=== PATIENT | male | born 1970 | race Caucasian/White ===

== ENCOUNTER 2021-11-16 18:57 | Inpatient (IN) ==
--- NOTE | 2021-11-16 19:05 | Emergency Department Note ---
History of Present Illness General Chief complaint: Stroke/CVA Symptoms Source: patient and EMS Mode of arrival: EMS Limitations: physical limitation History of Present Illness Provider complaint: possible stroke This is a 51-year-old male brought in by EMS due to concern for possible stroke. While attending a horse show at 6:25 PM patient had the sudden onset of right- sided weakness and facial droop and apparently fell to the ground per bystanders report to EMS. A check of the patient's blood sugar was normal. Given their concern for strokelike symptoms, they did call the emergency room prehospital and a stroke alert was activated. Upon arrival they went directly to CT. Patient does complain of a mild headache, and does have apparent slurred speech in addition. EMS also reports that patient does take Lovenox daily, his last dose was this morning. They do not know why he is anticoagulated. Pt seen during a time of high acuity and national emergency pandemic while wearing PPE. Home Medications Medication Instructions Recorded Confirmed Type amlodipine 5 mg tablet 5 mg PO DAILY 11/16/21 11/16/21 History empagliflozin 25 mg tablet 25 mg PO DAILY 11/16/21 11/16/21 History (Jardiance) enoxaparin 150 mg/mL subcutaneous 120 mg SUBCUT BID 11/16/21 11/16/21 History syringe insulin detemir U-100 100 unit/mL 20 unit SUBCUT DIRECTED 11/16/21 11/16/21 History (3 mL) subcutaneous pen (Levemir FlexTouch U-100 Insulin) levofloxacin 500 mg tablet 500 mg PO DIRECTED PRN 11/16/21 11/16/21 History morphine 15 mg immediate release 15 mg PO Q4 PRN 11/16/21 11/16/21 History tablet morphine 60 mg tablet,extended 60 mg PO Q12 11/16/21 11/16/21 History release pantoprazole 40 mg tablet,delayed 40 mg PO BID 11/16/21 11/16/21 History release paroxetine HCl 20 mg tablet 20 mg PO DAILY 11/16/21 11/16/21 History Allergies Allergy/AdvReac Type Severity Reaction Status Date / Time Penicillins Allergy Hives Verified 11/16/21 20:52 Contrast dye Allergy hives, Uncoded 11/16/21 20:52 fast heart rate Past Med/Surg History Medical History (Updated 11/17/21 @ 01:46 by Alberta Britt DO) Diabetes Hypertension Social History Smoking Status: Never smoker Preferred Language: Maori Feels Safe at Home: Yes Review of Systems See HPI for pertinent positives & negatives. All systems reviewed & are unremarkable except as noted in HPI & below Physical Exam Vital Signs Vital Signs - 24 hr 11/16/21 19:16 11/16/21 19:23 11/16/21 19:42 Temperature 37 C Temperature Source Oral Pulse Rate 59 L Pulse Rate [Apical] 56 L 54 L Pulse Rhythm [Apical] Respiratory Rate 20 18 16 Respiratory Effort / Characteristics Non-Labored Spontaneous Non-Labored Spontaneous Respiratory Depth Normal Normal Respiratory Pattern Blood Pressure 149/75 H Blood Pressure [Right Arm] 132/82 128/80 Blood Pressure Mean 99 Blood Pressure Mean [Right Arm] 98 96 Blood Pressure Position [Right Arm] Semi-fowlers Pulse Oximetry 96 94 94 Oxygen Delivery Method Room Air Room Air Room Air Sepsis Recent Fever Within 48 Hours No Sepsis New/Unexplained Change in Mental Status N/A Sepsis Action Taken by Nursing No Action Required 11/16/21 19:45 11/16/21 20:00 11/16/21 20:15 Temperature Temperature Source Pulse Rate Pulse Rate [Apical] 53 L 54 L 54 L Pulse Rhythm [Apical] Regular Regular Respiratory Rate 16 18 16 Respiratory Effort / Characteristics Non-Labored Spontaneous Non-Labored Spontaneous Respiratory Depth Normal Normal Respiratory Pattern Regular Regular Blood Pressure Blood Pressure [Right Arm] 129/84 118/83 127/79 Blood Pressure Mean Blood Pressure Mean [Right Arm] 99 94 95 Blood Pressure Position [Right Arm] Semi-fowlers Semi-fowlers Pulse Oximetry 96 93 92 Oxygen Delivery Method Room Air Room Air Room Air Sepsis Recent Fever Within 48 Hours Sepsis New/Unexplained Change in Mental Status Sepsis Action Taken by Nursing 11/16/21 20:29 11/16/21 22:06 11/16/21 22:15 Temperature Temperature Source Pulse Rate Pulse Rate [Apical] 54 L 53 L 52 L Pulse Rhythm [Apical] Regular Respiratory Rate 12 18 16 Respiratory Effort / Characteristics Non-Labored Non-Labored Spontaneous Non-Labored Spontaneous Respiratory Depth Normal Normal Normal Respiratory Pattern Blood Pressure Blood Pressure [Right Arm] 113/77 126/66 114/71 Blood Pressure Mean Blood Pressure Mean [Right Arm] 89 86 85 Blood Pressure Position [Right Arm] Semi-fowlers Left Lateral Pulse Oximetry 93 96 94 Oxygen Delivery Method Room Air Room Air Room Air Sepsis Recent Fever Within 48 Hours Sepsis New/Unexplained Change in Mental Status Sepsis Action Taken by Nursing GENERAL: alert, well appearing, well nourished, no distress, non-toxic EYE EXAM: normal conjunctiva, PERRL and EOM's grossly intact, no nystagmus, no gaze deviation OROPHARYNX: no exudate, no erythema, lips, buccal mucosa, and tongue normal and mucous membranes are moist NECK: supple, no nuchal rigidity, no adenopathy, non-tender LUNGS: Clear to auscultation. Normal chest wall mechanics, no w/r/r HEART: no murmurs, S1 normal and S2 normal ABDOMEN: abdomen soft, non-tender, normo-active bowel sounds, no masses, no rebound or guarding. BACK: Back is symmetrical on inspection and there is no deformity, no midline tenderness, no CVA tenderness. SKIN: no rashes and no bruising UPPER EXTREMITIES: upper extremities are grossly normal. nml pulses b/l. RUE with decreased strength compared to LUE. LOWER EXTREMITIES: No pitting edema. nml pulses b/l. RLE weakness, pain with ROM testing. NEURO EXAM: Normal sensorium, cranial nerves II-XII grossly intact, slurred speech noted, right-sided facial droop, strength 3/5 right upper extremity comparison to left which is 5/5, right lower extremity weak also compared to left, mild right upper extremity ataxia, sensation intact; NIHSS 9 Course Course 1909: Discussed with Dr. Carbone [facility]. 1914: Discussed with pt's , [place]. [phone]. 1919: Dr. Carbone reviewing the patient at bedside. 1944: Discussed with Dr. Carbone. Patient is not a candidate for TNKase given his Lovenox use. They do not believe he is a candidate for intervention as well given his IV dye allergy and they do not believe this is a proximal MCA lesion. They are requesting MRA without contrast of the head and neck as soon as possible. 2218: Discussed with Dr. Carbone again. Recommends continuing lovenox therapy and initiation of ASA therapy. 2225: Updated pt's again. Has had DVT's. Does have IVF filter. Administered Medications Discontinued Medications Aspirin (Aspirin Chew 324 Mg) 324 mg PO NOW STA Stop: 11/16/21 22:23 Last Admin: 11/16/21 23:21 Dose: Not Given Documented by: [id number] Aspirin (Aspirin 300 Mg Supp) 300 mg IL ONE ONE Stop: 11/16/21 22:38 Last Admin: 11/16/21 23:20 Dose: 300 mg Documented by: [id number] Morphine Sulfate (Morphine Sulfate 4 Mg/Ml 1 Ml Carp\Vial) 4 mg IV NOW STA Stop: 11/16/21 20:01 Last Admin: 11/16/21 20:07 Dose: 4 mg Documented by: [id number] Morphine Sulfate (Morphine Sulfate 4 Mg/Ml 1 Ml Carp\Vial) 4 mg IV NOW STA Stop: 11/16/21 22:11 Last Admin: 11/16/21 22:15 Dose: 4 mg Documented by: [id number] Critical Care Time Critical Care Time: Yes Total Critical Care Time: 65 Critical care of 65 min performed to assess and manage high likelihood of life- threatening CVA, involving labs and imaging performed with assessment to evaluate cva diagnosis with frequent reassessment. This time includes bedside time, treatment discussions with patient/family/consultants, documentation time and excludes procedure time. Medical Decision Making Differential Diagnosis Differential Diagnosis includes but is not limited to ischemic Stroke, hemorrha gic stroke, bells palsy, mass, neoplasm, migraine headache, seizure, subarachnoid hemorrhage, TIA, and transient global amnesia. Laboratory Data Result diagrams: 11/16/21 19:10 11/16/21 19:10 Lab Results 11/16/21 11/16/21 11/16/21 Range/Units 19:09 19:10 19:10 WBC 10.90 H (4.8-10.8) K/uL RBC 4.90 (4.7-6.1) M/uL Hgb 13.5 L (14.0-18.0) g/dL Hct 41.2 L (42-52) % MCV 84.1 (80-100) fL MCH 27.6 (25-34) pg MCHC 32.8 (32-36) g/dL RDW Std Deviation 52.2 H (36.4-46.3) fL RDW Coeff of Osbaldo 16.8 H (11.5-14.5) % Plt Count 322 (130-400) K/uL MPV 11.2 H (7.4-10.4) fL Immature Gran % (Auto) 0.3 % Neut % (Auto) 44.7 % Lymph % (Auto) 36.7 % [place] % (Auto) 10.6 % Eos % (Auto) 6.8 % Baso % (Auto) 0.9 % Neut # (Auto) 4.87 (1.4-6.5) K/uL Lymph # (Auto) 4.00 H (1.2-3.4) K/uL [place] # (Auto) 1.16 H (0.11-0.59) K/uL Eos # (Auto) 0.74 H (0-0.5) K/uL Baso # (Auto) 0.10 (0-0.2) K/uL Immature Gran # (Auto) 0.03 H (0.00-0.02) K/uL PT 10.9 (9.0-12.0) Seconds INR 1.0 (0.9-1.1) APTT 30.8 (21.0-31.0) Seconds PTT Ratio 1.1 Sodium (136-145) mmol/L Potassium (3.5-5.1) mmol/L Chloride (98-107) mmol/L Carbon Dioxide (21-32) mmol/L Anion Gap (3-11) BUN (6-23) mg/dl Creatinine (0.6-1.4) mg/dl Est Cr Clr Drug Dosing ml/min Est GFR ( Amer) ml/min Est GFR (Non-Af Amer) ml/min BUN/Creatinine Ratio (10-20) Glucose (70-99(Fasting)) mg/dl POC Glucose 222 H (70-99) mg/dl Calcium (8.5-10.1) mg/dl Magnesium (1.7-2.4) mg/dl Total Bilirubin (0.2-1.0) mg/dl AST (13-39) U/L ALT (7-52) U/L Alkaline Phosphatase (34-104) U/L Troponin I High Sens (0-20) pg/ml Total Protein (6.0-8.3) gm/dl Albumin (3.4-5.0) gm/dl Globulin (2.5-4.0) gm/dl Albumin/Globulin Ratio (0.9-2) SARS-CoV-2, RNA, NAAT (NEGATIVE) 11/16/21 11/16/21 Range/Units 19:10 19:57 WBC (4.8-10.8) K/uL RBC (4.7-6.1) M/uL Hgb (14.0-18.0) g/dL Hct (42-52) % MCV (80-100) fL MCH (25-34) pg MCHC (32-36) g/dL RDW Std Deviation (36.4-46.3) fL RDW Coeff of Osbaldo (11.5-14.5) % Plt Count (130-400) K/uL MPV (7.4-10.4) fL Immature Gran % (Auto) % Neut % (Auto) % Lymph % (Auto) % [place] % (Auto) % Eos % (Auto) % Baso % (Auto) % Neut # (Auto) (1.4-6.5) K/uL Lymph # (Auto) (1.2-3.4) K/uL [place] # (Auto) (0.11-0.59) K/uL Eos # (Auto) (0-0.5) K/uL Baso # (Auto) (0-0.2) K/uL Immature Gran # (Auto) (0.00-0.02) K/uL PT (9.0-12.0) Seconds INR (0.9-1.1) APTT (21.0-31.0) Seconds PTT Ratio Sodium 136 (136-145) mmol/L Potassium 3.5 (3.5-5.1) mmol/L Chloride 101 (98-107) mmol/L Carbon Dioxide 27 (21-32) mmol/L Anion Gap 8 (3-11) BUN 13 (6-23) mg/dl Creatinine 0.84 (0.6-1.4) mg/dl Est Cr Clr Drug Dosing 136.9 ml/min Est GFR ( Amer) 115.9 ml/min Est GFR (Non-Af Amer) 100.0 ml/min BUN/Creatinine Ratio 15.5 (10-20) Glucose 205 H (70-99(Fasting)) mg/dl POC Glucose (70-99) mg/dl Calcium 9.2 (8.5-10.1) mg/dl Magnesium 1.8 (1.7-2.4) mg/dl Total Bilirubin 0.4 (0.2-1.0) mg/dl AST 28 (13-39) U/L ALT 24 (7-52) U/L Alkaline Phosphatase 100 (34-104) U/L Troponin I High Sens 8.5 (0-20) pg/ml Total Protein 6.8 (6.0-8.3) gm/dl Albumin 3.9 (3.4-5.0) gm/dl Globulin 2.9 (2.5-4.0) gm/dl Albumin/Globulin Ratio 1.3 (0.9-2) SARS-CoV-2, RNA, NAAT NEGATIVE (NEGATIVE) Imaging Data Radiologist's Impression: Chest X-Ray 11/16/21 18:51 SINGLE VIEW CHEST CLINICAL HISTORY: Strokelike symptoms FINDINGS: An AP, portable, upright chest radiograph is obtained. No prior studies are available for comparison at the time of dictation. The heart appears enlarged. The pulmonary vasculature is noncongested. Atelectasis is noted at the lung bases. The lungs and pleural spaces are otherwise clear. No pneumothorax is seen. The bony thorax is grossly intact. IMPRESSION: Cardiomegaly with no acute cardiopulmonary abnormality. ACT 112: Negative or not required by law. Electronically signed by: Rad Eduardo M.D. 11/16/2021 8:[address] 11/16/21 18:51 CT SCAN OF THE BRAIN WITHOUT IV CONTRAST CLINICAL HISTORY: Strokelike symptoms. Change in mental status. Slurred speech. COMPARISON STUDY: No priors. TECHNIQUE: Unenhanced axial CT scan of the brain is performed from the vertex to the skull base. A dose lowering technique was utilized adhering to the principles of ALARA. CT DOSE: 614.27 mGy.cm FINDINGS: Brain parenchyma: There is minimal microangiopathic disease. No hemorrhage or mass effect is identified. Scott-white matter differentiation is preserved. No extra-axial fluid collection is seen. A chronic lacunar infarct is noted in the left basal ganglia. Ventricles, sulci, cisterns: Normal in configuration. Intracranial vasculature: The visualized intracranial vasculature at the skull base is normal in appearance. There is dolichoectasia of the basilar artery. There is focal hyperdensity within the distal right middle cerebral artery seen on image #12. Calvarium: Unremarkable. Sinuses and mastoids: The paranasal sinuses are clear. The mastoid air cells are well pneumatized. Orbits: The bony orbits are grossly intact. IMPRESSION: 1. There is no hemorrhage or mass effect. 2. There is focal hyperdensity within the distal right middle cerebral artery. This is nonspecific but could be seen with intraluminal thrombus in the setting of acute stroke. Clinical correlation will be essential. 3. Scott-white matter differentiation is maintained. ACT 112: Negative or not required by law. Electronically signed by: Rad Eduardo M.D. 11/16/2021 7:12 PM Head MRA 11/16/21 19:50 MR ANGIOGRAM OF THE BRAIN CLINICAL HISTORY: Slurred speech. Right upper extremity weakness. COMPARISON STUDY: CT of the brain performed the same day 11/16/2021. TECHNIQUE: 3-D [id number] MR angiography of the intracranial circulation is performed. 3-D tumble views are created and assessed. IV contrast was not administered for this examination. FINDINGS: The internal carotid arteries are widely patent bilaterally, as are the anterior and middle cerebral arteries. There is dolichoectasia of the basilar artery. The vertebrobasilar system is widely patent. The vertebral arteries are codominant. Apparently diminished flow within the posterior cerebral arteries is likely flow-related given basilar dolichoectasia. There is no aneurysm, high-grade stenosis, or focal vessel cutoff seen throughout the intracranial circulation. The brain parenchyma is normal as visualized. IMPRESSION: Unremarkable MR angiogram of the brain. There is no evidence of a right middle cerebral artery filling defect as questioned on the unenhanced CT of the brain. ACT 112: Negative or not required by law. Electronically signed by: Rad Eduardo M.D. 11/16/2021 9:33 PM Neck MRA 11/16/21 19:50 MR ANGIOGRAM OF THE NECK WITHOUT IV CONTRAST CLINICAL HISTORY: Slurred speech. Right upper extremity weakness. COMPARISON STUDY: No prior. TECHNIQUE: Axial 2-D and 3-D [id number] MR angiography of the neck is performed. IV contrast was not administered for this examination. 3-D reformats are created and assessed. All measurements were calculated based on NASCET criteria. FINDINGS: Visualized portions of the thoracic aorta are normal in caliber. The aortic arch demonstrates bovine variant anatomy. The subclavian arteries are widely patent bilaterally. The right common carotid artery is widely patent, as are the right internal and external carotid arteries. The left common carotid artery is widely patent, as are the left internal and external carotid arteries. There is tortuosity of the distal internal carotid arteries. The vertebral arteries are widely patent. The vertebral arteries are codominant. The visualized intracranial vessels at the skull base appear patent. There is dolichoectasia of the basilar artery. IMPRESSION: Unremarkable unenhanced MR angiogram of the neck. ACT 112: Negative or not required by law. Electronically signed by: Rad Eduardo M.D. 11/16/2021 9:42 PM Orbit X-Ray 11/16/21 20:19 BONY ORBITS 3 VIEWS CLINICAL HISTORY: MRI clearance. FINDINGS: 3 views of the bony orbits are obtained. No prior studies are available for comparison at the time of dictation. There is no radiodense/metallic foreign body seen in the region of the bony orbits. The bony orbits are intact as imaged. The visualized paranasal sinuses and the mastoid air cells appear clear. The imaged calvarium appears intact. IMPRESSION: There is no radiodense/metallic foreign body seen in the region of the bony orbits. ACT 112: Negative or not required by law. Electronically signed by: Rad Eduardo M.D. 11/16/2021 8:48 PM Brain MRI 11/16/21 21:35 MRI OF THE BRAIN WITHOUT IV CONTRAST CLINICAL HISTORY: Strokelike symptoms. Slurred speech and right arm weakness. COMPARISON STUDY: CT of the brain performed the same day 11/16/2021. TECHNIQUE: MRI of the brain was performed utilizing various T1 and T2-weighted sequences in the axial, sagittal, and coronal planes. IV contrast was not administered for this examination. FINDINGS: Brain parenchyma: There is a 1.6 cm focus of restricted diffusion identified in the left thalamus/internal capsule consistent with acute to subacute lacunar infarct. No additional foci of restricted diffusion are identified. There is no hemorrhage or mass effect. No extra-axial fluid collection is seen. The ce rebellar tonsils are normal in configuration. Ventricles, sulci, and cisterns: Normal in configuration. There is dolichoectasia of the basilar artery. Pituitary and sella: Unremarkable. Intracranial vasculature: Normal flow voids are maintained at the skull base. Orbits: The bony orbits are grossly intact. Orbital contents are normal in appearance. Sinuses and mastoids: Clear. Calvarium: Unremarkable. Cervical cord: Partially visualized cervical spinal cord is normal in morphology and signal intensity. IMPRESSION: 1. There is an acute to subacute lacunar infarct centered in the left thalamus/internal capsule as above. 2. No additional foci of acute ischemia are identified. 3. There is no hemorrhage or mass effect. ACT 112: Negative or not required by law. Electronically signed by: Rad Eduardo M.D. 11/16/2021 10:09 PM MDM Narrative This is a 51-year-old male who presents via EMS as a stroke alert. Patient immediately taken to CT, angiography not performed due to patient's reported IV dye allergy which she reported as swelling and trouble breathing. Case discussed with Dr. Smith, [facility] who evaluated the patient also. Given concern for daily anticoagulation with Lovenox, patient not a TNKase candidate. Per Dr. Smith's request, patient sent for additional MR imaging. Case again discussed with Dr. Smith. Patient's updated via the phone several times that she is out of the area. Patient reassessed multiple times and had no other evolving or worsening symptoms. Patient was given morphine for pain as he does take morphine orally at home chronically. Patient remained hemodynamically stable. At this time per Dr. Smith, patient not a candidate for TNKase, not a candidate for any additional intervention or therapeutic procedure. Case discussed with hospitalist for additional evaluation and management. An order was placed for continuous cardiac monitoring. The monitor shows a rate of _50_ with _normal sinus__ rhythm. Impression & Plan Cerebrovascular accident, Hypertension, Acute right-sided weakness, Hyperglycemia, Chronic anticoagulation Discharge Plan Visit Data Chief Complaint: Stroke/CVA Symptoms ED Provider: Alberta Britt Discharge Problem: Cerebrovascular accident, Hypertension, Acute right-sided weakness, Hyperglycemia, Chronic anticoagulation Patient Disposition: Admitted As Inpatient Discharge Instructions Interventions: ED Discharge Assessment Last Done: 11/17/21 01:08 Forms Stand Alone Forms: My [facility] Prescriptions Prescriptions: No Action amlodipine 5 mg tablet 5 mg PO DAILY RF: 0 morphine 60 mg tablet extended release 60 mg PO Q12 RF: 0 paroxetine HCl 20 mg tablet 20 mg PO DAILY RF: 0 pantoprazole 40 mg tablet,delayed release (DR/EC) 40 mg PO BID RF: 0 enoxaparin 150 mg/mL syringe 120 mg subcut BID RF: 0 levofloxacin 500 mg tablet 500 mg PO DIRECTED PRN (Reason: .If starts running fever) RF: 0 morphine 15 mg tablet 15 mg PO Q4 PRN (Reason: Pain) RF: 0 Levemir FlexTouch U-100 Insuln 100 unit/mL (3 mL) insulin pen 20 unit SUBCUT DIRECTED RF: 0 Jardiance 25 mg tablet 25 mg PO DAILY RF: 0 Referrals Referrals: PCP,NO [Primary Care Provider] - Discharge Problem: Cerebrovascular accident Qualifiers: CVA mechanism: unspecified Qualified Code(s): I63.9 - Cerebral infarction, unspecified Hypertension Qualifiers: Hypertension type: primary hypertension Qualified Code(s): I10 - Essential (primary) hypertension
--- NOTE | 2021-11-16 19:14 | CT Scan Report ---
CT SCAN OF THE BRAIN WITHOUT IV CONTRAST CLINICAL HISTORY: Strokelike symptoms. Change in mental status. Slurred speech. COMPARISON STUDY: No priors. TECHNIQUE: Unenhanced axial CT scan of the brain is performed from the vertex to the skull base. A d ose lowering technique was utilized adhering to the principles of ALARA. CT DOSE: 614.27 mGy.cm FINDINGS: Brain parenchyma: There is minimal microangiopathic disease. No hemorrhage or mass effect is identifi ed. Scott-white matter differentiation is preserved. No extra-axial fluid collection is seen. A chroni c lacunar infarct is noted in the left basal ganglia. Ventricles, sulci, cisterns: Normal in configuration. Intracranial vasculature: The visualized intracranial vasculature at the skull base is normal in appe arance. There is dolichoectasia of the basilar artery. There is focal hyperdensity within the distal right middle cerebral artery seen on image #12. Calvarium: Unremarkable. Sinuses and mastoids: The paranasal sinuses are clear. The mastoid air cells are well pneumatized. Orbits: The bony orbits are grossly intact. IMPRESSION: 1. There is no hemorrhage or mass effect. 2. There is focal hyperdensity within the distal right middle cerebral artery. This is nonspecific bu t could be seen with intraluminal thrombus in the setting of acute stroke. Clinical correlation will be essential. 3. Scott-white matter differentiation is maintained. ACT 112: Negative or not required by law. Electronically signed by: Rad Eduardo M.D. 11/16/2021 7:12 PM
[2021-11-16 19:29] LABS: Basophils % (auto) 0.9 %; Eosinophils # (auto) 0.74 K/uL (0-0.5); Eosinophils % (auto) 6.8 %; Hematocrit (blood only) 41.2 % (42-52); Hemoglobin 13.5 g/dL (14.0-18.0); Immature Granulocytes # (auto) 0.03 K/uL (0.00-0.02); Immature Granulocytes % (auto) 0.3 %; Lymphocytes % (auto) 36.7 %; Mean Corpuscular Hemoglobin 27.6 pg (25-34); Mean Corpuscular Hgb Conc 32.8 g/dL (32-36); Mean Corpuscular Volume 84.1 fL (80-100); Mean Platelet Volume 11.2 fL (7.4-10.4); Monocytes # (auto) 1.16 K/uL (0.11-0.59); Monocytes % (auto) 10.6 %; Neutrophils # (auto) 4.87 K/uL (1.4-6.5); Neutrophils % (auto) 44.7 %; Platelet Count 322 K/uL (130-400); RDW Coefficient of Variation 16.8 % (11.5-14.5); RDW Standard Deviation 52.2 fL (36.4-46.3)
[2021-11-16 19:45] LABS: Partial Thromboplastin Ratio 1.1; Partial Thromboplastin Time 30.8 Seconds (21.0-31.0); Prothrombin Time 10.9 Seconds (9.0-12.0)
[2021-11-16 20:00] LABS: Albumin Globulin Ratio 1.3 (0.9-2); Albumin Level 3.9 gm/dl (3.4-5.0); BUN Creatinine Ratio 15.5 (10-20); Bilirubin,Total 0.4 mg/dl (0.2-1.0); Calcium 9.2 mg/dl (8.5-10.1); Creatinine Clr Calc Pharmacy 136.9 ml/min; Est GFR (African American) 115.9 ml/min; Globulin 2.9 gm/dl (2.5-4.0); Magnesium 1.8 mg/dl (1.7-2.4); Potassium 3.5 mmol/L (3.5-5.1); Total Protein 6.8 gm/dl (6.0-8.3); Troponin I High Sensitivity 8.5 pg/ml (0-20)
[2021-11-16] MEDS ORDERED: MoRPHine SULFATE 4 MG/ML 1 ML CARP\\VIAL IV STA ×2 (20:00→22:10)
--- NOTE | 2021-11-16 20:50 | XRay Report ---
BONY ORBITS 3 VIEWS CLINICAL HISTORY: MRI clearance. FINDINGS: 3 views of the bony orbits are obtained. No prior studies are available for comparison at t he time of dictation. There is no radiodense/metallic foreign body seen in the region of the bony orb its. The bony orbits are intact as imaged. The visualized paranasal sinuses and the mastoid air cells appear clear. The imaged calvarium appears intact. IMPRESSION: There is no radiodense/metallic foreign body seen in the region of the bony orbits. ACT 112: Negative or not required by law. Electronically signed by: Rad Eduardo M.D. 11/16/2021 8:48 PM
--- NOTE | 2021-11-16 20:56 | XRay Report ---
SINGLE VIEW CHEST CLINICAL HISTORY: Strokelike symptoms FINDINGS: An AP, portable, upright chest radiograph is obtained. No prior studies are available for c omparison at the time of dictation. The heart appears enlarged. The pulmonary vasculature is noncong ested. Atelectasis is noted at the lung bases. The lungs and pleural spaces are otherwise clear. No p neumothorax is seen. The bony thorax is grossly intact. IMPRESSION: Cardiomegaly with no acute cardiopulmonary abnormality. ACT 112: Negative or not required by law. Electronically signed by: Rad Eduardo M.D. 11/16/2021 8:55 PM
--- NOTE | 2021-11-16 21:36 | Magnetic Resonance Report ---
MR ANGIOGRAM OF THE BRAIN CLINICAL HISTORY: Slurred speech. Right upper extremity weakness. COMPARISON STUDY: CT of the brain performed the same day 11/16/2021. TECHNIQUE: 3-D [id number] MR angiography of the intracranial circulation is performed. 3-D tumble views are created and assessed. IV contrast was not administered for this examination. FINDINGS: The internal carotid arteries are widely patent bilaterally, as are the anterior and middle cerebral arteries. There is dolichoectasia of the basilar artery. The vertebrobasilar system is wide ly patent. The vertebral arteries are codominant. Apparently diminished flow within the posterior cer ebral arteries is likely flow-related given basilar dolichoectasia. There is no aneurysm, high-grade stenosis, or focal vessel cutoff seen throughout the intracranial circulation. The brain parenchyma i s normal as visualized. IMPRESSION: Unremarkable MR angiogram of the brain. There is no evidence of a right middle cerebral a rtery filling defect as questioned on the unenhanced CT of the brain. ACT 112: Negative or not required by law. Electronically signed by: Rad Eduardo M.D. 11/16/2021 9:33 PM
--- NOTE | 2021-11-16 21:43 | Magnetic Resonance Report ---
MR ANGIOGRAM OF THE NECK WITHOUT IV CONTRAST CLINICAL HISTORY: Slurred speech. Right upper extremity weakness. COMPARISON STUDY: No prior. TECHNIQUE: Axial 2-D and 3-D [id number] MR angiography of the neck is performed. IV contrast was not administered for this examination. 3-D reformats are created and assessed. All measurements were calculated based on NASCET criteria. FINDINGS: Visualized portions of the thoracic aorta are normal in caliber. The aortic arch demonstrat es bovine variant anatomy. The subclavian arteries are widely patent bilaterally. The right common ca rotid artery is widely patent, as are the right internal and external carotid arteries. The left comm on carotid artery is widely patent, as are the left internal and external carotid arteries. There is tortuosity of the distal internal carotid arteries. The vertebral arteries are widely patent. The elsie tebral arteries are codominant. The visualized intracranial vessels at the skull base appear patent. There is dolichoectasia of the basilar artery. IMPRESSION: Unremarkable unenhanced MR angiogram of the neck. ACT 112: Negative or not required by law. Electronically signed by: Rad Eduardo M.D. 11/16/2021 9:42 PM
--- NOTE | 2021-11-16 22:12 | Magnetic Resonance Report ---
MRI OF THE BRAIN WITHOUT IV CONTRAST CLINICAL HISTORY: Strokelike symptoms. Slurred speech and right arm weakness. COMPARISON STUDY: CT of the brain performed the same day 11/16/2021. TECHNIQUE: MRI of the brain was performed utilizing various T1 and T2-weighted sequences in the axial , sagittal, and coronal planes. IV contrast was not administered for this examination. FINDINGS: Brain parenchyma: There is a 1.6 cm focus of restricted diffusion identified in the left thalamus/int ernal capsule consistent with acute to subacute lacunar infarct. No additional foci of restricted dif fusion are identified. There is no hemorrhage or mass effect. No extra-axial fluid collection is see n. The cerebellar tonsils are normal in configuration. Ventricles, sulci, and cisterns: Normal in configuration. There is dolichoectasia of the basilar tal ry. Pituitary and sella: Unremarkable. Intracranial vasculature: Normal flow voids are maintained at the skull base. Orbits: The bony orbits are grossly intact. Orbital contents are normal in appearance. Sinuses and mastoids: Clear. Calvarium: Unremarkable. Cervical cord: Partially visualized cervical spinal cord is normal in morphology and signal intensity . IMPRESSION: 1. There is an acute to subacute lacunar infarct centered in the left thalamus/internal capsule as ab ove. 2. No additional foci of acute ischemia are identified. 3. There is no hemorrhage or mass effect. ACT 112: Negative or not required by law. Electronically signed by: Rad Eduardo M.D. 11/16/2021 10:09 PM
[2021-11-16] MEDS ORDERED: ASPIRIN CHEW 324 MG PO STA (22:22)
[2021-11-16] MEDS ORDERED: ASPIRIN 300 MG SUPP PR ONE (22:37)
--- NOTE | 2021-11-17 00:13 | History & Physical Report ---
Date of Service November 17, 2021 Assessment & Plan (1) Cerebrovascular accident: Plan: Acute to subacute infarct in left thalamus/internal capsule- Normal CT of head Normal MRI head and neck Findings noted on MRI of brain without contrast Case was discussed by the ED physician with stroke neurology from [place], who recommended no intervention, and acceptable to continue anticoagulation for previous DVT/PE Stroke without tPA order set Received ASA 300 mg per rectum. If unable to take oral aspirin in the morning, will need to have MT dose daily NPO Consult neurology (2) Acute right-sided weakness: Plan: Symptoms of CVA as noted (3) Diabetes: Plan: Hold Jardiance and insulin detemir Place on Accu-Cheks before meals and at bedtime with NovoLog coverage per scale Check hemoglobin A1c (4) Hypertension: Plan: Holding amlodipine due to n.p.o. status, and low normal blood pressure (5) History of DVT in adulthood: Plan: History DVT/PE/IVC filter- He has been continued on subcu Lovenox twice daily as outpatient (6) Hx pulmonary embolism: Plan: See above (7) GERD (gastroesophageal reflux disease): Plan: Change oral pantoprazole to famotidine IV (8) Chronic pain syndrome: Plan: Holding oral medications while n.p.o. (9) Presence of IVC filter: Plan: See above (10) Depression: Plan: Holding paroxetine while n.p.o. (11) Chronic anticoagulation: Plan: Continuing Lovenox subcutaneously as noted above History of Present Illness Chief Complaint: The patient was brought to the emergency department via EMS due to symptoms of sudden onset of right-sided weakness, and facial droop, and had fallen to the ground while attending a horse show at 6:25 PM Primary Care Provider: NO PCP The patient is a 51-year-old male with past medical history including hypertension, diabetes mellitus, chronic pain syndrome, GERD, depression, DVT, PE and presence of IVC filter. He presents with symptoms as noted above. He was assessed as a stroke alert by the ED. CT scan of the head questioned a possible focal hyperdensity within the distal right middle cerebral artery, that was not confirmed on MRA. Both MRA of head and MRA of neck were negative. MRI brain showed an acute to subacute infarct in the left thalamus and internal capsule region. The patient had received morphine IV by the time of my assessment, and was lethargic and unable to contribute to his HPI or review of systems, information was gathered from the emergency department and the conversations with family and EMS. Allergies Allergy/AdvReac Type Severity Reaction Status Date / Time Penicillins Allergy Hives Verified 11/16/21 20:52 Contrast dye Allergy hives, Uncoded 11/16/21 20:52 fast heart rate Home Medications Medication Instructions Recorded Confirmed Type amlodipine 5 mg tablet 5 mg PO DAILY 11/16/21 11/16/21 History empagliflozin 25 mg tablet 25 mg PO DAILY 11/16/21 11/16/21 History (Jardiance) enoxaparin 150 mg/mL subcutaneous 120 mg SUBCUT BID 11/16/21 11/16/21 History syringe insulin detemir U-100 100 unit/mL 20 unit SUBCUT DIRECTED 11/16/21 11/16/21 History (3 mL) subcutaneous pen (Levemir FlexTouch U-100 Insulin) levofloxacin 500 mg tablet 500 mg PO DIRECTED PRN 11/16/21 11/16/21 History morphine 15 mg immediate release 15 mg PO Q4 PRN 11/16/21 11/16/21 History tablet morphine 60 mg tablet,extended 60 mg PO Q12 11/16/21 11/16/21 History release pantoprazole 40 mg tablet,delayed 40 mg PO BID 11/16/21 11/16/21 History release paroxetine HCl 20 mg tablet 20 mg PO DAILY 11/16/21 11/16/21 History Past Med/Surg History Medical History (Updated 11/17/21 @ 04:59 by Bne Bruce MD) Chronic pain syndrome Depression Diabetes GERD (gastroesophageal reflux disease) History of DVT in adulthood Hx pulmonary embolism Hypertension Presence of IVC filter Social History Smoking Status: Never smoker Second Hand Exposure: No; Do You Dip or Chew Tobacco: No; Tobacco Cessation Education Requested by Patient: No Hx Alcohol Use: No Hx Substance Use: No Preferred Language: Turkish Communication Ability: Impaired Communication Ability Comment: speech slow and slurred at this time d/t cva Call Or Contact Centre Operator Required: No Beliefs That Will Affect Care: None Current Living Situation: Spouse Other Information That Helps Us Care for You: No Feels Safe at Home: Yes Safety Concerns: Feels Safe At This Time Assistive Devices: None Review of Systems Review of Systems: Unobtainable as noted above Physical Exam Physical Exam: The patient is lethargic and briefly arousable, but then returns to sleep. Developed and well nourished, normocephalic and atraumatic, lying in bed and in no acute distress. HEENT--PERRL, EOMI, mucous membranes and oropharynx normal. Neck--supple. No JVD. No bruits. Thyroid normal, trachea midline, no adenopathy. Heart--normal S1 and S2. No murmurs, rubs or gallops. Lungs--clear bilaterally, no respiratory distress, no accessory muscle use. Abdomen--normal bowel sounds and soft. Nontender. Nondistended. Obese Extremities--no cyanosis or clubbing. No edema. Dermatologic--normal skin turgor, normal color, no abnormal lymph nodes, no rash. Neurologic--cranial nerves II through XII grossly intact. Rheumatologic--limited exam due to lethargy. Psychiatric--lethargic for some Estrace to morphine Results & Data Results & Data ([facility]) Vital Signs (Past 12 Hours) Vital Signs Temp Pulse Pulse Resp BP BP Pulse Ox 11/16/21 22:15 52 L 16 114/71 94 11/16/21 22:06 53 L 18 126/66 96 11/16/21 20:29 54 L 12 113/77 93 11/16/21 20:15 54 L 16 127/79 92 11/16/21 20:00 54 L 18 118/83 93 11/16/21 19:45 53 L 16 129/84 96 11/16/21 19:42 54 L 16 128/80 94 11/16/21 19:23 56 L 18 132/82 94 11/16/21 19:16 37 C 59 L 20 149/75 H 96 Laboratory Results Laboratory Results WBC 10.90 K/uL (4.8-10.8) H 11/16/21 19:10 RBC 4.90 M/uL (4.7-6.1) 11/16/21 19:10 Hgb 13.5 g/dL (14.0-18.0) L 11/16/21 19:10 Hct 41.2 % (42-52) L 11/16/21 19:10 MCV 84.1 fL (80-100) 11/16/21 19:10 MCH 27.6 pg (25-34) 11/16/21 19:10 MCHC 32.8 g/dL (32-36) 11/16/21 19:10 RDW Std Deviation 52.2 fL (36.4-46.3) H 11/16/21 19:10 RDW Coeff of Osbaldo 16.8 % (11.5-14.5) H 11/16/21 19:10 Plt Count 322 K/uL (130-400) 11/16/21 19:10 MPV 11.2 fL (7.4-10.4) H 11/16/21 19:10 Immature Gran % (Auto) 0.3 % 11/16/21 19:10 Neut % (Auto) 44.7 % 11/16/21 19:10 Lymph % (Auto) 36.7 % 11/16/21 19:10 [place] % (Auto) 10.6 % 11/16/21 19:10 Eos % (Auto) 6.8 % 11/16/21 19:10 Baso % (Auto) 0.9 % 11/16/21 19:10 Neut # (Auto) 4.87 K/uL (1.4-6.5) 11/16/21 19:10 Lymph # (Auto) 4.00 K/uL (1.2-3.4) H 11/16/21 19:10 [place] # (Auto) 1.16 K/uL (0.11-0.59) H 11/16/21 19:10 Eos # (Auto) 0.74 K/uL (0-0.5) H 11/16/21 19:10 Baso # (Auto) 0.10 K/uL (0-0.2) 11/16/21 19:10 Immature Gran # (Auto) 0.03 K/uL (0.00-0.02) H 11/16/21 19:10 PT 10.9 Seconds (9.0-12.0) 11/16/21 19:10 INR 1.0 (0.9-1.1) 11/16/21 19:10 APTT 30.8 Seconds (21.0-31.0) 11/16/21 19:10 PTT Ratio 1.1 11/16/21 19:10 Sodium 136 mmol/L (136-145) 11/16/21 19:10 Potassium 3.5 mmol/L (3.5-5.1) 11/16/21 19:10 Chloride 101 mmol/L (98-107) 11/16/21 19:10 Carbon Dioxide 27 mmol/L (21-32) 11/16/21 19:10 Anion Gap 8 (3-11) 11/16/21 19:10 BUN 13 mg/dl (6-23) 11/16/21 19:10 Creatinine 0.84 mg/dl (0.6-1.4) 11/16/21 19:10 Est Cr Clr Drug Dosing 136.9 ml/min 11/16/21 19:10 Est GFR ( Amer) 115.9 ml/min 11/16/21 19:10 Est GFR (Non-Af Amer) 100.0 ml/min 11/16/21 19:10 BUN/Creatinine Ratio 15.5 (10-20) 11/16/21 19:10 Glucose 205 mg/dl (70-99(Fasting)) H 11/16/21 19:10 POC Glucose 222 mg/dl (70-99) H 11/16/21 19:09 Calcium 9.2 mg/dl (8.5-10.1) 11/16/21 19:10 Magnesium 1.8 mg/dl (1.7-2.4) 11/16/21 19:10 Total Bilirubin 0.4 mg/dl (0.2-1.0) 11/16/21 19:10 AST 28 U/L (13-39) 11/16/21 19:10 ALT 24 U/L (7-52) 11/16/21 19:10 Alkaline Phosphatase 100 U/L (34-104) 11/16/21 19:10 Troponin I High Sens 8.5 pg/ml (0-20) 11/16/21 19:10 Total Protein 6.8 gm/dl (6.0-8.3) 11/16/21 19:10 Albumin 3.9 gm/dl (3.4-5.0) 11/16/21 19:10 Globulin 2.9 gm/dl (2.5-4.0) 11/16/21 19:10 Albumin/Globulin Ratio 1.3 (0.9-2) 11/16/21 19:10 SARS-CoV-2, RNA, NAAT NEGATIVE (NEGATIVE) 11/16/21 19:57 Impressions Chest X-Ray 11/16/21 18:51 SINGLE VIEW CHEST CLINICAL HISTORY: Strokelike symptoms FINDINGS: An AP, portable, upright chest radiograph is obtained. No prior studies are available for comparison at the time of dictation. The heart appears enlarged. The pulmonary vasculature is noncongested. Atelectasis is noted at the lung bases. The lungs and pleural spaces are otherwise clear. No pneumothorax is seen. The bony thorax is grossly intact. IMPRESSION: Cardiomegaly with no acute cardiopulmonary abnormality. ACT 112: Negative or not required by law. Electronically signed by: Rad Eduardo M.D. 11/16/2021 8:[address] 11/16/21 18:51 CT SCAN OF THE BRAIN WITHOUT IV CONTRAST CLINICAL HISTORY: Strokelike symptoms. Change in mental status. Slurred speech. COMPARISON STUDY: No priors. TECHNIQUE: Unenhanced axial CT scan of the brain is performed from the vertex to the skull base. A dose lowering technique was utilized adhering to the pr inciples of MARICEL. CT DOSE: 614.27 mGy.cm FINDINGS: Brain parenchyma: There is minimal microangiopathic disease. No hemorrhage or mass effect is identified. Scott-white matter differentiation is preserved. No extra-axial fluid collection is seen. A chronic lacunar infarct is noted in the left basal ganglia. Ventricles, sulci, cisterns: Normal in configuration. Intracranial vasculature: The visualized intracranial vasculature at the skull base is normal in appearance. There is dolichoectasia of the basilar artery. There is focal hyperdensity within the distal right middle cerebral artery seen on image #12. Calvarium: Unremarkable. Sinuses and mastoids: The paranasal sinuses are clear. The mastoid air cells are well pneumatized. Orbits: The bony orbits are grossly intact. IMPRESSION: 1. There is no hemorrhage or mass effect. 2. There is focal hyperdensity within the distal right middle cerebral artery. This is nonspecific but could be seen with intraluminal thrombus in the setting of acute stroke. Clinical correlation will be essential. 3. Scott-white matter differentiation is maintained. ACT 112: Negative or not required by law. Electronically signed by: Rad Eduardo M.D. 11/16/2021 7:12 PM Head MRA 11/16/21 19:50 MR ANGIOGRAM OF THE BRAIN CLINICAL HISTORY: Slurred speech. Right upper extremity weakness. COMPARISON STUDY: CT of the brain performed the same day 11/16/2021. TECHNIQUE: 3-D [id number] MR angiography of the intracranial circulation is performed. 3-D tumble views are created and assessed. IV contrast was not administered for this examination. FINDINGS: The internal carotid arteries are widely patent bilaterally, as are the anterior and middle cerebral arteries. There is dolichoectasia of the basilar artery. The vertebrobasilar system is widely patent. The vertebral arteries are codominant. Apparently diminished flow within the posterior cerebral arteries is likely flow-related given basilar dolichoectasia. There is no aneurysm, high-grade stenosis, or focal vessel cutoff seen throughout the intracranial circulation. The brain parenchyma is normal as visualized. IMPRESSION: Unremarkable MR angiogram of the brain. There is no evidence of a right middle cerebral artery filling defect as questioned on the unenhanced CT of the brain. ACT 112: Negative or not required by law. Electronically signed by: Rad Eduardo M.D. 11/16/2021 9:33 PM Neck MRA 11/16/21 19:50 MR ANGIOGRAM OF THE NECK WITHOUT IV CONTRAST CLINICAL HISTORY: Slurred speech. Right upper extremity weakness. COMPARISON STUDY: No prior. TECHNIQUE: Axial 2-D and 3-D [id number] MR angiography of the neck is performed. IV contrast was not administered for this examination. 3-D reformats are created and assessed. All measurements were calculated based on NASCET criteria. FINDINGS: Visualized portions of the thoracic aorta are normal in caliber. The a ortic arch demonstrates bovine variant anatomy. The subclavian arteries are widely patent bilaterally. The right common carotid artery is widely patent, as are the right internal and external carotid arteries. The left common carotid artery is widely patent, as are the left internal and external carotid arteries. There is tortuosity of the distal internal carotid arteries. The vertebral arteries are widely patent. The vertebral arteries are codominant. The visualized intracranial vessels at the skull base appear patent. There is dolichoectasia of the basilar artery. IMPRESSION: Unremarkable unenhanced MR angiogram of the neck. ACT 112: Negative or not required by law. Electronically signed by: Rad Eduardo M.D. 11/16/2021 9:42 PM Orbit X-Ray 11/16/21 20:19 BONY ORBITS 3 VIEWS CLINICAL HISTORY: MRI clearance. FINDINGS: 3 views of the bony orbits are obtained. No prior studies are available for comparison at the time of dictation. There is no radiodense/metallic foreign body seen in the region of the bony orbits. The bony orbits are intact as imaged. The visualized paranasal sinuses and the mastoid air cells appear clear. The imaged calvarium appears intact. IMPRESSION: There is no radiodense/metallic foreign body seen in the region of the bony orbits. ACT 112: Negative or not required by law. Electronically signed by: Rad Eduardo M.D. 11/16/2021 8:48 PM Brain MRI 11/16/21 21:35 MRI OF THE BRAIN WITHOUT IV CONTRAST CLINICAL HISTORY: Strokelike symptoms. Slurred speech and right arm weakness. COMPARISON STUDY: CT of the brain performed the same day 11/16/2021. TECHNIQUE: MRI of the brain was performed utilizing various T1 and T2-weighted sequences in the axial, sagittal, and coronal planes. IV contrast was not administered for this examination. FINDINGS: Brain parenchyma: There is a 1.6 cm focus of restricted diffusion identified in the left thalamus/internal capsule consistent with acute to subacute lacunar infarct. No additional foci of restricted diffusion are identified. There is no hemorrhage or mass effect. No extra-axial fluid collection is seen. The ce rebellar tonsils are normal in configuration. Ventricles, sulci, and cisterns: Normal in configuration. There is dolichoectasia of the basilar artery. Pituitary and sella: Unremarkable. Intracranial vasculature: Normal flow voids are maintained at the skull base. Orbits: The bony orbits are grossly intact. Orbital contents are normal in appearance. Sinuses and mastoids: Clear. Calvarium: Unremarkable. Cervical cord: Partially visualized cervical spinal cord is normal in morphology and signal intensity. IMPRESSION: 1. There is an acute to subacute lacunar infarct centered in the left thalamus/internal capsule as above. 2. No additional foci of acute ischemia are identified. 3. There is no hemorrhage or mass effect. ACT 112: Negative or not required by law. Electronically signed by: Rad Eduardo M.D. 11/16/2021 10:09 PM Code Status & VTE Plan Code Status Full code VTE Prophylaxis Plan VTE Prophylaxis will be ordered: Yes PG Care Time/CCT Total # of Minutes Spent Total Time Spent with Patient: Total time spent is greater than 50% in coordination of care (as documented) at patient's floor/unit and/or counseling patient: Coding Level of Care Code 24523 Initial Inpt Care Lvl 3 Diagnoses Cerebrovascular accident I63.9 CVA mechanism: unspecified Acute right-sided weakness R53.1 Diabetes E11.9 Hypertension I10 Hypertension type: primary hypertension History of DVT in adulthood Z86.718 Hx pulmonary embolism Z86.711 GERD (gastroesophageal reflux disease) K21.9 Chronic pain syndrome G89.4 Presence of IVC filter Z95.828 Depression F32.A Chronic anticoagulation Z79.01 (1) Cerebrovascular accident CVA mechanism: unspecified Qualified Code(s): I63.9 - Cerebral infarction, unspecified (2) Hypertension Hypertension type: primary hypertension Qualified Code(s): I10 - Essential (primary) hypertension
[2021-11-17] MEDS ORDERED: GLUCOSE 10 TABS/TUBE PO PRN (02:19)
[2021-11-17] MEDS ORDERED: PHARMACIST DISCHARGE MED REC CONSULT PRN (02:19)
[2021-11-17] MEDS ORDERED: ONDANSETRON INJ 2 MG/ML 2 ML VIAL IV PRN (02:19)
[2021-11-17] MEDS ORDERED: GLUCOSE 40% GEL 15 GM TUBE PO PRN (02:19)
[2021-11-17] MEDS ORDERED: DEXTROSE 50% 50 ML SYRINGE IV PRN (02:19)
[2021-11-17] MEDS ORDERED: GLUCAGON FOR INJ 1 MG VIAL SQ PRN (02:19)
[2021-11-17] MEDS ORDERED: CARBOHYDRATES FOR HYPOGLYCEMIA PO PRN (02:19)
[2021-11-17] MEDS ORDERED: ENOXAPARIN 150 MG/ML SYR SQ ONE (03:00)
[2021-11-17 08:42] LABS: Basophils # (auto) 0.08 K/uL (0-0.2); Basophils % (auto) 0.8 %; Eosinophils # (auto) 0.49 K/uL (0-0.5); Eosinophils % (auto) 4.8 %; Hematocrit (blood only) 44.1 % (42-52); Hemoglobin 14.4 g/dL (14.0-18.0); Immature Granulocytes # (auto) 0.02 K/uL (0.00-0.02); Immature Granulocytes % (auto) 0.2 %; Lymphocytes # (auto) 3.25 K/uL (1.2-3.4); Lymphocytes % (auto) 31.7 %; Mean Corpuscular Hemoglobin 27.3 pg (25-34); Mean Corpuscular Hgb Conc 32.7 g/dL (32-36); Mean Corpuscular Volume 83.5 fL (80-100); Monocytes # (auto) 0.87 K/uL (0.11-0.59); Monocytes % (auto) 8.5 %; Neutrophils # (auto) 5.55 K/uL (1.4-6.5); Platelet Count 340 K/uL (130-400); RDW Coefficient of Variation 17.1 % (11.5-14.5); Red Blood Count 5.28 M/uL (4.7-6.1); White Blood Count 10.26 K/uL (4.8-10.8)
[2021-11-17] MEDS: INSULIN ASPART PER UNIT SC SCH ×4 (08:43→20:44)
[2021-11-17 08:48] LABS: Estimated Average Glucose 212 mg/dl
[2021-11-17 09:01] LABS: BUN Creatinine Ratio 18.1 (10-20); Calcium 9.4 mg/dl (8.5-10.1); Chol HDL Ratio 3.7 (0-5); Creatinine Clr Calc Pharmacy 157.7 ml/min; Est GFR (African American) 123.4 ml/min; Est GFR (Non-African American) 106.5 ml/min; Potassium 3.9 mmol/L (3.5-5.1)
[2021-11-17] MEDS ORDERED: ROSUVASTATIN CALCIUM 20 MG TAB PO SCH (09:45)
--- NOTE | 2021-11-17 09:47 | Hospitalist Progress Note ---
Date of Service November 17, 2021 Assessment & Plan (1) Cerebrovascular accident: Plan: Mr. 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 Brain imaging revealed evidence of left thalamic and internal capsule CVA. Drowsiness initially concerning for post-stroke hemorrhage and/or cerebral edema, however this improved throughout the day. Cerebrovascular accident: - Acute to subacute infarct in left thalamus/internal capsule noted on MRI - Head and Neck CTA normal. Echo was normal. - [place]estroke with [facility] recommended no intervention, as patient was anticoagulated on therapeutic lovenox (hx DVT/PE). He did receive ASA 300mg per rectum. - Neuro consulted --> etiology of stroke felt to be ischemia small vessel disease - high intensity statin ordered. Goal LDL < 70 - Will add anti-platelet therapy with ASA 81mg daily - PT/OT/Speech consulted - neuro checks q4 (2) Diabetes: - A1c well above goal at 9.0 - home regimen appears to consist of Jardiance and insulin detemir - unable to converse with patient to discuss how he is using his diabetes medicines - Accu-Cheks before meals and at bedtime with NovoLog coverage per scale. After 24 hours will add basal insulin dose - carb consistent diet - I would recommend his amlodipine be changed to ZAIDA/ARB for added benefit of renoprotection (3) Hypertension: - allowing for permissive HTN in setting of ischemia CVA. 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 - IV Tylenol ordered prn (9) Depression: - continue paroxetine Diet: Healthy, Carb consistent, minced and moist (per speech eval) DVT ppx: on Lovenox Code: Full Dispo: Med/tele Admission and Anticipated Discharge Date Admission Date: November 17, 2021 Supervising Physician Co-Signing Physician Notes I personally examined the patient and verified all prajapati points of history and exam, discussed case, and agree with decision making with Dr Starks up some, with assist. ongoing sleepiness but probably a bit better. ongoing dysarthria and R weakness. family present - answered all to the best of my ability and to their satisfaction vitals noted nad heent nc at mmm breathing unlabored no accessory muscles good effort R hemiparesis and dysarthria CVA - atherosclerotic - risks DM, lipids, HTN. statin, aspirin. extensive lifestyle education. ?IVC filter issue - son very concerned noted that they were told it moved. no s/s VTE/etc and therapeutically anticoagulated. will start w KUB ?location dispo - will need to be more alert then ?able to go home w outpt PT vs rehab (given that there are no rehab facilities near where he lives) ~1hr in the room ~3p-4p face to face Subjective Patient is extremely drowsy on exam - unable to stay awake long enough to answer questions Review of Systems Review of Systems: Unobtainable due to cognitive status Physical Exam Constitutional: + lethargic; no acute distress Eyes: + anicteric sclerae ENMT: external ear and nose normal, oropharynx normal Neck: normal visual inspection and trachea midline Respiratory: normal respiratory effort; no respiratory distress and no labored breathing Cardiovascular: RRR, no murmur, no edema Heart Sounds: normal S1 and normal S2 Gastrointestinal (Abdomen): normal bowel sounds, soft, nontender, no hepatosplenomegaly Musculoskeletal: Head/Neck/Chest: normocephalic and head atraumatic Skin: no rashes, warm and dry Neurologic: Speech / Cognition: + abnormal speech and + receptive aphasia Results & Data Results & Data ([facility]) Vital Signs (Past 12 Hours) Vital Signs Temp Pulse Pulse Resp BP Pulse Ox 11/17/21 08:11 37.0 C 56 L 18 117/72 97 11/17/21 03:29 36.7 C 48 L 10 L 119/82 96 11/17/21 03:10 52 L 11/17/21 02:00 36.9 C 48 L 12 125/76 99 11/16/21 22:15 52 L 16 114/71 94 11/16/21 22:06 53 L 18 126/66 96 Resident Activity Tracking Resident Involvement: Resident Care Provided Care Provided: Adult [facility] Medicine (1) Cerebrovascular accident CVA mechanism: unspecified Qualified Code(s): I63.9 - Cerebral infarction, unspecified
--- NOTE | 2021-11-17 10:11 | XCELERA ---
[id number] \\[id number]
--- NOTE | 2021-11-17 10:19 | Neurology Consultation ---
Date of Consultation November 17, 2021 Assessment & Plan (1) Cerebrovascular accident: (2) Acute right hemiparesis: (3) Dysarthria due to acute cerebellar cerebrovascular accident (CVA): (4) Diabetes: (5) Hypertension: this patient suffered an acute left thalamic/ internal capsule small ve ssel ischemic stroke on November 16, resulting in severe dysarthria and right face/arm > leg weakness. I do not believe the patient has a significant receptive aphasia although a component of motor aphasia cannot be excluded. There does not seem to be any visual field cut or love sensory deficit. The etiology of this stroke is likely small vessel ischemic disease secondary to his chronic diabetes and hypertension. MR angiography of the head and neck were otherwise unremarkable and showed no large vessel disease. He does not have any obvious cardiac issues although I note bradycardia since admission. Recommendations: 1. speech therapy to assess swallowing. 2. Awaiting echocardiogram results. 3. Patient would be a high dose statin candidate. 4. would add 81 mg aspirin to the Lovenox daily. Lovenox will not reduce the risk of small vessel ischemic disease. 5. Control blood pressure as you are doing, aiming for a mean arterial pressure of 95-100. 6. control glucose better trying to bring hemoglobin A1c closer to 7. Overall, I spent a total of 70 Ms. with this case including review of records, review of MRI films, direct evaluation the patient at bedside, and discussing the case with the patient and RN at bedside, and doctor Thal, including differential diagnosis and treatment options. History of Present Illness Reason for Consultation: Patient is a 51 year old, who i was asked to see at the requestOf Dr. Bruce, for neurologic consultation regarding stroke. Requesting Physician: Dr. Bruce Attending Physician: Jeffry Garcia DO History of Present Illness this patient has a history of diabetes on insulin, hypertension, and chronic pain syndrome on morphine. He has a history of DVT and pulmonary embolism and has been on Lovenox. Patient apparently was attending a "horse show" yesterday when around 1824 he had the sudden onset of right-sided weakness, facial droop, and fell. He had a mild headache apparently. He was brought to the emergency room November 16 at 7:16 p.m. with a temperature of 37.0, pulse 59, respiratory rate 20, blood pressure 149/75 and O2 saturation 96%. On exam he had a significant right facial droop, slurred speech, right-sided weakness the total NIH stroke scale score of 9. Because of the Lovenox he was deemed to be not a thrombolytic candidate. MR angiography of the head and neck showed no significant vessel stenoses or anomalies. MRI of the brain showed an acute/subacute left thalamic lesion approximately 1.5 cm long. This bordered the internal capsule. Patient had no events overnight. Repeat Chem profile and CBC were unremarkable this morning. Glucose was 157. Total cholesterol was 100 and triglycerides 141. hemoglobin A1c is 9.0. He has no complaint of pain or headache. He has no vision issues. He knows his right side is weak. Allergies Allergy/AdvReac Type Severity Reaction Status Date / Time Penicillins Allergy Hives Verified 11/16/21 20:52 Contrast dye Allergy hives, Uncoded 11/16/21 20:52 fast heart rate Home Medications Medication Instructions Recorded Confirmed Type amlodipine 5 mg tablet 5 mg PO DAILY 11/16/21 11/16/21 History empagliflozin 25 mg tablet 25 mg PO DAILY 11/16/21 11/16/21 History (Jardiance) enoxaparin 150 mg/mL subcutaneous 120 mg SUBCUT BID 11/16/21 11/16/21 History syringe insulin detemir U-100 100 unit/mL 20 unit SUBCUT DIRECTED 11/16/21 11/16/21 History (3 mL) subcutaneous pen (Levemir FlexTouch U-100 Insulin) levofloxacin 500 mg tablet 500 mg PO DIRECTED PRN 11/16/21 11/16/21 History morphine 15 mg immediate release 15 mg PO Q4 PRN 11/16/21 11/16/21 History tablet morphine 60 mg tablet,extended 60 mg PO Q12 11/16/21 11/16/21 History release pantoprazole 40 mg tablet,delayed 40 mg PO BID 11/16/21 11/16/21 History release paroxetine HCl 20 mg tablet 20 mg PO DAILY 11/16/21 11/16/21 History Patient History Medical History Chronic pain syndrome Depression Diabetes GERD (gastroesophageal reflux disease) History of DVT in adulthood Hx pulmonary embolism Hypertension Presence of IVC filter Family History Mother , in her 50s of an [place] Myocardial infarction Father , in his 70s of prostate cancer Prostate cancer Social History Smoking Status: Never smoker Second Hand Exposure: No; Do You Dip or Chew Tobacco: No; Tobacco Cessation Education Requested by Patient: No Hx Alcohol Use: No Hx Substance Use: No Preferred Language: Portuguese Communication Ability: Impaired Communication Ability Comment: speech slow and slurred at this time d/t cva Parimutuel Ticket Checker Required: No Beliefs That Will Affect Care: None Current Living Situation: Spouse current occupational status: disabled 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 Other Information That Helps Us Care for You: No Feels Safe at Home: Yes Safety Concerns: Feels Safe At This Time Assistive Devices: None Review of Systems Constitutional: + weakness Eyes: no diplopia, no eye pain and no worsening vision Ear, Nose, Mouth, Throat: no ear pain, no tinnitus, no hearing loss, no dizziness, no hoarseness and no dysphagia Respiratory: no cough and no dyspnea Cardiovascular: no chest pain, no palpitations and no lightheadedness Gastrointestinal: no abdominal pain, no nausea and no vomiting Musculoskeletal: + back pain; no neck pain, no radicular pain, no joint pain and no myalgia Integumentary: no rash and no lesions Neurologic: + localized weakness and + abnormal speech; no generalized weakness, no tingling, no numbness, no tremor(s), no abnormal movements, no headache(s), no confusion and no memory loss Psychiatric: no depression, no irritability, no anxiety, no difficulty concentrating, no confusion and no hallucinations Endocrine: + fatigue; no flushing Hematologic / Lymphatic: no easy bleeding and no easy bruising Allergy / Immunological: no urticaria and no problem reported Exam (Neuro) Physical Exam: The patient is right-handed. The patient is very sleepy but arousable with voice. When not spoken to he drifts back to sleep. Speech is severely dysarthric. He can name objects and colors and seems to comprehend fairly well. Mood is reasonable and affect is appropriate. He is a little sleepy to adequately test his memory. Pupils are 3 mm bilaterally and reactive to light. Extraocular eye muscles are intact without nystagmus. Visual acuity and visual peralta seem normal grossly to confrontation. There are no deficits to sensation in the face in all 3 distributions of the fifth cranial nerve bilaterally. Corneal reflexes are positive bilaterally. Facial strength and symmetry was normal bilaterally. Hearing seems normal bilaterally. Palate moves well without asymmetry. There is normal sternocleidomastoid and trapezius (shoulder shrug) strength bilaterally. Tongue is midline with good strength bilaterally. Neck has a full range of motion without discomfort. There are no cervical bruits bilaterally. There are no cranial or ocular bruits. Heart is without murmur. There is a regular rhythm and rate. Cervical, thoracic, and lumbar spine are nontender to palpation. Gait Was not tested. Stance sitting up in bed is hard for him and he drifts backwards into the bed. With outstretched arms there is no drift On the left. There are no resting, postural, or action tremors. There is no ataxia with finger to nose testing on the left. There is good facility in the left hand. the right upper extremity is extremely weak and he cannot lift it or do maneuvers. No other abnormal involuntary movements are noted. Motor strength is 5/5 diffusely in the Left upper extremity including deltoids, biceps, triceps, brachioradialis, wrist flexors and extensors, human resources clerk, and intrinsic hand muscles. motor strength is 0/5 with decreased tone in the right upper extremity. Motor strength is 5/5 diffusely in the left lower extremity including hip flexors, quadriceps, hamstrings, gastrocnemius, tibialis anterior, tibialis posterior, and Peroneii muscles. Motor strength in the right lower extremity is 3/5 proximally and 4/5 distally. Right arm and leg have decreased tone compared to the left.. There is no atrophy noted in the muscles. Muscle bulk is normal, there is no tenderness to palpation, no myotonia to percussion, and no fasciculations seen. Sensory examination is intact to touch and pin throughout all 4 limbs diffusely. Reflexes are 2/4 in the biceps, triceps, brachioradialis, and quadriceps tendons bilaterally. The Achilles tendon reflexes are absent bilaterally. There is no clonus bilaterally. Toes are downgoing with plantar stimulation On the left and upgoing with plantar stimulation on the right. Peripheral pulses are present and of normal quality distally in all 4 limbs. There is no peripheral edema noted in the limbs. Results & Data ([facility]) Vital Signs (Past 12 Hours) Vital Signs Temp Pulse Pulse Resp BP Pulse Ox 11/17/21 08:11 37.0 C 56 L 18 117/72 97 11/17/21 03:29 36.7 C 48 L 10 L 119/82 96 11/17/21 03:10 52 L 11/17/21 02:00 36.9 C 48 L 12 125/76 99 PG Care Time/CCT Total # of Minutes Spent Total Time Spent with Patient: Total time spent is greater than 50% in coordination of care (as documented) at patient's floor/unit and/or counseling patient: Coding Level of Care Code 17909 Inpt Consult Level 5 Diagnoses Cerebrovascular accident I63.9 CVA mechanism: unspecified Acute right hemiparesis G81.91 Dysarthria due to acute cerebellar cerebrovascular accident (CVA) I63.9; R47.1 Diabetes E11.9 Hypertension I10 Hypertension type: primary hypertension Time Spent (min) 70 (1) Cerebrovascular accident CVA mechanism: unspecified Qualified Code(s): I63.9 - Cerebral infarction, unspecified (2) Hypertension Hypertension type: primary hypertension Qualified Code(s): I10 - Essential (primary) hypertension
[2021-11-17] MEDS: ASPIRIN 81 MG ECTAB PO SCH (11:48)
[2021-11-17] MEDS ORDERED: ENOXAPARIN 150 MG/ML SYR SQ SCH (13:00)
--- NOTE | 2021-11-17 16:33 | XRay Report ---
KUB HISTORY: Follow up study in a patient with a possible displaced IVC filter ?displaced IVC filter? COMPARISON: Chest radiograph 11/16/2021 FINDINGS: The bowel gas pattern is non-obstructive. IVC filter is noted at the level of L2-L3. Surgic al clips of the abdominal right upper quadrant. No renal calculi. No ureteral calculi. No pneumoperi toneum or pneumatosis. Spondylitic spurring of the spine. No fracture. IMPRESSION: 1. Nonobstructive bowel gas pattern. 2. IVC filter noted at the level of L2-L3. ACT 112: Negative or not required by law. The above report was generated using voice recognition software. It may contain grammatical, syntax o r spelling errors. Electronically signed by: Gerardo Peña M.D. 11/17/2021 4:32 PM
[2021-11-17] MEDS: ACETAMINOPHEN 1000 MG/100 ML IV IV PRN (16:41)
--- NOTE | 2021-11-17 16:44 | Billing Data ---
Date of Service November 17, 2021 Coding Level of Care Code 53128 Prolonged Care (int'l)
[2021-11-17] MEDS: ENOXAPARIN INJ 120 MG/0.8 ML SYR SQ SCH (22:20)
[2021-11-18] MEDS: ACETAMINOPHEN 1000 MG/100 ML IV IV PRN (00:13)
[2021-11-18] MEDS ORDERED: HYDROmorphone INJ 0.5 MG/0.5 ML SYR IV STA (00:41)
[2021-11-18] MEDS ORDERED: MoRPHine SULFATE 5 MG/0.25 ML UDP PO STA (01:12)
[2021-11-18] MEDS ORDERED: traMADol HCL 50 MG TABLET PO STA (01:36)
[2021-11-18] MEDS ORDERED: GABAPENTIN 250 MG/5 ML 470 ML BTL PO STA (05:35)
--- NOTE | 2021-11-18 07:23 | Hospitalist Progress Note ---
Date of Service November 18, 2021 Assessment & Plan (1) Cerebrovascular accident: Plan: Mr. 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 Brain imaging revealed evidence of left thalamic and internal capsule CVA. Patient less drowsy today, but mental status still impaired. Cerebrovascular accident: - Acute to subacute infarct in left thalamus/internal capsule noted on MRI - Head and Neck CTA normal. Echo was normal. - Telestroke with [facility] recommended no intervention, as patient was anticoagulated on therapeutic lovenox (hx DVT/PE). He did receive ASA 300mg per rectum. - Repeat non-contrast head CT was done on 11/18/21 due to ongoing mental status derangement: fortunately no hemorrhage or cerebral edema noted. - Neuro consulted --> etiology of stroke felt to be ischemia small vessel disease - high intensity statin ordered. Goal LDL < 70 - Will add anti-platelet therapy with ASA 81mg daily - PT/OT consulted - neuro checks q4 Altered Mental Status - improved from admission, however not yet at baseline - etiology is uncertain - Non contrast head CT repeated today to assess for hemorrhage or cerebral edema, neither noted - electrolytes and LFTs normal. - blood glucose has been dramatically lowered over the last 48 hours due to his NPO status and low PO intake. Given how high it had been running in the past, I suppose it is possible (yet unlikely) the dramatic change could be affecting his mentation - clinically follow. Consider checking TSH or ammonia if it fails to resolve o elsie the next day Diabetes: - A1c well above goal at 9.0 - home regimen appears to consist of Jardiance and insulin detemir - unable to converse with patient to discuss how he is using his diabetes me dicines - Accu-Cheks before meals and at bedtime with NovoLog coverage per scale. Because he is not eating much, only requiring small novolog doses - thus will hold off on order basal regimen. The fact that blood glucose levels dramatically lowered due to NPO or near NPO status suggestives dietary modifications will have substantial benefit in future management of this disease - carb consistent diet - I would recommend his amlodipine be changed to ZAIDA/ARB for added benefit of renoprotection Hypertension: - permissive HTN allowed in setting of ischemia CVA. Patient will be 48 hours post-stroke at midnight. Only control blood pressure if systolic exceeds 220 and diastolic exceeds 180 until then. 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: - History DVT/PE/IVC filter - KUB done showed filter in proper placement - He has been continued on subcu Lovenox twice daily as outpatient GERD (gastroesophageal reflux disease): - Change oral pantoprazole to famotidine IV Chronic pain syndrome: - Home narcotic regimen resumed after repeat head CT showed no evidence of cerebral edema or hemorrhage - IV Tylenol ordered prn Depression: - continue paroxetine, patient at risk for acute worsening due to post-stroke depression Diet: Healthy, Carb consistent, minced and moist (per speech eval) DVT ppx: on Lovenox Code: Full Dispo: Med/tele Admission and Anticipated Discharge Date Admission Date: November 17, 2021 Supervising Physician Co-Signing Physician Notes I personally examined the patient and verified all prajapati points of history and exam, discussed case, and agree with decision making with Dr Starks Still very sleepy. Makes eye contact and grunts a little but does not really offer any verbal HPI to me. Vaguely denies leg painmostly reassured about this because he looks comfortable. vitals noted nad heent nc at mmm breathing unlabored no accessory muscles good effort R hemiparesis now with high tone in the arm. doesn't really communicate - makes eye contact then looks around and is easily distracted CVA - atherosclerotic - risks DM, lipids, HTN. statin, aspirin. extensive lifestyle education provided to /son yesterday - his mentation still not at the point that education to him is viable. PT/OT. right now looks like he would need rehab AMS - initially thought to be javy-infarct edema - but given size of stroke vs duration of AMS - and ongoing overall confusion - need to eval more for delirium/encephalopathy - ammonia, VBG, serial exams. from delirium standpoint - nothing appearing c/w septic or med/toxic causes; labs to screen for metabolic - particularly ammonia since does have hx cirrhosis; serial exams ?IVC filter issue - son very concerned noted that they were told it moved. no s/s VTE/etc and therapeutically anticoagulated. KUB location of IVC filter looks reassuring dispo - will need to be more alert then ?able to go home w outpt PT vs rehab (given that there are no rehab facilities near where he lives) Subjective Overnight pt reported left leg pain that was not responsive to 1g IV tylenol. Night team ordered small dose of dilaudid 0.25mg, which was not helpful - followed by 150mg dose of Gabapentin. Review of Systems Review of Systems: Unobtainable due to cognitive status Physical Exam Constitutional: no acute distress Awake and alert - yet still confused, unable to follow directions or answer questions Eyes: + anicteric sclerae ENMT: external ear and nose normal, oropharynx normal Neck: normal visual inspection and trachea midline Respiratory: normal respiratory effort; no respiratory distress and no labored breathing Cardiovascular: RRR, no murmur, no edema Heart Sounds: normal S1 and normal S2 Gastrointestinal (Abdomen): normal bowel sounds, soft, nontender, no hepatosplenomegaly Musculoskeletal: Head/Neck/Chest: normocephalic and head atraumatic Skin: no rashes, warm and dry Neurologic: + focal motor deficit (R UE is flaccid) Speech / Cognition: + abnormal speech and + receptive aphasia Results & Data Results & Data ([facility]) Vital Signs (Past 12 Hours) Vital Signs Temp Pulse Pulse Resp BP Pulse Ox 11/18/21 03:42 36.7 C 83 26 H 125/91 93 11/17/21 23:21 36.7 C 89 19 157/82 H 94 11/17/21 22:20 80 11/17/21 19:56 37 C 75 21 142/66 H 94 Resident Activity Tracking Resident Involvement: Resident Care Provided Care Provided: Adult Hospital Medicine (1) Cerebrovascular accident CVA mechanism: unspecified Qualified Code(s): I63.9 - Cerebral infarction, unspecified
[2021-11-18] MEDS: INSULIN ASPART PER UNIT SC SCH ×4 (07:55→21:07)
[2021-11-18] MEDS: ROSUVASTATIN CALCIUM 20 MG TAB PO SCH (08:59)
[2021-11-18] MEDS: ASPIRIN 81 MG ECTAB PO SCH (08:59)
[2021-11-18] MEDS: ENOXAPARIN INJ 120 MG/0.8 ML SYR SQ SCH ×2 (11:52→23:46)
--- NOTE | 2021-11-18 12:53 | CT Scan Report ---
CT SCAN OF THE BRAIN WITHOUT IV CONTRAST CLINICAL HISTORY: Change in mental status. Left basal ganglia stroke. COMPARISON STUDY: CT an MRI of the brain dated 11/16/2021. TECHNIQUE: Unenhanced axial CT scan of the brain is performed from the vertex to the skull base. A d ose lowering technique was utilized adhering to the principles of ALARA. CT DOSE: 1131.78 mGy.cm FINDINGS: Brain parenchyma: There is a focus of low-attenuation within the left internal capsule consistent wit h a subacute/evolving lacunar infarct. This may also involve the left thalamus. There is no hemorrhag e, mass effect, or evidence of acute territorial ischemia by CT criteria. No extra-axial fluid collec tion is seen. Ventricles, sulci, cisterns: Normal in configuration. Intracranial vasculature: The visualized intracranial vasculature at the skull base is normal in appe arance. There is dolichoectasia of the basilar artery. Calvarium: Unremarkable. Sinuses and mastoids: The paranasal sinuses are clear. The mastoid air cells are well pneumatized. Orbits: The bony orbits are grossly intact. IMPRESSION: 1. There is a subacute/evolving lacunar infarct centered in the left left internal capsule as above. 2. There is no hemorrhage or mass effect. 3. No new foci of acute ischemia are suggested by CT criteria. ACT 112: Negative or not required by law. Electronically signed by: Rad Eduardo M.D. 11/18/2021 12:51 PM
[2021-11-18] MEDS ORDERED: MoRPHine SULFATE 10 MG/0.5 ML UDP PO PRN (13:32)
[2021-11-18] MEDS: MoRPHine SULFATE CR 60 MG TABCR PO SCH ×2 (14:39→21:27)
--- NOTE | 2021-11-18 14:59 | Billing Data ---
Date of Service November 18, 2021 Coding Level of Care Code 33109 Subseq Hosp Care Lvl 3
[2021-11-18 15:14] LABS: Base Excess VBG 0.4 mEq/L; Oxygen Saturation VBG 73.1 %; pH VBG 7.47 (7.36-7.41)
[2021-11-18] MEDS: MENTHOL-ZINC OXIDE 360 APPLN/120 GM TUBE EXT SCH (16:52)
--- NOTE | 2021-11-19 06:11 | Electrocardiogram Report ---
Test Reason : Blood Pressure : / mmHG Vent. Rate : 056 BPM Atrial Rate : 056 BPM P-R Int : 144 ms QRS Dur : 092 ms QT Int : 474 ms P-R-T Axes : 034 018 -63 degrees QTc Int : 457 ms Poor data quality, interpretation may be adversely affected Sinus bradycardia Cannot rule out Anterior infarct , age undetermined Abnormal ECG No previous ECGs available Confirmed by Paulino Modi ([id number]) on 11/19/2021 6:11:06 AM Referred By: REFERRED SELF Confirmed By:Paulino Modi
[2021-11-19 06:44] LABS: Basophils # (auto) 0.08 K/uL (0-0.2); Basophils % (auto) 0.5 %; Eosinophils % (auto) 0.7 %; Hematocrit (blood only) 42.5 % (42-52); Immature Granulocytes # (auto) 0.03 K/uL (0.00-0.02); Immature Granulocytes % (auto) 0.2 %; Lymphocytes # (auto) 4.19 K/uL (1.2-3.4); Lymphocytes % (auto) 28.2 %; Mean Corpuscular Hgb Conc 32.9 g/dL (32-36); Mean Platelet Volume 10.6 fL (7.4-10.4); Monocytes # (auto) 1.69 K/uL (0.11-0.59); Monocytes % (auto) 11.4 %; Neutrophils # (auto) 8.77 K/uL (1.4-6.5); Platelet Count 337 K/uL (130-400); RDW Coefficient of Variation 17.3 % (11.5-14.5); RDW Standard Deviation 51.5 fL (36.4-46.3); Red Blood Count 5.18 M/uL (4.7-6.1); White Blood Count 14.86 K/uL (4.8-10.8)
--- NOTE | 2021-11-19 06:51 | Hospitalist Progress Note ---
Date of Service November 19, 2021 Assessment & Plan (1) Cerebrovascular accident: Plan: Mr. 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 Cerebrovascular accident: - Acute to subacute infarct in left thalamus/internal capsule noted on MRI - Head and Neck CTA normal. Echo was normal. - Telestroke with [facility] recommended no intervention, as patient was anticoagulated on therapeutic lovenox (hx DVT/PE). - Neuro consulted --> etiology of stroke felt to be ischemia small vessel disease - high intensity statin ordered. Goal LDL < 70 - Will add anti-platelet therapy with ASA 81mg daily - PT/OT consulted - neuro checks q4 - in outpatient setting, eval for MATI as this may be a risk factor for stroke Acute encephalopathy: - etiology is uncertain - Repeat head CT did not show hemorrhage or cerebral edema - electrolytes, LFTs, TSH, and ammonia wnl - NPO during previous 2 days w/ associated low BSGs. Unsure if short duration of Hypoglycemia contributing. Increased BSG goal range to 140-180. - Considered pulmonary infection as patient is aspiration risk. Procalc neg; more likely viral. No abx indicated. Ordered blood cultures. - leukocytosis 14.86 w/o neutrophil predominance - nasal MRSA pos; will not be treating - Patient is on large amount of morphine at home for chronic pain; will hold and see if somnolence improves. Diabetes: - A1c 9.0 - home regimen Jardiance and insulin detemir. Hold Jardiance - hold basal. SSI only. 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 Aspiration precautions Anticoag: Therapeutic Lovenox 1mg/kg BID Code: Full Dispo: Med/tele (2) Dysarthria due to acute cerebellar cerebrovascular accident (CVA): (3) Presence of IVC filter: (4) Hx pulmonary embolism: (5) Chronic anticoagulation: (6) Hypertension: (7) Diabetes: (8) Acute encephalopathy: Admission and Anticipated Discharge Date Admission Date: November 17, 2021 Supervising Physician Co-Signing Physician Notes Resident Physician Supervision Note: I independently interviewed and examined the patient and verified the prajapati history and physical, reviewed labs and image studies and agree with resident Dr. Carver findings and care plan. Subjective He does not have any complaints. Denies fever, headache, chest pain, sob. History limited by patient's mentation, though it appears that he is able to answer yes/no questions and seems to understand. Review of Systems Review of Systems: All systems reviewed & are unremarkable except as noted in HPI & below Physical Exam Physical Exam: General: Alert during my exam. Somnolent at a later time. Not oriented. Unable to say name, date, place, or year. He is able to answer yes or no questions with 1 word responses. NAD. Cooperative. Had BM in bed. HEENT: Atraumatic, normocephalic. EOMI Pulm: CTAB anterior and R posterior. Faint transmitted upper airway sounds on expiration. No respiratory distress. Cardiac: RRR, -mrg. Puffy ankles, not pitting edema. Abdominal: Nontender, nondistended, soft. Neuro: sensation of extremities intact. RUE and contract negotiator strength reduced compared to left. Results & Data Results & Data ([facility]) Vital Signs (Past 12 Hours) Vital Signs Temp Pulse Resp BP BP Pulse Ox 11/19/21 04:03 37 C 60 18 133/83 93 11/18/21 23:56 37 C 59 L 18 138/83 91 11/18/21 19:48 37 C 65 18 111/67 93 Laboratory Results vitals: 91-93 on room air wbc 10.9->10.26 (11/17)->14.86H. Hb 14. neutrophils. 59% wnl. K 3.4. Resident Activity Tracking Resident Involvement: Resident Care Provided Care Provided: Adult Hospital Medicine (1) Cerebrovascular accident CVA mechanism: unspecified Qualified Code(s): I63.9 - Cerebral infarction, unspecified (2) Hypertension Hypertension type: primary hypertension Qualified Code(s): I10 - Essential (primary) hypertension
[2021-11-19 07:12] LABS: Calcium 9.1 mg/dl (8.5-10.1); Creatinine Clr Calc Pharmacy 146.8 ml/min; Est GFR (African American) 121.4 ml/min; Est GFR (Non-African American) 104.7 ml/min; Potassium 3.4 mmol/L (3.5-5.1)
[2021-11-19] MEDS: INSULIN ASPART PER UNIT SC SCH ×4 (07:57→21:08)
[2021-11-19] MEDS ORDERED: lisinopril 5 MG TAB PO SCH (09:00)
[2021-11-19] MEDS: ROSUVASTATIN CALCIUM 20 MG TAB PO SCH (09:05)
[2021-11-19] MEDS: ASPIRIN 81 MG ECTAB PO SCH (09:07)
[2021-11-19] MEDS: MoRPHine SULFATE CR 60 MG TABCR PO SCH (09:07)
[2021-11-19] MEDS: MENTHOL-ZINC OXIDE 360 APPLN/120 GM TUBE EXT SCH (09:08)
[2021-11-19] MEDS ORDERED: POTASSIUM CHLORIDE PWD 20 MEQ PACK PO STA (10:24)
[2021-11-19] MEDS: ENOXAPARIN INJ 120 MG/0.8 ML SYR SQ SCH ×2 (10:58→23:53)
[2021-11-19] MEDS: PANTOprazole 40 MG TAB PO SCH (21:08)
[2021-11-20 06:31] LABS: Basophils # (auto) 0.09 K/uL (0-0.2); Basophils % (auto) 0.8 %; Eosinophils # (auto) 0.34 K/uL (0-0.5); Eosinophils % (auto) 3.2 %; Hemoglobin 14.3 g/dL (14.0-18.0); Immature Granulocytes # (auto) 0.02 K/uL (0.00-0.02); Immature Granulocytes % (auto) 0.2 %; Lymphocytes # (auto) 3.38 K/uL (1.2-3.4); Lymphocytes % (auto) 31.9 %; Mean Corpuscular Hemoglobin 27.4 pg (25-34); Mean Corpuscular Hgb Conc 33.3 g/dL (32-36); Mean Corpuscular Volume 82.4 fL (80-100); Mean Platelet Volume 11.6 fL (7.4-10.4); Monocytes # (auto) 1.16 K/uL (0.11-0.59); Neutrophils % (auto) 52.9 %; Platelet Count 352 K/uL (130-400); RDW Coefficient of Variation 17.3 % (11.5-14.5); RDW Standard Deviation 52.3 fL (36.4-46.3); Red Blood Count 5.22 M/uL (4.7-6.1); White Blood Count 10.59 K/uL (4.8-10.8)
--- NOTE | 2021-11-20 06:31 | Hospitalist Progress Note ---
Date of Service November 20, 2021 Assessment & Plan (1) Cerebrovascular accident: Plan: Mr. 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 Awaiting placement. Cerebrovascular accident: - Acute to subacute infarct in left thalamus/internal capsule noted on MRI - Head and Neck CTA normal. Echo was normal. - Telestroke with [facility] [place] recommended no intervention, as patient was anticoagulated on therapeutic lovenox (hx DVT/PE). - Neuro consulted --> etiology of stroke felt to be ischemia small vessel disease - high intensity statin ordered. Goal LDL < 70 - Will add anti-platelet therapy with ASA 81mg daily - PT/OT consulted. recommend rehab - neuro checks q4 Acute encephalopathy: possible toxic metabolic encephalopathy - improving after holding home morphine Chronic pain syndrome: - Home narcotic regimen held - IV Tylenol ordered prn - Will need regimen revisited as outpatient as his prior regimen of 60 mg q12 + 15mg prns is high. During this hospitalization, patient did not have pain after the regimen was held. Bradycardia: - during sleep. hasn't been using home cpap. to start using tonight MATI -home cpap available Diabetes: - A1c 9.0 - Hold home Jardiance and insulin detemir - hold basal. SSI only. 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 Aspiration precautions Anticoag: Therapeutic Lovenox 1mg/kg BID Code: Full Dispo: Med/tele. (2) Dysarthria due to acute cerebellar cerebrovascular accident (CVA): (3) Presence of IVC filter: (4) Hx pulmonary embolism: (5) Chronic anticoagulation: (6) Hypertension: (7) Diabetes: (8) Acute encephalopathy: Admission and Anticipated Discharge Date Admission Date: November 17, 2021 Supervising Physician Co-Signing Physician Notes Resident Physician Supervision Note: I independently interviewed and examined the patient and verified the prajapati history and physical, reviewed labs and image studies and agree with resident Dr. Carver findings and care plan. Subjective Patient was seen at bedside. He was sitting up eating breakfast. Patient denies pain, headache, blurry vision, chest pain, sob, abd pain, paresthesias. He denies lightheadedness or fatigue. He is requesting his snuff tobacco and is declining nicotine patch or gum. Per nursing, no acute events overnight. Review of Systems Review of Systems: All systems reviewed & are unremarkable except as noted in HPI & below Physical Exam Physical Exam: General: Alert and does not appear fatigued. Oriented to self. He is able to say his last name. Required prompting to say first name. Slight expressive aphasia. HEENT: Atraumatic, normocephalic. EOMI. PERRL. Pulm: CTAB anterior and R posterior. Faint transmitted upper airway sounds on expiration. No respiratory distress. Cardiac: RRR, -mrg. Puffy ankles, not pitting edema. Abdominal: Nontender, nondistended, soft. Neuro: sensation of extremities intact. 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 + lower right facial droop. Sensation of face intact bilaterally. Results & Data Results & Data ([facility]) Vital Signs (Past 12 Hours) Vital Signs Temp Pulse Pulse Resp BP Pulse Ox 11/20/21 04:00 36.6 C 48 L 17 118/67 96 11/19/21 23:45 36.6 C 47 L 14 117/62 92 11/19/21 22:20 52 L 11/19/21 19:25 36.8 C 56 L 18 89/67 L 92 Resident Activity Tracking Resident Involvement: Resident Care Provided Care Provided: Adult Hospital Medicine (1) Cerebrovascular accident CVA mechanism: unspecified Qualified Code(s): I63.9 - Cerebral infarction, unspecified (2) Hypertension Hypertension type: primary hypertension Qualified Code(s): I10 - Essential (primary) hypertension
[2021-11-20 07:15] LABS: BUN Creatinine Ratio 34.2 (10-20); Calcium 9.3 mg/dl (8.5-10.1); Creatinine Clr Calc Pharmacy 152.6 ml/min; Est GFR (African American) 122.7 ml/min; Est GFR (Non-African American) 105.9 ml/min; Potassium 3.6 mmol/L (3.5-5.1)
[2021-11-20] MEDS: INSULIN ASPART PER UNIT SC SCH ×5 (07:18→20:59)
[2021-11-20] MEDS: lisinopril 5 MG TAB PO SCH (08:08)
[2021-11-20] MEDS: ASPIRIN 81 MG ECTAB PO SCH (08:08)
[2021-11-20] MEDS: ROSUVASTATIN CALCIUM 20 MG TAB PO SCH (08:08)
[2021-11-20] MEDS: MENTHOL-ZINC OXIDE 360 APPLN/120 GM TUBE EXT SCH (08:09)
[2021-11-20] MEDS: PANTOprazole 40 MG TAB PO SCH ×2 (08:09→20:59)
[2021-11-20] MEDS ORDERED: POTASSIUM CHLORIDE PWD 20 MEQ PACK PO STA (09:18)
[2021-11-20] MEDS: ENOXAPARIN INJ 120 MG/0.8 ML SYR SQ SCH ×2 (10:04→23:04)
[2021-11-20] MEDS ORDERED: METAXALONE 800 MG TABLET PO STA (22:31)
[2021-11-21] MEDS ORDERED: GABAPENTIN 250 MG/5 ML 470 ML BTL PO STA (00:18)
[2021-11-21] MEDS ORDERED: ACETAMINOPHEN 500 MG TAB PO PRN (00:18)
[2021-11-21] MEDS ORDERED: diphenhydrAMINE HCL 25 MG/10 ML UDC PO ONE (03:59)
[2021-11-21] MEDS ORDERED: CYCLOBENZAPRINE HCL 10 MG TAB PO STA (04:00)
--- NOTE | 2021-11-21 06:49 | Hospitalist Progress Note ---
Date of Service November 21, 2021 Assessment & Plan (1) Cerebrovascular accident: Plan: Mr. 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 Awaiting placement. RLE pain - most likely poststroke spasticity - per exam and therapeutic anticoagulation, less likely dvt - has received gabapentin 150mg, metaxolone 400mg, and flexeril 10mg w/o much relief, though the flexeril helped slightly - changed q4h ROM order from passive to active - avoid narcotics and w/ muscle relaxants, caution regarding drowsiness - consider baclofen and voltaren gel Acute encephalopathy: possible toxic metabolic encephalopathy - improving after holding home morphine Cerebrovascular accident: - Acute to subacute infarct in left thalamus/internal capsule noted on MRI - Head and Neck CTA normal. Echo was normal. - Telestroke with [facility] [place] recommended no intervention, as patient was anticoagulated on therapeutic lovenox (hx DVT/PE). - Neuro consulted --> etiology of stroke felt to be ischemia small vessel disease - high intensity statin ordered. Goal LDL < 70 - Will add anti-platelet therapy with ASA 81mg daily - PT/OT consulted. recommend rehab - neuro checks q4 Chronic pain syndrome: - Home narcotic regimen held - IV Tylenol ordered prn - Will need regimen revisited as outpatient as his prior regimen of 60 mg q12 + 15mg prns is high. During this hospitalization, patient did not have pain after the regimen was held. Bradycardia: - during sleep. hasn't been using home cpap. - improved after holding home narcotics MATI - cpap qhs ordered Diabetes: - A1c 9.0 - Hold home Jardiance and insulin detemir - hold basal. SSI only. 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 Aspiration precautions Anticoag: Therapeutic Lovenox 1mg/kg BID Code: Full Dispo: Med/tele. (2) Dysarthria due to acute cerebellar cerebrovascular accident (CVA): (3) Presence of IVC filter: (4) Hx pulmonary embolism: (5) Chronic anticoagulation: (6) Hypertension: (7) Diabetes: (8) Acute encephalopathy: Admission and Anticipated Discharge Date Admission Date: November 17, 2021 Subjective Patient has RLE cramping pain since overnight. He was given gabapentin and muscle relaxants w/ mostly minimal/slight relief. He states he was unable to sleep last night and is tired. He denies other symptom complaints. Per nursing, his R upper and lower extremity are stiff during range of motion. Review of Systems Review of Systems: All systems reviewed & are unremarkable except as noted in HPI & below Physical Exam Physical Exam: General: Fatigued appearing. +mild expressive aphasia. Spleech is slightly dysarthric. Oriented x3 to person, place, and time. He knows he is at a hospital at [facility]. HEENT: Atraumatic, normocephalic. EOMI. Pulm: CTAB anterior and R posterior. No respiratory distress. Cardiac: RRR, -mrg. No LE edema. Abdominal: Nontender, nondistended, soft. Msk: Bilat lower extremity appear symmetric. Neuro: Sensation of extremities intact. RUE, RLE, and exercise rider strength reduced compared to left. + lower right facial droop. Patient was able to move his R leg slightly. Integ: No erythema of BLE. Results & Data Results & Data ([facility]) Vital Signs (Past 12 Hours) Vital Signs Temp Pulse Resp BP Pulse Ox 11/20/21 23:00 36.7 C 62 18 122/67 95 11/20/21 19:00 36.8 C 73 18 130/79 95 Resident Activity Tracking Resident Involvement: Resident Care Provided Care Provided: Adult Hospital Medicine (1) Cerebrovascular accident CVA mechanism: unspecified Qualified Code(s): I63.9 - Cerebral infarction, unspecified (2) Hypertension Hypertension type: primary hypertension Qualified Code(s): I10 - Essential (primary) hypertension
[2021-11-21 07:37] LABS: Basophils # (auto) 0.07 K/uL (0-0.2); Basophils % (auto) 0.5 %; Eosinophils # (auto) 0.16 K/uL (0-0.5); Eosinophils % (auto) 1.1 %; Hematocrit (blood only) 46.3 % (42-52); Hemoglobin 15.4 g/dL (14.0-18.0); Immature Granulocytes # (auto) 0.06 K/uL (0.00-0.02); Immature Granulocytes % (auto) 0.4 %; Lymphocytes # (auto) 4.22 K/uL (1.2-3.4); Mean Corpuscular Hemoglobin 27.2 pg (25-34); Mean Corpuscular Hgb Conc 33.3 g/dL (32-36); Mean Corpuscular Volume 81.8 fL (80-100); Mean Platelet Volume 11.8 fL (7.4-10.4); Monocytes # (auto) 1.67 K/uL (0.11-0.59); Monocytes % (auto) 11.5 %; Neutrophils # (auto) 8.38 K/uL (1.4-6.5); Neutrophils % (auto) 57.5 %; Platelet Count 392 K/uL (130-400); RDW Coefficient of Variation 17.2 % (11.5-14.5); RDW Standard Deviation 51.2 fL (36.4-46.3); Red Blood Count 5.66 M/uL (4.7-6.1); White Blood Count 14.56 K/uL (4.8-10.8)
[2021-11-21 07:54] LABS: Calcium 9.6 mg/dl (8.5-10.1); Creatinine Clr Calc Pharmacy 152.9 ml/min; Est GFR (African American) 122.7 ml/min; Est GFR (Non-African American) 105.9 ml/min; Potassium 3.5 mmol/L (3.5-5.1)
[2021-11-21] MEDS: INSULIN ASPART PER UNIT SC SCH ×2 (08:38→12:20)
[2021-11-21] MEDS: ROSUVASTATIN CALCIUM 20 MG TAB PO SCH (10:19)
[2021-11-21] MEDS: ASPIRIN 81 MG ECTAB PO SCH (10:19)
[2021-11-21] MEDS: PANTOprazole 40 MG TAB PO SCH (10:19)
[2021-11-21] MEDS: lisinopril 5 MG TAB PO SCH (10:19)
[2021-11-21] MEDS: MENTHOL-ZINC OXIDE 360 APPLN/120 GM TUBE EXT SCH (10:20)
[2021-11-21] MEDS: ENOXAPARIN INJ 120 MG/0.8 ML SYR SQ SCH (10:20)
[2021-11-21] MEDS ORDERED: BACLOFEN 10 MG TAB PO STA (11:47)
[2021-11-21] MEDS ORDERED: DICLOFENAC SOD 1% GEL 100 GM TUBE EXT STA (11:51)
[2021-11-21] MEDS ORDERED: STROKE PATIENT DISCHARGE STA (12:25)
--- NOTE | 2021-11-21 12:42 | Discharge Summary ---
Date of Service November 21, 2021 Admission HPI Per Admitting Provider The patient is a 51-year-old male with past medical history including hypertension, diabetes mellitus, chronic pain syndrome, GERD, depression, DVT, PE and presence of IVC filter. He presents with symptoms as noted above. He was assessed as a stroke alert by the ED. CT scan of the head questioned a possible focal hyperdensity within the distal right middle cerebral artery, that was not confirmed on MRA. Both MRA of head and MRA of neck were negative. MRI brain showed an acute to subacute infarct in the left thalamus and internal capsule region. The patient had received morphine IV by the time of my assessment, and was lethargic and unable to contribute to his HPI or review of systems, information was gathered from the emergency department and the conversations with family and EMS. Admission Exam Per Admitting Provider The patient is lethargic and briefly arousable, but then returns to sleep. Developed and well nourished, normocephalic and atraumatic, lying in bed and in no acute distress. HEENT--PERRL, EOMI, mucous membranes and oropharynx normal. Neck--supple. No JVD. No bruits. Thyroid normal, trachea midline, no adenopathy. Heart--normal S1 and S2. No murmurs, rubs or gallops. Lungs--clear bilaterally, no respiratory distress, no accessory muscle use. Abdomen--normal bowel sounds and soft. Nontender. Nondistended. Obese Extremities--no cyanosis or clubbing. No edema. Dermatologic--normal skin turgor, normal color, no abnormal lymph nodes, no rash. Neurologic--cranial nerves II through XII grossly intact. Rheumatologic--limited exam due to lethargy. Psychiatric--lethargic for some Estrace to morphine Principal Diagnosis stroke Discharge Exam General: Fatigued appearing. +mild expressive aphasia. Speech is slightly dysarthric. Oriented x3 to person, place, and time. He knows he is at a hospital at [facility]. HEENT: Atraumatic, normocephalic. EOMI. Pulm: CTAB anterior and R posterior. No respiratory distress. Cardiac: RRR, -mrg. No LE edema. Abdominal: Nontender, nondistended, soft. Msk: Bilat lower extremity appear symmetric. Neuro: Sensation of extremities intact. RUE, RLE, and global compensation analyst strength reduced compared to left. + lower right facial droop. Patient was able to move his R leg slightly. Integ: No erythema of BLE. Discharge Data Allergies Allergy/AdvReac Type Severity Reaction Status Date / Time Penicillins Allergy Hives Verified 11/16/21 20:52 Contrast dye Allergy hives, Uncoded 11/16/21 20:52 fast heart rate Consultations 11/16/21 22:49 ED Decision to Admit Stat 11/17/21 02:19 Consult Neurology Routine Ordered Studies 11/21/21 07:06 11/21/21 07:06 CBC 11/21/21 Range/Units 07:06 WBC 14.56 H (4.8-10.8) K/uL RBC 5.66 (4.7-6.1) M/uL Hgb 15.4 (14.0-18.0) g/dL Hct 46.3 (42-52) % Plt Count 392 (130-400) K/uL Neut # (Auto) 8.38 H (1.4-6.5) K/uL Lymph # (Auto) 4.22 H (1.2-3.4) K/uL Bradley # (Auto) 1.67 H (0.11-0.59) K/uL Eos # (Auto) 0.16 (0-0.5) K/uL Baso # (Auto) 0.07 (0-0.2) K/uL Comprehensive Metabolic Panel 11/21/21 Range/Units 07:06 Sodium 140 (136-145) mmol/L Potassium 3.5 (3.5-5.1) mmol/L Chloride 109 H (98-107) mmol/L Carbon Dioxide 19 L (21-32) mmol/L BUN 19 (6-23) mg/dl Creatinine 0.73 (0.6-1.4) mg/dl Glucose 125 H (70-99(Fasting)) mg/dl Calcium 9.6 (8.5-10.1) mg/dl Intake and Output 11/20/21 11/21/21 11/21/21 22:59 06:59 14:59 Intake Total 120 / 620 500 / 620 Output Total 200 / 200 Balance 120 / 516 499 / 516 -200 / -200 Intake: Oral 120 / 620 500 / 620 Output: Urine 200 / 200 # Bowel Movements 1 / 4 Other: # Unmeasured Voids 1 Weight 118 kg 118 kg Weight Measurement Method Built in [place] Patient Weight 11/22/21 06:59 Weight 118 kg Chest X-Ray 11/16/21 18:51 SINGLE VIEW CHEST CLINICAL HISTORY: Strokelike symptoms FINDINGS: An AP, portable, upright chest radiograph is obtained. No prior studies are available for comparison at the time of dictation. The heart appears enlarged. The pulmonary vasculature is noncongested. Atelectasis is noted at the lung bases. The lungs and pleural spaces are otherwise clear. No pneumothorax is seen. The bony thorax is grossly intact. IMPRESSION: Cardiomegaly with no acute cardiopulmonary abnormality. ACT 112: Negative or not required by law. Electronically signed by: Rad Eduardo M.D. 11/16/2021 8:[address] 11/16/21 18:51 CT SCAN OF THE BRAIN WITHOUT IV CONTRAST CLINICAL HISTORY: Strokelike symptoms. Change in mental status. Slurred speech. COMPARISON STUDY: No priors. TECHNIQUE: Unenhanced axial CT scan of the brain is performed from the vertex to the skull base. A dose lowering technique was utilized adhering to the principles of ALARA. CT DOSE: 614.27 mGy.cm FINDINGS: Brain parenchyma: There is minimal microangiopathic disease. No hemorrhage or mass effect is identified. Scott-white matter differentiation is preserved. No extra-axial fluid collection is seen. A chronic lacunar infarct is noted in the left basal ganglia. Ventricles, sulci, cisterns: Normal in configuration. Intracranial vasculature: The visualized intracranial vasculature at the skull base is normal in appearance. There is dolichoectasia of the basilar artery. There is focal hyperdensity within the distal right middle cerebral artery seen on image #12. Calvarium: Unremarkable. Sinuses and mastoids: The paranasal sinuses are clear. The mastoid air cells are well pneumatized. Orbits: The bony orbits are grossly intact. IMPRESSION: 1. There is no hemorrhage or mass effect. 2. There is focal hyperdensity within the distal right middle cerebral artery. This is nonspecific but could be seen with intraluminal thrombus in the setting of acute stroke. Clinical correlation will be essential. 3. Scott-white matter differentiation is maintained. ACT 112: Negative or not required by law. Electronically signed by: Rad Eduardo M.D. 11/16/2021 7:12 PM Head MRA 11/16/21 19:50 MR ANGIOGRAM OF THE BRAIN CLINICAL HISTORY: Slurred speech. Right upper extremity weakness. COMPARISON STUDY: CT of the brain performed the same day 11/16/2021. TECHNIQUE: 3-D [id number]-[id number] MR angiography of the intracranial circulation is performed. 3-D tumble views are created and assessed. IV contrast was not administered for this examination. FINDINGS: The internal carotid arteries are widely patent bilaterally, as are the anterior and middle cerebral arteries. There is dolichoectasia of the basilar artery. The vertebrobasilar system is widely patent. The vertebral arteries are codominant. Apparently diminished flow within the posterior cerebral arteries is likely flow-related given basilar dolichoectasia. There is no aneurysm, high-grade stenosis, or focal vessel cutoff seen throughout the int racranial circulation. The brain parenchyma is normal as visualized. IMPRESSION: Unremarkable MR angiogram of the brain. There is no evidence of a right middle cerebral artery filling defect as questioned on the unenhanced CT of the brain. ACT 112: Negative or not required by law. Electronically signed by: Rad Eduardo M.D. 11/16/2021 9:33 PM Neck MRA 11/16/21 19:50 MR ANGIOGRAM OF THE NECK WITHOUT IV CONTRAST CLINICAL HISTORY: Slurred speech. Right upper extremity weakness. COMPARISON STUDY: No prior. TECHNIQUE: Axial 2-D and 3-D [id number] MR angiography of the neck is performed. IV contrast was not administered for this examination. 3-D reformats are created and assessed. All measurements were calculated based on NASCET criteria. FINDINGS: Visualized portions of the thoracic aorta are normal in caliber. The aortic arch demonstrates bovine variant anatomy. The subclavian arteries are widely patent bilaterally. The right common carotid artery is widely patent, as are the right internal and external carotid arteries. The left common carotid artery is widely patent, as are the left internal and external carotid arteries. There is tortuosity of the distal internal carotid arteries. The vertebral arteries are widely patent. The vertebral arteries are codominant. The visualized intracranial vessels at the skull base appear patent. There is dolichoectasia of the basilar artery. IMPRESSION: Unremarkable unenhanced MR angiogram of the neck. ACT 112: Negative or not required by law. Electronically signed by: Rad Eduardo M.D. 11/16/2021 9:42 PM Orbit X-Ray 11/16/21 20:19 BONY ORBITS 3 VIEWS CLINICAL HISTORY: MRI clearance. FINDINGS: 3 views of the bony orbits are obtained. No prior studies are available for comparison at the time of dictation. There is no radiodense/m etallic foreign body seen in the region of the bony orbits. The bony orbits are intact as imaged. The visualized paranasal sinuses and the mastoid air cells appear clear. The imaged calvarium appears intact. IMPRESSION: There is no radiodense/metallic foreign body seen in the region of the bony orbits. ACT 112: Negative or not required by law. Electronically signed by: Rad Eduardo M.D. 11/16/2021 8:48 PM Brain MRI 11/16/21 21:35 MRI OF THE BRAIN WITHOUT IV CONTRAST CLINICAL HISTORY: Strokelike symptoms. Slurred speech and right arm weakness. COMPARISON STUDY: CT of the brain performed the same day 11/16/2021. TECHNIQUE: MRI of the brain was performed utilizing various T1 and T2-weighted sequences in the axial, sagittal, and coronal planes. IV contrast was not administered for this examination. FINDINGS: Brain parenchyma: There is a 1.6 cm focus of restricted diffusion identified in the left thalamus/internal capsule consistent with acute to subacute lacunar infarct. No additional foci of restricted diffusion are identified. There is no hemorrhage or mass effect. No extra-axial fluid collection is seen. The cerebellar tonsils are normal in configuration. Ventricles, sulci, and cisterns: Normal in configuration. There is dol ichoectasia of the basilar artery. Pituitary and sella: Unremarkable. Intracranial vasculature: Normal flow voids are maintained at the skull base. Orbits: The bony orbits are grossly intact. Orbital contents are normal in appearance. Sinuses and mastoids: Clear. Calvarium: Unremarkable. Cervical cord: Partially visualized cervical spinal cord is normal in morphology and signal intensity. IMPRESSION: 1. There is an acute to subacute lacunar infarct centered in the left thalamus/ internal capsule as above. 2. No additional foci of acute ischemia are identified. 3. There is no hemorrhage or mass effect. ACT 112: Negative or not required by law. Electronically signed by: Rad Eduardo M.D. 11/16/2021 10:09 PM KUB X-Ray 11/17/21 15:57 KUB HISTORY: Follow up study in a patient with a possible displaced IVC filter ?displaced IVC filter? COMPARISON: Chest radiograph 11/16/2021 FINDINGS: The bowel gas pattern is non-obstructive. IVC filter is noted at the level of L2-L3. Surgical clips of the abdominal right upper quadrant. No renal calculi. No ureteral calculi. No pneumoperitoneum or pneumatosis. Spondylitic spurring of the spine. No fracture. IMPRESSION: 1. Nonobstructive bowel gas pattern. 2. IVC filter noted at the level of L2-L3. ACT 112: Negative or not required by law. The above report was generated using voice recognition software. It may contain grammatical, syntax or spelling errors. Electronically signed by: Gerardo Peña M.D. 11/17/2021 4:[address] 11/18/21 12:12 CT SCAN OF THE BRAIN WITHOUT IV CONTRAST CLINICAL HISTORY: Change in mental status. Left basal ganglia stroke. COMPARISON STUDY: CT an MRI of the brain dated 11/16/2021. TECHNIQUE: Unenhanced axial CT scan of the brain is performed from the vertex to the skull base. A dose lowering technique was utilized adhering to the principles of ALARA. CT DOSE: 1131.78 mGy.cm FINDINGS: Brain parenchyma: There is a focus of low-attenuation within the left internal capsule consistent with a subacute/evolving lacunar infarct. This may also involve the left thalamus. There is no hemorrhage, mass effect, or evidence of acute territorial ischemia by CT criteria. No extra-axial fluid collection is seen. Ventricles, sulci, cisterns: Normal in configuration. Intracranial vasculature: The visualized intracranial vasculature at the skull base is normal in appearance. There is dolichoectasia of the basilar artery. Calvarium: Unremarkable. Sinuses and mastoids: The paranasal sinuses are clear. The mastoid air cells are well pneumatized. Orbits: The bony orbits are grossly intact. IMPRESSION: 1. There is a subacute/evolving lacunar infarct centered in the left left internal capsule as above. 2. There is no hemorrhage or mass effect. 3. No new foci of acute ischemia are suggested by CT criteria. ACT 112: Negative or not required by law. Electronically signed by: Rad Eduardo M.D. 11/18/2021 12:51 PM Diabetes Follow up Diabetes Follow-up Needed for HgbA1c >9% Hospital Course (1) Cerebrovascular accident: Mr. 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 Cerebrovascular accident: - Acute to subacute infarct in left thalamus/internal capsule noted on MRI - Head and Neck CTA normal. Echo was normal. - Telestroke with [facility] recommended no intervention, as patient was anticoagulated on therapeutic lovenox (hx DVT/PE). - Neuro consulted --> etiology of stroke felt to be ischemia small vessel disease - high intensity statin ordered. Goal LDL < 70 - Added anti-platelet therapy with ASA 81mg daily - PT/OT consulted. recommend rehab Chronic pain syndrome: - Home narcotic regimen discontinued - Will need narcotic regimen revisited as outpatient as his prior regimen of morphine 60 mg q12 + 15mg prn is high. During this hospitalization, patient did not have chronic pain after the regimen was held. Asymptomatic bradycardia: - during sleep. hasn't been using home cpap. - improved after holding home narcotics RLE pain new since 11/20/21 - most likely poststroke spasticity - q4h active ROM exercises recommended - avoid narcotics - consider low dose baclofen and voltaren gel Acute encephalopathy: possible toxic metabolic encephalopathy - improved after holding home morphine. Leukocytosis - No obvious infectious source. Monitor clinically. MATI - cpap qhs Diabetes: - A1c 9.0 - Resume home Jardiance - Discontinued home Levemir as during hospital admission, had hypoglycemia. With goal of 140-180, did not require any sliding scale; no oral medication or long acting insulin was given. Tobacco use disorder: - Patient declined patch during admission. 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: - History DVT/PE/IVC filter - KUB done showed filter in proper placement - Continue on home regimen therapeutic Lovenox BID GERD (gastroesophageal reflux disease): - Home pantoprazole Hypokalemia: - Repleted Depression: - Resume home paroxetine, patient at risk for acute worsening due to post- stroke depression Patient was full code this admission (2) Dysarthria due to acute cerebellar cerebrovascular accident (CVA): (3) Presence of IVC filter: (4) Hx pulmonary embolism: (5) Chronic anticoagulation: (6) Hypertension: (7) Diabetes: (8) Acute encephalopathy: Total Time Total Time Spent Total Time Spent (In Minutes): <30 Discharge Plan Discharge Items Patient Disposition: Transfer Inpatient Rehab Fac Reason For Visit: ACUTE TO SUBACUTE CVA Discharge Diagnosis: stroke Activity: Per Instructions section Non-emergency contact: Primary Care Provider Call non-emergency contact if: you have any medication questions, your symptoms worsen and you have a fever Follow-up/Referrals: [facility] [Non-Staff] - (f/u within 1 week of leaving hospital) PCP,NO [Primary Care Provider] - Diet: Carb Consistent or DM2 and Heart Healthy Diet Texture: Mechanical soft (ground) Diet Comment: aspiration precautions Addtl Attending Provider Instructions: Mr. 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 RLE pain new since 11/20/21 - most likely poststroke spasticity - q4h active ROM exercises recommended - avoid narcotics - consider low dose baclofen and voltaren gel Acute encephalopathy: possible toxic metabolic encephalopathy - improving after holding home morphine. Cerebrovascular accident: - Acute to subacute infarct in left thalamus/internal capsule noted on MRI - Head and Neck CTA normal. Echo was normal. - Telestroke with [facility] recommended no intervention, as patient was anticoagulated on therapeutic lovenox (hx DVT/PE). - Neuro consulted --> etiology of stroke felt to be ischemia small vessel disease - high intensity statin ordered. Goal LDL < 70 - Will add anti-platelet therapy with ASA 81mg daily - PT/OT consulted. recommend rehab Chronic pain syndrome: - Home narcotic regimen discontinued - IV Tylenol ordered prn - Will need regimen revisited as outpatient as his prior regimen of 60 mg q12 + 15mg prns is high. During this hospitalization, patient did not have chronic pain after the regimen was held. Asymptomatic bradycardia: - during sleep. hasn't been using home cpap. - improved after holding home narcotics MATI - cpap qhs Diabetes: - A1c 9.0 - Resume home Jardiance - Discontinued home Levemir as during hospital admission, had hypoglycemia. With goal of 140-180, did not require any sliding scale; no oral medication or long acting insulin was given. Tobacco use disorder: - Patient declined patch during admission. 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: - History DVT/PE/IVC filter - KUB done showed filter in proper placement - Continue on home regimen therapeutic Lovenox BID GERD (gastroesophageal reflux disease): - Home pantoprazole Hypokalemia: - Repleted Depression: - Resume home paroxetine, patient at risk for acute worsening due to post- stroke depression Patient was full code this admission Pending Studies at Discharge: No Stand-Alone Forms: Medications to Prevent Stroke, Counts Include [facility] Skilled Items Patient informed of condition?: Yes DNR: No Discharge Level of Care: Acute rehab Communicable Disease: No Discharge Prognosis: Improving Lines: None Urinary Catheter: No Medications and DC Order Prescriptions: New lisinopril [Zestril] 5 mg Tablet 5 mg PO QAM 30 Days Qty: 30 RF: 0 rosuvastatin [Crestor] 20 mg Tablet 40 mg PO QAM 30 Days Qty: 60 RF: 0 Continued pantoprazole 40 mg tablet,delayed release (DR/EC) 40 mg PO BID RF: 0 Jardiance 25 mg tablet 25 mg PO DAILY RF: 0 paroxetine HCl 20 mg tablet 20 mg PO DAILY 30 Days Qty: 0 RF: 0 enoxaparin 150 mg/mL syringe 120 mg subcut BID 30 Days Qty: 0 RF: 0 Discontinued amlodipine 5 mg tablet 5 mg PO DAILY RF: 0 morphine 60 mg tablet extended release 60 mg PO Q12 RF: 0 levofloxacin 500 mg tablet 500 mg PO DIRECTED PRN (Reason: .If starts running fever) RF: 0 morphine 15 mg tablet 15 mg PO Q4 PRN (Reason: Pain) RF: 0 Levemir FlexTouch U-100 Insuln 100 unit/mL (3 mL) insulin pen 20 unit SUBCUT DIRECTED RF: 0 Discharge Orders: Discharge Order (Routine); Ordered 11/21/21 Ordered By: Oswaldo Townsend/Other Patient Handouts: Managing Type 2 Diabetes Admission Data Admit Date/Time: 11/17/21 00:13 Attending Provider: Kristina Gore Admit Provider: Ben Bruce Primary Care Provider: PCP,AMANDA Other Providers: Ben Bruce ; Jcarlos Xiong ; Jeffry Garcia ; [facility] Other Interventions: Discharge Summary Assessment (RN) Last Done: 11/21/21 12:55 Supervising Physician Co-Signing Physician Notes Resident Physician Supervision Note: I independently interviewed and examined the patient and verified the prajapati his tory and physical, reviewed labs and image studies and agree with resident Dr. Carver findings and care plan. Resident Activity Tracking Resident Involvement: Resident Care Provided Care Provided: Adult Hospital Medicine
== END 2021-11-21 13:15 | DRG 64 ==
LOC: ED 18:57 → 2E 11-17 00:13 → SUATTDRO 11-17 00:13 → 2E 11-17 01:08
DX: G47.33 Obstructive sleep apnea (adult) (pediatric); Z86.711 Personal history of pulmonary embolism; E11.65 Type 2 diabetes mellitus with hyperglycemia; G89.4 Chronic pain syndrome; I63.412 Cerebral infarction due to embolism of left middle cerebral artery; Z88.0 Allergy status to penicillin; Z79.4 Long term (current) use of insulin; G81.91 Hemiplegia, unspecified affecting right dominant side; Z95.828 Presence of other vascular implants and grafts; Z79.84 Long term (current) use of oral hypoglycemic drugs; K21.9 Gastro-esophageal reflux disease without esophagitis; Z91.041 Radiographic dye allergy status; Z79.01 Long term (current) use of anticoagulants; G92.8 Other toxic encephalopathy; I10 Essential (primary) hypertension; F32.A Depression, unspecified; R47.1 Dysarthria and anarthria; Z86.718 Personal history of other venous thrombosis and embolism

== ENCOUNTER 2021-12-08 09:45 | Inpatient (IN) ==
--- NOTE | 2021-12-08 10:01 | Emergency Department Note ---
Impression & Plan Confusion, History of DVT in adulthood, Anemia, Traumatic hematoma of right thigh, History of cerebrovascular accident (CVA) with residual deficit ED Provider Note Provider: Miguel Holguin MD DATE OF SERVICE: 12/08/2021 CHIEF COMPLAINT: Change in speech, right hip and back pain, fall 2 weeks ago HISTORY OF PRESENT ILLNESS: Patient is a 51-year-old gentleman history of factor V Leiden with DVT currently on Lovenox presented today from rehab per staff member this morning he has had worsened speech and was not following commands appropriately. Reportedly had a recent CVA and was here approximately a month ago. Is on full dose anticoagulation. There is no clear reported last time known well. Patient received morning medication including a good dose of morphine. Patient upon arrival reports some pain in the right lower back and hip this is speech which is a bit slurred. He states his speech has not changed. He denies other pain. EMS report the patient did fall 2 weeks ago. Patient denies chest pain or shortness of breath to me. Patient is movement of his left leg and arm indicates he is unable to move his right leg or right arm. Patient will at times answer questions "no" inappropriately. REVIEW OF SYSTEMS: A total of 10 review of systems was obtained and negative except as stated above in the HPI. PAST MEDICAL HISTORY: As noted above MEDICATIONS: Reviewed medication listing from the facility SOCIAL HISTORY: coming today from [facility] PHYSICAL EXAM: GENERAL: alert and oriented in no acute distress on stretcher Head: normocephalic and atraumatic EYES: No injection, discharge or icterus. NECK: Trachea midline. Supple. ENT: Mucous membranes pink and moist. Pharynx without erythema or exudate. LUNGS: Airway patent. No retractions. Breath sounds clear with good air entry bilaterally. HEART: Regular rate and rhythm. No chest wall tenderness ABDOMEN: Soft and non-tender, without guarding or rebound. SKIN: Acyanotic, warm, dry EXTREMITIES: Right lower extremity with some swelling and scattered contusion of the right thigh with some tenderness here. Left lower extremity in the right lower extremity below the knee without significant swelling. Right and left upper extremity without significant swelling or tenderness appreciated. NEUROLOGICAL: Mildly slurred speech. Right facial droop noted. Hemiparesis of the right arm and leg with intact strength and sensation of left arm and leg. EK bpm normal sinus rhythm. No PVC or PAC. No acute ST segment elevation or depression. QTC 462 CONTINUOUS CARDIAC MONITORING: was ordered and showed a heart rate of 70s-80s bpm in normal sinus rhythm GCS 15. Patient's laboratory studies and imaging reviewed. Differential includes Infection, dehydration, metabolic abnormality, hypo/hyperglycemia, electrolyte disturbance, anemia, hypoxia, cardiac sources, intracerebral event, toxicologic, neurologic, as well as other pathologies. IMPRESSION/MEDICAL DECISION MAKING: Reviewed recent hospital records here as records from [facility]. Had a DVT ultrasound of the right lower leg over last day or 2 with chronic DVT noted. EMS reports patient had a fall a week or 2 ago and has been complaining of increased pain here. Facility to call and advise had a fall 2 days ago and no fractures on the CT of the hip from yesterday. Is on full dose anticoagulation even with an IVC filter due to history of coagulopathy and DVT. Patient occasionally answers but it is a bit hard to get a clear history from him as he often just says no. Seems to have some baseline right hemiparesis but is talking. Question of the symptoms could be related to possible new evolution of stroke so CT of the head was completed versus medications he received. Blood work here is significant for significant drop in hemoglobin as well as a white blood cell count today. No fever here or reported. Question if the hemoglobin drop is related to bleeding as he is anticoagulated and questionably had a fall. A CT of the abdomen pelvis was obtained. Does have swelling and some contusions to the right lower leg. No evidence of significant renal dysfunction. Patient has an allergy to contrast dye. CT the head without acute change and CT of the cervical spine is negative per radiology. CT of the abdomen pelvis per radiology and correlation with a CT of the hip from yesterday shows evidence of some subcutaneous hematomas in the abdomen from his Lovenox injection as well as some hematoma in the right hip and thigh region but no acute intra-abdominal bleeding. Due to question given his anticoagulation and significant hemoglobin drop as well as pain this should be closely monitored. Patient's anticoagulation does not seem he can be stopped given his propensity for vascular issues and clotting. Nursing reports that he requires significant assistance and again for me really just says no. Would not be able to do rehab in his current state and question if he may have suffered a new stroke given his change in mental status but without fever of lower suspicion for meningitis. Procalcitonin not significantly elevated. Hospitalist resident team contacted for admission DIAGNOSIS: Confusion, anemia, right thigh traumatic hematoma, history of CVA DISPOSITION: Hospitalist will evaluate Past Med/Surg History Medical History Chronic pain syndrome Depression Diabetes GERD (gastroesophageal reflux disease) History of DVT in adulthood Hx pulmonary embolism Hypertension Presence of IVC filter Family History Mother , in her 50s of an HI Myocardial infarction Father , in his 70s of prostate cancer Prostate cancer Social History Smoking Status: Never smoker Second Hand Exposure: No; Hx Alcohol Use: No Hx Substance Use: No Preferred Language: Czech Communication Ability: Unable Program Technician Required: No Beliefs That Will Affect Care: None marital status: Current Living Situation: Spouse current occupational status: disabled 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 How many Children do You have: 2 Feels Safe at Home: Yes Assistive Devices: None Allergies Allergies Allergy/AdvReac Type Severity Reaction Status Date / Time Penicillins Allergy Hives Verified 11/16/21 20:52 Contrast dye Allergy hives, Uncoded 11/16/21 20:52 fast heart rate Home Meds Home Medications Medication Instructions Recorded Confirmed empagliflozin 25 mg tablet 25 mg PO DAILY 11/16/21 12/08/21 (Jardiance) pantoprazole 40 mg tablet,delayed 40 mg PO BID 11/16/21 12/08/21 release morphine 60 mg tablet,extended 60 mg PO DAILY 12/08/21 12/08/21 release Previous Rx's Medication Instructions Recorded enoxaparin 150 mg/mL subcutaneous 120 mg SUBCUT BID 30 Days #0 ml 11/21/21 syringe lisinopril 5 mg tablet (Zestril) 5 mg PO QAM 30 Days #30 tab 11/21/21 paroxetine HCl 20 mg tablet 20 mg PO DAILY 30 Days #0 tab 11/21/21 rosuvastatin 20 mg tablet (Crestor) 40 mg PO QAM 30 Days #60 tab 11/21/21 Results & Data (ED) Vital Signs Vital Signs - 24 hr 12/08/21 09:46 12/08/21 10:00 12/08/21 10:31 Pulse Rate 80 84 Pulse Rate from SpO2 Sensor 82 84 Pulse Rhythm Regular Pulse Strength Normal Respiratory Rate 16 19 Respiratory Effort / Characteristics Non-Labored Respiratory Depth Normal Respiratory Pattern Regular Blood Pressure 123/75 119/89 136/81 Blood Pressure Mean 91 99 99 Blood Pressure Position Lying Pulse Oximetry 96 96 95 Oxygen Delivery Method Room Air Room Air Room Air Sepsis Recent Fever Within 48 Hours No Sepsis New/Unexplained Change in Mental Status N/A Sepsis Action Taken by Nursing No Action Required 12/08/21 11:00 12/08/21 11:30 12/08/21 12:00 Pulse Rate 87 83 83 Pulse Rate from SpO2 Sensor 82 Pulse Rhythm Pulse Strength Respiratory Rate 22 25 H 23 Respiratory Effort / Characteristics Respiratory Depth Respiratory Pattern Blood Pressure 143/81 H 124/71 138/77 Blood Pressure Mean 101 88 97 Blood Pressure Position Pulse Oximetry 97 Oxygen Delivery Method Room Air Sepsis Recent Fever Within 48 Hours Sepsis New/Unexplained Change in Mental Status Sepsis Action Taken by Nursing 12/08/21 12:30 12/08/21 13:30 Pulse Rate 81 80 Pulse Rate from SpO2 Sensor 84 82 Pulse Rhythm Pulse Strength Respiratory Rate 18 18 Respiratory Effort / Characteristics Respiratory Depth Respiratory Pattern Blood Pressure 102/56 L 109/58 L Blood Pressure Mean 71 75 Blood Pressure Position Pulse Oximetry 94 96 Oxygen Delivery Method Room Air Room Air Sepsis Recent Fever Within 48 Hours Sepsis New/Unexplained Change in Mental Status Sepsis Action Taken by Nursing Laboratory Data Result diagrams: 12/08/21 09:56 12/08/21 09:56 Lab Results 12/08/21 12/08/21 12/08/21 Range/Units 09:56 09:56 09:56 WBC 24.63 H (4.8-10.8) K/uL RBC 3.10 L (4.7-6.1) M/uL Hgb 8.4 L (14.0-18.0) g/dL Hct 26.0 L (42-52) % MCV 83.9 (80-100) fL MCH 27.1 (25-34) pg MCHC 32.3 (32-36) g/dL RDW Std Deviation 54.1 H (36.4-46.3) fL RDW Coeff of Osbal[place] 17.8 H (11.5-14.5) % Plt Count 435 H (130-400) K/uL MPV 10.6 H (7.4-10.4) fL Immature Gran % (Auto) 0.7 % Neut % (Auto) 75.2 % Lymph % (Auto) 15.6 % [place] % (Auto) 8.3 % Eos % (Auto) 0.1 % Baso % (Auto) 0.1 % Neut # (Auto) 18.50 H (1.4-6.5) K/uL Lymph # (Auto) 3.85 H (1.2-3.4) K/uL [place] # (Auto) 2.05 H (0.11-0.59) K/uL Eos # (Auto) 0.02 (0-0.5) K/uL Baso # (Auto) 0.03 (0-0.2) K/uL Immature Gran # (Auto) 0.18 H (0.00-0.02) K/uL Absolute Nucleated RBC 0.10 H (0-0) K/uL Nucleated RBC % (auto) 0.4 % PT 12.3 H (9.0-12.0) Seconds INR 1.2 H (0.9-1.1) APTT 30.5 (21.0-31.0) Seconds PTT Ratio 1.1 Sodium 133 L (136-145) mmol/L Potassium 4.0 (3.5-5.1) mmol/L Chloride 98 (98-107) mmol/L Carbon Dioxide 26 (21-32) mmol/L Anion Gap 9 (3-11) BUN 44 H (6-23) mg/dl Creatinine 0.92 (0.6-1.4) mg/dl Est Cr Clr Drug Dosing 122.0 ml/min Est GFR ( Amer) 109.7 ml/min Est GFR (Non-Af Amer) 94.6 ml/min BUN/Creatinine Ratio 47.8 H (10-20) Glucose 135 H (70-99(Fasting)) mg/dl Lactate (0.4-2.0) mmol/L Calcium 8.9 (8.5-10.1) mg/dl Magnesium 2.7 H (1.7-2.4) mg/dl Total Bilirubin 1.2 H (0.2-1.0) mg/dl AST 70 H (13-39) U/L ALT 33 (7-52) U/L Alkaline Phosphatase 92 (34-104) U/L Troponin I High Sens 7.8 (0-20) pg/ml Total Protein 7.3 (6.0-8.3) gm/dl Albumin 3.6 (3.4-5.0) gm/dl Globulin 3.7 (2.5-4.0) gm/dl Albumin/Globulin Ratio 1.0 (0.9-2) Procalcitonin (0-0.5) ng/ml Urine Color Urine Appearance (Clear) Urine pH (4.5-7.5) Ur Specific [place] (1.000-1.030) Urine Protein (Negative) Urine Glucose (UA) (Negative) Urine Ketones (Negative) Urine Blood (Negative) Urine Nitrite (Negative) Urine Bilirubin (Negative) Urine Urobilinogen (Negative) Ur Leukocyte Esterase (Negative) SARS-CoV-2, RNA, NAAT (NEGATIVE) 12/08/21 12/08/21 12/08/21 Range/Units 09:56 10:24 10:40 WBC (4.8-10.8) K/uL RBC (4.7-6.1) M/uL Hgb (14.0-18.0) g/dL Hct (42-52) % MCV (80-100) fL MCH (25-34) pg MCHC (32-36) g/dL RDW Std Deviation (36.4-46.3) fL RDW Coeff of Osbaldo (11.5-14.5) % Plt Count (130-400) K/uL MPV (7.4-10.4) fL Immature Gran % (Auto) % Neut % (Auto) % Lymph % (Auto) % [place] % (Auto) % Eos % (Auto) % Baso % (Auto) % Neut # (Auto) (1.4-6.5) K/uL Lymph # (Auto) (1.2-3.4) K/uL [place] # (Auto) (0.11-0.59) K/uL Eos # (Auto) (0-0.5) K/uL Baso # (Auto) (0-0.2) K/uL Immature Gran # (Auto) (0.00-0.02) K/uL Absolute Nucleated RBC (0-0) K/uL Nucleated RBC % (auto) % PT (9.0-12.0) Seconds INR (0.9-1.1) APTT (21.0-31.0) Seconds PTT Ratio Sodium (136-145) mmol/L Potassium (3.5-5.1) mmol/L Chloride (98-107) mmol/L Carbon Dioxide (21-32) mmol/L Anion Gap (3-11) BUN (6-23) mg/dl Creatinine (0.6-1.4) mg/dl Est Cr Clr Drug Dosing ml/min Est GFR ( Amer) ml/min Est GFR (Non-Af Amer) ml/min BUN/Creatinine Ratio (10-20) Glucose (70-99(Fasting)) mg/dl Lactate 1.2 (0.4-2.0) mmol/L Calcium (8.5-10.1) mg/dl Magnesium (1.7-2.4) mg/dl Total Bilirubin (0.2-1.0) mg/dl AST (13-39) U/L ALT (7-52) U/L Alkaline Phosphatase (34-104) U/L Troponin I High Sens (0-20) pg/ml Total Protein (6.0-8.3) gm/dl Albumin (3.4-5.0) gm/dl Globulin (2.5-4.0) gm/dl Albumin/Globulin Ratio (0.9-2) Procalcitonin 0.18 (0-0.5) ng/ml Urine Color Urine Appearance (Clear) Urine pH (4.5-7.5) Ur Specific [place] (1.000-1.030) Urine Protein (Negative) Urine Glucose (UA) (Negative) Urine Ketones (Negative) Urine Blood (Negative) Urine Nitrite (Negative) Urine Bilirubin (Negative) Urine Urobilinogen (Negative) Ur Leukocyte Esterase (Negative) SARS-CoV-2, RNA, NAAT NEGATIVE (NEGATIVE) 12/08/21 12/08/21 Range/Units 11:18 14:12 WBC (4.8-10.8) K/uL RBC (4.7-6.1) M/uL Hgb (14.0-18.0) g/dL Hct (42-52) % MCV (80-100) fL MCH (25-34) pg MCHC (32-36) g/dL RDW Std Deviation (36.4-46.3) fL RDW Coeff of [place]baldo (11.5-14.5) % Plt Count (130-400) K/uL MPV (7.4-10.4) fL Immature Gran % (Auto) % Neut % (Auto) % Lymph % (Auto) % [place] % (Auto) % Eos % (Auto) % Baso % (Auto) % Neut # (Auto) (1.4-6.5) K/uL Lymph # (Auto) (1.2-3.4) K/uL [place] # (Auto) (0.11-0.59) K/uL Eos # (Auto) (0-0.5) K/uL Baso # (Auto) (0-0.2) K/uL Immature Gran # (Auto) (0.00-0.02) K/uL Absolute Nucleated RBC (0-0) K/uL Nucleated RBC % (auto) % PT (9.0-12.0) Seconds INR (0.9-1.1) APTT (21.0-31.0) Seconds PTT Ratio Sodium (136-145) mmol/L Potassium (3.5-5.1) mmol/L Chloride (98-107) mmol/L Carbon Dioxide (21-32) mmol/L Anion Gap (3-11) BUN (6-23) mg/dl Creatinine (0.6-1.4) mg/dl Est Cr Clr Drug Dosing ml/min Est GFR ( Amer) ml/min Est GFR (Non-Af Amer) ml/min BUN/Creatinine Ratio (10-20) Glucose (70-99(Fasting)) mg/dl Lactate (0.4-2.0) mmol/L Calcium (8.5-10.1) mg/dl Magnesium (1.7-2.4) mg/dl Total Bilirubin (0.2-1.0) mg/dl AST (13-39) U/L ALT (7-52) U/L Alkaline Phosphatase (34-104) U/L Troponin I High Sens 9.6 (0-20) pg/ml Total Protein (6.0-8.3) gm/dl Albumin (3.4-5.0) gm/dl Globulin (2.5-4.0) gm/dl Albumin/Globulin Ratio (0.9-2) Procalcitonin (0-0.5) ng/ml Urine Color Yellow Urine Appearance Clear (Clear) Urine pH 5.0 (4.5-7.5) Ur Specific [place] 1.034 H (1.000-1.030) Urine Protein Negative (Negative) Urine Glucose (UA) 3+ H (Negative) Urine Ketones 1+ H (Negative) Urine Blood Negative (Negative) Urine Nitrite Negative (Negative) Urine Bilirubin Negative (Negative) Urine Urobilinogen Negative (Negative) Ur Leukocyte Esterase Negative (Negative) SARS-CoV-2, RNA, NAAT (NEGATIVE) Imaging Data Radiologist's Impression: Abdomen/Pelvis CT 12/08/21 09:56 CT OF THE ABDOMEN AND PELVIS WITHOUT CONTRAST CLINICAL HISTORY: fall, R back/hip pain, recent cva COMPARISON STUDY: KUB November 17, 2021. Right hip CT December 07, 2021. TECHNIQUE: Axial images of the abdomen and pelvis were obtained without IV contrast. Images were reviewed in the axial, sagittal, and coronal planes. Automated exposure control was utilized for the study. A dose lowering technique was utilized adhering to the principles of ALARA. FINDINGS: Bilateral gynecomastia is noted. Lung bases are unremarkable. No pneumatosis, free air or portal venous gas is present. Heterogeneity of the liver is likely technical. There is no biliary ductal dilatation status post cho lecystectomy. The spleen is not visualized. Adrenal glands and kidneys are normal. There is no hydronephrosis. No evidence for a bowel obstruction. Moderate amount stool within the colon and rectum is present. The appendix is normal. Multiple subcutaneous hyperdense foci of the lower anterior abdominal wall represent small hematomas likely from subcutaneous injections. There is stranding adjacent to the right iliopsoas muscle as well as visualized portions of the right vastus lateralis. This suggests intramuscular hemorrhage which was shown on CT of December 07, 2021. No acute lumbar spine or pelvic fracture is present. IVC filter is in place. No lymphadenopathy. Bladder is mildly distended. IMPRESSION: 1. Redemonstration of suspected intramuscular hemorrhage within the right iliopsoas and right vastus lateralis muscles. This was depicted on hip CT of December 07, 2021. 2. No acute process within the abdomen or pelvis on unenhanced exam. 3. Multiple injection site hematomas of the lower anterior abdominal wall. 4. Moderate amount stool within the colon and rectum. 5. Mild bladder distention. ACT 112: Negative or not required by law. Electronically signed by: Anastacio Henriquez M.D. 12/08/2021 10:50 AM Chest X-Ray 12/08/21 09:57 XR chest 1V portable CLINICAL HISTORY: recent cva, fall COMPARISON STUDY: Chest radiograph November 16, 2021. FINDINGS: Enlargement of the cardiac silhouette is unchanged. Lung volumes are diminished. This is also unchanged. There is no consolidation or evidence for pulmonary edema. The appearance of the chest is similar to prior study. IMPRESSION: No acute cardiopulmonary findings. No change in appearance of the chest. ACT 112: Negative or not required by law. Electronically signed by: Anastacio Henriquez M.D. 12/08/2021 11:[address] 12/08/21 09:57 CT OF THE HEAD WITHOUT CONTRAST CLINICAL HISTORY: worsened speech, recent cva COMPARISON STUDY: MRI of the the brain November 16, 2021. Head CT November 18, 2021. TECHNIQUE: Helical axial images of the head were obtained without IV contrast. A utomated exposure control was utilized for the study. A dose lowering technique was utilized adhering to the principles of ALARA. FINDINGS: No acute intracranial hemorrhage, midline shift or mass effect is present. There has been expected evolution of the infarct within the posterior limb of the left internal capsule shown on head CT of November 18, 2021. No evidence for hemorrhagic conversion. No additional infarcts are present. 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 The ventricular system is unremarkable. The basal cisterns are patent. No extra-axial collections are present. There are no findings to suggest acute dural sinus thrombosis or acute territorial infarct. No significant calvarial abnormalities are present. Visualized portions of the sinuses and mastoid air cells are clear. IMPRESSION: No acute intracranial findings. Expected evolution of the infarct within the posterior limb of the left internal capsule shown on head CT of November 18, 2021. No evidence for hemorrhagic conversion. No mass effect. ACT 112: Negative or not required by law. Electronically signed by: Anastacio Henriquez M.D. 12/08/2021 10:[address] 12/08/21 09:58 CT OF THE CERVICAL SPINE WITHOUT CONTRAST CLINICAL HISTORY: recent CVA, fall COMPARISON STUDY: No previous studies for comparison. TECHNIQUE: Helical axial images of the cervical spine were obtained without IV contrast. Sagittal and coronal reconstructions were viewed. Automated exposure control was utilized for the study. A dose lowering technique was utilized adhering to the principles of ALARA. FINDINGS: Alignment of the cervical spine is anatomic. Vertebral body heights are maintained. No acute cervical spine fracture or subluxation is present. There is no prevertebral edema. Facet joints are intact. There is moderate facet arthrosis within the cervical spine. Mild disc space narrowing with osteophytosis is noted at multiple levels. IMPRESSION: No acute cervical spine fracture or subluxation. ACT 112: Negative or not required by law. Electronically signed by: Anastacio Henriquez M.D. 12/08/2021 10:39 AM Discharge Plan Visit Data Chief Complaint: TIA Symptoms ED Provider: Miguel Holguin Discharge Problem: Confusion, History of DVT in adulthood, Anemia, Traumatic hematoma of right thigh, History of cerebrovascular accident (CVA) with residual deficit Patient Disposition: Being Evaluated by Hospitalist Discharge Instructions Interventions: ED Discharge Assessment Last Done: 12/08/21 15:16
[2021-12-08 10:16] LABS: Basophils # (auto) 0.03 K/uL (0-0.2); Basophils % (auto) 0.1 %; Eosinophils # (auto) 0.02 K/uL (0-0.5); Eosinophils % (auto) 0.1 %; Hemoglobin 8.4 g/dL (14.0-18.0); Immature Granulocytes # (auto) 0.18 K/uL (0.00-0.02); Immature Granulocytes % (auto) 0.7 %; Lymphocytes # (auto) 3.85 K/uL (1.2-3.4); Lymphocytes % (auto) 15.6 %; Mean Corpuscular Hemoglobin 27.1 pg (25-34); Mean Corpuscular Hgb Conc 32.3 g/dL (32-36); Mean Corpuscular Volume 83.9 fL (80-100); Mean Platelet Volume 10.6 fL (7.4-10.4); Monocytes # (auto) 2.05 K/uL (0.11-0.59); Monocytes % (auto) 8.3 %; Neutrophils % (auto) 75.2 %; Nucleated RBC % (auto) 0.4 %; Platelet Count 435 K/uL (130-400); RDW Coefficient of Variation 17.8 % (11.5-14.5); RDW Standard Deviation 54.1 fL (36.4-46.3); White Blood Count 24.63 K/uL (4.8-10.8)
[2021-12-08 10:38] LABS: Albumin Level 3.6 gm/dl (3.4-5.0); BUN Creatinine Ratio 47.8 (10-20); Bilirubin,Total 1.2 mg/dl (0.2-1.0); Calcium 8.9 mg/dl (8.5-10.1); Est GFR (African American) 109.7 ml/min; Est GFR (Non-African American) 94.6 ml/min; Globulin 3.7 gm/dl (2.5-4.0); INR 1.2 (0.9-1.1); Magnesium 2.7 mg/dl (1.7-2.4); Partial Thromboplastin Ratio 1.1; Partial Thromboplastin Time 30.5 Seconds (21.0-31.0); Prothrombin Time 12.3 Seconds (9.0-12.0); Total Protein 7.3 gm/dl (6.0-8.3)
--- NOTE | 2021-12-08 10:38 | CT Scan Report ---
CT OF THE HEAD WITHOUT CONTRAST CLINICAL HISTORY: worsened speech, recent cva COMPARISON STUDY: MRI of the the brain November 16, 2021. Head CT November 18, 2021. TECHNIQUE: Helical axial images of the head were obtained without IV contrast. Automated exposure con trol was utilized for the study. A dose lowering technique was utilized adhering to the principles o f ALARA. FINDINGS: No acute intracranial hemorrhage, midline shift or mass effect is present. There has been e xpected evolution of the infarct within the posterior limb of the left internal capsule shown on head CT of November 18, 2021. No evidence for hemorrhagic conversion. No additional infarcts are present. Dolic hoectasia of the vertebrobasilar system is again noted. The ventricular system is unremarkable. The b robert cisterns are patent. No extra-axial collections are present. There are no findings to suggest ac [place] dural sinus thrombosis or acute territorial infarct. No significant calvarial abnormalities are p resent. Visualized portions of the sinuses and mastoid air cells are clear. IMPRESSION: No acute intracranial findings. Expected evolution of the infarct within the posterior l imb of the left internal capsule shown on head CT of November 18, 2021. No evidence for hemorrhagic convers ion. No mass effect. ACT 112: Negative or not required by law. Electronically signed by: Anastacio Henriquez M.D. 12/08/2021 10:36 AM
--- NOTE | 2021-12-08 10:42 | CT Scan Report ---
CT OF THE CERVICAL SPINE WITHOUT CONTRAST CLINICAL HISTORY: recent CVA, fall COMPARISON STUDY: No previous studies for comparison. TECHNIQUE: Helical axial images of the cervical spine were obtained without IV contrast. Sagittal a nd coronal reconstructions were viewed. Automated exposure control was utilized for the study. A do se lowering technique was utilized adhering to the principles of ALARA. FINDINGS: Alignment of the cervical spine is anatomic. Vertebral body heights are maintained. No acut e cervical spine fracture or subluxation is present. There is no prevertebral edema. Facet joints are intact. There is moderate facet arthrosis within the cervical spine. Mild disc space narrowing with osteophytosis is noted at multiple levels. IMPRESSION: No acute cervical spine fracture or subluxation. ACT 112: Negative or not required by law. Electronically signed by: Anastacio Henriquez M.D. 12/08/2021 10:39 AM
[2021-12-08 10:43] LABS: Troponin I High Sensitivity 7.8 pg/ml (0-20)
--- NOTE | 2021-12-08 10:52 | CT Scan Report ---
CT OF THE ABDOMEN AND PELVIS WITHOUT CONTRAST CLINICAL HISTORY: fall, R back/hip pain, recent cva COMPARISON STUDY: KUB November 17, 2021. Right hip CT December 07, 2021. TECHNIQUE: Axial images of the abdomen and pelvis were obtained without IV contrast. Images were revi ewed in the axial, sagittal, and coronal planes. Automated exposure control was utilized for the kalyn dy. A dose lowering technique was utilized adhering to the principles of ALARA. FINDINGS: Bilateral gynecomastia is noted. Lung bases are unremarkable. No pneumatosis, free air or p ortal venous gas is present. Heterogeneity of the liver is likely technical. There is no biliary duct al dilatation status post cholecystectomy. The spleen is not visualized. Adrenal glands and kidneys a re normal. There is no hydronephrosis. No evidence for a bowel obstruction. Moderate amount stool wit hin the colon and rectum is present. The appendix is normal. Multiple subcutaneous hyperdense foci of the lower anterior abdominal wall represent small hematomas likely from subcutaneous injections. The re is stranding adjacent to the right iliopsoas muscle as well as visualized portions of the right va stus lateralis. This suggests intramuscular hemorrhage which was shown on CT of December 07, 2021. No acut e lumbar spine or pelvic fracture is present. IVC filter is in place. No lymphadenopathy. Bladder is mildly distended. IMPRESSION: 1. Redemonstration of suspected intramuscular hemorrhage within the right iliopsoas and right vastus lateralis muscles. This was depicted on hip CT of December 07, 2021. 2. No acute process within the abdomen or pelvis on unenhanced exam. 3. Multiple injection site hematomas of the lower anterior abdominal wall. 4. Moderate amount stool within the colon and rectum. 5. Mild bladder distention. ACT 112: Negative or not required by law. Electronically signed by: Anastacio Henriquez M.D. 12/08/2021 10:50 AM
--- NOTE | 2021-12-08 11:22 | XRay Report ---
XR chest 1V portable CLINICAL HISTORY: recent cva, fall COMPARISON STUDY: Chest radiograph November 16, 2021. FINDINGS: Enlargement of the cardiac silhouette is unchanged. Lung volumes are diminished. This is al so unchanged. There is no consolidation or evidence for pulmonary edema. The appearance of the chest is similar to prior study. IMPRESSION: No acute cardiopulmonary findings. No change in appearance of the chest. ACT 112: Negative or not required by law. Electronically signed by: Anastacio Henriquez M.D. 12/08/2021 11:20 AM
[2021-12-08 12:40] LABS: Appearance Urine Clear (Clear); Bilirubin Urine Negative (Negative); Blood Urine Negative (Negative); Color Urine Yellow; Glucose Urine UA 3+ (Negative); Ketones Urine 1+ (Negative); Leukocyte Esterase Urine Negative (Negative); Nitrite Urine Negative (Negative); Protein Urine Negative (Negative); Specific Gravity Urine 1.034 (1.000-1.030); Urobilinogen Urine Negative (Negative)
--- NOTE | 2021-12-08 13:26 | Electrocardiogram Report ---
Test Reason : Blood Pressure : / mmHG Vent. Rate : 081 BPM Atrial Rate : 081 BPM P-R Int : 144 ms QRS Dur : 082 ms QT Int : 398 ms P-R-T Axes : 044 -04 091 degrees QTc Int : 462 ms Normal sinus rhythm Left ventricular hypertrophy with repolarization abnormality Abnormal ECG When compared with ECG of 16-NOV-2021 19:08, ST now depressed in Anterior leads T wave inversion no longer evident in Inferior leads Confirmed by Avila Roblero ([id number]) on 12/08/2021 1:25:50 PM Referred By: Confirmed By:Avila Roblero
--- NOTE | 2021-12-08 14:40 | History & Physical Report ---
Date of Service December 08, 2021 Assessment & Plan (1) Acute encephalopathy: Plan: Mr. 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 - Etiology of encephalopathy uncertain: Structural Causes: - Non-contrast Head CT showing expected evolution of the infarct within the posterior limb of the left internal capsule shown on head CT 11/18/21. No evidence for hemorrhagic conversion - Patient has allergy to contrast dye; CTA head and neck changed to non- contrast MRA of head and neck. - Brain MRI ordered Metabolic Causes: - CBC showing leukocytosis, but SIRS criteria not met. Sepsis unlikley source - Electrolytes not significantly deranged. - glucose normal on admission - Eoth and other drugs not likely given patient came from facility - TSH and ammonia ordered - neuro checks q2h, speech consult ordered, neuro consult placed, fall precautions. Will not repeat A1c and lipid at this time given recent values obtained during last admission (2) Acute blood loss anemia: Plan: - Hgb 8.5 on admission, down from 15 on 11/21/21 - hemodynamically stable - suspect intravascular loss due to iliopsoas hematoma formation (noted on CT); will also check hemoccult stool - trend CBC daily - transfuse if Hgb < 7 (3) Acute right hemiparesis: Plan: - secondary to recent small vessel ischemic stroke to left thalamus/internal capsule - unclear if current presentation is consistent with (or worse than) residual deficit - complete stroke work up as above with MRA of head + neck, brain MRI (4) Dysarthria due to acute cerebellar cerebrovascular accident (CVA): Plan: - secondary to recent small vessel ischemic stroke to left thalamus/internal capsule - unclear if current presentation is consistent with residual deficit - although per staff at [facility], it is a change - complete stroke work up as above with MRA of head + neck, brain MRI (5) Iliopsoas muscle hematoma: Plan: - noted on Hip CT from 12/07/21 - secondary to fall at rehab while anticoagulated on Lovenox - likely source of anemia - US of RLE ordered to further assess size -- because the patient had pain with passive flexion, there is some concern for compartment syndrome. However, it is difficult to assess degree of discomfort given alerted mentation. Will consult ortho for additional recommendations. Will order R LE neurovascular checks in interim. - hold home lovenox and ASA - IV Tylenol, topical diclofenac and Lidoderm patches prn for pain. Ideally we will avoid narcotics given alteration in mental status (6) Presence of IVC filter: Plan: - noted to be in proper position on KUB from previous admission - due to hx of PE from Factor V Leiden (7) Diabetes: Plan: - type II - A1c from 11/17/21 was above goal at 9.0; will not redraw at this time. - BG on admission was 135 - patient was sent out on Jardiance 25mg daily; SQ insulin felt to be unn ecessary as his BG improved to normal on a diabetic diet during last admission. - Hold Jardiance while NPO, SSI ordered - carb consistent diet - resume high intensity statin and daily baby ASA when no longer NPO (8) Hypertension: Plan: - home regimen of lisinopril 5mg daily - hold while NPO and in the setting of acute TIA/CVA (allow for permissive HTN) (9) Chronic anticoagulation: Plan: - patient on therapeutic Lovenox due to Factor V Leiden and hx of DVT/PE - hold in setting of acute intramuscular hematoma and precepitous drop in Hgb (10) Murmur, cardiac: Plan: - noted on PE, new from last admission - Repeat echo with bubble study ordered given concurrent stroke work up (11) Leukocytosis: Plan: - WBC elevated to 24 on arrival with neutrophil predom - Blood cultures pending - Procal not elevated - UA not concerning for infection - CXR without evidence of PNA - no diarrhea per - recommend against empiric abx. May be reactive to physiologic stress - trend CBC (12) Tobacco abuse: Plan: - history of - has been tobacco free since 11/07/21 (previous admission) (13) Thrombocytosis: Plan: - platelets elevated to 435 on admission - suspect 2/2 to intramuscular hematoma formation - trend CBC (14) Elevated AST (SGOT): Plan: - AST elevated to 70 on admission, ALT normal - given new ST segment depressions in anterior leads on EKG, trop drawn. High sensitivity trop returned at 7.8. No concern for ACS at this time. (15) GERD (gastroesophageal reflux disease): Plan: - convert oral PPI to IV form while NPO (16) Depression: Plan: - hold home paroxetine while NPO Plan: Dispo: Admit to Med/tele. PT/OT ordered Diet: NPO until swallow eval. Then change diet to carb consistent DM2 and heart healthy DVT pxx: Holding home Lovenox given acute blood loss anemia. SCDs ordered Code: Full History of Present Illness Primary Care Provider: Erik Reed MD Mr. Love is a 51 yo gentleman with a PMHx of a recent small vessel ischemic CVA (left internal capsule, thalamus) for which he was admitted to [facility] on 11/17/21 - 11/22/21 who was brought in from [facility] rehab due to an acute worsening in his speech and inability to follow commands. After his initial CVA, he had residual right sided weakness (LE worse than UE) along with some dysarthria. Of note, his (who provided much of the history) reported two falls at [facility] in the past week. The provider at [facility] ordered a CT of the R hip on 12/07/21 to assess for structural damages - no bony processes noted, although a R iliopsoas muscle hematoma was identified. During this previous admission, Mr. Love had a change in his baseline cognition after his CVA. Repeat head imaging was done, which showed no significant post-stroke cerebral edema. Metabolic work up was also negative. Per , his mentation had been gradually improving at [facility] (his speech was understandable, he was able to follow commands, do simple arithmetic and communicate appropriately), although she felt like it never quite returned to its previously known baseline. Prior to his 11/07/21 admission, he had been taking oral morphine daily for chronic pain. This was stopped during his during previous admission; however it was resumed at [facility] for recurrent R leg pain. His apparent regimen was MS Contin 30mg daily + morphine IR 15mg q4hr prn. He was also taking Baclofen. The etiology of the R leg pain was uncertain. A provider at [facility] thought it may be radicular from the back. L spine XR was obtained 12/06/21 which showed multilevel degenerative changes. He did have a laminectomy procedure in the past. He also had a doppler of the RLE on 12/07/21 which showed a DVT - per , this is not a new finding. He has several vascular risk factors, including a history of HTN (on lisinopril), uncontrolled type II diabetes mellitus (on Jardiance), tobacco use, and factor V Leiden on therapeutic lovenox. Social Hx: Lives at home with and son. Former smoker - has not had tobacco since before 11/17/21 hospital admission. In the ED, his vitals were normal. Blood glucose was 135. His WBC was elevated to 24 with neutrophil predominance. Hgb low at 8.4. Platelets elevated to 435. Lactate not elevated. Procal not elevated. UA not concerning for infection. COVID 19 neg. Blood cultures were drawn. INR 1.2. Na low at 133. Electrolytes otherwise normal. Kidney function normal. AST elevated to 70, ALT normal. High sensitivity trop at 7.8. Hemoccult stool ordered. His non-contrast head CT showed no acute process; expected evolution of the infarct within the posterior limb of the left internal capsule shown on head CT of November 18, 2021. No evidence for hemorrhagic conversion.CT of C-spine showed no acute abnormalities. CXR was normal. EKG showing NSR; LVH with repolarization abnormalities, and ST segment depression in anterior leads. CT of abdomen and pelvis showed no acute abnormalities, intramuscular hematoma of R iliopsoas, and moderate to severe constipation. Allergies Allergy/AdvReac Type Severity Reaction Status Date / Time Penicillins Allergy Hives Verified 11/16/21 20:52 Contrast dye Allergy hives, Uncoded 11/16/21 20:52 fast heart rate Home Medications Medication Instructions Recorded Confirmed Type empagliflozin 25 mg tablet 25 mg PO DAILY 11/16/21 12/08/21 History (Jardiance) pantoprazole 40 mg tablet,delayed 40 mg PO BID 11/16/21 12/08/21 History release enoxaparin 150 mg/mL subcutaneous 120 mg SUBCUT BID 30 Days #0 ml 11/21/21 12/08/21 Rx syringe lisinopril 5 mg tablet (Zestril) 5 mg PO QAM 30 Days #30 tab 11/21/21 12/08/21 Rx paroxetine HCl 20 mg tablet 20 mg PO DAILY 30 Days #0 tab 11/21/21 12/08/21 Rx rosuvastatin 20 mg tablet (Crestor) 40 mg PO QAM 30 Days #60 tab 11/21/21 12/08/21 Rx morphine 60 mg tablet,extended 60 mg PO DAILY 12/08/21 12/08/21 History release Past Med/Surg History Medical History Chronic pain syndrome Depression Diabetes GERD (gastroesophageal reflux disease) History of DVT in adulthood Hx pulmonary embolism Hypertension Presence of IVC filter Family History Mother , in her 50s of an PA Myocardial infarction Father , in his 70s of prostate cancer Prostate cancer Social History Smoking Status: Never smoker Second Hand Exposure: No; Hx Alcohol Use: No Hx Substance Use: No Preferred Language: Macedonian Communication Ability: Unable Enlisted Advisor Required: No Beliefs That Will Affect Care: None marital status: Current Living Situation: Spouse current occupational status: disabled 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 How many Children do You have: 2 Feels Safe at Home: Yes Assistive Devices: None Review of Systems Review of Systems: Unobtainable due to cognitive status Physical Exam Constitutional: WD/WN, vitals as above + obese and + altered mental status (repeatedly answers questions as "no" ; grabs at neck) Eyes: PERRL, conjunctivae normal, anicteric sclerae ENMT: external ear and nose normal, oropharynx normal Neck: normal visual inspection and trachea midline Respiratory: normal respiratory effort, lungs clear to auscultation no labored breathing and no cough Cardiovascular: Rate/Rhythm: regular rate and regular rhythm Heart Sounds: normal S1, normal S2 and + murmur (systolic ejection ) Extremities: no pedal edema Gastrointestinal (Abdomen): normal bowel sounds, soft, nontender, no hepatosplenomegaly Musculoskeletal: Head/Neck/Chest: normocephalic and head atraumatic Extremities: + abnormal muscle tone (high on R UE and LE) R thigh is tender to palpation, feels more 'tense' compared to left side Skin: no rashes, warm and dry no ecchymosis Neurologic: awake and + confused Speech / Cognition: + abnormal speech Motor/Sensory: no tremor Psychiatric: Orientation: alert Results & Data Results & Data ([facility]) Vital Signs (Past 12 Hours) Vital Signs Pulse Resp BP Pulse Ox 12/08/21 13:30 80 18 109/58 L 96 12/08/21 12:30 81 18 102/56 L 94 12/08/21 12:00 83 23 138/77 97 12/08/21 11:30 83 25 H 124/71 12/08/21 11:00 87 22 143/81 H 12/08/21 10:31 136/81 95 12/08/21 10:00 84 19 119/89 96 12/08/21 09:46 80 16 123/75 96 Code Status & VTE Plan VTE Prophylaxis Plan VTE Prophylaxis will be ordered: Yes Supervising Physician Co-Signing Physician Notes Patient seen and examined independently of PGY-3 Dr. Starks. Agree with history, exam findings, assessment and plan of care as outlined. In brief, Mr. Love is a 51 year old male with history diabetes, factor V Leiden with prior VTE and current IVC, chronic pain (s/p L5 posterior decompression laminectomy), and recent internal capsule/thalamic stroke admitted with new concerns for confusion, slurred speech. at the bedside at the time of my examination and gives some. Notes that he has been in a lot of pain since he arrived at [facility] and finally in the last few days, they have found a pain regimen that works. In previous nights, had not been sleeping well due to high levels of pain. He had been close to his cognitive baseline until today. VS reviewed. Uncomfortable, restless, and moaning in bed. Systolic ejection murmur. Soft tissue swelling of the right thigh, tense feeling. Holding the left hip and knee is slight flexion at rest. Pain with passive flexion of the knee. Ecchymosis and tender, firm areas of hematoma of the anterior abdominal wall (at Lovenox injection sites) 1. Altered mental status. Concern for new ischemic changes vs pain mediated vs metabolic encephalopathy. TSH and ammonia levels pending. CT Head without bleed, expected changes from prior CVA. Will give another dose of IV pain medication prior to MRI. Neurology consult. 2. Right sided weakness. Does have baseline right sided hemiplegia from recent CVA. CT Head as above. MRA Head/Neck/Brain pending. Will treat as new, acute CVA for now until we can rule that out. Bedside swallow. Allow for permissive hypertension. Continue high intensity statin and glucose control. Continue ASA for now. 3. Anemia. New. Hemoglobin 8.4 (down from 15 at the time of discharge and 11.3 on December 06). Check FOBT. Wonder if this is from the hematomas of the right thigh (vastus lateralis, ilipsoas) and anterior abdomen in the area of the Lovenox injections. Type and screen in the event he requires transfusion. Hold Lovenox and ASA for now. 4. Right leg pain. Known hematomas of the right thigh (from recent fall and subsequent CT of the right hip showing moderate intramuscular hemorrhage, multiple acute intramuscular hematomas within the right vastus lateralis). Wonder if the drop in hemoglobin above is related to this. Check soft tissue ultrasound to better characterize the size and number of hematomas. Concern for developing compartment issue with his pain on passive flexion of the knee and him not wanting to completely extend the knee. Challenging exam due to altered m ental status and known hemiparesis of the right in the setting of recent stroke and known DVT in that leg previously. Appreciate ortho recommendations. Neurovascular checks. 5. Leukocytosis. WBCs 24. ?reactive demargination from recent falls. No signs/symptoms of infection. Procalcitonin negative. CXR without consolidation, CT Abd/Pelvis without colitis or collection of fluid consistent with an abscess. Skin without signs of cellulitis. Blood cultures x 2 pending. 6. New systolic murmur. Check TTE. 7. HTN. Holding home lisinopril to allow for permissive hypertension. 8. DM. hold home jardiance. SSI. NPO until he passes bedside swallow. A1C (11/07/21) was 9.0%. 9. Chronic pain. At [facility], pain medication regimen as follows: MS Contin 30mg, morphine IR 15mg q4h, baclofen 20mg. 10. Factor V Leiden, hx of VTE with IVC filter. Follows with hematology at [facility] Dr. Robertson. Had Doppler on 12/07/21 showing right leg partially occlusive DVT in the distal femoral vein. No prior Dopplers in our system to compared. Dispo: pending clinical improvement. Resident Activity Tracking Resident Involvement: Resident Care Provided Care Provided: Adult Hospital Medicine (1) Hypertension Hypertension type: primary hypertension Qualified Code(s): I10 - Essential (primary) hypertension
[2021-12-08] MEDS ORDERED: POLYETHYLENE (MIRALAX) 17 GM PACK PO PRN (16:08)
[2021-12-08] MEDS ORDERED: GLUCAGON FOR INJ 1 MG VIAL SQ PRN (16:08)
[2021-12-08] MEDS ORDERED: GLUCOSE 10 TABS/TUBE PO PRN (16:08)
[2021-12-08] MEDS ORDERED: GLUCOSE 40% GEL 15 GM TUBE PO PRN (16:08)
[2021-12-08] MEDS ORDERED: CARBOHYDRATES FOR HYPOGLYCEMIA PO PRN (16:08)
[2021-12-08] MEDS ORDERED: ONDANSETRON INJ 2 MG/ML 2 ML VIAL IV PRN (16:08)
[2021-12-08] MEDS ORDERED: DEXTROSE 50% 50 ML SYRINGE IV PRN (16:08)
[2021-12-08] MEDS ORDERED: MoRPHine SULFATE 2 MG/ML CARP IV STA (16:24)
[2021-12-08] MEDS ORDERED: ACETAMINOPHEN 1000 MG/100 ML IV IV PRN (16:40)
[2021-12-08] MEDS: LIDOCAINE 5% 1 PATCH TD SCH (17:27)
[2021-12-08] MEDS: INSULIN ASPART PER UNIT SC SCH ×2 (17:28→21:51)
[2021-12-08] MEDS: SODIUM CHLORIDE 0.9% 1000ML 1,000 ML IV SCH (17:29)
--- NOTE | 2021-12-08 18:12 | Orthopedic Consultation ---
Date of Consultation December 08, 2021 Assessment & Plan (1) Iliopsoas muscle hematoma: I explained to the patient that his pain could be from the hematoma or from the lower leg edema from the DVTs. He does seem to understand this. At this time I did recommend some ice and he can even alternate heat depending on what ever feels best. He states today that he has been applying ice and that does seem to help. He wishes to have an ice pack while he is in the emergency room. Encouraged range of motion of his right hip. He can weight-bear as tolerated with the assistance of his platform walker as he had been doing. Would recommend physical therapy and Occupational Therapy. If able, would also recommend holding the Lovenox or any other blood thinners for short period of time to make sure that the hematoma does not continue to enlarge. This could explain the pain that he has in the anterior thigh and also with hip range of motion and hip flexion. Also may be painful with weightbearing. I did explain all of this to his . She does understand and agree. We will continue to christina arceo and see how he progresses over the next few days. No plans for surgical intervention or evacuation at this time. Findings discussed with Dr. Hylton. Supervising Physician Co-Signing Physician Notes I saw and examined the patient and agree with the above note. His hematoma appears small. Clinically he does not have compartment syndrome. Recommend holding lovenox for at least 3-5 days to allow clot to stabilize, especially since he has IVC filter in place. Ice to affected area. Encourage PT/OT for ROM of hip and knee. Follow-up as needed. Feel free to contact orthopaedics with any worsening symptoms. History of Present Illness Reason for Consultation: Right iliopsoas hematoma, right thigh pain Attending Physician: Hattie Larsen DO History of Present Illness Patient is a 51-year-old male who is here today in the emergency room seen and evaluated for his right hip. We are asked to see by the medicine service for an iliopsoas hematoma that was found on CT scan. His is at bedside. She states that he had a stroke back in October and was discharged to [facility] a few weeks ago. He did have a fall the first night that he was there. She is unclear if he fell onto his right side. He then had a fell out 2 nights ago. Ever since he has been admitted to [facility] he is at increased pain and swelling in his right lower extremity. Few days ago venous ultrasound was performed and he was found to have 2 blood clots in his right lower extremity. He does have history of TIAs, a recent stroke affecting the right side, factor V Leiden deficiency. He has been on Lovenox 30 mg twice daily for 10 years. She states that over the last few days his pain has increased in the right lower extremity with the inability to move the leg without significant pain. He states ice does help. While I am in the room today he states all I have been asking for his " ice, ice, ice, ice". He seems frustrated today. He does have history of having a right total knee replacement approximately 5 years ago by a physician in [place]. Allergies Allergy/AdvReac Type Severity Reaction Status Date / Time Penicillins Allergy Hives Verified 11/16/21 20:52 Contrast dye Allergy hives, Uncoded 11/16/21 20:52 fast heart rate Home Medications Medication Instructions Recorded Confirmed Type empagliflozin 25 mg tablet 25 mg PO DAILY 11/16/21 12/08/21 History (Jardiance) pantoprazole 40 mg tablet,delayed 40 mg PO BID 11/16/21 12/08/21 History release enoxaparin 150 mg/mL subcutaneous 120 mg SUBCUT BID 30 Days #0 ml 11/21/21 12/08/21 Rx syringe lisinopril 5 mg tablet (Zestril) 5 mg PO QAM 30 Days #30 tab 11/21/21 12/08/21 Rx paroxetine HCl 20 mg tablet 20 mg PO DAILY 30 Days #0 tab 11/21/21 12/08/21 Rx rosuvastatin 20 mg tablet (Crestor) 40 mg PO QAM 30 Days #60 tab 11/21/21 12/08/21 Rx morphine 60 mg tablet,extended 60 mg PO DAILY 12/08/21 12/08/21 History release Patient History Medical History Chronic pain syndrome Depression Diabetes GERD (gastroesophageal reflux disease) History of DVT in adulthood Hx pulmonary embolism Hypertension Presence of IVC filter Family History Mother , in her 50s of an AR Myocardial infarction Father , in his 70s of prostate cancer Prostate cancer Social History Smoking Status: Never smoker Second Hand Exposure: No; Hx Alcohol Use: No Hx Substance Use: No Preferred Language: Austrian Communication Ability: Impaired Loan Representative Required: No Beliefs That Will Affect Care: None marital status: Current Living Situation: Spouse Current Living Situation Comment: Came to hospital from [facility] current occupational status: disabled 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 The entire leg appears more swollen than the left leg. He is unable or refuses to do any active motion of his hip, ankle, or knee. He states it is too painful. I gently logroll his right thigh and he does have some pain in the hip. He is painful to palpation of the anterior right thigh. He is also tender around the posterior knee both medially and laterally due to the edema. He has some mild calf discomfort with palpation. Dorsalis pedis and posterior tibial pulses are 1+ although does cause discomfort when checking those. He does not wiggle his toes when asked. He does not do ankle range of motion when asked. He is unable to independently perform a straight leg raise. I asked him if I could gently try to lift his leg or move his hip around and he "preferred I did not". Skin: The skin has no fracture blisters or evidence of ecchymosis, fluctuance, warmth or erythema. Results & Data ([facility]) Vital Signs (Past 12 Hours) Vital Signs Pulse Resp BP Pulse Ox 12/08/21 13:30 80 18 109/58 L 96 12/08/21 12:30 81 18 102/56 L 94 12/08/21 12:00 83 23 138/77 97 12/08/21 11:30 83 25 H 124/71 12/08/21 11:00 87 22 143/81 H 12/08/21 10:31 136/81 95 12/08/21 10:00 84 19 119/89 96 12/08/21 09:46 80 16 123/75 96 Laboratory Results 12/08/21 12/08/21 12/08/21 Range/Units 16:58 16:43 14:48 WBC (4.8-10.8) K/uL RBC (4.7-6.1) M/uL Hgb (14.0-18.0) g/dL Hct (42-52) % MCV (80-100) fL MCH (25-34) pg MCHC (32-36) g/dL RDW Std Deviation (36.4-46.3) fL RDW Coeff of Osbaldo (11.5-14.5) % Plt Count (130-400) K/uL MPV (7.4-10.4) fL Immature Gran % (Auto) % Neut % (Auto) % Lymph % (Auto) % Meagher % (Auto) % Eos % (Auto) % Baso % (Auto) % Neut # (Auto) (1.4-6.5) K/uL Lymph # (Auto) (1.2-3.4) K/uL Meagher # (Auto) (0.11-0.59) K/uL Eos # (Auto) (0-0.5) K/uL Baso # (Auto) (0-0.2) K/uL Immature Gran # (Auto) (0.00-0.02) K/uL Absolute Nucleated RBC (0-0) K/uL Nucleated RBC % (auto) % PT (9.0-12.0) Seconds INR (0.9-1.1) APTT (21.0-31.0) Seconds PTT Ratio Sodium (136-145) mmol/L Potassium (3.5-5.1) mmol/L Chloride (98-107) mmol/L Carbon Dioxide (21-32) mmol/L Anion Gap (3-11) BUN (6-23) mg/dl Creatinine (0.6-1.4) mg/dl Est Cr Clr Drug Dosing ml/min Est GFR ( Amer) ml/min Est GFR (Non-Af Amer) ml/min BUN/Creatinine Ratio (10-20) Glucose (70-99(Fasting)) mg/dl POC Glucose 148 H (70-99) mg/dl Lactate (0.4-2.0) mmol/L Calcium (8.5-10.1) mg/dl Magnesium (1.7-2.4) mg/dl Total Bilirubin (0.2-1.0) mg/dl AST (13-39) U/L ALT (7-52) U/L Alkaline Phosphatase (34-104) U/L Ammonia 39.0 (18-72) umol/L Troponin I High Sens (0-20) pg/ml Total Protein (6.0-8.3) gm/dl Albumin (3.4-5.0) gm/dl Globulin (2.5-4.0) gm/dl Albumin/Globulin Ratio (0.9-2) Procalcitonin (0-0.5) ng/ml TSH 1.315 (0.300-4.500) uIu/ml Urine Color Urine Appearance (Clear) Urine pH (4.5-7.5) Ur Specific [place] (1.000-1.030) Urine Protein (Negative) Urine Glucose (UA) (Negative) Urine Ketones (Negative) Urine Blood (Negative) Urine Nitrite (Negative) Urine Bilirubin (Negative) Urine Urobilinogen (Negative) Ur Leukocyte Esterase (Negative) SARS-CoV-2, RNA, NAAT (NEGATIVE) Blood Type Antibody Screen 12/08/21 12/08/21 12/08/21 Range/Units 14:48 14:12 11:18 WBC (4.8-10.8) K/uL RBC (4.7-6.1) M/uL Hgb (14.0-18.0) g/dL Hct (42-52) % MCV (80-100) fL MCH (25-34) pg MCHC (32-36) g/dL RDW Std Deviation (36.4-46.3) fL RDW Coeff of Osbaldo (11.5-14.5) % Plt Count (130-400) K/uL MPV (7.4-10.4) fL Immature Gran % (Auto) % Neut % (Auto) % Lymph % (Auto) % Meagher % (Auto) % Eos % (Auto) % Baso % (Auto) % Neut # (Auto) (1.4-6.5) K/uL Lymph # (Auto) (1.2-3.4) K/uL Meagher # (Auto) (0.11-0.59) K/uL Eos # (Auto) (0-0.5) K/uL Baso # (Auto) (0-0.2) K/uL Immature Gran # (Auto) (0.00-0.02) K/uL Absolute Nucleated RBC (0-0) K/uL Nucleated RBC % (auto) % PT (9.0-12.0) Seconds INR (0.9-1.1) APTT (21.0-31.0) Seconds PTT Ratio Sodium (136-145) mmol/L Potassium (3.5-5.1) mmol/L Chloride (98-107) mmol/L Carbon Dioxide (21-32) mmol/L Anion Gap (3-11) BUN (6-23) mg/dl Creatinine (0.6-1.4) mg/dl Est Cr Clr Drug Dosing ml/min Est GFR ( Amer) ml/min Est GFR (Non-Af Amer) ml/min BUN/Creatinine Ratio (10-20) Glucose (70-99(Fasting)) mg/dl POC Glucose (70-99) mg/dl Lactate (0.4-2.0) mmol/L Calcium (8.5-10.1) mg/dl Magnesium (1.7-2.4) mg/dl Total Bilirubin (0.2-1.0) mg/dl AST (13-39) U/L ALT (7-52) U/L Alkaline Phosphatase (34-104) U/L Ammonia (18-72) umol/L Troponin I High Sens 9.6 (0-20) pg/ml Total Protein (6.0-8.3) gm/dl Albumin (3.4-5.0) gm/dl Globulin (2.5-4.0) gm/dl Albumin/Globulin Ratio (0.9-2) Procalcitonin (0-0.5) ng/ml TSH (0.300-4.500) uIu/ml Urine Color Yellow Urine Appearance Clear (Clear) Urine pH 5.0 (4.5-7.5) Ur Specific [place] 1.034 H (1.000-1.030) Urine Protein Negative (Negative) Urine Glucose (UA) 3+ H (Negative) Urine Ketones 1+ H (Negative) Urine Blood Negative (Negative) Urine Nitrite Negative (Negative) Urine Bilirubin Negative (Negative) Urine Urobilinogen Negative (Negative) Ur Leukocyte Esterase Negative (Negative) SARS-CoV-2, RNA, NAAT (NEGATIVE) Blood Type A Positive Antibody Screen NEGATIVE 12/08/21 12/08/21 12/08/21 Range/Units 10:40 10:24 09:56 WBC (4.8-10.8) K/uL RBC (4.7-6.1) M/uL Hgb (14.0-18.0) g/dL Hct (42-52) % MCV (80-100) fL MCH (25-34) pg MCHC (32-36) g/dL RDW Std Deviation (36.4-46.3) fL RDW Coeff of Osbaldo (11.5-14.5) % Plt Count (130-400) K/uL MPV (7.4-10.4) fL Immature Gran % (Auto) % Neut % (Auto) % Lymph % (Auto) % Meagher % (Auto) % Eos % (Auto) % Baso % (Auto) % Neut # (Auto) (1.4-6.5) K/uL Lymph # (Auto) (1.2-3.4) K/uL Meagher # (Auto) (0.11-0.59) K/uL Eos # (Auto) (0-0.5) K/uL Baso # (Auto) (0-0.2) K/uL Immature Gran # (Auto) (0.00-0.02) K/uL Absolute Nucleated RBC (0-0) K/uL Nucleated RBC % (auto) % PT (9.0-12.0) Seconds INR (0.9-1.1) APTT (21.0-31.0) Seconds PTT Ratio Sodium (136-145) mmol/L Potassium (3.5-5.1) mmol/L Chloride (98-107) mmol/L Carbon Dioxide (21-32) mmol/L Anion Gap (3-11) BUN (6-23) mg/dl Creatinine (0.6-1.4) mg/dl Est Cr Clr Drug Dosing ml/min Est GFR ( Amer) ml/min Est GFR (Non-Af Amer) ml/min BUN/Creatinine Ratio (10-20) Glucose (70-99(Fasting)) mg/dl POC Glucose (70-99) mg/dl Lactate 1.2 (0.4-2.0) mmol/L Calcium (8.5-10.1) mg/dl Magnesium (1.7-2.4) mg/dl Total Bilirubin (0.2-1.0) mg/dl AST (13-39) U/L ALT (7-52) U/L Alkaline Phosphatase (34-104) U/L Ammonia (18-72) umol/L Troponin I High Sens (0-20) pg/ml Total Protein (6.0-8.3) gm/dl Albumin (3.4-5.0) gm/dl Globulin (2.5-4.0) gm/dl Albumin/Globulin Ratio (0.9-2) Procalcitonin 0.18 (0-0.5) ng/ml TSH (0.300-4.500) uIu/ml Urine Color Urine Appearance (Clear) Urine pH (4.5-7.5) Ur Specific [place] (1.000-1.030) Urine Protein (Negative) Urine Glucose (UA) (Negative) Urine Ketones (Negative) Urine Blood (Negative) Urine Nitrite (Negative) Urine Bilirubin (Negative) Urine Urobilinogen (Negative) Ur Leukocyte Esterase (Negative) SARS-CoV-2, RNA, NAAT NEGATIVE (NEGATIVE) Blood Type Antibody Screen 12/08/21 12/08/21 12/08/21 Range/Units 09:56 09:56 09:56 WBC 24.63 H (4.8-10.8) K/uL RBC 3.10 L (4.7-6.1) M/uL Hgb 8.4 L (14.0-18.0) g/dL Hct 26.0 L (42-52) % MCV 83.9 (80-100) fL MCH 27.1 (25-34) pg MCHC 32.3 (32-36) g/dL RDW Std Deviation 54.1 H (36.4-46.3) fL RDW Coeff of Osbaldo 17.8 H (11.5-14.5) % Plt Count 435 H (130-400) K/uL MPV 10.6 H (7.4-10.4) fL Immature Gran % (Auto) 0.7 % Neut % (Auto) 75.2 % Lymph % (Auto) 15.6 % Meagher % (Auto) 8.3 % Eos % (Auto) 0.1 % Baso % (Auto) 0.1 % Neut # (Auto) 18.50 H (1.4-6.5) K/uL Lymph # (Auto) 3.85 H (1.2-3.4) K/uL Meagher # (Auto) 2.05 H (0.11-0.59) K/uL Eos # (Auto) 0.02 (0-0.5) K/uL Baso # (Auto) 0.03 (0-0.2) K/uL Immature Gran # (Auto) 0.18 H (0.00-0.02) K/uL Absolute Nucleated RBC 0.10 H (0-0) K/uL Nucleated RBC % (auto) 0.4 % PT 12.3 H (9.0-12.0) Seconds INR 1.2 H (0.9-1.1) APTT 30.5 (21.0-31.0) Seconds PTT Ratio 1.1 Sodium 133 L (136-145) mmol/L Potassium 4.0 (3.5-5.1) mmol/L Chloride 98 (98-107) mmol/L Carbon Dioxide 26 (21-32) mmol/L Anion Gap 9 (3-11) BUN 44 H (6-23) mg/dl Creatinine 0.92 (0.6-1.4) mg/dl Est Cr Clr Drug Dosing 122.0 ml/min Est GFR ( Amer) 109.7 ml/min Est GFR (Non-Af Amer) 94.6 ml/min BUN/Creatinine Ratio 47.8 H (10-20) Glucose 135 H (70-99(Fasting)) mg/dl POC Glucose (70-99) mg/dl Lactate (0.4-2.0) mmol/L Calcium 8.9 (8.5-10.1) mg/dl Magnesium 2.7 H (1.7-2.4) mg/dl Total Bilirubin 1.2 H (0.2-1.0) mg/dl AST 70 H (13-39) U/L ALT 33 (7-52) U/L Alkaline Phosphatase 92 (34-104) U/L Ammonia (18-72) umol/L Troponin I High Sens 7.8 (0-20) pg/ml Total Protein 7.3 (6.0-8.3) gm/dl Albumin 3.6 (3.4-5.0) gm/dl Globulin 3.7 (2.5-4.0) gm/dl Albumin/Globulin Ratio 1.0 (0.9-2) Procalcitonin (0-0.5) ng/ml TSH (0.300-4.500) uIu/ml Urine Color Urine Appearance (Clear) Urine pH (4.5-7.5) Ur Specific [place] (1.000-1.030) Urine Protein (Negative) Urine Glucose (UA) (Negative) Urine Ketones (Negative) Urine Blood (Negative) Urine Nitrite (Negative) Urine Bilirubin (Negative) Urine Urobilinogen (Negative) Ur Leukocyte Esterase (Negative) SARS-CoV-2, RNA, NAAT (NEGATIVE) Blood Type Antibody Screen Diagnostic Findings CT OF THE ABDOMEN AND PELVIS WITHOUT CONTRAST CLINICAL HISTORY: fall, R back/hip pain, recent cva COMPARISON STUDY: KUB November 17, 2021. Right hip CT December 07, 2021. TECHNIQUE: Axial images of the abdomen and pelvis were obtained without IV contrast. Images were reviewed in the axial, sagittal, and coronal planes. Automated exposure control was utilized for the study. A dose lowering technique was utilized adhering to the principles of ALARA. FINDINGS: Bilateral gynecomastia is noted. Lung bases are unremarkable. No pneumatosis, free air or portal venous gas is present. Heterogeneity of the liver is likely technical. There is no biliary ductal dilatation status post cholecystectomy. The spleen is not visualized. Adrenal glands and kidneys are normal. There is no hydronephrosis. No evidence for a bowel obstruction. Moderate amount stool within the colon and rectum is present. The appendix is normal. Multiple subcutaneous hyperdense foci of the lower anterior abdominal wall represent small hematomas likely from subcutaneous injections. There is stranding adjacent to the right iliopsoas muscle as well as visualized portions of the right vastus lateralis. This suggests intramuscular hemorrhage which was shown on CT of December 07, 2021. No acute lumbar spine or pelvic fracture is present. IVC filter is in place. No lymphadenopathy. Bladder is mildly distended. IMPRESSION: 1. Redemonstration of suspected intramuscular hemorrhage within the right iliopsoas and right vastus lateralis muscles. This was depicted on hip CT of December 07, 2021. 2. No acute process within the abdomen or pelvis on unenhanced exam. 3. Multiple injection site hematomas of the lower anterior abdominal wall. 4. Moderate amount stool within the colon and rectum. 5. Mild bladder distention.
--- NOTE | 2021-12-08 19:07 | Magnetic Resonance Report ---
MRA OF THE INTRACRANIAL CIRCULATION WITHOUT CONTRAST CLINICAL HISTORY: Possible stroke. COMPARISON STUDY: MRA of the head November 16, 2021. TECHNIQUE: Utilizing a 1.5 Saida magnet and 3-D [id number] technique, unenhanced MRA of the intra cranial circulation was obtained. FINDINGS: The bilateral M1, M2, A1 and A2 segments are patent. There is no central occlusion within t he anterior circulation. Anterior communicating artery is present. Dolichoectasia of the basilar tal ry is noted. There is mild dilatation of the intracranial portions of the vertebral arteries. This is similar to MRI of November 16, 2021. As before, there is diminished flow related enhancement of the ranjan ateral posterior cerebral arteries. This could be technical. No intracranial saccular aneurysm is elo ntified. The appearance of the intracranial vessels is unchanged since prior MRI. IMPRESSION: No significant change since MRI of November 16, 2021. 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 ACT 112: Negative or not required by law. Electronically signed by: Anastacio Henriquez M.D. 12/08/2021 7:04 PM
--- NOTE | 2021-12-08 19:13 | Magnetic Resonance Report ---
MRI OF THE BRAIN WITHOUT CONTRAST CLINICAL HISTORY: TIA symptoms COMPARISON STUDY: MRI of the brain November 16, 2021. Head CT performed earlier today. TECHNIQUE: Utilizing a 1.5 Saida magnet and dedicated coil, multiplanar, multiecho imaging of the bra in was performed without IV contrast. FINDINGS: No acute intracranial hemorrhage, midline shift or mass effect is present. 1.6 x 0.9 cm hyp erintense focus within the posterior limb of the left internal capsule on the diffusion-weighted sequ ence image 14 of 24 is again noted. This was shown on previous MRI. ADC value has now normalized. Thi s represents expected evolution of this infarct. There is no mass effect. Faint peripheral T1 hyperin tensity represents laminar necrosis. A 4 mm hyperintense focus within the adjacent left aspect of the midbrain on axial diffusion-weighted sequence image 11 of was not evident on prior exam. This is isointense on ADC map. Corresponding linear hyperintense signal is noted on the coronal FLAIR sequenc e, images 14 and 15 of . Otherwise, diffusion-weighted sequences are unremarkable. Ventricular syst em is normal. Basal cisterns are patent. There are no extra axial collections. Dolichoectasia of the basilar artery is noted. Mild dilatation of the remainder of the intracranial vessels also also uncha nged. Calvarial signal is normal. IMPRESSION: 1. No acute intracranial findings. 2. Expected evolution of the infarct within the posterior limb of the left internal capsule shown on MRI of November 16, 2021. No mass effect. 3. Adjacent 4 mm focus of signal abnormality within the left aspect of the midbrain. This is likely r elated to the previous infarct. An interval small infarct could appear similar although is considered less likely. ACT 112: Negative or not required by law. Electronically signed by: Anastacio Henriquez M.D. 12/08/2021 7:11 PM
--- NOTE | 2021-12-08 19:26 | Magnetic Resonance Report ---
MRA OF THE NECK WITHOUT CONTRAST CLINICAL HISTORY: possible stroke COMPARISON STUDY: MRA of the neck November 16, 2021. TECHNIQUE: A 1.5 Saida magnet was utilized. 2-D and 3-D [id number] imaging was performed to obt ain unenhanced MRA of the neck. NASCET criteria were utilized to estimate the degree of carotid sten osis. FINDINGS: This exam is significantly compromised given motion artifact. Sensitivity for detection of stenoses is decreased however the bilateral common carotid and cervical internal carotid arteries are grossly patent. The bilateral vertebral arteries are also patent. No aneurysm is identified within t he neck. Appearance is similar to MRI of November 16, 2021. IMPRESSION: Exam significantly compromised from a technical standpoint. Grossly patent bilateral com mon carotid, cervical internal carotid and vertebral arteries. ACT 112: Negative or not required by law. Electronically signed by: Anastacio Henriquez M.D. 12/08/2021 7:23 PM
[2021-12-08] MEDS ORDERED: MoRPHine SULFATE 2 MG/ML CARP IV PRN (22:04)
[2021-12-08 22:34] LABS: Hematocrit (blood only) 25.9 % (42-52); Hemoglobin 8.3 g/dL (14.0-18.0)
[2021-12-08] MEDS: MoRPHine SULFATE 4 MG/ML 1 ML CARP\\VIAL IV PRN (22:52)
[2021-12-08] MEDS: PANTOprazole 40 MG in SYRINGE 0 ML IV SCH (22:57)
[2021-12-08] MEDS: DICLOFENAC SOD 1% GEL 100 GM TUBE EXT SCH (22:57)
[2021-12-09] MEDS: SODIUM CHLORIDE 0.9% 1000ML 1,000 ML IV SCH (01:15)
--- NOTE | 2021-12-09 06:33 | Hospitalist Progress Note ---
Date of Service December 09, 2021 Assessment & Plan (1) Acute encephalopathy: Plan: Mr. Love is a 51 yo gentleman who sustained a recent small vessel ischemic CVA to the left thalamus/internal capsule with residual speech deficit and R sided weakness who was admitted from [facility] rehab for acute worsening of his speech and inability to follow commands. His mentation today was markedly improved from admission. - Etiology of encephalopathy uncertain: Structural Causes: - Non-contrast Head CT showing expected evolution of the infarct within the posterior limb of the left internal capsule shown on head CT 11/18/21. No evidence for hemorrhagic conversion - Patient has allergy to contrast dye; CTA head and neck changed to non- contrast MRA of head and neck: Exam significantly compromised from a technical standpoint. No significant change since MRI of November 16, 2021. 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 Grossly patent bilateral common carotid, cervical internal carotid and vertebral arteries. - Brain MRI (without contrast) ordered: No acute intracranial findings. No mass effect. Adjacent 4 mm focus of signal abnormality within the left aspect of the midbrain. This is likely related to the previous infarct. An interval small infarct could appear similar although is considered less likely. - Given our high level of concern for recurrent stroke, it is worth considering whether repeat brain imaging studies WITH contrast should be done for improved visualization of vessels. I suspect patient had a reaction to io dinated contrast used for CT scan rather than gadolinium, although this is not known with certainty. Could consider pre-treating with Prednisone 50mg at 13h, 50mg at 7hr, 50mg at 1 hour along with Benadryl 50mg a 1 hour. Metabolic Causes: - CBC showing leukocytosis, but SIRS criteria not met on admission. Nasal MRSA swab positive. 1 of 4 blood cultures drawn on admission growing gram positive cocci in clusters; may be a contaminate, however given significant leukocytosis without other obvious explanation, will initiate therapy with IV vancomycin. continue to follow cultures. - Electrolytes not significantly deranged. - glucose normal on admission - Eoth and other drugs not likely given patient came from facility - TSH and ammonia WNL - no history of lung disease, awake and alert, no suspicious of hypercapnia - neuro checks q2h, speech consult ordered, neuro consult placed, fall precautions. Will not repeat A1c and lipid at this time given recent values obtained during last admission (2) Acute blood loss anemia: Plan: - Hgb 8.5 on admission, down from 15 on 11/21/21. - hgb 7.9 today - hemodynamically stable - suspect intravascular loss due to iliopsoas hematoma formation (noted on CT); will also check hemoccult stool - trend CBC daily - transfuse if Hgb < 7; blood consent signed and in chart - therapeutic lovenox was on hold due to concern for ongoing extravasating into R intramuscular hematoma, however resumed today given high propensity to clot + new onset a fib. The risk benefit analysis favored preventing large embolic stroke over increased bleeding into muscle (which could be drained surgically if necessary) (3) Atrial fibrillation with RVR: Plan: - new onset - patient flipped into Afib with rate in 120s today - suspect due to physiologic stress - K > 4.0, Mag > 2.0 - lopressor prn added for rate control - therapeutic lovenox was on hold due to acute blood loss anemia, however resumed today given high propensity to clot + new onset a fib (4) Acute right hemiparesis: Plan: - secondary to recent small vessel ischemic stroke to left thalamus/internal capsule - unclear if current presentation is consistent with (or worse than) residual deficit - complete stroke work up as above with MRA of head + neck, brain MRI (5) Dysarthria due to acute cerebellar cerebrovascular accident (CVA): Plan: - secondary to recent small vessel ischemic stroke to left thalamus/internal capsule - unclear if current presentation is consistent with residual deficit - although per staff at [facility], it is a change - complete stroke work up as above with MRA of head + neck, brain MRI (6) Iliopsoas muscle hematoma: Plan: - noted on Hip CT from 12/07/21 - secondary to fall at rehab while anticoagulated on Lovenox - likely source of anemia - US of RLE ordered to further assess size --7.2 x 4 x 3 cm intramuscular yahaira shashi within the proximal lateral right thigh, likely within the vastus lateralis. - ortho consult placed, no suspicion for compartment syndrome. - resumed home Lovenox today (see rationale above); continue to hold ASA - IV Tylenol, topical diclofenac and Lidoderm patches prn for pain. Morphine 2mg IV q6 added due to impression of ongoing discomfort. Ideally we will avoid narcotics given alteration in mental status (7) Presence of IVC filter: Plan: - noted to be in proper position on KUB from previous admission - due to hx of PE from Factor V Leiden - follows with Dr. Stanley Robertson at [facility] for this; [phone]. - consider contacting Dr. Robertson given clots with therapeutic Lovenox -- did not do this today due to it being a weekend. Perhaps dual antiplatelet therapy should be considered for this patient? (8) Diabetes: Plan: - type II - A1c from 11/17/21 was above goal at 9.0; will not redraw at this time. - BG on admission was 135 - patient was sent out on Jardiance 25mg daily; SQ insulin felt to be unnecessary as his BG improved to normal on a diabetic diet during last admission. - Hold Jardiance while NPO, SSI ordered - carb consistent diet - resume high intensity statin and daily baby ASA when no longer NPO (9) Hypertension: Plan: - home regimen of lisinopril 5mg daily - hold while NPO and in the setting of acute TIA/CVA (allow for permissive HTN) (10) Chronic anticoagulation: Plan: - patient on therapeutic Lovenox due to Factor V Leiden and hx of DVT/PE - held on admission in the setting of acute intramuscular hematoma and precipitous drop in Hgb; resumed 12/09/21 due to new onset Afib + high propensity to form clots (11) Murmur, cardiac: Plan: - noted on PE, new from last admission - Repeat echo with bubble study ordered given concurrent stroke work up (12) Leukocytosis: Plan: - WBC elevated to 24 on arrival with neutrophil predom; WBC remained at 23 today - 1 of 4 blood cultures growing gram + cocci in clusters; follow - Procal not elevated - UA not concerning for infection - CXR without evidence of PNA - no diarrhea per - initiated IV vancomycin today due to 1 of 4 blood cultures turning positive, + MRSA nares and unexplained leukocytosis - trend CBC (13) Tobacco abuse: Plan: - history of - has been tobacco free since 11/07/21 (previous admission) (14) Thrombocytosis: Plan: - platelets elevated to 435 on admission --> 407 - patient is asplenic - suspect 2/2 to intramuscular hematoma formation - trend CBC (15) Elevated AST (SGOT): Plan: - AST elevated to 70 on admission, ALT normal - given new ST segment depressions in anterior leads on EKG, trop drawn. High sensitivity trop returned at 7.8. No concern for ACS at this time. (16) GERD (gastroesophageal reflux disease): Plan: - convert oral PPI to IV form while NPO (17) Depression: Plan: - hold home paroxetine while NPO Plan: Dispo: Admit to Med/tele. PT/OT ordered Diet: carb consistent DM2 and heart healthy; aspiration precautions DVT pxx: resumed home lovenox as above. SCDs ordered Code: Full Admission and Anticipated Discharge Date Admission Date: December 08, 2021 Supervising Physician Co-Signing Physician Notes Patient seen and examined with PGY-3 Dr. Starks. Agree with history, exam findings, assessment and plan of care as outlined. In brief, Mr. Love is a 51 year old male with history diabetes, factor V Leiden with prior VTE and current IVC, chronic pain (s/p L5 posterior decompression laminectomy), and recent internal capsule/thalamic stroke admitted with new concerns for confusion, slurred speech. Today, continues to have right leg pain. Asking for something to eat and drink. Mouth feels dry. Went into afib with RVR today--asymptomatic. VS reviewed. Comfortable appearing. Systolic ejection murmur. Right facial droop. Right upper and lower extremity hemiparesis. Right upper extremity with high tone and spasticity. Soft tissue swelling of the right thigh, tender. Ecchymosis and tender, firm areas of hematoma of the anterior abdominal wall (at Lovenox injection sites) 1.Altered mental status. Concern for new ischemic changes vs pain mediated vs metabolic encephalopathy. TSH and ammonia are within normal range. CT Head without bleed, expected changes from prior CVA. MRI without new ischemic changes. 2.Right sided weakness. Does have baseline right sided hemiplegia from recent CVA. CT Head as above. MRA Head/Neck/Brain without new changes, however this was done without contrast due to a contrast allergy (unclear if this was iodine contrast vs gadolinium). Will treat as new, acute CVA for now until we can rule that out completely. Continue high intensity statin and glucose control. Continue ASA for now. 3.Anemia. New. Hemoglobin 7.9 (down from 15 at the time of discharge and 11.3 on December 06). Check FOBT. Wonder if this is from the hematomas of the right thigh (vastus lateralis, iliopsoas) and anterior abdomen in the area of the Lovenox injections. Type and screen in the event he requires transfusion. Initially held Lovenox. 4.Right leg pain. Known hematomas of the right thigh (from recent fall and subsequent CT of the right hip showing moderate intramuscular hemorrhage, multiple acute intramuscular hematomas within the right vastus lateralis). Won alex if the drop in hemoglobin above is related to this. Soft tissue ultrasound showing 7.2 x 4 x 3 cm intramuscular hematoma. Appreciate ortho recommendations. 5.Leukocytosis. WBCs 24. Procalcitonin negative. CXR without consolidation, CT Abd/Pelvis without colitis or collection of fluid consistent with an abscess. Skin without signs of cellulitis. 1/2 blood cultures with gram positive cocci. Started vanc given positive MRSA nares. 6. new afib with RVR. given lopressor which gave some rate control. However, went back into afib with RVR later in the day but BPs are were quite low so gave dig in the afternoon with improvement in rate, but still in afib. 6.New systolic murmur. TTE without valvular pathology. 7.HTN. Holding home lisinopril to allow for permissive hypertension. 8.DM. hold home jardiance. SSI. NPO until he passes bedside swallow. A1C (11/07/21) was 9.0%. 9.Chronic pain. At [facility], pain medication regimen as follows: MS Contin 30mg, morphine IR 15mg q4h, baclofen 20mg. 10.Factor V Leiden, hx of VTE with IVC filter. Follows with hematology at [facility] Dr. Robertson. Had Doppler on 12/07/21 showing right leg partially occlusive DVT in the distal femoral vein. No prior Dopplers in our system to compared. Dispo: pending clinical improvement. Subjective No acute events overnight. Patient requests food and water, awaiting speech eval. Per , patent has been "tried on everything" and clots through all of it. Apparently he was on up to 90mg of Coumadin (per week?) and still formed blood clots on it. When asked if he has been on Xarelto or Eliquis, she said no. She is unsure of which dye her has an allergy to - although she believes it was used for a cat scan. Review of Systems Musculoskeletal: + R leg pain Physical Exam Constitutional: WD/WN, vitals as above + obese, + altered mental status (appears more comfortable today, able to answer questions appropriately) and cooperative Eyes: PERRL, conjunctivae normal, anicteric sclerae ENMT: external ear and nose normal, oropharynx normal Neck: normal visual inspection and trachea midline Respiratory: normal respiratory effort, lungs clear to auscultation no labored breathing and no cough Cardiovascular: Rate/Rhythm: regular rate and regular rhythm Heart Sounds: normal S1, normal S2 and + murmur (systolic ejection ) Extremities: no pedal edema Gastrointestinal (Abdomen): normal bowel sounds, soft, nontender, no hepatosplenomegaly Musculoskeletal: Head/Neck/Chest: normocephalic and head atraumatic Extremities: + abnormal muscle tone (high on R UE and LE) Skin: no rashes, warm and dry no ecchymosis Neurologic: + focal motor deficit (strength 2/5 of R upper and lower extremity) and awake Speech / Cognition: + abnormal speech Motor/Sensory: no tremor and no sensory deficit Cranial Nerves: + not able to elevate shoulders (only on L) Psychiatric: Orientation: alert, oriented to person and oriented to place Results & Data Results & Data ([facility]) Vital Signs (Past 12 Hours) Vital Signs Temp Pulse Pulse Resp BP Pulse Ox 12/09/21 03:00 36.6 C 86 18 103/84 94 12/08/21 23:00 83 12/08/21 22:40 36.9 C 79 20 110/60 94 12/08/21 19:47 37.1 C 80 20 114/70 94 12/08/21 19:45 86 Resident Activity Tracking Resident Involvement: Resident Care Provided Care Provided: Adult Hospital Medicine (1) Hypertension Hypertension type: primary hypertension Qualified Code(s): I10 - Essential (primary) hypertension
[2021-12-09] MEDS: DICLOFENAC SOD 1% GEL 100 GM TUBE EXT SCH ×2 (07:38→20:24)
[2021-12-09] MEDS: PANTOprazole 40 MG in SYRINGE 0 ML IV SCH ×2 (07:38→20:24)
[2021-12-09] MEDS: LIDOCAINE 5% 1 PATCH TD SCH (07:38)
[2021-12-09] MEDS ORDERED: MoRPHine SULFATE 2 MG/ML CARP IV PRN (08:31)
[2021-12-09] MEDS: INSULIN ASPART PER UNIT SC SCH ×4 (08:45→20:25)
--- NOTE | 2021-12-09 08:58 | Ultrasound Report ---
RIGHT THIGH ULTRASOUND CLINICAL HISTORY: Please measure right thigh hematomas COMPARISON STUDY: Right hip CT December 07, 2021. CT of the abdomen and pelvis December 08, 2021. TECHNIQUE: Sonography of the right thigh was performed. FINDINGS: Note is made of a 7.2 x 4 x 3 cm intramuscular fluid collection of the proximal lateral rig ht thigh. This is likely within the vastus lateralis and corresponds to the finding on right hip CT o f December 07, 2021. This represents an intramuscular hematoma. Subcutaneous fluid of the right thigh is a lso noted. IMPRESSION: 7.2 x 4 x 3 cm intramuscular hematoma within the proximal lateral right thigh, likely wi thin the vastus lateralis. ACT 112: Negative or not required by law. Electronically signed by: Anastacio Henriquez M.D. 12/09/2021 8:56 AM
[2021-12-09 09:26] LABS: Nucleated RBC # (auto) 0.43 K/uL (0-0); Nucleated RBC % (auto) 1.8 %
[2021-12-09 10:05] LABS: Hematocrit (blood only) 24.2 % (42-52); Hemoglobin 7.9 g/dL (14.0-18.0); Mean Corpuscular Hemoglobin 27.4 pg (25-34); Mean Corpuscular Hgb Conc 32.6 g/dL (32-36); Mean Platelet Volume 11.7 fL (7.4-10.4); Platelet Count 407 K/uL (130-400); RDW Standard Deviation 54.9 fL (36.4-46.3); Red Blood Count 2.88 M/uL (4.7-6.1); White Blood Count 23.71 K/uL (4.8-10.8)
[2021-12-09 10:06] LABS: Albumin Globulin Ratio 0.9 (0.9-2); Albumin Level 3.5 gm/dl (3.4-5.0); BUN Creatinine Ratio 64.9 (10-20); Bilirubin,Total 1.5 mg/dl (0.2-1.0); Calcium 8.7 mg/dl (8.5-10.1); Creatinine Clr Calc Pharmacy 148.5 ml/min; Est GFR (African American) 122.1 ml/min; Est GFR (Non-African American) 105.3 ml/min; Globulin 3.7 gm/dl (2.5-4.0); Potassium 4.2 mmol/L (3.5-5.1); Total Protein 7.2 gm/dl (6.0-8.3)
[2021-12-09 10:12] LABS: ALC (manual) 2.06 K/uL (1.2-3.4); ANC (manual) 19.99 K/uL (1.4-6.5); Lymphocytes # (manual) 2.06 K/uL (1.2-3.4); Lymphocytes % (manual) 8.7 %; Metamyelocytes # (manual) 0.21 K/uL (0-0); Metamyelocytes % (manual) 0.9 %; Monocytes # (manual) 1.23 K/uL (0.11-0.59); Monocytes % (manual) 5.2 %; Myelocytes # (manual) 0.21 K/uL (0-0); Myelocytes % (manual) 0.9 %; Neutrophils # (manual) 19.99 K/uL (1.4-6.5); Neutrophils % (manual) 84.3 %; Polychromasia 2+
[2021-12-09] MEDS ORDERED: VANCOMYCIN CONSULT ACTIVE PRN (10:33)
[2021-12-09] MEDS ORDERED: VANCOMYCIN HCL 2,250 MG in SODIUM CHLORIDE 0.9% 500 ML IV ONE (10:33)
[2021-12-09] MEDS ORDERED: METOPROLOL TARTRATE 1 MG/ML VIAL IV PRN (11:12)
[2021-12-09] MEDS: MoRPHine SULFATE 4 MG/ML 1 ML CARP\\VIAL IV PRN ×2 (12:03→15:26)
[2021-12-09] MEDS: ENOXAPARIN INJ 120 MG/0.8 ML SYR SQ SCH ×2 (12:52→23:48)
--- NOTE | 2021-12-09 14:28 | Pharmacy Report ---
Pharmacy Vanc AUC Short Note - Date of Service December 09, 2021 - Assessment & Plan Assessment * 51 year old M receiving vancomycin for treatment of possible bacteremia. GPC in clusters isolated from anaerobic bottle of 1 of 2 blood cultures - not likely to be a true anaerobe given that they were obtained yesterday. No rapid PCR result can be done on the anaeroibc vial. * Source unclear, and may be a contaminant. Positive MRSA nasal swab and leukocytosis noted. * Vancomycin reasonable for now Vancomycin * AUC/GIOVANNI is the preferred PK/PD target for vancomycin, which is effective and associated with decreased risk of nephrotoxicity compared to traditional trough targets * Will dose via AUC * Trough levels are not required for AUC monitoring therefore will order a random level with AM labs in 2 days. Of note, this will NOT be a trough level, therefore a value significantly greater than 20 mcg/mL will not necessarily indicate a supratherapeutic level. Plan * Vancomycin 2250 mg IV x1 then 1250 mg IV q12h * Random with AM labs on 12/11 Pharmacy will continue to follow and will adjust dose/frequency as necessary. Thank you.
--- NOTE | 2021-12-09 14:35 | XCELERA ---
[id number]
--- NOTE | 2021-12-09 15:13 | Electrocardiogram Report ---
Test Reason : Blood Pressure : / mmHG Vent. Rate : 119 BPM Atrial Rate : 141 BPM P-R Int : 000 ms QRS Dur : 088 ms QT Int : 360 ms P-R-T Axes : 000 -08 158 degrees QTc Int : 506 ms Atrial fibrillation with rapid ventricular response Minimal voltage criteria for LVH, may be normal variant Abnormal ECG When compared with ECG of 08-DEC-2021 09:47, Atrial fibrillation has replaced Sinus rhythm Nonspecific T wave abnormality now evident in Inferior leads Confirmed by Avila Roblero ([id number]) on 12/09/2021 3:12:59 PM Referred By: Erik Reed Confirmed By:Avila Roblero
[2021-12-09] MEDS ORDERED: oxyCODONE HCL IR 5 MG TAB (IMMEDIATE RELEASE) PO PRN (16:44)
[2021-12-09] MEDS: MoRPHine SULFATE CR 15 MG TABCR PO SCH (17:10)
[2021-12-09] MEDS ORDERED: DIGOXIN 125 MCG in SYRINGE 9.5 ML IV STA (17:23)
[2021-12-09] MEDS ORDERED: DIGOXIN 250 MCG in SYRINGE 9 ML IV STA (17:34)
[2021-12-09] MEDS ORDERED: LACTATED RINGER'S 1,000 ML IV ONE (20:22)
[2021-12-09] MEDS: MoRPHine SULFATE IR 15 MG TAB (IMMEDIATE RELEASE) PO PRN (20:22)
[2021-12-09] MEDS ORDERED: cefTRIAXone SODIUM 2,000 MG in DEXTROSE 5% 50 ML IV SCH (20:25)
[2021-12-09 21:13] LABS: Hematocrit (blood only) 21.7 % (42-52)
[2021-12-09] MEDS: VANCOMYCIN HCL 1,250 MG in SODIUM CHLORIDE 0.9% 250 ML IV SCH (21:33)
[2021-12-09] MEDS ORDERED: SODIUM CHLORIDE 0.9% 250 ML IV PRN (23:02)
[2021-12-10] MEDS: MoRPHine SULFATE CR 15 MG TABCR PO SCH ×2 (04:32→16:36)
--- NOTE | 2021-12-10 05:52 | Communication Note ---
Date of Service: December 10, 2021 Received critical value notification about 12/08 blood cx - / growing GPC clusters. Patient was borderline hypotensive/tachycardic this evening as well. Patient denies any new symptoms. Feels relatively well besides for some pain in his right leg, which is not worse than previously. On exam patient is in NAD, lying comforably in bed, heart RRR w/o m/r/g, LCTAB, no s/s cellulitis or other rashes, abdomen soft/ND/NT, right thigh mildly tender to palpation but not swollen red or warm. GPC Bacteremia: - ordered repeat blood cx - ordered inflammatory markers: Procal again negative, Lactate negative, but CRP 18.95/ESR 69 - added Ceftriaxone 2g IV daily, in addition to Vancomycin - may consider ID consultation, COREY, and/or I&D with culture of hematoma - will defer to day team Hypotension/Tachycardia; R Iliopsoas Hematoma: Hgb 7.9 --> 7.0 this evening. Besides for hematoma which clinically appears to be stable, no other active source of bleeding. - ordered 1 unit pRBCs - trend in AM
--- NOTE | 2021-12-10 06:28 | Hospitalist Progress Note ---
Date of Service December 10, 2021 Assessment & Plan (1) Acute encephalopathy: Plan: Mr. 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 His recovery course from his recent CVA has been complicated by formation of R iliopsoas hematoma (discovered at [facility]) and acute bl ood loss anemia requiring pRBC transfusion on 12/09; further, he developed AFib w/ RVR on 12/09, which has subsequently resolved; and development of GPC bacteremia. PLAN HIGHLIGHTS - 12/10/21 * HOLD LOVENOX in setting of ABLA (req transfusion overnight) ; last dose = PM of 12/09 --> Recheck CBC at 1200 (Hgb up to 7.5 this AM from 7.0 last night) -- improved to 7.7 * Converted back to NSR from AFib at 1999 on 12/09 * BCX (prelim) revealing different spp. of coag-negative Staph; possible that both are contaminants. Await speciation. Maintain vancomycin for now. * HOLD further CFTX * No current e/o compartment syndrome; DP pulse 2+, capillary refill < 3 seconds * Recheck RLE US to assess size of hematoma -- no change in size, reassuring ; will have to monitor in case of ?bacteremia Acute Encephalopathy - Worsening speech and command-following ability reported at rehab for L-sided CVA - Work-up as follows: - Progressive anemia noted (see below) in setting of R iliopsoas hematoma - Bacteremia has developed since last admission - No e/o electrolyte, endocrinologic disturbances - Home morphine resumed at [facility] - Non-contrast Head CT showing expected evolution of the infarct within the posterior limb of the left internal capsule shown on head CT 11/18/21. No evidence for hemorrhagic conversion - non-con MRA-H/N: Significantly limited study w/o contrast. Dolichoectasia of basilar artery with diminished enhancement of administrative support coordinator; otherwise grossly WNL - Brain MRI (without contrast) ordered: No acute findings. 4 mm focus of signal abnormality within the L midbrain, likely related to the previous infarct. Interval infarct less likely, but possible. - Likely multifactorial: ABLA, bacteremia, possibly recurrent stroke - If worsening neuro exam/mentation, consider repeat cerebrovascular imaging studies WITH contrast. Based on provided history, greater concern for allergy to CT scan-related contrast rather than gadolinium, although this is not known with certainty. Consider pre-treating with Prednisone 50mg at 13h, 50mg at 7hr, 50mg at 1 hour along with Benadryl 50mg a 1 hour (2) Iliopsoas muscle hematoma: Plan: - noted on Hip CT obtained by [facility] provider from 12/07/21 - likely secondary to fall at rehab while anticoagulated on Lovenox - suspected source of ABLA outlined below - US of RLE (12/08) --7.2 x 4 x 3 cm intramuscular hematoma within the proximal lateral R thigh, likely within the vastus lateralis. - Orthopedic consult placed: no suspicion for compartment syndrome at this time, no indication for immediate evacuation - Lovenox was initially resumed 12/09 (see AFib w/ RVR for rationale) -- holding this and ASA for now - IV Tylenol, topical diclofenac and Lidoderm patches prn for pain. Morphine 2mg IV q6 added due to impression of ongoing discomfort. Ideally we will avoid narcotics given alteration in mental status - Recheck US of the RLE to evaluate hematoma size and burden (3) Acute blood loss anemia: Plan: - Interval development of anemia on admission in setting of ongoing Lovenox use for Factor V Leiden - Hgb at 15 on discharge in 11/2021 -- on admission, Hgb notably dropped to 7.9 - Suspect intravascular loss due to iliopsoas hematoma formation (noted on CT); will also check Hemoccult stool - Progressively declining (12/09) Hgb to 7.0 in setting of HoTN, tachycardia requiring transfusion 1U pRBC --> improved to 7.7 - transfuse if Hgb < 7 or if symptomatic; blood consent signed and in chart - Hold Lovenox in setting of ABLA, resolution of AFib (4) Atrial fibrillation with RVR: Plan: - New-onset AFib w/ RVR appreciated 12/09 in setting of recent CVA, ABLA from hematoma, and interval development of bacteremia - Converted to NSR at 1999 on 12/10/21 - TTE (12/09): Normal biventricular function, LVEF 65-70%, no RWMAs - Maintain K > 4.0, Mag > 2.0 - Lopressor prn added for rate control - Hold Lovenox for now in setting of ABLA, resolution of AFib (5) Bacteremia: Plan: - BCX returning 08/24 for GPCs in clusters as of 12/10 - Work-up as follows: - BCX demonstrating 08/24: Coagulase negative Staph not lugdunensis but different species; repeat cultures pending. Contaminant? - R iliopsoas hematoma noted - MRSA nares POSITIVE - TTE (not COREY) without valvular pathology - WBCs, ESR, CRP appreciably elevated, procal negative - UA, CXR, recent bowel history without significant findings - Continue IV vancomycin for now - If repeat cultures return positive and clinical appearance worsens (alongside labs), would entertain ID consult and possibly COREY - Hold further CFTX (2g given 12/09 PM) (6) Leukocytosis: Plan: - WBC elevated to 24 on arrival with neutrophil predominance -- now improving - Suspect secondary to bacteremia, hematoma, inflammatory state - No evidence of GI, pulmonary, skin, neurologic abnormalities - See bacteremia above - Monitor CRP, procalcitonin for now (7) Acute right hemiparesis: Plan: - secondary to recent small vessel ischemic stroke to left thalamus/internal capsule - unclear if current presentation is consistent with (or worse than) residual deficit - appreciate neurology input on ?risk/benefit of performing cerebrovascular imaging (with contrast) in setting of vague contrast allergy history (8) Dysarthria due to acute cerebellar cerebrovascular accident (CVA): Plan: - in setting of recent small vessel ischemic stroke to left thalamus/internal capsule in 11/2021 - unclear if current presentation is consistent with residual deficit, interval development of new ischemia, and/or acute encephalopathy from numerous physiologic stressors - appreciate neurology input, as above (9) Presence of IVC filter: Plan: - Noted to be in proper position on KUB from previous admission - Due to hx of PE from Factor V Leiden - follows with Dr. Stanley Robertson at [facility] for this; [phone]. - consider contacting Dr. Robertson given clots with therapeutic Lovenox -- did not do this today due to it being a weekend. Perhaps dual antiplatelet therapy should be considered for this patient? (10) Diabetes: Plan: - A1c from 11/17/21 was above goal at 9.0 - Patient previously discharged with Jardiance 25mg daily; SQ insulin deferred given improved BSGs with diabetic diet during last admission. - Hold Jardiance while NPO, SSI ordered - carb consistent diet - resume high intensity statin and daily baby ASA when no longer NPO (11) Hypertension: Plan: - Home regimen of lisinopril 5mg daily - Hold while NPO and in the setting of acute TIA/CVA (allow for permissive HTN) and ABLA (12) Chronic anticoagulation: Plan: - patient on therapeutic Lovenox due to Factor V Leiden and hx of DVT/PE - held on admission in the setting of acute intramuscular hematoma and precipitous drop in Hgb; resumed 12/09/21 due to new onset Afib + high propensity to form clots (13) Murmur, cardiac: Plan: - noted on PE, new from last admission - Repeat echo with bubble study ordered given concurrent stroke work up (14) Tobacco abuse: Plan: - history of - has been tobacco free since 11/07/21 (previous admission) (15) Thrombocytosis: Plan: - platelets elevated to 435 on admission --> 407 - patient is asplenic - suspect 2/2 to intramuscular hematoma formation - trend CBC (16) Elevated AST (SGOT): Plan: - AST elevated to 70 on admission, ALT normal - Suspect partially related to iliopsoas hematoma - given new ST segment depressions in anterior leads on EKG, trop drawn. High sensitivity trop returned at 7.8. No symptoms or other findings consistent with ACS at this time. (17) GERD (gastroesophageal reflux disease): Plan: - convert oral PPI to IV form while NPO (18) Depression: Plan: - hold home paroxetine while NPO Plan: Dispo: Admit to Med/tele. PT/OT ordered Diet: carb consistent DM2 and heart healthy; aspiration precautions DVT pxx: resumed home lovenox as above. SCDs ordered Code: Full Admission and Anticipated Discharge Date Admission Date: December 08, 2021 Supervising Physician Co-Signing Physician Notes I personally examined the patient and verified all prajapati points of history and exam, discussed case, and agree with decision making with Dr Valdivia more responsive, able to communicate. remembers taht this all started because of having a stroke. wants to go home. very concerned about clotting - notes that he's clotted in as little as being off lovenox for 2 days for a colo. undestands delicate balance between bleeding (current problem) and clotting (chronic and recurrently acute problem). also discussed afib and blood cultures. answered all questions to the best of my ability. AMS - most fitting w delirium/metabolic encephalopathy - most likely from physiologic stress of hemorrhage/anemia. apperas to be improving hemorrhage/anemia - required 1 unit transfusion. follow closely. lovenox temporarily on hold - should self-stop//tamponade. follow Hgb. have blood on hold V Leiden w recurrent DVTs - apparently clots very quickly off blood thinners - therefore will start lvoenox back at 40mg HS tonight, if stable w bleeding then full dose tomorrow. d/w pt and family given delicate balance of bleeding and clotting will want to follow for several days of stability before considering dc CVA, R sided weakness - mcc Rx w anticoaguation, antiplatelet, statin, BP/dm control - d/w family can repeat MRI to discern recrudesence from new CVA but very unlikely to change treatment. offered//after in depth discussions they declined. more suspicious recrudesence and leg weakness from bleed/hematoma (+) blood cultures - 2 different types of coag neg staph --> most likely actually 2 different contaminants. follow repeat Cx, continue vanco for now. with no other obvious site of infection (ongoing vigilance, serial exams) this would make leukocytosis most likely reactive to hemorrhage/hematoma otherwise as above Subjective Later in the evening, patient found to have softer pressures with elevated HR. Hgb recheck revealed level of 7, for which 1U pRBCs was administered. Further, second culture resulted positive for GPCs in clusters. CFTX was added to pre- existing vancomycin. Feeling ok this morning. Spirits aren't great. Pain is worst in RLE. No numbness/tingling. Denies SOB/chills/night sweats. No nausea or vomiting. Review of Systems Review of Systems: as per HPI Physical Exam Physical Exam: General: 51-year old male who is alert, oriented, and appears in no acute distress. He responds to most questions with "yes/no" and has difficulty elaborating beyond this. HEENT: NCAT. - Eyes - Sclera are white, anicteric, and without injection. - Mouth - MMM - Neck - supple, no appreciable JVD Cardiac: Normal rate and regular rhythm; S1 and S2 present with no murmurs, rubs, or gallops. Pulmonary: Good respiratory effort with symmetric expansion of the chest. No use of accessory muscles. Lungs were clear to auscultation bilaterally with no crackles or wheezes. Abdominal: Normoactive bowel sounds. Abdomen was soft, nondistended, and non- tender to palpation. Extremities: Upper and lower extremities are warm and well perfused. Exam of the RLE does reveal appreciable unilateral edema when compared to the LLE, most notable within the thigh. There is mild TTP. Femoral pulse 2+. DP pulse 2+. Capillary refill < 3 seconds. As the RLE has reduced mobility following CVA, unable to reliably assess strength. Neuro: - Cranial Nerves: II-XII grossly intact. No facial droop. - Motor: UE - Finger, wrist, elbow, and shoulder strength is 5/5 in LUE, LLE; strength is 1/5 in the RUE/RLE. - Sensation: Unable to reliably assess Results & Data Results & Data ([facility]) Vital Signs (Past 12 Hours) Vital Signs Temp Pulse Pulse Resp BP BP Pulse Ox 12/10/21 04:14 37.0 C 70 115/62 98 12/10/21 03:55 37.0 C 77 20 107/67 98 12/10/21 02:55 37.0 C 75 18 120/64 98 12/10/21 01:55 37.1 C 69 20 108/61 98 12/10/21 01:25 37.0 C 78 18 111/68 98 12/10/21 01:10 37.0 C 69 20 108/57 L 98 12/10/21 00:52 36.9 C 69 20 105/64 99 12/09/21 23:28 37.1 C 68 20 108/62 97 12/09/21 23:00 75 12/09/21 20:15 70 12/09/21 19:20 37.2 C 114 H 18 100/55 L 95 Resident Activity Tracking Resident Involvement: Resident Care Provided Care Provided: Adult Hospital Medicine (1) Hypertension Hypertension type: primary hypertension Qualified Code(s): I10 - Essential (primary) hypertension
[2021-12-10 07:18] LABS: Basophils # (auto) 0.04 K/uL (0-0.2); Basophils % (auto) 0.2 %; Eosinophils # (auto) 0.22 K/uL (0-0.5); Eosinophils % (auto) 1.2 %; Hematocrit (blood only) 23.4 % (42-52); Hemoglobin 7.5 g/dL (14.0-18.0); Immature Granulocytes # (auto) 0.25 K/uL (0.00-0.02); Immature Granulocytes % (auto) 1.3 %; Lymphocytes % (auto) 19.9 %; Mean Corpuscular Hemoglobin 27.3 pg (25-34); Mean Corpuscular Hgb Conc 32.1 g/dL (32-36); Mean Corpuscular Volume 85.1 fL (80-100); Mean Platelet Volume 10.3 fL (7.4-10.4); Monocytes # (auto) 1.77 K/uL (0.11-0.59); Monocytes % (auto) 9.5 %; Neutrophils % (auto) 67.9 %; Nucleated RBC # (auto) 0.62 K/uL (0-0); Nucleated RBC % (auto) 3.3 %; Platelet Count 432 K/uL (130-400); RDW Coefficient of Variation 17.7 % (11.5-14.5); RDW Standard Deviation 54.1 fL (36.4-46.3); Red Blood Count 2.75 M/uL (4.7-6.1); White Blood Count 18.58 K/uL (4.8-10.8)
[2021-12-10 07:38] LABS: Albumin Globulin Ratio 0.9 (0.9-2); BUN Creatinine Ratio 43.5 (10-20); Bilirubin,Total 1.3 mg/dl (0.2-1.0); Creatinine Clr Calc Pharmacy 180.5 ml/min; Est GFR (African American) 131.3 ml/min; Est GFR (Non-African American) 113.3 ml/min; Globulin 3.2 gm/dl (2.5-4.0); Magnesium 2.2 mg/dl (1.7-2.4); Potassium 3.6 mmol/L (3.5-5.1); Total Protein 6.2 gm/dl (6.0-8.3)
[2021-12-10 07:42] LABS: Acanthocytes 1+; Polychromasia 1+; Spherocytes 1+
[2021-12-10] MEDS: LIDOCAINE 5% 1 PATCH TD SCH (07:52)
[2021-12-10] MEDS: PANTOprazole 40 MG in SYRINGE 0 ML IV SCH (07:52)
[2021-12-10] MEDS: DICLOFENAC SOD 1% GEL 100 GM TUBE EXT SCH ×2 (07:52→21:59)
[2021-12-10] MEDS: MoRPHine SULFATE IR 15 MG TAB (IMMEDIATE RELEASE) PO PRN ×3 (08:47→21:58)
[2021-12-10] MEDS: INSULIN ASPART PER UNIT SC SCH ×4 (08:48→21:59)
[2021-12-10] MEDS: VANCOMYCIN HCL 1,250 MG in SODIUM CHLORIDE 0.9% 250 ML IV SCH ×2 (10:49→22:20)
--- NOTE | 2021-12-10 11:42 | Orthopedic Progress Note ---
Date of Service December 10, 2021 Assessment & Plan (1) Iliopsoas muscle hematoma: Plan: Continue with conservative treatment including observation, ice/heat, PT/OT to assist with hip range of motion Weightbearing as tolerated using walker to assist him in ambulation DVT prophylaxis: If able we recommend holding Lovenox for 3 to 5 days to ensure that hematoma does not continue to enlarge Pain control: Per primary Case discussed with Dr. Hylton Follow up with Dr Hylton in 10-14 days upon discharge Admission and Anticipated Discharge Date Admission Date: December 08, 2021 Subjective Patient seen and examined bedside. He says that he is doing well today and his pain is controlled and improved. He has been working with physical therapy. He still has some pain with movement of the hip but says that it is getting better. He has no other questions or concerns at this time. Physical Exam Physical Exam: Patient is lying in bed awake alert and oriented x3, no acute distress, calm and cooperative during exam. Upon examination his right lower extremity there is no obvious deformity, erythema, ecchymosis or swelling. The patient is tender to palpate over the anterior aspect of the hip, especially with hip flexors. There is no palpable mass or fluctuance felt. The patient has full passive range of motion with hip flexion, internal and external rotation but he does report pain with hip flexion. Patient has difficulty with straight leg raise, dorsiflexion, plantarflexion at baseline due to previous CVA. Neurovascular intact with station light touch distally 2+ distal pulses present. Results & Data ([facility]) Vital Signs (Past 12 Hours) Vital Signs Temp Pulse Pulse Resp BP BP Pulse Ox 12/10/21 07:42 37.0 C 69 16 100/63 96 12/10/21 04:14 37.0 C 70 115/62 98 12/10/21 03:55 37.0 C 77 20 107/67 98 12/10/21 02:55 37.0 C 75 18 120/64 98 12/10/21 01:55 37.1 C 69 20 108/61 98 12/10/21 01:25 37.0 C 78 18 111/68 98 12/10/21 01:10 37.0 C 69 20 108/57 L 98 12/10/21 00:52 36.9 C 69 20 105/64 99 Laboratory Results 05/12/10/21 12/10/21 Range/Units 07:50 05:48 05:48 WBC 18.58 H (4.8-10.8) K/uL RBC 2.75 L (4.7-6.1) M/uL Hgb 7.5 L (14.0-18.0) g/dL Hct 23.4 L (42-52) % MCV 85.1 (80-100) fL MCH 27.3 (25-34) pg MCHC 32.1 (32-36) g/dL RDW Std Deviation 54.1 H (36.4-46.3) fL RDW Coeff of Osbaldo 17.7 H (11.5-14.5) % Plt Count 432 H (130-400) K/uL MPV 10.3 (7.4-10.4) fL Immature Gran % (Auto) 1.3 % Neut % (Auto) 67.9 % Lymph % (Auto) 19.9 % [place] % (Auto) 9.5 % Eos % (Auto) 1.2 % Baso % (Auto) 0.2 % Neut # (Auto) 12.60 H (1.4-6.5) K/uL Lymph # (Auto) 3.70 H (1.2-3.4) K/uL [place] # (Auto) 1.77 H (0.11-0.59) K/uL Eos # (Auto) 0.22 (0-0.5) K/uL Baso # (Auto) 0.04 (0-0.2) K/uL Immature Gran # (Auto) 0.25 H (0.00-0.02) K/uL Absolute Nucleated RBC 0.62 H (0-0) K/uL Nucleated RBC % (auto) 3.3 % Polychromasia 1+ Spherocytes 1+ Acanthocytes (Spur) 1+ ESR (0-20) mm/hr Sodium 132 L (136-145) mmol/L Potassium 3.6 (3.5-5.1) mmol/L Chloride 100 (98-107) mmol/L Carbon Dioxide 25 (21-32) mmol/L Anion Gap 7 (3-11) BUN 27 H D (6-23) mg/dl Creatinine 0.62 (0.6-1.4) mg/dl Est Cr Clr Drug Dosing 180.5 ml/min Est GFR ( Amer) 131.3 ml/min Est GFR (Non-Af Amer) 113.3 ml/min BUN/Creatinine Ratio 43.5 H (10-20) Glucose 112 H (70-99(Fasting)) mg/dl POC Glucose 111 H (70-99) mg/dl Lactate (0.4-2.0) mmol/L Calcium 8.0 L (8.5-10.1) mg/dl Magnesium 2.2 (1.7-2.4) mg/dl Total Bilirubin 1.3 H (0.2-1.0) mg/dl AST 55 H (13-39) U/L ALT 32 (7-52) U/L Alkaline Phosphatase 83 (34-104) U/L Lactate Dehydrogenase (86-244) U/L C-Reactive Protein (0-0.5) mg/dl Total Protein 6.2 (6.0-8.3) gm/dl Albumin 3.0 L (3.4-5.0) gm/dl Globulin 3.2 (2.5-4.0) gm/dl Albumin/Globulin Ratio 0.9 (0.9-2) Procalcitonin (0-0.5) ng/ml PTH Intact (12.0-88.0) pg/ml Bld Cult Staph aureus PCR (Negative) Blood Culture MRSA PCR (Negative) Blood Type Blood Type Recheck Antibody Screen Crossmatch 12/09/21 12/09/21 12/09/21 Range/Units 20:49 20:49 20:49 WBC (4.8-10.8) K/uL RBC (4.7-6.1) M/uL Hgb 7.0 L (14.0-18.0) g/dL Hct 21.7 L (42-52) % MCV (80-100) fL MCH (25-34) pg MCHC (32-36) g/dL RDW Std Deviation (36.4-46.3) fL RDW Coeff of Osbaldo (11.5-14.5) % Plt Count (130-400) K/uL MPV (7.4-10.4) fL Immature Gran % (Auto) % Neut % (Auto) % Lymph % (Auto) % [place] % (Auto) % Eos % (Auto) % Baso % (Auto) % Neut # (Auto) (1.4-6.5) K/uL Lymph # (Auto) (1.2-3.4) K/uL [place] # (Auto) (0.11-0.59) K/uL Eos # (Auto) (0-0.5) K/uL Baso # (Auto) (0-0.2) K/uL Immature Gran # (Auto) (0.00-0.02) K/uL Absolute Nucleated RBC (0-0) K/uL Nucleated RBC % (auto) % Polychromasia Spherocytes Acanthocytes (Spur) ESR (0-20) mm/hr Sodium (136-145) mmol/L Potassium (3.5-5.1) mmol/L Chloride (98-107) mmol/L Carbon Dioxide (21-32) mmol/L Anion Gap (3-11) BUN (6-23) mg/dl Creatinine (0.6-1.4) mg/dl Est Cr Clr Drug Dosing ml/min Est GFR ( Amer) ml/min Est GFR (Non-Af Amer) ml/min BUN/Creatinine Ratio (10-20) Glucose (70-99(Fasting)) mg/dl POC Glucose (70-99) mg/dl Lactate (0.4-2.0) mmol/L Calcium (8.5-10.1) mg/dl Magnesium (1.7-2.4) mg/dl Total Bilirubin (0.2-1.0) mg/dl AST (13-39) U/L ALT (7-52) U/L Alkaline Phosphatase (34-104) U/L Lactate Dehydrogenase (86-244) U/L C-Reactive Protein (0-0.5) mg/dl Total Protein (6.0-8.3) gm/dl Albumin (3.4-5.0) gm/dl Globulin (2.5-4.0) gm/dl Albumin/Globulin Ratio (0.9-2) Procalcitonin 0.16 (0-0.5) ng/ml PTH Intact (12.0-88.0) pg/ml Bld Cult Staph aureus PCR (Negative) Blood Culture MRSA PCR (Negative) Blood Type Blood Type Recheck A Positive Antibody Screen Crossmatch 12/09/21 12/09/2112/09/22 Range/Units 20:49 20:49 20:49 WBC (4.8-10.8) K/uL RBC (4.7-6.1) M/uL Hgb (14.0-18.0) g/dL Hct (42-52) % MCV (80-100) fL MCH (25-34) pg MCHC (32-36) g/dL RDW Std Deviation (36.4-46.3) fL RDW Coeff of Osbaldo (11.5-14.5) % Plt Count (130-400) K/uL MPV (7.4-10.4) fL Immature Gran % (Auto) % Neut % (Auto) % Lymph % (Auto) % [place] % (Auto) % Eos % (Auto) % Baso % (Auto) % Neut # (Auto) (1.4-6.5) K/uL Lymph # (Auto) (1.2-3.4) K/uL [place] # (Auto) (0.11-0.59) K/uL Eos # (Auto) (0-0.5) K/uL Baso # (Auto) (0-0.2) K/uL Immature Gran # (Auto) (0.00-0.02) K/uL Absolute Nucleated RBC (0-0) K/uL Nucleated RBC % (auto) % Polychromasia Spherocytes Acanthocytes (Spur) ESR 69 H (0-20) mm/hr Sodium (136-145) mmol/L Potassium (3.5-5.1) mmol/L Chloride (98-107) mmol/L Carbon Dioxide (21-32) mmol/L Anion Gap (3-11) BUN (6-23) mg/dl Creatinine (0.6-1.4) mg/dl Est Cr Clr Drug Dosing ml/min Est GFR ( Amer) ml/min Est GFR (Non-Af Amer) ml/min BUN/Creatinine Ratio (10-20) Glucose (70-99(Fasting)) mg/dl POC Glucose (70-99) mg/dl Lactate 1.6 (0.4-2.0) mmol/L Calcium (8.5-10.1) mg/dl Magnesium (1.7-2.4) mg/dl Total Bilirubin (0.2-1.0) mg/dl AST (13-39) U/L ALT (7-52) U/L Alkaline Phosphatase (34-104) U/L Lactate Dehydrogenase (86-244) U/L C-Reactive Protein 18.95 H (0-0.5) mg/dl Total Protein (6.0-8.3) gm/dl Albumin (3.4-5.0) gm/dl Globulin (2.5-4.0) gm/dl Albumin/Globulin Ratio (0.9-2) Procalcitonin (0-0.5) ng/ml PTH Intact (12.0-88.0) pg/ml Bld Cult Staph aureus PCR (Negative) Blood Culture MRSA PCR (Negative) Blood Type Blood Type Recheck Antibody Screen Crossmatch 12/09/21 12/09/21 12/09/21 Range/Units 20:49 20:21 16:58 WBC (4.8-10.8) K/uL RBC (4.7-6.1) M/uL Hgb (14.0-18.0) g/dL Hct (42-52) % MCV (80-100) fL MCH (25-34) pg MCHC (32-36) g/dL RDW Std Deviation (36.4-46.3) fL RDW Coeff of Osbaldo (11.5-14.5) % Plt Count (130-400) K/uL MPV (7.4-10.4) fL Immature Gran % (Auto) % Neut % (Auto) % Lymph % (Auto) % [place] % (Auto) % Eos % (Auto) % Baso % (Auto) % Neut # (Auto) (1.4-6.5) K/uL Lymph # (Auto) (1.2-3.4) K/uL [place] # (Auto) (0.11-0.59) K/uL Eos # (Auto) (0-0.5) K/uL Baso # (Auto) (0-0.2) K/uL Immature Gran # (Auto) (0.00-0.02) K/uL Absolute Nucleated RBC (0-0) K/uL Nucleated RBC % (auto) % Polychromasia Spherocytes Acanthocytes (Spur) ESR (0-20) mm/hr Sodium (136-145) mmol/L Potassium (3.5-5.1) mmol/L Chloride (98-107) mmol/L Carbon Dioxide (21-32) mmol/L Anion Gap (3-11) BUN (6-23) mg/dl Creatinine (0.6-1.4) mg/dl Est Cr Clr Drug Dosing ml/min Est GFR ( Amer) ml/min Est GFR (Non-Af Amer) ml/min BUN/Creatinine Ratio (10-20) Glucose (70-99(Fasting)) mg/dl POC Glucose 144 H 117 H (70-99) mg/dl Lactate (0.4-2.0) mmol/L Calcium (8.5-10.1) mg/dl Magnesium (1.7-2.4) mg/dl Total Bilirubin (0.2-1.0) mg/dl AST (13-39) U/L ALT (7-52) U/L Alkaline Phosphatase (34-104) U/L Lactate Dehydrogenase 205 (86-244) U/L C-Reactive Protein (0-0.5) mg/dl Total Protein (6.0-8.3) gm/dl Albumin (3.4-5.0) gm/dl Globulin (2.5-4.0) gm/dl Albumin/Globulin Ratio (0.9-2) Procalcitonin (0-0.5) ng/ml PTH Intact (12.0-88.0) pg/ml Bld Cult Staph aureus PCR (Negative) Blood Culture MRSA PCR (Negative) Blood Type Blood Type Recheck Antibody Screen Crossmatch 12/09/21 12/09/21 12/09/21 Range/Units 14:58 12:04 08:50 WBC (4.8-10.8) K/uL RBC (4.7-6.1) M/uL Hgb (14.0-18.0) g/dL Hct (42-52) % MCV (80-100) fL MCH (25-34) pg MCHC (32-36) g/dL RDW Std Deviation (36.4-46.3) fL RDW Coeff of Osbaldo (11.5-14.5) % Plt Count (130-400) K/uL MPV (7.4-10.4) fL Immature Gran % (Auto) % Neut % (Auto) % Lymph % (Auto) % [place] % (Auto) % Eos % (Auto) % Baso % (Auto) % Neut # (Auto) (1.4-6.5) K/uL Lymph # (Auto) (1.2-3.4) K/uL [place] # (Auto) (0.11-0.59) K/uL Eos # (Auto) (0-0.5) K/uL Baso # (Auto) (0-0.2) K/uL Immature Gran # (Auto) (0.00-0.02) K/uL Absolute Nucleated RBC (0-0) K/uL Nucleated RBC % (auto) % Polychromasia Spherocytes Acanthocytes (Spur) ESR (0-20) mm/hr Sodium (136-145) mmol/L Potassium (3.5-5.1) mmol/L Chloride (98-107) mmol/L Carbon Dioxide (21-32) mmol/L Anion Gap (3-11) BUN (6-23) mg/dl Creatinine (0.6-1.4) mg/dl Est Cr Clr Drug Dosing ml/min Est GFR ( Amer) ml/min Est GFR (Non-Af Amer) ml/min BUN/Creatinine Ratio (10-20) Glucose (70-99(Fasting)) mg/dl POC Glucose 166 H (70-99) mg/dl Lactate (0.4-2.0) mmol/L Calcium (8.5-10.1) mg/dl Magnesium 2.8 H (1.7-2.4) mg/dl Total Bilirubin (0.2-1.0) mg/dl AST (13-39) U/L ALT (7-52) U/L Alkaline Phosphatase (34-104) U/L Lactate Dehydrogenase (86-244) U/L C-Reactive Protein (0-0.5) mg/dl Total Protein (6.0-8.3) gm/dl Albumin (3.4-5.0) gm/dl Globulin (2.5-4.0) gm/dl Albumin/Globulin Ratio (0.9-2) Procalcitonin (0-0.5) ng/ml PTH Intact 54.1 (12.0-88.0) pg/ml Bld Cult Staph aureus PCR (Negative) Blood Culture MRSA PCR (Negative) Blood Type Blood Type Recheck Antibody Screen Crossmatch 12/08/21 12/08/21 Range/Units 14:48 10:40 WBC (4.8-10.8) K/uL RBC (4.7-6.1) M/uL Hgb (14.0-18.0) g/dL Hct (42-52) % MCV (80-100) fL MCH (25-34) pg MCHC (32-36) g/dL RDW Std Deviation (36.4-46.3) fL RDW Coeff of Osbaldo (11.5-14.5) % Plt Count (130-400) K/uL MPV (7.4-10.4) fL Immature Gran % (Auto) % Neut % (Auto) % Lymph % (Auto) % [place] % (Auto) % Eos % (Auto) % Baso % (Auto) % Neut # (Auto) (1.4-6.5) K/uL Lymph # (Auto) (1.2-3.4) K/uL [place] # (Auto) (0.11-0.59) K/uL Eos # (Auto) (0-0.5) K/uL Baso # (Auto) (0-0.2) K/uL Immature Gran # (Auto) (0.00-0.02) K/uL Absolute Nucleated RBC (0-0) K/uL Nucleated RBC % (auto) % Polychromasia Spherocytes Acanthocytes (Spur) ESR (0-20) mm/hr Sodium (136-145) mmol/L Potassium (3.5-5.1) mmol/L Chloride (98-107) mmol/L Carbon Dioxide (21-32) mmol/L Anion Gap (3-11) BUN (6-23) mg/dl Creatinine (0.6-1.4) mg/dl Est Cr Clr Drug Dosing ml/min Est GFR ( Amer) ml/min Est GFR (Non-Af Amer) ml/min BUN/Creatinine Ratio (10-20) Glucose (70-99(Fasting)) mg/dl POC Glucose (70-99) mg/dl Lactate (0.4-2.0) mmol/L Calcium (8.5-10.1) mg/dl Magnesium (1.7-2.4) mg/dl Total Bilirubin (0.2-1.0) mg/dl AST (13-39) U/L ALT (7-52) U/L Alkaline Phosphatase (34-104) U/L Lactate Dehydrogenase (86-244) U/L C-Reactive Protein (0-0.5) mg/dl Total Protein (6.0-8.3) gm/dl Albumin (3.4-5.0) gm/dl Globulin (2.5-4.0) gm/dl Albumin/Globulin Ratio (0.9-2) Procalcitonin (0-0.5) ng/ml PTH Intact (12.0-88.0) pg/ml Bld Cult Staph aureus PCR Negative (Negative) Blood Culture MRSA PCR Negative (Negative) Blood Type A Positive Blood Type Recheck Antibody Screen NEGATIVE Crossmatch See Detail Diagnostic Findings RIGHT THIGH ULTRASOUND CLINICAL HISTORY: Please measure right thigh hematomas COMPARISON STUDY: Right hip CT December 07, 2021. CT of the abdomen and pelvis December 08, 2021. TECHNIQUE: Sonography of the right thigh was performed. FINDINGS: Note is made of a 7.2 x 4 x 3 cm intramuscular fluid collection of the proximal lateral right thigh. This is likely within the vastus lateralis and corresponds to the finding on right hip CT of December 07, 2021. This represents an intramuscular hematoma. Subcutaneous fluid of the right thigh is also noted. IMPRESSION: 7.2 x 4 x 3 cm intramuscular hematoma within the proximal lateral right thigh, likely within the vastus lateralis. CT OF THE ABDOMEN AND PELVIS WITHOUT CONTRAST CLINICAL HISTORY: fall, R back/hip pain, recent cva COMPARISON STUDY: KUB November 17, 2021. Right hip CT December 07, 2021. TECHNIQUE: Axial images of the abdomen and pelvis were obtained without IV contrast. Images were reviewed in the axial, sagittal, and coronal planes. Automated exposure control was utilized for the study. A dose lowering technique was utilized adhering to the principles of ALARA. FINDINGS: Bilateral gynecomastia is noted. Lung bases are unremarkable. No pneumatosis, free air or portal venous gas is present. Heterogeneity of the liver is likely technical. There is no biliary ductal dilatation status post cholecystectomy. The spleen is not visualized. Adrenal glands and kidneys are normal. There is no hydronephrosis. No evidence for a bowel obstruction. Moderate amount stool within the colon and rectum is present. The appendix is normal. Multiple subcutaneous hyperdense foci of the lower anterior abdominal wall represent small hematomas likely from subcutaneous injections. There is stranding adjacent to the right iliopsoas muscle as well as visualized portions of the right vastus lateralis. This suggests intramuscular hemorrhage which was shown on CT of December 07, 2021. No acute lumbar spine or pelvic fracture is present. IVC filter is in place. No lymphadenopathy. Bladder is mildly distended. IMPRESSION: 1. Redemonstration of suspected intramuscular hemorrhage within the right iliopsoas and right vastus lateralis muscles. This was depicted on hip CT of December 07, 2021. 2. No acute process within the abdomen or pelvis on unenhanced exam. 3. Multiple injection site hematomas of the lower anterior abdominal wall. 4. Moderate amount stool within the colon and rectum. 5. Mild bladder distention.
--- NOTE | 2021-12-10 11:46 | Ultrasound Report ---
US extremity non-vascular ltd right thigh CLINICAL HISTORY: Follow-up right thigh hematoma TECHNIQUE: Real-time grayscale sonographic images of the chest wall were obtained. Comparison: 12/08/2021 FINDINGS: Compared to previous examination, there is no significant interval change in the fluid amari ection identified within the muscles of the right thigh. It measures 7.1 x 2.8 x 3.5 cm of the curren t study. IMPRESSION: No significant interval change in right intramuscular hematoma. ACT 112: Negative or not required by law. Electronically signed by: Des Virgen M.D. 12/10/2021 11:44 AM
[2021-12-10 12:35] LABS: Basophils # (auto) 0.05 K/uL (0-0.2); Basophils % (auto) 0.3 %; Eosinophils # (auto) 0.26 K/uL (0-0.5); Eosinophils % (auto) 1.4 %; Hematocrit (blood only) 23.7 % (42-52); Hemoglobin 7.7 g/dL (14.0-18.0); Immature Granulocytes # (auto) 0.24 K/uL (0.00-0.02); Immature Granulocytes % (auto) 1.3 %; Lymphocytes # (auto) 4.59 K/uL (1.2-3.4); Mean Corpuscular Hemoglobin 27.4 pg (25-34); Mean Corpuscular Hgb Conc 32.5 g/dL (32-36); Mean Corpuscular Volume 84.3 fL (80-100); Monocytes # (auto) 1.71 K/uL (0.11-0.59); Monocytes % (auto) 9.3 %; Neutrophils # (auto) 11.49 K/uL (1.4-6.5); Neutrophils % (auto) 62.7 %; Nucleated RBC # (auto) 0.73 K/uL (0-0); Platelet Count 429 K/uL (130-400); RDW Coefficient of Variation 17.5 % (11.5-14.5); RDW Standard Deviation 53.4 fL (36.4-46.3); Red Blood Count 2.81 M/uL (4.7-6.1); White Blood Count 18.34 K/uL (4.8-10.8)
[2021-12-10 12:59] LABS: Acanthocytes 1+; Howell-Jolly Bodies 1+; Polychromasia 1+; Spherocytes 1+
[2021-12-10] MEDS ORDERED: SODIUM CHLORIDE 0.9% 250 ML IV PRN (17:21)
--- NOTE | 2021-12-10 17:29 | Billing Data ---
Date of Service December 10, 2021 Coding Level of Care Code 24349 Subseq Hosp Care Lvl 3
[2021-12-10] MEDS: SENNA 8.6 MG TAB PO SCH (18:48)
[2021-12-10] MEDS ORDERED: ENOXAPARIN INJ 40 MG/0.4 ML SYR SQ ONE (21:00)
[2021-12-10] MEDS: PANTOprazole 40 MG TAB PO SCH (22:00)
[2021-12-11] MEDS: MoRPHine SULFATE CR 15 MG TABCR PO SCH ×2 (05:46→16:58)
--- NOTE | 2021-12-11 06:25 | Hospitalist Progress Note ---
Date of Service December 11, 2021 Assessment & Plan (1) Acute encephalopathy: Plan: Mr. 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 His recovery course from his recent CVA has been complicated by formation of R iliopsoas hematoma (discovered at [facility]) and acute bl ood loss anemia requiring pRBC transfusion on 12/09; further, he developed AFib w/ RVR on 12/09, which has subsequently resolved; and development of GPC bacteremia. PLAN HIGHLIGHTS - 12/11/21 * Resume Lovenox at reduced dose (80mg tonight) given Factor V Leiden. Resume home dose tomorrow. * BCX now demonstrating 3/4 positive. Unclear source. Considering ID consult. * Repeat US without evidence of significant change in size of hematoma. Acute Encephalopathy - Worsening speech and command-following ability reported at rehab for L-sided CVA - Work-up as follows: Suspect largely secondary to metabolic/infectious factors - Progressive anemia noted (see below) in setting of R iliopsoas hematoma - Bacteremia has developed since last admission - No e/o electrolyte, endocrinologic disturbances - Home morphine resumed at [facility] - Non-contrast Head CT showing expected evolution of the infarct within the posterior limb of the left internal capsule shown on head CT 11/18/21. No evidence for hemorrhagic conversion - non-con MRA-H/N: Significantly limited study w/o contrast. 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 4 mm focus of signal abnormality within the L midbrain, likely related to the previous infarct. Interval infarct less likely, but possible. - Likely multifactorial: ABLA, bacteremia, possibly recurrent stroke (2) Iliopsoas muscle hematoma: Plan: - noted on Hip CT obtained by [facility] provider from 12/07/21 - likely secondary to fall at rehab while anticoagulated on Lovenox - suspected source of ABLA outlined below - US of RLE (12/08, 12/11) --7.2 x 4 x 3 cm intramuscular hematoma within the proximal lateral R thigh, likely within the vastus lateralis. No significant change on repeat. - Orthopedic consult placed: no suspicion for compartment syndrome at this time, no indication for immediate evacuation, will require f/u in the office in about 2 weeks - Given his notable hypercoagulability, r/b/a favors resuming Lovenox at reduced dose (40mg) and titrating back to home dose. Monitor. Given repeat US demonstrating stability, suspect natural tamponade has occurred - IV Tylenol, topical diclofenac and Lidoderm patches prn for pain. Morphine 2mg IV q6 added due to impression of ongoing discomfort. Ideally we will avoid narcotics given alteration in mental status (3) Acute blood loss anemia: Plan: - Interval development of anemia on admission in setting of ongoing Lovenox use for Factor V Leiden - Hgb at 15 on discharge in 11/2021 -- on admission, Hgb notably dropped to 7.9 - Suspect intravascular loss due to iliopsoas hematoma formation (noted on CT); will also check Hemoccult stool - Progressively declining (12/09) Hgb to 7.0 in setting of HoTN, tachycardia requiring transfusion 1U pRBC --> improved to 7.7 - transfuse if Hgb < 7 or if symptomatic; blood consent signed and in chart - Lovenox plan as above (4) Atrial fibrillation with RVR: Plan: - New-onset AFib w/ RVR appreciated 12/09 in setting of recent CVA, ABLA from hematoma, and interval development of bacteremia - Converted to NSR at 1999 on 12/10/21 - TTE (12/09): Normal biventricular function, LVEF 65-70%, no RWMAs - Maintain K > 4.0, Mag > 2.0 - Lopressor prn added for rate control - Lovenox plan as above (5) Bacteremia: Plan: - BCX returning 3/4 for GPCs in clusters as of 12/10 - Work-up as follows: - BCX demonstrating 3/4 positive: suspect genuine at this point rather than contamination - R iliopsoas hematoma noted - MRSA nares POSITIVE - TTE (not COREY) without valvular pathology - Admission: WBCs, ESR, CRP appreciably elevated, procal negative - UA, CXR, recent bowel history without significant findings - Continue IV vancomycin for now - Consider ID consult given positive blood cultures, unclear source, recent events -- ?COREY (6) Leukocytosis: Plan: - WBC initially to 24 on arrival with neutrophil predominance -- now improving - Suspect secondary to bacteremia, hematoma, inflammatory state - No evidence of GI, pulmonary, skin, neurologic abnormalities - See bacteremia above - Monitor CRP, procalcitonin for now (7) Acute right hemiparesis: Plan: - secondary to recent small vessel ischemic stroke to left thalamus/internal capsule - unclear if current presentation is consistent with (or worse than) residual deficit - appreciate neurology input on ?risk/benefit of performing cerebrovascular imaging (with contrast) in setting of vague contrast allergy history (8) Dysarthria due to acute cerebellar cerebrovascular accident (CVA): Plan: - in setting of recent small vessel ischemic stroke to left thalamus/internal capsule in 11/2021 - unclear if current presentation is consistent with residual deficit, interval development of new ischemia, and/or acute encephalopathy from numerous physiologic stressors - appreciate neurology input, as above (9) Presence of IVC filter: Plan: - Noted to be in proper position on KUB from previous admission - Due to hx of PE from Factor V Leiden - follows with Dr. Stanley Robertson at [facility] for this; [phone]. - consider contacting Dr. Robertson given clots with therapeutic Lovenox -- did not do this today due to it being a weekend. Perhaps dual antiplatelet therapy should be considered for this patient? (10) Diabetes: Plan: - A1c from 11/17/21 was above goal at 9.0 - Patient previously discharged with Jardiance 25mg daily; SQ insulin deferred given improved BSGs with diabetic diet during last admission. - Hold Jardiance while NPO, SSI ordered - carb consistent diet - resume high intensity statin and daily baby ASA when no longer NPO (11) Hypertension: Plan: - Home regimen of lisinopril 5mg daily - Hold while NPO and in the setting of acute TIA/CVA (allow for permissive HTN) and ABLA (12) Chronic anticoagulation: Plan: - patient on therapeutic Lovenox due to Factor V Leiden and hx of DVT/PE - held on admission in the setting of acute intramuscular hematoma and precipitous drop in Hgb; resumed 12/09/21 due to new onset Afib + high propensity to form clots (13) Murmur, cardiac: Plan: - noted on PE, new from last admission - Repeat echo with bubble study ordered given concurrent stroke work up (14) Tobacco abuse: Plan: - history of - has been tobacco free since 11/07/21 (previous admission) (15) Thrombocytosis: Plan: - platelets elevated to 435 on admission, now improving - patient is asplenic - suspect 2/2 to intramuscular hematoma formation - trend CBC (16) Elevated AST (SGOT): Plan: - AST elevated to 70 on admission, ALT normal - Suspect partially related to iliopsoas hematoma - given new ST segment depressions in anterior leads on EKG, trop drawn. High sensitivity trop returned at 7.8. No symptoms or other findings consistent with ACS at this time. (17) GERD (gastroesophageal reflux disease): Plan: - convert oral PPI to IV form while NPO (18) Depression: Plan: - hold home paroxetine while NPO Plan: Dispo: Admit to Med/tele. PT/OT ordered Diet: carb consistent DM2 and heart healthy; aspiration precautions DVT pxx: resumed home lovenox as above. SCDs ordered Code: Full Admission and Anticipated Discharge Date Admission Date: December 08, 2021 Supervising Physician Co-Signing Physician Notes I personally examined the patient and verified all prajapati points of history and exam, discussed case, and agree with decision making with Dr Valdivia was able to be out in healing garden w family. now very tired and would like to take a nap. otehrwise feels about the same as yesterday vitals noted nad fatigued R sided weakness persists R leg swollen and bruised similar to yesterday AMS - most fitting w delirium/metabolic encephalopathy - most likely from physiologic stress of hemorrhage/anemia. appears to be improving hemorrhage/anemia - required 1 unit transfusion. follow closely. lovenox was temporarily on hold - started last night at 40mg - counts stable. raise to 80 tonight and then if still stable back to full dosing tomorrow (see below). follow Hgb, low threshold to re-US if any concern. V Leiden w recurrent DVTs - apparently clots very quickly off blood thinners - therefore resuming and escalating lovenox fairly rapidly - thus far tolerating well. d/w pt and family given delicate balance of bleeding and clotting will want to follow for several days of stability before considering dc CVA, R sided weakness - tile professional Rx w anticoaguation, antiplatelet, statin, BP/dm control - d/w family can repeat MRI to discern recrudesence from new CVA but very unlikely to change treatment. offered//after in depth discussions they declined. more suspicious recrudesence and leg weakness from bleed/hematoma. today neuro exam unchanged (+) blood cultures - 2 different types of coag neg staph --> most likely actually 2 different contaminants. follow repeat Cx, continue vanco for now. with no other obvious site of infection (ongoing vigilance, serial exams) this would make leukocytosis most likely reactive to hemorrhage/hematoma. ID input pending for completeness otherwise as above Subjective NAEO. Feeling better this morning. More mental clarity. Less pain. No numbness/tingling. Eager to leave. Spirits are so-so. No n/v/d/HERRERA/CP/SOB. Review of Systems Review of Systems: as per HPI Physical Exam Physical Exam: General: 51-year old male who is alert, oriented, and appears in no acute distress. He responds to most questions with "yes/no" and has difficulty elaborating beyond this. Compared to yesterday, notable improvements in response time, involvement with conversation (though speech content still limited) HEENT: NCAT. - Eyes - Sclera are white, anicteric, and without injection. - Mouth - MMM - Neck - supple, no appreciable JVD Cardiac: Normal rate and regular rhythm; S1 and S2 present with no murmurs, rubs, or gallops. Pulmonary: Good respiratory effort with symmetric expansion of the chest. No use of accessory muscles. Lungs were clear to auscultation bilaterally with no crackles or wheezes. Abdominal: Normoactive bowel sounds. Abdomen was soft, nondistended, and non- tender to palpation. Extremities: Upper and lower extremities are warm and well perfused. Exam of the RLE does reveal appreciable unilateral edema when compared to the LLE, most notable within the thigh. There is mild TTP. DP pulse 2+. Capillary refill < 3 seconds. As the RLE has reduced mobility following CVA, unable to reliably assess strength. Compared to yesterday: unchanged exam. Neuro: - Cranial Nerves: II-XII grossly intact. No facial droop. - Motor: UE - Finger, wrist, elbow, and shoulder strength is 5/5 in LUE, LLE; strength is 1/5 in the RUE/RLE. - Sensation: Unable to reliably assess Results & Data Results & Data ([facility]) Vital Signs (Past 12 Hours) Vital Signs Temp Pulse Pulse Resp BP Pulse Ox 12/11/21 05:46 75 118/62 12/11/21 03:41 36.4 C L 63 18 102/62 98 12/11/21 01:12 74 12/10/21 23:02 37.0 C 65 16 114/67 95 12/10/21 21:56 76 119/66 12/10/21 19:21 37.1 C 79 16 91/58 L 99 Resident Activity Tracking Resident Involvement: Resident Care Provided Care Provided: Adult Hospital Medicine (1) Hypertension Hypertension type: primary hypertension Qualified Code(s): I10 - Essential (primary) hypertension
[2021-12-11 07:17] LABS: Mean Corpuscular Hgb Conc 31.8 g/dL (32-36); Mean Platelet Volume 10.2 fL (7.4-10.4); Nucleated RBC # (auto) 0.97 K/uL (0-0); Nucleated RBC % (auto) 5.8 %; Platelet Count 485 K/uL (130-400)
[2021-12-11 07:32] LABS: Acanthocytes 1+; Basophils # (auto) 0.06 K/uL (0-0.2); Basophils % (auto) 0.4 %; Eosinophils # (auto) 0.49 K/uL (0-0.5); Eosinophils % (auto) 2.9 %; Hematocrit (blood only) 26.4 % (42-52); Hemoglobin 8.4 g/dL (14.0-18.0); Immature Granulocytes # (auto) 0.34 K/uL (0.00-0.02); Lymphocytes # (auto) 2.62 K/uL (1.2-3.4); Lymphocytes % (auto) 15.6 %; Mean Corpuscular Hemoglobin 27.2 pg (25-34); Mean Corpuscular Volume 85.4 fL (80-100); Monocytes # (auto) 1.47 K/uL (0.11-0.59); Monocytes % (auto) 8.7 %; Neutrophils # (auto) 11.86 K/uL (1.4-6.5); Neutrophils % (auto) 70.4 %; Polychromasia 1+; RDW Coefficient of Variation 17.8 % (11.5-14.5); RDW Standard Deviation 54.1 fL (36.4-46.3); Red Blood Count 3.09 M/uL (4.7-6.1); Spherocytes 1+; White Blood Count 16.84 K/uL (4.8-10.8)
[2021-12-11 07:42] LABS: BUN Creatinine Ratio 28.8 (10-20); C Reactive Protein 16.65 mg/dl (0-0.5); Calcium 8.6 mg/dl (8.5-10.1); Creatinine Clr Calc Pharmacy 189.2 ml/min; Est GFR (Non-African American) 115.6 ml/min; Magnesium 2.2 mg/dl (1.7-2.4); Potassium 3.7 mmol/L (3.5-5.1)
[2021-12-11] MEDS: MoRPHine SULFATE IR 15 MG TAB (IMMEDIATE RELEASE) PO PRN ×3 (08:21→22:46)
[2021-12-11] MEDS: PANTOprazole 40 MG TAB PO SCH ×2 (08:22→20:09)
[2021-12-11] MEDS: LIDOCAINE 5% 1 PATCH TD SCH (08:23)
[2021-12-11] MEDS: DICLOFENAC SOD 1% GEL 100 GM TUBE EXT SCH ×2 (08:23→20:09)
[2021-12-11] MEDS: INSULIN ASPART PER UNIT SC SCH ×4 (09:04→21:01)
--- NOTE | 2021-12-11 09:15 | Pharmacy Report ---
Pharmacy Vanc AUC Short Note - Date of Service December 11, 2021 - Assessment & Plan Assessment * 51 year old M receiving vancomycin for treatment of bacteremia. Coag neg staph growing in 3/4 blood cultures. * Source unclear. Positive MRSA nasal swab and leukocytosis noted. * Day # 3 of antimicrobial therapy. Plan Vancomycin * AUC/GIOVANNI is the preferred PK/PD target for vancomycin * AUC guided dosing is effective and associated with decreased risk of nephrotoxicity compared to traditional trough targets * Based on random level of 8.4mg/dl, increase dose to 1250mg IV Q8H * This dose is predicted to achieve target AUC/GIOVANNI of 400-600 mg/L.hr and may be associated with a 10% risk of nephrotoxicity Pharmacy will continue to follow and will adjust dose/frequency as necessary. Thank you.
--- NOTE | 2021-12-11 09:45 | Orthopedic Progress Note ---
Date of Service December 11, 2021 Assessment & Plan (1) Iliopsoas muscle hematoma: Plan: Continue with conservative treatment including observation, ice/heat, PT/OT to assist with hip range of motion Weightbearing as tolerated using walker to assist him in ambulation DVT prophylaxis: If able we recommend holding Lovenox for 3 to 5 days to ensure that hematoma does not continue to enlarge Pain control: Per primary Case discussed with Dr. Hylton Follow up with Dr Hylton in 10-14 days upon discharge Admission and Anticipated Discharge Date Admission Date: December 08, 2021 Subjective This 51-year-old male seen today for follow-up of the iliopsoas muscle hematoma. Patient is not sure how the hematoma developed. He Does not recall falling. Patient recently had a CVA and seems very confused at present. He does state that his entire right lower extremity hurts especially in his thigh. I spoke with nursing and they said that the patient's is his primary caregiver since the stroke occurred. Currently he denies chest pain, shortness of breath, fever, chills, sweats, nausea, vomiting, diarrhea or difficulty voiding. He also denies any numbness or tingling in the right lower extremity. Review of Systems Review of Systems: All systems reviewed & are unremarkable except as noted in Subjective Physical Exam Physical Exam: Right lower extremity: Patient is unable to perform an active straight leg raise test. He is able to actively dorsi and plantarflex his foot and has no pain with applied resistance. His calf is soft and supple nontender to palpation. Patient has a surgical incision site over the right knee from a previous total knee arthroplasty, but he is unable to recall when and who performed the surgery. Passive logrolling causes pain in the thigh. Passive straight leg raise test causes pain in the thigh and groin area. Knee flexion to 90 degrees causes pain in the thigh as well. There is some note of edema over the thigh as well as over the lateral aspect of the knee with associated ecchymosis. Peripheral pulses are 2+. Capillary fill is less than 2 seconds. Patient is neurovascularly intact in the right lower extremity. Results & Data ([facility]) Vital Signs (Past 12 Hours) Vital Signs Temp Pulse Pulse Resp BP Pulse Ox 12/11/21 05:46 75 118/62 12/11/21 03:41 36.4 C L 63 18 102/62 98 12/11/21 01:12 74 12/10/21 23:02 37.0 C 65 16 114/67 95 12/10/21 21:56 76 119/66 Diagnostic Findings Laboratory Results WBC 16.84 K/uL (4.8-10.8) H 12/11/21 06:11 RBC 3.09 M/uL (4.7-6.1) L 12/11/21 06:11 Hgb 8.4 g/dL (14.0-18.0) L 12/11/21 06:11 Hct 26.4 % (42-52) L 12/11/21 06:11 MCV 85.4 fL (80-100) 12/11/21 06:11 MCH 27.2 pg (25-34) 12/11/21 06:11 MCHC 31.8 g/dL (32-36) L 12/11/21 06:11 RDW Std Deviation 54.1 fL (36.4-46.3) H 12/11/21 06:11 RDW Coeff of Osbaldo 17.8 % (11.5-14.5) H 12/11/21 06:11 Plt Count 485 K/uL (130-400) H 12/11/21 06:11 MPV 10.2 fL (7.4-10.4) 12/11/21 06:11 Immature Gran % (Auto) 2.0 % 12/11/21 06:11 Neut % (Auto) 70.4 % 12/11/21 06:11 Lymph % (Auto) 15.6 % 12/11/21 06:11 Williamson % (Auto) 8.7 % 12/11/21 06:11 Eos % (Auto) 2.9 % 12/11/21 06:11 Baso % (Auto) 0.4 % 12/11/21 06:11 Neut # (Auto) 11.86 K/uL (1.4-6.5) H 12/11/21 06:11 Lymph # (Auto) 2.62 K/uL (1.2-3.4) 12/11/21 06:11 Williamson # (Auto) 1.47 K/uL (0.11-0.59) H 12/11/21 06:11 Eos # (Auto) 0.49 K/uL (0-0.5) 12/11/21 06:11 Baso # (Auto) 0.06 K/uL (0-0.2) 12/11/21 06:11 Immature Gran # (Auto) 0.34 K/uL (0.00-0.02) H 12/11/21 06:11 Absolute Nucleated RBC 0.97 K/uL (0-0) H 12/11/21 06:11 Nucleated RBC % (auto) 5.8 % 12/11/21 06:11 Neutrophils % (Manual) 84.3 % 12/09/21 08:50 Lymphocytes % (Manual) 8.7 % 12/09/21 08:50 Monocytes % (Manual) 5.2 % 12/09/21 08:50 Metamyelocytes % (Man) 0.9 % 12/09/21 08:50 Myelocytes % (Man) 0.9 % 12/09/21 08:50 Neutrophils # (Manual) 19.99 K/uL (1.4-6.5) H 12/09/21 08:50 Total Absolute Neuts 19.99 K/uL (1.4-6.5) H 12/09/21 08:50 Lymphocytes # (Manual) 2.06 K/uL (1.2-3.4) 12/09/21 08:50 Total Abs Lymphocytes 2.06 K/uL (1.2-3.4) 12/09/21 08:50 Monocytes # (Manual) 1.23 K/uL (0.11-0.59) H 12/09/21 08:50 Metamyelocytes # (Man) 0.21 K/uL (0-0) H 12/09/21 08:50 Myelocytes # (Manual) 0.21 K/uL (0-0) H 12/09/21 08:50 Polychromasia 1+ 12/11/21 06:11 Spherocytes 1+ 12/11/21 06:11 [place] Bodies 1+ 12/10/21 12:09 Acanthocytes (Spur) 1+ 12/11/21 06:11 ESR 69 mm/hr (0-20) H 12/09/21 20:49 PT 12.3 Seconds (9.0-12.0) H 12/08/21 09:56 INR 1.2 (0.9-1.1) H 12/08/21 09:56 APTT 30.5 Seconds (21.0-31.0) 12/08/21 09:56 PTT Ratio 1.1 12/08/21 09:56 Sodium 133 mmol/L (136-145) L 12/11/21 06:11 Potassium 3.7 mmol/L (3.5-5.1) 12/11/21 06:11 Chloride 101 mmol/L (98-107) 12/11/21 06:11 Carbon Dioxide 25 mmol/L (21-32) 12/11/21 06:11 Anion Gap 7 (3-11) 12/11/21 06:11 BUN 17 mg/dl (6-23) 12/11/21 06:11 Creatinine 0.59 mg/dl (0.6-1.4) L 12/11/21 06:11 Est Cr Clr Drug Dosing 189.2 ml/min 12/11/21 06:11 Est GFR ( Amer) 134.0 ml/min 12/11/21 06:11 Est GFR (Non-Af Amer) 115.6 ml/min 12/11/21 06:11 BUN/Creatinine Ratio 28.8 (10-20) H 12/11/21 06:11 Glucose 93 mg/dl (70-99(Fasting)) 12/11/21 06:11 POC Glucose 111 mg/dl (70-99) H 12/11/21 07:40 Lactate 1.6 mmol/L (0.4-2.0) 12/09/21 20:49 Calcium 8.6 mg/dl (8.5-10.1) 12/11/21 06:11 Magnesium 2.2 mg/dl (1.7-2.4) 12/11/21 06:11 Total Bilirubin 1.3 mg/dl (0.2-1.0) H 12/10/21 05:48 AST 55 U/L (13-39) H 12/10/21 05:48 ALT 32 U/L (7-52) 12/10/21 05:48 Alkaline Phosphatase 83 U/L (34-104) 12/10/21 05:48 Ammonia 39.0 umol/L (18-72) 12/08/21 16:43 Lactate Dehydrogenase 205 U/L (86-244) 12/09/21 20:49 Troponin I High Sens 9.6 pg/ml (0-20) 12/08/21 14:12 C-Reactive Protein 16.65 mg/dl (0-0.5) H 12/11/21 06:11 Total Protein 6.2 gm/dl (6.0-8.3) 12/10/21 05:48 Albumin 3.0 gm/dl (3.4-5.0) L 12/10/21 05:48 Globulin 3.2 gm/dl (2.5-4.0) 12/10/21 05:48 Albumin/Globulin Ratio 0.9 (0.9-2) 12/10/21 05:48 Procalcitonin 0.12 ng/ml (0-0.5) 12/11/21 06:11 TSH 1.315 uIu/ml (0.300-4.500) 12/08/21 14:48 PTH Intact 54.1 pg/ml (12.0-88.0) 12/09/21 14:58 Urine Color Yellow 12/08/21 11:18 Urine Appearance Clear (Clear) 12/08/21 11:18 Urine pH 5.0 (4.5-7.5) 12/08/21 11:18 Ur Specific [place] 1.034 (1.000-1.030) H 12/08/21 11:18 Urine Protein Negative (Negative) 12/08/21 11:18 Urine Glucose (UA) 3+ (Negative) H 12/08/21 11:18 Urine Ketones 1+ (Negative) H 12/08/21 11:18 Urine Blood Negative (Negative) 12/08/21 11:18 Urine Nitrite Negative (Negative) 12/08/21 11:18 Urine Bilirubin Negative (Negative) 12/08/21 11:18 Urine Urobilinogen Negative (Negative) 12/08/21 11:18 Ur Leukocyte Esterase Negative (Negative) 12/08/21 11:18 Nasal Screen MRSA (PCR) Positive (Negative) A 12/08/21 Unknown Random Vancomycin 8.4 mcg/ml (10-20) L 12/11/21 06:11 SARS-CoV-2, RNA, NAAT NEGATIVE (NEGATIVE) 12/08/21 10:24 Bld Cult Staph aureus PCR Negative (Negative) 12/08/21 10:40 Blood Culture MRSA PCR Negative (Negative) 12/08/21 10:40 Blood Type A Positive 12/08/21 14:48 Blood Type Recheck A Positive 12/09/21 20:49 Antibody Screen NEGATIVE 12/08/21 14:48 Crossmatch See Detail 12/08/21 14:48 Impressions Abdomen/Pelvis CT 12/08/21 09:56 CT OF THE ABDOMEN AND PELVIS WITHOUT CONTRAST CLINICAL HISTORY: fall, R back/hip pain, recent cva COMPARISON STUDY: KUB November 17, 2021. Right hip CT December 07, 2021. TECHNIQUE: Axial images of the abdomen and pelvis were obtained without IV contrast. Images were reviewed in the axial, sagittal, and coronal planes. Automated exposure control was utilized for the study. A dose lowering technique was utilized adhering to the principles of ALARA. FINDINGS: Bilateral gynecomastia is noted. Lung bases are unremarkable. No pneumatosis, free air or portal venous gas is present. Heterogeneity of the liver is likely technical. There is no biliary ductal dilatation status post cholecystectomy. The spleen is not visualized. Adrenal glands and kidneys are normal. There is no hydronephrosis. No evidence for a bowel obstruction. Moderate amount stool within the colon and rectum is present. The appendix is normal. Multiple subcutaneous hyperdense foci of the lower anterior abdominal wall represent small hematomas likely from subcutaneous injections. There is stranding adjacent to the right iliopsoas muscle as well as visualized portions of the right vastus lateralis. This suggests intramuscular hemorrhage which was shown on CT of December 07, 2021. No acute lumbar spine or pelvic fracture is present. IVC filter is in place. No lymphadenopathy. Bladder is mildly distended. IMPRESSION: 1. Redemonstration of suspected intramuscular hemorrhage within the right iliopsoas and right vastus lateralis muscles. This was depicted on hip CT of December 07, 2021. 2. No acute process within the abdomen or pelvis on unenhanced exam. 3. Multiple injection site hematomas of the lower anterior abdominal wall. 4. Moderate amount stool within the colon and rectum. 5. Mild bladder distention. ACT 112: Negative or not required by law. Electronically signed by: Anastacio Henriquez M.D. 12/08/2021 10:50 AM Chest X-Ray 12/08/21 09:57 XR chest 1V portable CLINICAL HISTORY: recent cva, fall COMPARISON STUDY: Chest radiograph November 16, 2021. FINDINGS: Enlargement of the cardiac silhouette is unchanged. Lung volumes are diminished. This is also unchanged. There is no consolidation or evidence for pulmonary edema. The appearance of the chest is similar to prior study. IMPRESSION: No acute cardiopulmonary findings. No change in appearance of the chest. ACT 112: Negative or not required by law. Electronically signed by: Anastacio Henriquez M.D. 12/08/2021 11:[address] 12/08/21 09:57 CT OF THE HEAD WITHOUT CONTRAST CLINICAL HISTORY: worsened speech, recent cva COMPARISON STUDY: MRI of the the brain November 16, 2021. Head CT November 18, 2021. TECHNIQUE: Helical axial images of the head were obtained without IV contrast. Automated exposure control was utilized for the study. A dose lowering technique was utilized adhering to the principles of ALARA. FINDINGS: No acute intracranial hemorrhage, midline shift or mass effect is present. There has been expected evolution of the infarct within the posterior limb of the left internal capsule shown on head CT of November 18, 2021. No evidence for hemorrhagic conversion. No additional infarcts are present. 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 The ventricular system is unremarkable. The basal cisterns are patent. No extra-axial collections are present. There are no findings to suggest acute dural sinus thrombosis or acute territorial infarct. No significant calvarial abnormalities are present. Visualized portions of the sinuses and mastoid air cells are clear. IMPRESSION: No acute intracranial findings. Expected evolution of the infarct within the posterior limb of the left internal capsule shown on head CT of November 18, 2021. No evidence for hemorrhagic conversion. No mass effect. ACT 112: Negative or not required by law. Electronically signed by: Anastacio Henriquez M.D. 12/08/2021 10:[address] 12/08/21 09:58 CT OF THE CERVICAL SPINE WITHOUT CONTRAST CLINICAL HISTORY: recent CVA, fall COMPARISON STUDY: No previous studies for comparison. TECHNIQUE: Helical axial images of the cervical spine were obtained without IV contrast. Sagittal and coronal reconstructions were viewed. Automated exposure control was utilized for the study. A dose lowering technique was utilized adhering to the principles of ALARA. FINDINGS: Alignment of the cervical spine is anatomic. Vertebral body heights are maintained. No acute cervical spine fracture or subluxation is present. There is no prevertebral edema. Facet joints are intact. There is moderate facet arthrosis within the cervical spine. Mild disc space narrowing with osteophytosis is noted at multiple levels. IMPRESSION: No acute cervical spine fracture or subluxation. ACT 112: Negative or not required by law. Electronically signed by: Anastacio Henriquez M.D. 12/08/2021 10:39 AM Head MRA 12/08/21 14:52 MRA OF THE INTRACRANIAL CIRCULATION WITHOUT CONTRAST CLINICAL HISTORY: Possible stroke. COMPARISON STUDY: MRA of the head November 16, 2021. TECHNIQUE: Utilizing a 1.5 Saida magnet and 3-D [id number] technique, unenhanced MRA of the intracranial circulation was obtained. FINDINGS: The bilateral M1, M2, A1 and A2 segments are patent. There is no central occlusion within the anterior circulation. Anterior communicating artery is present. Dolichoectasia of the basilar artery is noted. There is mild dilatation of the intracranial portions of the vertebral arteries. This is similar to MRI of November 16, 2021. As before, there is diminished flow related enhancement of the bilateral posterior cerebral arteries. This could be technical. No intracranial saccular aneurysm is identified. The appearance of the intracranial vessels is unchanged since prior MRI. IMPRESSION: No significant change since MRI of November 16, 2021. 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 ACT 112: Negative or not required by law. Electronically signed by: Anastacio Henriquez M.D. 12/08/2021 7:04 PM Neck MRA 12/08/21 14:52 MRA OF THE NECK WITHOUT CONTRAST CLINICAL HISTORY: possible stroke COMPARISON STUDY: MRA of the neck November 16, 2021. TECHNIQUE: A 1.5 Saida magnet was utilized. 2-D and 3-D [id number] imaging was performed to obtain unenhanced MRA of the neck. NASCET criteria were utilized to estimate the degree of carotid stenosis. FINDINGS: This exam is significantly compromised given motion artifact. Sensitivity for detection of stenoses is decreased however the bilateral common carotid and cervical internal carotid arteries are grossly patent. The bilateral vertebral arteries are also patent. No aneurysm is identified within the neck. Appearance is similar to MRI of November 16, 2021. IMPRESSION: Exam significantly compromised from a technical standpoint. Grossly patent bilateral common carotid, cervical internal carotid and vertebral arteries. ACT 112: Negative or not required by law. Electronically signed by: Anastacio Henriquez M.D. 12/08/2021 7:23 PM Brain MRI 12/08/21 16:12 MRI OF THE BRAIN WITHOUT CONTRAST CLINICAL HISTORY: TIA symptoms COMPARISON STUDY: MRI of the brain November 16, 2021. Head CT performed earlier today. TECHNIQUE: Utilizing a 1.5 Saida magnet and dedicated coil, multiplanar, multiecho imaging of the brain was performed without IV contrast. FINDINGS: No acute intracranial hemorrhage, midline shift or mass effect is present. 1.6 x 0.9 cm hyperintense focus within the posterior limb of the left internal capsule on the diffusion-weighted sequence image 14 of 24 is again noted. This was shown on previous MRI. ADC value has now normalized. This repr esents expected evolution of this infarct. There is no mass effect. Faint peripheral T1 hyperintensity represents laminar necrosis. A 4 mm hyperintense focus within the adjacent left aspect of the midbrain on axial diffusion- weighted sequence image 11 of was not evident on prior exam. This is isointense on ADC map. Corresponding linear hyperintense signal is noted on the coronal FLAIR sequence, images 14 and 15 of . Otherwise, diffusion-weighted sequences are unremarkable. Ventricular system is normal. Basal cisterns are patent. There are no extra axial collections. Dolichoectasia of the basilar artery is noted. Mild dilatation of the remainder of the intracranial vessels also also unchanged. Calvarial signal is normal. IMPRESSION: 1. No acute intracranial findings. 2. Expected evolution of the infarct within the posterior limb of the left internal capsule shown on MRI of November 16, 2021. No mass effect. 3. Adjacent 4 mm focus of signal abnormality within the left aspect of the midbrain. This is likely related to the previous infarct. An interval small infarct could appear similar although is considered less likely. ACT 112: Negative or not required by law. Electronically signed by: Anastacio Henriquez M.D. 12/08/2021 7:11 PM Vascular Ultrasound 12/10/21 09:06 US extremity non-vascular ltd right thigh CLINICAL HISTORY: Follow-up right thigh hematoma TECHNIQUE: Real-time grayscale sonographic images of the chest wall were obtained. Comparison: 12/08/2021 FINDINGS: Compared to previous examination, there is no significant interval change in the fluid collection identified within the muscles of the right thigh. It measures 7.1 x 2.8 x 3.5 cm of the current study. IMPRESSION: No significant interval change in right intramuscular hematoma. ACT 112: Negative or not required by law. Electronically signed by: Des Virgen M.D. 12/10/2021 11:44 AM
[2021-12-11] MEDS: VANCOMYCIN HCL 1,250 MG in SODIUM CHLORIDE 0.9% 250 ML IV SCH ×2 (09:50→16:58)
[2021-12-11] MEDS: SENNA 8.6 MG TAB PO SCH (10:20)
--- NOTE | 2021-12-11 15:32 | Billing Data ---
Date of Service December 11, 2021 Coding Level of Care Code 06041 Subseq Hosp Care Lvl 3
[2021-12-11] MEDS ORDERED: ENOXAPARIN 80 MG/0.8 ML SYR SQ ONE (21:00)
[2021-12-12] MEDS: VANCOMYCIN HCL 1,250 MG in SODIUM CHLORIDE 0.9% 250 ML IV SCH ×3 (00:40→16:40)
[2021-12-12] MEDS: MoRPHine SULFATE CR 15 MG TABCR PO SCH ×2 (03:45→16:35)
--- NOTE | 2021-12-12 06:04 | Hospitalist Progress Note ---
Date of Service December 12, 2021 Assessment & Plan (1) Acute encephalopathy: Plan: Mr. 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 His recovery course from his recent CVA has been complicated by formation of R iliopsoas hematoma (discovered at [facility]) and acute bl ood loss anemia requiring pRBC transfusion on 12/09; further, he developed AFib w/ RVR on 12/09, which has subsequently resolved; and development of GPC bacteremia. PLAN HIGHLIGHTS - 12/11/21 * Mentation greatly improved. Encephalopathy resolved. * Resume Lovenox home dose (120mg b.i.d.) * BCX now demonstrating 3/4 positive. Unclear source. ID consult: appreciate impression of these, ?contamination, length of treatment * Recheck US RLE today to trend size of hematoma given resumption of Lovenox and geographic limitations of healthcare upon discharge from the hospital Acute Encephalopathy -- resolved - Worsening speech and command-following ability reported at rehab for L-sided CVA - Work-up as follows: Suspect largely secondary to metabolic/?infectious factors - Progressive ABLA noted (see below) in setting of R iliopsoas hematoma - Bacteremia has developed since last admission (though may be contamination) - No e/o electrolyte, endocrinologic disturbances - Home morphine resumed at [facility] - Non-contrast Head CT showing expected evolution of the infarct within the posterior limb of the left internal capsule shown on head CT 11/18/21. No evidence for hemorrhagic conversion - non-con MRA-H/N: Significantly limited study w/o contrast. 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 4 mm focus of signal abnormality within the L midbrain, likely related to the previous infarct. Interval infarct less likely, but possible. - Likely multifactorial: ABLA, bacteremia; less likely recurrent stroke (2) Iliopsoas muscle hematoma: Plan: - noted on Hip CT obtained by [facility] provider from 12/07/21 - likely secondary to fall at rehab while anticoagulated on Lovenox - suspected source of ABLA outlined below - US of RLE (12/08, 12/11) --7.2 x 4 x 3 cm intramuscular hematoma within the proximal lateral R thigh, likely within the vastus lateralis. No significant change on repeat. - Orthopedic consult placed: no suspicion for compartment syndrome at this time, no indication for immediate evacuation, will require f/u in the office in about 2 weeks - Resume home Lovenox dosing for Factor V Leiden. Monitor H&H. Should this remain stable through 12/13 AM, likely can be d/c - Recheck US RLE today to trend size of hematoma - IV Tylenol, topical diclofenac and Lidoderm patches prn for pain. Morphine 2mg IV q6 added due to impression of ongoing discomfort. Ideally we will avoid narcotics given alteration in mental status (3) Acute blood loss anemia: Plan: - Interval development of anemia on admission in setting of ongoing Lovenox use for Factor V Leiden - Hgb at 15 on discharge in 11/2021 -- on admission, Hgb notably dropped to 7.9 - Suspect intravascular loss due to iliopsoas hematoma formation (noted on CT); will also check Hemoccult stool - Progressively declining (12/09) Hgb to 7.0 in setting of HoTN, tachycardia requiring transfusion 1U pRBC --> progressively improving on daily labs - transfuse if Hgb < 7 or if symptomatic; blood consent signed and in chart - Lovenox plan as above (4) Atrial fibrillation with RVR: Plan: - New-onset AFib w/ RVR appreciated 12/09 in setting of recent CVA, ABLA from hematoma, and interval development of bacteremia -- resolved - Converted to NSR at 1999 on 12/10/21 - TTE (12/09): Normal biventricular function, LVEF 65-70%, no RWMAs - Maintain K > 4.0, Mag > 2.0 - Lopressor prn added for rate control - Lovenox plan as above (5) Bacteremia: Plan: - BCX returning 3/4 for GPCs in clusters as of 12/10 - Work-up as follows: - BCX demonstrating 3/4 positive: suspect genuine at this point rather than contamination - R iliopsoas hematoma noted - MRSA nares POSITIVE - TTE (not COREY) without valvular pathology - Admission: WBCs, ESR, CRP appreciably elevated, procal negative - WBCs continue to be elevated, alongside CRP on daily checks - UA, CXR, recent bowel history without significant findings - Continue IV vancomycin for now - ID consult appreciated (6) Leukocytosis: Plan: - WBC initially to 24 on arrival with neutrophil predominance -- now persistently between 15-20 - Suspect secondary to hematoma, inflammatory state, possibly genuine bacteremia? - No evidence of GI, pulmonary, skin, neurologic abnormalities - Monitor CRP, white count -- procal neg x 4 (7) Acute right hemiparesis: Plan: - secondary to recent small vessel ischemic stroke to left thalamus/internal capsule - residual deficit, no e/o new infarct (8) Dysarthria due to acute cerebellar cerebrovascular accident (CVA): Plan: - in setting of recent small vessel ischemic stroke to left thalamus/internal capsule in 11/2021 - likely secondary to recent infarct, compounded by metabolic factors pre cipitating encephalopathy (9) Presence of IVC filter: Plan: - Noted to be in proper position on KUB from previous admission - Due to hx of PE from Factor V Leiden - follows with Dr. Stanley Robertson at [facility] for this; [phone]. (10) Diabetes: Plan: - A1c from 11/17/21 was above goal at 9.0 - Patient previously discharged with Jardiance 25mg daily; SQ insulin deferred given improved BSGs with diabetic diet during last admission. - Hold Jardiance while NPO, SSI ordered - carb consistent diet - resume high intensity statin and daily baby ASA when no longer NPO (11) Hypertension: Plan: - Home regimen of lisinopril 5mg daily -- resume when appropriate (12) Chronic anticoagulation: Plan: - patient on therapeutic Lovenox due to Factor V Leiden and hx of DVT/PE - Lovenox plan as above -- resume home dose (13) Murmur, cardiac: Plan: - noted on PE, new from last admission - Repeat echo with bubble study ordered given concurrent stroke work up (14) Tobacco abuse: Plan: - history of , noted - has been tobacco free since 11/07/21 (previous admission) (15) Thrombocytosis: Plan: - platelets elevated to 435 on admission, now improving - patient is asplenic - suspect 2/2 to intramuscular hematoma formation - trend CBC (16) Elevated AST (SGOT): Plan: - AST elevated to 70 on admission, ALT normal - Suspect partially related to iliopsoas hematoma - given new ST segment depressions in anterior leads on EKG, trop drawn. High sensitivity trop returned at 7.8. No symptoms or other findings consistent with ACS at this time. (17) GERD (gastroesophageal reflux disease): Plan: - resume home PPI (18) Depression: Plan: - resume home Paxil Plan: Dispo: Admit to Med/tele. PT/OT ordered Diet: carb consistent DM2 and heart healthy; aspiration precautions DVT pxx: resumed home lovenox as above. SCDs ordered Code: Full Admission and Anticipated Discharge Date Admission Date: December 08, 2021 Supervising Physician Co-Signing Physician Notes I personally examined the patient and verified all prajapati points of history and exam, discussed case, and agree with decision making with Dr Valdivia feeling better, leg still hurts a good bit though. would like to go home today but after discussing risk/benefit he is OK with tomorrow / understands rationale for watching longer vitals noted nad awake and talkative R sided weakness persists R leg swollen and bruised similar to yesterday AMS - most fitting w delirium/metabolic encephalopathy - most likely from physiologic stress of hemorrhage/anemia. appears to be improving (although for true capacity purposes still hard to county judge and does most of the in depth communicating) hemorrhage/anemia - required 1 unit transfusion. follow closely. lovenox was temporarily on hold - now back at full dosing. re-US hematoma this afternoon, repeat Hgb and exam in AM - if stable then can likely be safe for dc tomorrow, close outpt f/u V Leiden w recurrent DVTs - apparently clots very quickly off blood thinners - therefore resumed and escalated lovenox fairly rapidly - thus far tolerating well. d/w pt and family given delicate balance of bleeding and clotting needed to follow for several days of stability before considering dc - see above, appearing current stable CVA, R sided weakness - alf Rx w anticoagulation, antiplatelet, statin, BP/dm control - d/w family on 12/10 can repeat MRI to discern recrudesence from new CVA but very unlikely to change treatment. offered//after in depth discussions they declined. more suspicious recrudesence and leg weakness from bleed/hematoma. improvement in responsiveness/etc strongly favors recrudesence (+) blood cultures - 3 different types of coag neg staph --> most likely a ctually 2 different contaminants. follow repeat Cx - negative thus far, continue vanco for now. with no other obvious site of infection (ongoing vigilance, serial exams) this would make leukocytosis most likely reactive to hemorrhage/hematoma. ID input pending for completeness otherwise as above Subjective NAEO. Greatly improved mentation appreciated this morning. Able to have a discussion with full sentences. Endorses feeling well. Endorses pain within his right lower extremity which has not changed (chronic DVT and site of hematoma). He is eager to leave the hospital and get a shower. Denies any chest pain, palpitations, shortness of breath. Good appetite, no nausea. Review of Systems Review of Systems: as per HPI Physical Exam Physical Exam: General: 51-year old male who is alert, oriented, and appears in no acute distress. Responds to questions appropriately in full sentences. HEENT: NCAT. - Eyes - Sclera are white, anicteric, and without injection. - Mouth - MMM - Neck - supple, no appreciable JVD Cardiac: Normal rate and regular rhythm; S1 and S2 present with no murmurs, rubs, or gallops. Pulmonary: Good respiratory effort with symmetric expansion of the chest. No use of accessory muscles. Lungs were clear to auscultation bilaterally with no crackles or wheezes. Abdominal: Normoactive bowel sounds. Abdomen was soft, nondistended, and non- tender to palpation. Extremities: Upper and lower extremities are warm and well perfused. Exam of the RLE does reveal appreciable unilateral edema when compared to the LLE, most notable within the thigh. There is mild TTP. DP pulse 2+. Capillary refill < 3 seconds. Strength 2/5 - improved compared to previous days. Neuro: - Cranial Nerves: II-XII grossly intact. No facial droop. - Motor: UE - Finger, wrist, elbow, and shoulder strength is 5/5 in LUE, LLE; strength is 2/5 in the RLE, 1/5 in the RUE - Sensation: Unable to reliably assess Results & Data Results & Data ([facility]) Vital Signs (Past 12 Hours) Vital Signs Temp Pulse Pulse Resp BP Pulse Ox 12/12/21 03:13 36.5 C 73 16 102/50 L 98 12/11/21 22:54 36.7 C 79 18 121/69 99 12/11/21 22:18 82 12/11/21 19:49 37.7 C H 80 16 105/61 97 12/11/21 18:14 74 Resident Activity Tracking Resident Involvement: Resident Care Provided Care Provided: Adult Hospital Medicine (1) Hypertension Hypertension type: primary hypertension Qualified Code(s): I10 - Essential (primary) hypertension
[2021-12-12 07:48] LABS: Basophils # (auto) 0.08 K/uL (0-0.2); Basophils % (auto) 0.5 %; Eosinophils # (auto) 0.46 K/uL (0-0.5); Eosinophils % (auto) 2.7 %; Hematocrit (blood only) 25.9 % (42-52); Hemoglobin 8.3 g/dL (14.0-18.0); Immature Granulocytes # (auto) 0.51 K/uL (0.00-0.02); Lymphocytes # (auto) 2.87 K/uL (1.2-3.4); Lymphocytes % (auto) 16.7 %; Mean Corpuscular Hemoglobin 27.1 pg (25-34); Mean Corpuscular Volume 84.6 fL (80-100); Mean Platelet Volume 9.4 fL (7.4-10.4); Monocytes # (auto) 1.41 K/uL (0.11-0.59); Monocytes % (auto) 8.2 %; Neutrophils # (auto) 11.88 K/uL (1.4-6.5); Neutrophils % (auto) 68.9 %; Nucleated RBC # (auto) 0.88 K/uL (0-0); Nucleated RBC % (auto) 5.1 %; Platelet Count 470 K/uL (130-400); RDW Standard Deviation 54.4 fL (36.4-46.3); Red Blood Count 3.06 M/uL (4.7-6.1); White Blood Count 17.21 K/uL (4.8-10.8)
[2021-12-12 08:06] LABS: Acanthocytes 1+; Polychromasia 1+; Spherocytes 1+
[2021-12-12] MEDS: SENNA 8.6 MG TAB PO SCH (08:06)
[2021-12-12] MEDS: PANTOprazole 40 MG TAB PO SCH ×2 (08:08→22:29)
[2021-12-12] MEDS: DICLOFENAC SOD 1% GEL 100 GM TUBE EXT SCH ×2 (08:10→23:05)
[2021-12-12] MEDS: LIDOCAINE 5% 1 PATCH TD SCH (08:10)
[2021-12-12 08:20] LABS: Albumin Globulin Ratio 0.9 (0.9-2); BUN Creatinine Ratio 21.4 (10-20); Bilirubin,Total 1.4 mg/dl (0.2-1.0); C Reactive Protein 15.29 mg/dl (0-0.5); Calcium 8.6 mg/dl (8.5-10.1); Creatinine Clr Calc Pharmacy 198.9 ml/min; Est GFR (African American) 136.9 ml/min; Est GFR (Non-African American) 118.1 ml/min; Globulin 3.5 gm/dl (2.5-4.0); Potassium 3.9 mmol/L (3.5-5.1); Total Protein 6.5 gm/dl (6.0-8.3)
[2021-12-12] MEDS: INSULIN ASPART PER UNIT SC SCH ×4 (08:51→22:26)
[2021-12-12] MEDS ORDERED: ENOXAPARIN INJ 120 MG/0.8 ML SYR SQ SCH (09:00)
[2021-12-12] MEDS: MoRPHine SULFATE IR 15 MG TAB (IMMEDIATE RELEASE) PO PRN (11:10)
--- NOTE | 2021-12-12 12:54 | Ultrasound Report ---
US extremity non-vascular ltd right thigh CLINICAL HISTORY: *RIGHT* thigh hematoma size check . Follow-up intramuscular hematoma TECHNIQUE: Real-time grayscale sonographic images of the right thigh were obtained. Comparison: 12/10/2021 FINDINGS: Compared to the previous examination, there has been interval increase in size of previousl y identified intramuscular hematoma. It now measures 8.9 x 2.2 x 6.2 cm. There is again no increased flow demonstrated. There is now identified a second more inferior and distal hypoechoic area measuring 28.2 cm in length and 7.5 x 8.2 cm in AP and transverse diameters. There is again no increased flow. IMPRESSION: 1. Interval increase in size of previously identified intramuscular hematoma. 2. New intramuscular hematoma is also seen more distally which is even larger in size. ACT 112: Negative or not required by law. Electronically signed by: Des Virgen M.D. 12/12/2021 12:53 PM
--- NOTE | 2021-12-12 13:03 | Billing Data ---
Date of Service December 12, 2021 Coding Level of Care Code 05190 Subseq Hosp Care Lvl 3
[2021-12-12] MEDS ORDERED: PROTAMINE SULFATE 50 MG in DEXTROSE 5% 50 ML IV ONE (13:30)
[2021-12-12] MEDS ORDERED: PROTAMINE SULFATE 25 MG in DEXTROSE 5% 50 ML IV ONE (14:15)
[2021-12-12] MEDS ORDERED: HYDROmorphone INJ 0.5 MG/0.5 ML SYR IV STA ×2 (14:26→20:48)
[2021-12-12] MEDS ORDERED: HYDROmorphone INJ 0.5 MG/0.5 ML SYR IV SCH (14:30)
[2021-12-12 15:33] LABS: Hematocrit (blood only) 28.5 % (42-52); Hemoglobin 9.1 g/dL (14.0-18.0)
[2021-12-12] MEDS ORDERED: ACETAMINOPHEN 325 MG TAB PO PRN (18:27)
[2021-12-13] MEDS: VANCOMYCIN HCL 1,250 MG in SODIUM CHLORIDE 0.9% 250 ML IV SCH ×2 (01:28→09:16)
[2021-12-13] MEDS: MoRPHine SULFATE CR 15 MG TABCR PO SCH ×2 (04:26→16:48)
[2021-12-13] MEDS ORDERED: HYDROmorphone INJ 0.5 MG/0.5 ML SYR IV PRN (06:28)
--- NOTE | 2021-12-13 06:28 | Hospitalist Progress Note ---
Date of Service December 13, 2021 Assessment & Plan (1) Acute encephalopathy: Plan: Mr. 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 His recovery course from his recent CVA has been complicated by formation of R iliopsoas hematoma (discovered at [facility]) and acute bl ood loss anemia requiring pRBC transfusion on 12/09; further, he developed AFib w/ RVR on 12/09, which has subsequently resolved; and development of GPC bacteremia. PLAN HIGHLIGHTS * Increase in size of initial hematoma alongside formation of adjacent second hematoma noted on repeat US yesterday. Received protamine 25mg x 1. Lovenox held. * Check doppler RLE to reassess size of chronic DVT -- consider vascular consult if increased given difficult banace of anticoagulation with ongoing hematoma * Awaiting ID consult * Increase pain control: MS Contin 45mg b.i.d., Dilaudid 0.5mg IV q4h p.r.n. Acute Encephalopathy -- resolved - Worsening speech and command-following ability reported at rehab for L-sided CVA - Work-up as follows: Suspect largely secondary to metabolic/?infectious factors - Progressive ABLA noted (see below) in setting of R iliopsoas hematoma - Bacteremia has developed since last admission (though may be contamination) - No e/o electrolyte, endocrinologic disturbances - Home morphine resumed at [facility] - Non-contrast Head CT showing expected evolution of the infarct within the posterior limb of the left internal capsule shown on head CT 11/18/21. No evidence for hemorrhagic conversion - non-con MRA-H/N: Significantly limited study w/o contrast. Dolichoectasia of basilar artery with diminished enhancement of communications professional; otherwise grossly WNL - Brain MRI (without contrast) ordered: No acute findings. 4 mm focus of signal abnormality within the L midbrain, likely related to the previous infar ct. Interval infarct less likely, but possible. - Likely multifactorial: ABLA, bacteremia; less likely recurrent stroke (2) Iliopsoas muscle hematoma: Plan: - noted on Hip CT obtained by [facility] provider from 12/07/21 - likely secondary to fall at rehab while anticoagulated on Lovenox - suspected source of ABLA outlined below - US of RLE (12/08, 12/11) --7.2 x 4 x 3 cm intramuscular hematoma within the proximal lateral R thigh, likely within the vastus lateralis. No significant change on repeat. - Repeat US 12/13: Interval increase in size of previous hematoma (8.9 x 2.2 x 6.2cm) alongside formation of adjacent hematoma (28.2 x 7.5 x 8.2cm). No increase in flow. - Hold Lovenox - r/b of this favors stopping current bleed over elevated risk of VTE given Factor V Leiden. Resume when appropriate. s/p Protamine 25mg x 1. - Check venous doppler RLE to reassess size of chronic R DVT given large appearance of leg on exam, recent holding of Lovenox - CBC and VSS stable. Trend. - Pain: Tylenol 1g PO q8h CRISTINO. Morphine 45mg (from 30mg) b.i.d. CRISTINO. Dilaudid 0.5mg IV q4h PRN. Topical diclofenac and Lidoderm patches prn for pain. - Orthopedic consult placed: no suspicion for compartment syndrome at this time, no indication for immediate evacuation, will require f/u in the office in about 2 weeks (3) Acute blood loss anemia: Plan: - Interval development of anemia on admission in setting of ongoing Lovenox use for Factor V Leiden - Hgb at 15 on discharge in 11/2021 -- on admission, Hgb notably dropped to 7.9 - Suspect intravascular loss due to iliopsoas hematoma formation (noted on CT); will also check Hemoccult stool - Initially declining (12/09) Hgb to 7.0 in setting of HoTN, tachycardia requiring transfusion 1U pRBC --> has since improved and is persistently >8 on daily labs, VSS. - transfuse if Hgb < 7 or if symptomatic; blood consent signed and in chart - Lovenox plan as above (4) Atrial fibrillation with RVR: Plan: - New-onset AFib w/ RVR appreciated 12/09 in setting of recent CVA, ABLA from hematoma, and interval development of bacteremia -- resolved - Converted to NSR at 1999 on 12/10/21 - TTE (12/09): Normal biventricular function, LVEF 65-70%, no RWMAs - Maintain K > 4.0, Mag > 2.0 - Lopressor prn added for rate control - Lovenox plan as above (5) Bacteremia: Plan: - BCX returning 3/: Coag neg staph (different spp between two cultures) and other Staph - Work-up as follows: - BCX demonstrating / positive: suspect contamination given separate spp. - rBCX without growth - R iliopsoas hematoma noted - MRSA nares POSITIVE - TTE (not COREY) without valvular pathology - Admission: WBCs, ESR, CRP appreciably elevated, procal negative - WBCs continue to be elevated, alongside CRP on daily checks - UA, CXR, recent bowel history without significant findings - Continue IV vancomycin for now - ID consult appreciated (6) Leukocytosis: Plan: - WBC initially to 24 on arrival with neutrophil predominance -- now persistently between 15-20 - Suspect secondary to hematoma, inflammatory state, possibly genuine bacteremia? - No evidence of GI, pulmonary, skin, neurologic abnormalities - Monitor CRP, white count -- procal neg x 4 (7) Acute right hemiparesis: Plan: - secondary to recent small vessel ischemic stroke to left thalamus/internal capsule - residual deficit, no e/o new infarct (8) Dysarthria due to acute cerebellar cerebrovascular accident (CVA): Plan: - in setting of recent small vessel ischemic stroke to left thalamus/internal capsule in 11/2021 - likely secondary to recent infarct, compounded by metabolic factors precipitating encephalopathy (9) Presence of IVC filter: Plan: - Noted to be in proper position on KUB from previous admission - Due to hx of PE from Factor V Leiden - follows with Dr. Stanley Robertson at [facility] for this; [phone]. (10) Diabetes: Plan: - A1c from 11/17/21 was above goal at 9.0 - Patient previously discharged with Jardiance 25mg daily; SQ insulin deferred given improved BSGs with diabetic diet during last admission. - Hold Jardiance while NPO, SSI ordered - carb consistent diet - resume high intensity statin and daily baby ASA when no longer NPO (11) Hypertension: Plan: - Home regimen of lisinopril 5mg daily -- resume when appropriate (12) Chronic anticoagulation: Plan: - patient on therapeutic Lovenox due to Factor V Leiden and hx of DVT/PE - Lovenox plan as above (13) Murmur, cardiac: Plan: - noted on PE, new from last admission - Repeat echo with bubble study ordered given concurrent stroke work up (14) Tobacco abuse: Plan: - history of , noted - has been tobacco free since 11/07/21 (previous admission) (15) Thrombocytosis: Plan: - platelets elevated to 435 on admission, now improving - patient is asplenic - suspect 2/2 to intramuscular hematoma formation - trend CBC (16) Elevated AST (SGOT): Plan: - AST elevated to 70 on admission, ALT normal - Suspect partially related to iliopsoas hematoma - given new ST segment depressions in anterior leads on EKG, trop drawn. High sensitivity trop returned at 7.8. No symptoms or other findings consistent with ACS at this time. (17) GERD (gastroesophageal reflux disease): Plan: - resume home PPI (18) Depression: Plan: - resume home Paxil Plan: Dispo: Admit to Med/tele. PT/OT ordered Diet: carb consistent DM2 and heart healthy; aspiration precautions DVT pxx: resumed home lovenox as above. SCDs ordered Code: Full Admission and Anticipated Discharge Date Admission Date: December 08, 2021 Supervising Physician Co-Signing Physician Notes I personally examined the patient and verified all prajapati points of history and exam, discussed case, and agree with decision making with Dr Valdivia leg still hurts no other new complaints vitals noted nad awake and talkative R sided weakness persists R leg swollen and bruised similar to yesterday, later seen in wheelchair as was taking him outside to [employer] [facility] - most fitting w delirium/metabolic encephalopathy - most likely from physiologic stress of hemorrhage/anemia. appears to be improving (although for true capacity purposes still hard to inventory control specialist and does most of the in depth communicating) hemorrhage/anemia - required 1 unit transfusion. follow closely. had to hold lovenox longer since bleeding appears to have persisted despite short hold V Leiden w recurrent DVTs - apparently clots very quickly off blood thinners - therefore resumed and escalated lovenox fairly rapidly - thus far tolerating well. d/w pt and family given delicate balance of bleeding and clotting needed to follow for several days of stability before considering dc - see above, appearing current stable, venous doppler only showing chronic findings CVA, R sided weakness - wrapper off Rx w anticoagulation, antiplatelet, statin, BP/dm control - d/w family on 12/10 can repeat MRI to discern recrudesence from new CVA but very unlikely to change treatment. offered//after in depth discussions they declined. more suspicious recrudesence and leg weakness from bleed/hematoma. improvement in responsiveness/etc strongly favors recrudesence (+) blood cultures - 3 different types of coag neg staph --> possibly 2 different contaminants. follow repeat Cx - negative thus far, continue vanco for now - appreciate ID recs - really unclear situation but risk is real - therefore safer to treat otherwise as above Subjective Required additional Dilaudid 0.5mg IV x 1 overnight due to increase in leg pain. Low-grade fever of 37.8 requiring single dose of Tylenol -- asymptomatic. At bedside, patient said night was pretty bad. A lot of pain in R leg. Doesn't feel worse - just persistently bad. No numbness/tingling. Pain worst in thigh. Denies CP/palpitations/SOB. Can move ankle well. Review of Systems Review of Systems: as per HPI Physical Exam Physical Exam: General: 51-year old male who is alert, oriented, and appears in no acute distress. Responds to questions appropriately in full sentences. HEENT: NCAT. - Eyes - Sclera are white, anicteric, and without injection. - Mouth - MMM - Neck - supple, no appreciable JVD Cardiac: Normal rate and regular rhythm; S1 and S2 present with no murmurs, rubs, or gallops. Pulmonary: Good respiratory effort with symmetric expansion of the chest. No use of accessory muscles. Lungs were clear to auscultation bilaterally with no crackles or wheezes. Abdominal: Normoactive bowel sounds. Abdomen was soft, nondistended, and non- tender to palpation. Extremities: Upper and lower extremities are warm and well perfused. Exam of the RLE does reveal appreciable and more pronounced unilateral edema when compared to the LLE, most notable within the thigh - increased compared to days' prior. There is moderate (from mild) TTP. DP pulse 2+. Capillary refill < 3 seconds. Strength 2/5 at R ankle - unchanged compared to previous days. Neuro: - Cranial Nerves: II-XII grossly intact. No facial droop. - Motor: UE - Finger, wrist, elbow, and shoulder strength is 5/5 in LUE, LLE; strength is 2/5 in the RLE, 1/5 in the RUE - Sensation: Unable to reliably assess Results & Data Results & Data ([facility]) Vital Signs (Past 12 Hours) Vital Signs Temp Pulse Pulse Resp BP Pulse Ox 12/13/21 03:45 106 H 12/13/21 03:15 37.1 C 83 18 101/63 96 12/12/21 23:28 37.1 C 95 H 18 91/58 L 97 Resident Activity Tracking Resident Involvement: Resident Care Provided Care Provided: Adult Hospital Medicine (1) Hypertension Hypertension type: primary hypertension Qualified Code(s): I10 - Essential (primary) hypertension
[2021-12-13 06:43] LABS: Basophils # (auto) 0.08 K/uL (0-0.2); Basophils % (auto) 0.5 %; Eosinophils # (auto) 0.45 K/uL (0-0.5); Hematocrit (blood only) 26.5 % (42-52); Hemoglobin 8.4 g/dL (14.0-18.0); Immature Granulocytes # (auto) 0.45 K/uL (0.00-0.02); Lymphocytes # (auto) 1.95 K/uL (1.2-3.4); Lymphocytes % (auto) 12.9 %; Mean Corpuscular Hgb Conc 31.7 g/dL (32-36); Mean Corpuscular Volume 85.2 fL (80-100); Mean Platelet Volume 9.3 fL (7.4-10.4); Monocytes # (auto) 1.26 K/uL (0.11-0.59); Monocytes % (auto) 8.3 %; Neutrophils % (auto) 72.3 %; Nucleated RBC # (auto) 0.54 K/uL (0-0); Nucleated RBC % (auto) 3.6 %; Platelet Count 472 K/uL (130-400); RDW Coefficient of Variation 18.5 % (11.5-14.5); RDW Standard Deviation 55.8 fL (36.4-46.3); Red Blood Count 3.11 M/uL (4.7-6.1); White Blood Count 15.09 K/uL (4.8-10.8)
[2021-12-13 07:01] LABS: Creatinine Clr Calc Pharmacy 196.3 ml/min; Est GFR (African American) 135.9 ml/min; Est GFR (Non-African American) 117.2 ml/min
[2021-12-13 07:35] LABS: Acanthocytes 1+; Echinocytes 1+; Polychromasia 1+; Toxic Granulation 1+
[2021-12-13] MEDS: SENNA 8.6 MG TAB PO SCH (08:19)
[2021-12-13] MEDS: PANTOprazole 40 MG TAB PO SCH ×2 (08:19→20:43)
[2021-12-13] MEDS: DICLOFENAC SOD 1% GEL 100 GM TUBE EXT SCH ×2 (09:16→20:44)
[2021-12-13] MEDS: LIDOCAINE 5% 1 PATCH TD SCH (09:16)
--- NOTE | 2021-12-13 09:19 | Pharmacy Report ---
Pharmacy Vanc AUC Short Note - Date of Service December 13, 2021 - Assessment & Plan Assessment 51 year old M receiving vancomycin for bacteremia. 1 set of blood cultures with 2/2 coag neg staph - oxacillin sensitive, other set coag neg staph 1/2 no reported sensitivities and determined to be a different species per lab report. ID consulted to provide recommendations. Plan Vancomycin * AUC/GIOVANNI is the preferred PK/PD target for vancomycin * AUC guided dosing is effective and associated with decreased risk of nephrotoxicity compared to traditional trough targets * Random vancomycin level this AM ~13.5 mcg/ml - this current dosing estimated to achieve AUC ~430; plan to increase vancomycin dosing today to target AUC/GIOVANNI 500-600. * Will increase to 1500 mg iv q 8 hrs to achieve estimated trough ~15 mcg/ml and AUC of ~515. Will plan to order another level in next 24-48 hrs. Pharmacy will continue to follow and will adjust dose/frequency as necessary. Thank you.
[2021-12-13] MEDS: INSULIN ASPART PER UNIT SC SCH ×4 (09:23→20:41)
[2021-12-13] MEDS: oxyCODONE HCL IR 5 MG TAB (IMMEDIATE RELEASE) PO PRN ×2 (10:53→20:41)
[2021-12-13] MEDS: HYDROmorphone INJ 0.5 MG/0.5 ML SYR IV PRN (12:29)
--- NOTE | 2021-12-13 13:52 | Ultrasound Report ---
RIGHT LOWER EXTREMITY VENOUS DOPPLER HISTORY: H/o chronic R DVT, assess size COMPARISON STUDY: Right thigh ultrasound 12/12/2021. FINDINGS: Linear echogenic stranding within the right superficial femoral and popliteal veins consist ent with chronic nonocclusive thrombus. The remaining right lower extremity deep venous structures ar e patent. The right calf hematoma is again noted and measures 20 cm in length. IMPRESSION: 1. Chronic nonocclusive thrombus within the right superficial femoral and popliteal veins. 2. No evidence for acute DVT within the right lower extremity. 3. A large right calf hematoma is again noted. ACT 112: Negative or not required by law. Electronically signed by: Roland Dorantes M.D. 12/13/2021 1:51 PM
[2021-12-13] MEDS: ACETAMINOPHEN 500 MG TAB PO SCH ×2 (13:54→22:13)
[2021-12-13] MEDS: VANCOMYCIN HCL 1,500 MG in SODIUM CHLORIDE 0.9% 500 ML IV SCH (16:53)
--- NOTE | 2021-12-13 18:04 | Billing Data ---
Date of Service December 13, 2021 Coding Level of Care Code 44606 Subseq Hosp Care Lvl 3
--- NOTE | 2021-12-13 18:04 | Billing Data ---
Date of Service December 13, 2021 Coding Level of Care Code 93497 Subseq Hosp Care Lvl 3
[2021-12-13 21:19] LABS: Appearance Urine Clear (Clear); Bilirubin Urine Negative (Negative); Blood Urine Negative (Negative); Color Urine Yellow; Glucose Urine UA 3+ (Negative); Ketones Urine Negative (Negative); Leukocyte Esterase Urine Negative (Negative); Nitrite Urine Negative (Negative); Protein Urine Negative (Negative); Specific Gravity Urine 1.009 (1.000-1.030); Urobilinogen Urine Negative (Negative)
[2021-12-14] MEDS: VANCOMYCIN HCL 1,500 MG in SODIUM CHLORIDE 0.9% 500 ML IV SCH ×3 (02:01→17:08)
[2021-12-14] MEDS: MoRPHine SULFATE CR 15 MG TABCR PO SCH ×2 (03:46→16:55)
[2021-12-14] MEDS: HYDROmorphone INJ 0.5 MG/0.5 ML SYR IV PRN ×3 (04:45→14:00)
[2021-12-14] MEDS: ACETAMINOPHEN 500 MG TAB PO SCH ×3 (06:18→21:40)
--- NOTE | 2021-12-14 07:16 | Hospitalist Progress Note ---
Date of Service December 14, 2021 Assessment & Plan (1) Acute encephalopathy: Plan: Mr. 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 His recovery course from his recent CVA has been complicated by formation of R iliopsoas hematoma (discovered at [facility]) and acute bl ood loss anemia requiring pRBC transfusion on 12/09; further, he developed AFib w/ RVR on 12/09, which has subsequently resolved; and development of GPC bacteremia. PLAN HIGHLIGHTS * Hematomas stable, lovenox held until Am 12/15. * 7-14 days of IV Vancomycin treatment starting 12/09 with negative blood cultures * Increase pain control: MS Contin 45mg b.i.d., Oxycodone 5 mg Q4HWA, Tylenol 1g Q8H, Dilaudid 0.5mg IV q3h p.r.n. Acute Encephalopathy -- resolved - Worsening speech and command-following ability reported at rehab for L-sided CVA - Work-up as follows: Suspect largely secondary to metabolic/?infectious factors - Progressive ABLA noted (see below) in setting of R iliopsoas hematoma - Non-contrast Head CT showing expected evolution of the infarct within the posterior limb of the left internal capsule shown on head CT 11/18/21. No evidence for hemorrhagic conversion - non-con MRA-H/N: Significantly limited study w/o contrast. 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 4 mm focus of signal abnormality within the L midbrain, likely related to the previous infarct. Interval infarct less likely, but possible. - Likely multifactorial: ABLA, bacteremia; less likely recurrent stroke (2) Iliopsoas muscle hematoma: Plan: - noted on Hip CT obtained by [facility] provider from 12/07/21 - likely secondary to fall at rehab while anticoagulated on Lovenox - suspected source of ABLA outlined below - Venous and lower extremity dopplers now stable with hematomas off anticoagulation. Plan to re-initiate low anticoag dose AM of 12/14 - US of RLE (12/08, 12/11) --7.2 x 4 x 3 cm intramuscular hematoma within the proximal lateral R thigh, likely within the vastus lateralis. No significant change on repeat. - Repeat US 12/13: Interval increase in size of previous hematoma (8.9 x 2.2 x 6.2cm) alongside formation of adjacent hematoma (28.2 x 7.5 x 8.2cm). No increase in flow. - CBC and VSS stable. Trend. - Pain: Tylenol 1g PO q8h CRISTINO. Morphine 45mg (from 30mg) b.i.d. CRISTINO. Dilaudid 0.5mg IV q3h PRN, Oxycodone 5 mg Q4WA, Topical diclofenac and Lidoderm patches prn for pain. - Orthopedic consult placed: no suspicion for compartment syndrome at this time, no indication for immediate evacuation, will require f/u in the office in about 2 weeks (3) Acute blood loss anemia: Plan: - Interval development of anemia on admission in setting of ongoing Lovenox use for Factor V Leiden - Hgb at 15 on discharge in 11/2021 -- on admission, Hgb notably dropped to 7.9 - Suspect intravascular loss due to iliopsoas hematoma formation (noted on CT); hemoccult stool positive - s/p 1 upRBC transfusion. transfuse if Hgb < 7 or if symptomatic; blood consent signed and in chart - Lovenox plan as above (4) Atrial fibrillation with RVR: Plan: - New-onset AFib w/ RVR appreciated 12/09 in setting of recent CVA, ABLA from hematoma, and interval development of bacteremia -- resolved - Converted to NSR at 1999 on 12/10/21 - TTE (12/09): Normal biventricular function, LVEF 65-70%, no RWMAs - Maintain K > 4.0, Mag > 2.0 - Lopressor prn added for rate control - Lovenox plan as above (5) Bacteremia: Plan: - BCX returning 3/4: Coag neg staph (different spp between two cultures) and other Staph - Work-up as follows: - BCX demonstrating 3/4 positive - repeat BCX without growth - ID recommendation - 7 to 14 days of IV Vancomycin from 12/09/21; odd presentation given multiple organisms however high risk for worsening hematoma with concurrent bacteremia - MRSA nares POSITIVE - TTE (not COREY) without valvular pathology - Admission: WBCs, ESR, CRP appreciably elevated, procal negative - WBCs continue to be elevated, alongside CRP on daily checks - UA, CXR, recent bowel history without significant findings (6) Leukocytosis: Plan: - WBC initially to 24 on arrival with neutrophil predominance -- now persistently between 15-20 - improved with vancomycin (7) Acute right hemiparesis: Plan: - secondary to recent small vessel ischemic stroke to left thalamus/internal capsule - residual deficit, no new infarct (8) Dysarthria due to acute cerebellar cerebrovascular accident (CVA): Plan: - in setting of recent small vessel ischemic stroke to left thalamus/internal capsule in 11/2021 - likely secondary to recent infarct, compounded by metabolic factors precipitating encephalopathy (9) Presence of IVC filter: Plan: - Noted to be in proper position on KUB from previous admission - Due to hx of PE from Factor V Leiden - follows with Dr. Stanley Robertson at [facility] for this; [phone]. (10) Diabetes: Plan: - A1c from 11/17/21 was above goal at 9.0 - Patient previously discharged with Jardiance 25mg daily; SQ insulin deferred given improved BSGs with diabetic diet during last admission. - Hold Jardiance while NPO, SSI ordered - carb consistent diet - resumed high intensity statin and daily baby ASA (11) Hypertension: Plan: - Home regimen of lisinopril 5mg daily -- resume when appropriate (12) Chronic anticoagulation: Plan: - patient on therapeutic Lovenox due to Factor V Leiden and hx of DVT/PE - Lovenox plan as above (13) Murmur, cardiac: Plan: - noted on PE, new from last admission -unable to verify PFO given resolution. no significant valvular pathology, normal EF, no pericardial effusion, (14) Tobacco abuse: Plan: - history of , noted - has been tobacco free since 11/07/21 (previous admission) (15) Thrombocytosis: Plan: - platelets elevated to 435 on admission, now improving - patient is asplenic - suspect 2/2 to intramuscular hematoma formation - trend CBC (16) Elevated AST (SGOT): Plan: - AST elevated to 70 on admission, ALT normal - Suspect partially related to iliopsoas hematoma (17) GERD (gastroesophageal reflux disease): Plan: - resume home PPI (18) Depression: Plan: - resume home Paxil Plan: Dispo: Admit to Med/tele. PT/OT ordered Diet: carb consistent DM2 and heart healthy; aspiration precautions DVT pxx: balance of anticoagulation and bleeding as above. Code: Full Admission and Anticipated Discharge Date Admission Date: December 08, 2021 Supervising Physician Co-Signing Physician Notes I personally examined the patient and verified all prajapati points of history and exam, discussed case, and agree with decision making with Dr Coy other than leg pain no new complaints. dr coy revamped pain regimen vitals noted nad awake and talkative R sided weakness persists R leg swollen and bruised actually seems a little bit softer, more likely tracking down fascial planes AMS - most fitting w delirium/metabolic encephalopathy - most likely from physiologic stress of hemorrhage/anemia. definitely improved. hemorrhage/anemia - required 1 unit transfusion. follow closely. had to hold lovenox longer since bleeding appears to have persisted despite short hold. appearing reassuring overall. V Leiden w recurrent DVTs - apparently clots very quickly off blood thinners - therefore resumed and escalated lovenox fairly rapidly - thus far tolerating well. d/w pt and family given delicate balance of bleeding and clotting needed to follow for several days of stability before considering dc - see above, appearing current stable, venous doppler only showing chronic findings hopefully can restart lovenox tomorrow CVA, R sided weakness - ferry terminal agent Rx w anticoagulation, antiplatelet, statin, BP/dm control - d/w family on 12/10 can repeat MRI to discern recrudesence from new CVA but very unlikely to change treatment. offered//after in depth discussions they declined. more suspicious recrudesence and leg weakness from bleed/hematoma. improvement in responsiveness/etc strongly favors recrudesence (+) blood cultures - 3 different types of coag neg staph --> possibly 2 different contaminants. follow repeat Cx - negative thus far, continue vanco for now - appreciate ID recs - really unclear situation but risk is real - therefore safer to treat otherwise as above Subjective continuing to have pain in right thigh. not currently controlled with pain regimen. able to eat without issue/ no fevers/chills/nausea. no overnight problems. no pietro bleeding. no melanotic stools. Review of Systems Constitutional: no fever, no chills, no body aches and no fatigue Respiratory: no cough and no dyspnea Cardiovascular: no chest pain, no dyspnea and no edema Gastrointestinal: no abdominal pain, no nausea, no vomiting, no constipation and no diarrhea/loose stools Neurologic: no tingling, no numbness, no dizziness and no confusion Physical Exam Constitutional: cooperative; no acute distress and not ill appearing Eyes: PERRL, conjunctivae normal, anicteric sclerae Neck: normal visual inspection Respiratory: normal respiratory effort and able to speak in complete sentences; no respiratory distress, no labored breathing, no retractions, no cough and no audible wheezes Auscultation: lungs clear to auscultation bilaterally; no crackles, no rales, no rhonchi and no wheezes Cardiovascular: Rate/Rhythm: regular rate and regular rhythm Heart Sounds: normal S1 and normal S2; no gallop, no murmur and no cardiac rub Extremities: normal capillary refill, + calf tenderness and + edema (R> L, stable bruising from hematoma); no pedal edema Gastrointestinal (Abdomen): Inspection/Auscultation: abdomen normal to inspection and normal bowel sounds; abdomen not distended Percussion/Palpation: abdomen soft; abdomen nontender, no guarding, abdomen not rigid and no abdominal mass Musculoskeletal: no cyanosis or clubbing, extremities motor strength 5/5 Skin: no rashes, warm and dry ( warmer to touch behind right popliteal fossa) Neurologic: Motor/Sensory: no tremor right sided facial droop, persistent from previous CVA Psychiatric: Orientation: alert and oriented x 3 Results & Data Results & Data ([facility]) Vital Signs (Past 12 Hours) Vital Signs Temp Pulse Pulse Resp BP Pulse Ox 12/14/21 02:47 37.7 C H 73 16 111/68 98 12/13/21 23:44 79 12/13/21 22:49 37.2 C 73 18 110/66 95 12/13/21 20:01 37.0 C 79 16 122/76 99 Laboratory Results Laboratory Results WBC 17.67 K/uL (4.8-10.8) H 12/14/21 08:37 RBC 3.00 M/uL (4.7-6.1) L 12/14/21 08:37 Hgb 8.2 g/dL (14.0-18.0) L 12/14/21 08:37 Hct 26.1 % (42-52) L 12/14/21 08:37 MCV 87.0 fL (80-100) 12/14/21 08:37 MCH 27.3 pg (25-34) 12/14/21 08:37 MCHC 31.4 g/dL (32-36) L 12/14/21 08:37 RDW Std Deviation 57.6 fL (36.4-46.3) H 12/14/21 08:37 RDW Coeff of [place] 18.5 % (11.5-14.5) H 12/14/21 08:37 Plt Count 372 K/uL (130-400) 12/14/21 08:37 MPV 9.5 fL (7.4-10.4) 12/14/21 08:37 Immature Gran % (Auto) 2.4 % 12/14/21 08:37 Neut % (Auto) 64.9 % 12/14/21 08:37 Lymph % (Auto) 19.9 % 12/14/21 08:37 [place] % (Auto) 8.4 % 12/14/21 08:37 Eos % (Auto) 4.0 % 12/14/21 08:37 Baso % (Auto) 0.4 % 12/14/21 08:37 Neut # (Auto) 11.49 K/uL (1.4-6.5) H 12/14/21 08:37 Lymph # (Auto) 3.51 K/uL (1.2-3.4) H 12/14/21 08:37 [place] # (Auto) 1.48 K/uL (0.11-0.59) H 12/14/21 08:37 Eos # (Auto) 0.70 K/uL (0-0.5) H 12/14/21 08:37 Baso # (Auto) 0.07 K/uL (0-0.2) 12/14/21 08:37 Immature Gran # (Auto) 0.42 K/uL (0.00-0.02) H 12/14/21 08:37 Absolute Nucleated RBC 0.57 K/uL (0-0) H 12/14/21 08:37 Nucleated RBC % (auto) 3.3 % 12/14/21 08:37 Neutrophils % (Manual) 84.3 % 12/09/21 08:50 Lymphocytes % (Manual) 8.7 % 12/09/21 08:50 Monocytes % (Manual) 5.2 % 12/09/21 08:50 Metamyelocytes % (Man) 0.9 % 12/09/21 08:50 Myelocytes % (Man) 0.9 % 12/09/21 08:50 Neutrophils # (Manual) 19.99 K/uL (1.4-6.5) H 12/09/21 08:50 Total Absolute Neuts 19.99 K/uL (1.4-6.5) H 12/09/21 08:50 Lymphocytes # (Manual) 2.06 K/uL (1.2-3.4) 12/09/21 08:50 Total Abs Lymphocytes 2.06 K/uL (1.2-3.4) 12/09/21 08:50 Monocytes # (Manual) 1.23 K/uL (0.11-0.59) H 12/09/21 08:50 Metamyelocytes # (Man) 0.21 K/uL (0-0) H 12/09/21 08:50 Myelocytes # (Manual) 0.21 K/uL (0-0) H 12/09/21 08:50 Toxic Granulation 1+ 12/13/21 06:21 Polychromasia 1+ 12/14/21 08:37 Hypochromasia Present 12/14/21 08:37 Anisocytosis Present 12/14/21 08:37 Spherocytes 1+ 12/12/21 07:19 [place] Bodies 1+ 12/10/21 12:09 Echinocytes 1+ 12/14/21 08:37 Acanthocytes (Spur) 1+ 12/13/21 06:21 ESR 69 mm/hr (0-20) H 12/09/21 20:49 PT 12.3 Seconds (9.0-12.0) H 12/08/21 09:56 INR 1.2 (0.9-1.1) H 12/08/21 09:56 APTT 30.5 Seconds (21.0-31.0) 12/08/21 09:56 PTT Ratio 1.1 12/08/21 09:56 Heparin Anti-Xa, LM Wt 0.60 IU/ML (< 0.10) 12/12/21 14:43 Sodium 135 mmol/L (136-145) L 12/14/21 08:37 Potassium 4.0 mmol/L (3.5-5.1) 12/14/21 08:37 Chloride 105 mmol/L (98-107) 12/14/21 08:37 Carbon Dioxide 24 mmol/L (21-32) 12/14/21 08:37 Anion Gap 6 (3-11) 12/14/21 08:37 BUN 10 mg/dl (6-23) 12/14/21 08:37 Creatinine 0.59 mg/dl (0.6-1.4) L 12/14/21 08:37 Est Cr Clr Drug Dosing 189.4 ml/min 12/14/21 08:37 Est GFR ( Amer) 134.0 ml/min 12/14/21 08:37 Est GFR (Non-Af Amer) 115.6 ml/min 12/14/21 08:37 BUN/Creatinine Ratio 16.9 (10-20) 12/14/21 08:37 Glucose 141 mg/dl (70-99(Fasting)) H 12/14/21 08:37 POC Glucose 116 mg/dl (70-99) H 12/14/21 16:40 Lactate 1.6 mmol/L (0.4-2.0) 12/09/21 20:49 Calcium 8.7 mg/dl (8.5-10.1) 12/14/21 08:37 Magnesium 2.2 mg/dl (1.7-2.4) 12/11/21 06:11 Total Bilirubin 1.4 mg/dl (0.2-1.0) H 12/12/21 07:19 AST 36 U/L (13-39) 12/12/21 07:19 ALT 29 U/L (7-52) 12/12/21 07:19 Alkaline Phosphatase 91 U/L (34-104) 12/12/21 07:19 Ammonia 39.0 umol/L (18-72) 12/08/21 16:43 Lactate Dehydrogenase 205 U/L (86-244) 12/09/21 20:49 Troponin I High Sens 9.6 pg/ml (0-20) 12/08/21 14:12 C-Reactive Protein 15.29 mg/dl (0-0.5) H 12/12/21 07:19 Total Protein 6.5 gm/dl (6.0-8.3) 12/12/21 07:19 Albumin 3.0 gm/dl (3.4-5.0) L 12/12/21 07:19 Globulin 3.5 gm/dl (2.5-4.0) 12/12/21 07:19 Albumin/Globulin Ratio 0.9 (0.9-2) 12/12/21 07:19 Procalcitonin 0.12 ng/ml (0-0.5) 12/11/21 06:11 TSH 1.315 uIu/ml (0.300-4.500) 12/08/21 14:48 PTH Intact 54.1 pg/ml (12.0-88.0) 12/09/21 14:58 Urine Color Yellow 12/13/21 20:58 Urine Appearance Clear (Clear) 12/13/21 20:58 Urine pH 6.0 (4.5-7.5) 12/13/21 20:58 Ur Specific [place] 1.009 (1.000-1.030) 12/13/21 20:58 Urine Protein Negative (Negative) 12/13/21 20:58 Urine Glucose (UA) 3+ (Negative) H 12/13/21 20:58 Urine Ketones Negative (Negative) 12/13/21 20:58 Urine Blood Negative (Negative) 12/13/21 20:58 Urine Nitrite Negative (Negative) 12/13/21 20:58 Urine Bilirubin Negative (Negative) 12/13/21 20:58 Urine Urobilinogen Negative (Negative) 12/13/21 20:58 Ur Leukocyte Esterase Negative (Negative) 12/13/21 20:58 Nasal Screen MRSA (PCR) Positive (Negative) A 12/08/21 Unknown Random Vancomycin 13.5 mcg/ml (10-20) 12/13/21 06:21 SARS-CoV-2, RNA, NAAT NEGATIVE (NEGATIVE) 12/08/21 10:24 Bld Cult Staph aureus PCR Negative (Negative) 12/08/21 10:40 Blood Culture MRSA PCR Negative (Negative) 12/08/21 10:40 Blood Type A Positive 12/08/21 14:48 Blood Type Recheck A Positive 12/09/21 20:49 Antibody Screen NEGATIVE 12/08/21 14:48 Crossmatch See Detail 12/08/21 14:48 Impressions Abdomen/Pelvis CT 12/08/21 09:56 CT OF THE ABDOMEN AND PELVIS WITHOUT CONTRAST CLINICAL HISTORY: fall, R back/hip pain, recent cva COMPARISON STUDY: KUB November 17, 2021. Right hip CT December 07, 2021. TECHNIQUE: Axial images of the abdomen and pelvis were obtained without IV contrast. Images were reviewed in the axial, sagittal, and coronal planes. Automated exposure control was utilized for the study. A dose lowering technique was utilized adhering to the principles of ALARA. FINDINGS: Bilateral gynecomastia is noted. Lung bases are unremarkable. No pneumatosis, free air or portal venous gas is present. Heterogeneity of the liver is likely technical. There is no biliary ductal dilatation status post cholecystectomy. The spleen is not visualized. Adrenal glands and kidneys are normal. There is no hydronephrosis. No evidence for a bowel obstruction. Moderate amount stool within the colon and rectum is present. The appendix is normal. Multiple subcutaneous hyperdense foci of the lower anterior abdominal wall represent small hematomas likely from subcutaneous injections. There is stranding adjacent to the right iliopsoas muscle as well as visualized portions of the right vastus lateralis. This suggests intramuscular hemorrhage which was shown on CT of December 07, 2021. No acute lumbar spine or pelvic fracture is present. IVC filter is in place. No lymphadenopathy. Bladder is mildly distended. IMPRESSION: 1. Redemonstration of suspected intramuscular hemorrhage within the right iliopsoas and right vastus lateralis muscles. This was depicted on hip CT of December 07, 2021. 2. No acute process within the abdomen or pelvis on unenhanced exam. 3. Multiple injection site hematomas of the lower anterior abdominal wall. 4. Moderate amount stool within the colon and rectum. 5. Mild bladder distention. ACT 112: Negative or not required by law. Electronically signed by: Anastacio Henriquez M.D. 12/08/2021 10:50 AM Chest X-Ray 12/08/21 09:57 XR chest 1V portable CLINICAL HISTORY: recent cva, fall COMPARISON STUDY: Chest radiograph November 16, 2021. FINDINGS: Enlargement of the cardiac silhouette is unchanged. Lung volumes are diminished. This is also unchanged. There is no consolidation or evidence for pulmonary edema. The appearance of the chest is similar to prior study. IMPRESSION: No acute cardiopulmonary findings. No change in appearance of the chest. ACT 112: Negative or not required by law. Electronically signed by: Anastacio Henriquez M.D. 12/08/2021 11:[address] 12/08/21 09:57 CT OF THE HEAD WITHOUT CONTRAST CLINICAL HISTORY: worsened speech, recent cva COMPARISON STUDY: MRI of the the brain November 16, 2021. Head CT November 18, 2021. TECHNIQUE: Helical axial images of the head were obtained without IV contrast. Automated exposure control was utilized for the study. A dose lowering technique was utilized adhering to the principles of ALARA. FINDINGS: No acute intracranial hemorrhage, midline shift or mass effect is present. There has been expected evolution of the infarct within the posterior limb of the left internal capsule shown on head CT of November 18, 2021. No evidence for hemorrhagic conversion. No additional infarcts are present. 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 The ventricular system is unremarkable. The basal cisterns are patent. No extra-axial collections are present. There are no findings to suggest acute dural sinus thrombosis or acute territorial infarct. No significant calvarial abnormalities are present. Visualized portions of the sinuses and mastoid air cells are clear. IMPRESSION: No acute intracranial findings. Expected evolution of the infarct within the posterior limb of the left internal capsule shown on head CT of November 18, 2021. No evidence for hemorrhagic conversion. No mass effect. ACT 112: Negative or not required by law. Electronically signed by: Anastacio Henriquez M.D. 12/08/2021 10:[address] 12/08/21 09:58 CT OF THE CERVICAL SPINE WITHOUT CONTRAST CLINICAL HISTORY: recent CVA, fall COMPARISON STUDY: No previous studies for comparison. TECHNIQUE: Helical axial images of the cervical spine were obtained without IV contrast. Sagittal and coronal reconstructions were viewed. Automated exposure control was utilized for the study. A dose lowering technique was utilized adhering to the principles of ALARA. FINDINGS: Alignment of the cervical spine is anatomic. Vertebral body heights are maintained. No acute cervical spine fracture or subluxation is present. There is no prevertebral edema. Facet joints are intact. There is moderate facet arthrosis within the cervical spine. Mild disc space narrowing with osteophytosis is noted at multiple levels. IMPRESSION: No acute cervical spine fracture or subluxation. ACT 112: Negative or not required by law. Electronically signed by: Anastacio Henriquez M.D. 12/08/2021 10:39 AM Head MRA 12/08/21 14:52 MRA OF THE INTRACRANIAL CIRCULATION WITHOUT CONTRAST CLINICAL HISTORY: Possible stroke. COMPARISON STUDY: MRA of the head November 16, 2021. TECHNIQUE: Utilizing a 1.5 Saida magnet and 3-D [id number] technique, unenhanced MRA of the intracranial circulation was obtained. FINDINGS: The bilateral M1, M2, A1 and A2 segments are patent. There is no central occlusion within the anterior circulation. Anterior communicating artery is present. Dolichoectasia of the basilar artery is noted. There is mild dilatation of the intracranial portions of the vertebral arteries. This is similar to MRI of November 16, 2021. As before, there is diminished flow related enhancement of the bilateral posterior cerebral arteries. This could be technical. No intracranial saccular aneurysm is identified. The appearance of the intracranial vessels is unchanged since prior MRI. IMPRESSION: No significant change since MRI of November 16, 2021. 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 ACT 112: Negative or not required by law. Electronically signed by: Anastacio Henriquez M.D. 12/08/2021 7:04 PM Neck MRA 12/08/21 14:52 MRA OF THE NECK WITHOUT CONTRAST CLINICAL HISTORY: possible stroke COMPARISON STUDY: MRA of the neck November 16, 2021. TECHNIQUE: A 1.5 Saida magnet was utilized. 2-D and 3-D [id number] imaging was performed to obtain unenhanced MRA of the neck. NASCET criteria were utilized to estimate the degree of carotid stenosis. FINDINGS: This exam is significantly compromised given motion artifact. Sensitivity for detection of stenoses is decreased however the bilateral common carotid and cervical internal carotid arteries are grossly patent. The bilateral vertebral arteries are also patent. No aneurysm is identified within the neck. Appearance is similar to MRI of November 16, 2021. IMPRESSION: Exam significantly compromised from a technical standpoint. Grossly patent bilateral common carotid, cervical internal carotid and vertebral arteries. ACT 112: Negative or not required by law. Electronically signed by: Anastacio Henriquez M.D. 12/08/2021 7:23 PM Brain MRI 12/08/21 16:12 MRI OF THE BRAIN WITHOUT CONTRAST CLINICAL HISTORY: TIA symptoms COMPARISON STUDY: MRI of the brain November 16, 2021. Head CT performed earlier today. TECHNIQUE: Utilizing a 1.5 Saida magnet and dedicated coil, multiplanar, multiec ho imaging of the brain was performed without IV contrast. FINDINGS: No acute intracranial hemorrhage, midline shift or mass effect is present. 1.6 x 0.9 cm hyperintense focus within the posterior limb of the left internal capsule on the diffusion-weighted sequence image 14 of is again noted. This was shown on previous MRI. ADC value has now normalized. This represents expected evolution of this infarct. There is no mass effect. Faint peripheral T1 hyperintensity represents laminar necrosis. A 4 mm hyperintense focus within the adjacent left aspect of the midbrain on axial diffusion-weig hted sequence image 11 of was not evident on prior exam. This is isointense on ADC map. Corresponding linear hyperintense signal is noted on the coronal FLAIR sequence, images 14 and 15 of . Otherwise, diffusion-weighted sequences are unremarkable. Ventricular system is normal. Basal cisterns are patent. There are no extra axial collections. Dolichoectasia of the basilar artery is noted. Mild dilatation of the remainder of the intracranial vessels also also unchanged. Calvarial signal is normal. IMPRESSION: 1. No acute intracranial findings. 2. Expected evolution of the infarct within the posterior limb of the left internal capsule shown on MRI of November 16, 2021. No mass effect. 3. Adjacent 4 mm focus of signal abnormality within the left aspect of the midbrain. This is likely related to the previous infarct. An interval small infarct could appear similar although is considered less likely. ACT 112: Negative or not required by law. Electronically signed by: Anastacio Henriquez M.D. 12/08/2021 7:11 PM Vascular Ultrasound 12/12/21 13:00 US extremity non-vascular ltd right thigh CLINICAL HISTORY: *RIGHT* thigh hematoma size check . Follow-up intramuscular hematoma TECHNIQUE: Real-time grayscale sonographic images of the right thigh were obtained. Comparison: 12/10/2021 FINDINGS: Compared to the previous examination, there has been interval increase in size of previously identified intramuscular hematoma. It now measures 8.9 x 2.2 x 6.2 cm. There is again no increased flow demonstrated. There is now identified a second more inferior and distal hypoechoic area measuring 28.2 cm in length and 7.5 x 8.2 cm in AP and transverse diameters. There is again no increased flow. IMPRESSION: 1. Interval increase in size of previously identified intramuscular hematoma. 2. New intramuscular hematoma is also seen more distally which is even larger in size. ACT 112: Negative or not required by law. Electronically signed by: Des Virgen M.D. 12/12/2021 12:53 PM Venous Doppler Study 12/13/21 10:50 RIGHT LOWER EXTREMITY VENOUS DOPPLER HISTORY: H/o chronic R DVT, assess size COMPARISON STUDY: Right thigh ultrasound 12/12/2021. FINDINGS: Linear echogenic stranding within the right superficial femoral and popliteal veins consistent with chronic nonocclusive thrombus. The remaining right lower extremity deep venous structures are patent. The right calf hematoma is again noted and measures 20 cm in length. IMPRESSION: 1. Chronic nonocclusive thrombus within the right superficial femoral and popliteal veins. 2. No evidence for acute DVT within the right lower extremity. 3. A large right calf hematoma is again noted. ACT 112: Negative or not required by law. Electronically signed by: Roland Dorantes M.D. 12/13/2021 1:51 PM Extremity Ultrasound 12/14/21 12:20 US extremity nonvascular comp CLINICAL HISTORY: Follow-up right lower extremity hematomas. COMPARISON STUDY: Right leg ultrasound 12/12/2021. FINDINGS: There is again noted a right thigh hematoma which measures 23 x 5 x 8 cm. The right calf hematoma measures 20 x 5 x 4 cm. These are similar in size compared to prior studies. IMPRESSION: Large right thigh and calf hematomas which are similar in size compared to the prior studies. ACT 112: Negative or not required by law. Electronically signed by: Roland Dorantes M.D. 12/14/2021 3:10 PM Resident Activity Tracking Resident Involvement: Resident Care Provided Care Provided: Adult Hospital Medicine (1) Hypertension Hypertension type: primary hypertension Qualified Code(s): I10 - Essential (primary) hypertension
[2021-12-14] MEDS: oxyCODONE HCL IR 5 MG TAB (IMMEDIATE RELEASE) PO PRN (07:40)
[2021-12-14 09:00] LABS: Basophils # (auto) 0.07 K/uL (0-0.2); Basophils % (auto) 0.4 %; Hematocrit (blood only) 26.1 % (42-52); Hemoglobin 8.2 g/dL (14.0-18.0); Immature Granulocytes # (auto) 0.42 K/uL (0.00-0.02); Immature Granulocytes % (auto) 2.4 %; Lymphocytes # (auto) 3.51 K/uL (1.2-3.4); Lymphocytes % (auto) 19.9 %; Mean Corpuscular Hemoglobin 27.3 pg (25-34); Mean Corpuscular Hgb Conc 31.4 g/dL (32-36); Mean Platelet Volume 9.5 fL (7.4-10.4); Monocytes # (auto) 1.48 K/uL (0.11-0.59); Monocytes % (auto) 8.4 %; Neutrophils # (auto) 11.49 K/uL (1.4-6.5); Neutrophils % (auto) 64.9 %; Nucleated RBC # (auto) 0.57 K/uL (0-0); Nucleated RBC % (auto) 3.3 %; Platelet Count 372 K/uL (130-400); RDW Coefficient of Variation 18.5 % (11.5-14.5); RDW Standard Deviation 57.6 fL (36.4-46.3); White Blood Count 17.67 K/uL (4.8-10.8)
[2021-12-14] MEDS: INSULIN ASPART PER UNIT SC SCH ×4 (09:04→20:21)
[2021-12-14] MEDS: SENNA 8.6 MG TAB PO SCH (09:11)
[2021-12-14] MEDS: DICLOFENAC SOD 1% GEL 100 GM TUBE EXT SCH ×2 (09:13→20:22)
[2021-12-14 09:31] LABS: Anisocytosis Present; Echinocytes 1+; Hypochromasia Present; Polychromasia 1+
[2021-12-14 10:05] LABS: BUN Creatinine Ratio 16.9 (10-20); Calcium 8.7 mg/dl (8.5-10.1); Creatinine Clr Calc Pharmacy 189.4 ml/min; Est GFR (Non-African American) 115.6 ml/min
[2021-12-14] MEDS: PANTOprazole 40 MG TAB PO SCH ×2 (10:18→20:22)
[2021-12-14] MEDS: LIDOCAINE 5% 1 PATCH TD SCH (10:18)
[2021-12-14] MEDS: oxyCODONE HCL IR 5 MG TAB (IMMEDIATE RELEASE) PO SCH ×3 (12:09→20:21)
--- NOTE | 2021-12-14 15:12 | Ultrasound Report ---
US extremity nonvascular comp CLINICAL HISTORY: Follow-up right lower extremity hematomas. COMPARISON STUDY: Right leg ultrasound 12/12/2021. FINDINGS: There is again noted a right thigh hematoma which measures 23 x 5 x 8 cm. The right calf he matoma measures 20 x 5 x 4 cm. These are similar in size compared to prior studies. IMPRESSION: Large right thigh and calf hematomas which are similar in size compared to the prior kalyn dies. ACT 112: Negative or not required by law. Electronically signed by: Roland Dorantes M.D. 12/14/2021 3:10 PM
--- NOTE | 2021-12-14 19:07 | Billing Data ---
Date of Service December 14, 2021 Coding Level of Care Code 44575 Subseq Hosp Care Lvl 3
[2021-12-15] MEDS: VANCOMYCIN HCL 1,500 MG in SODIUM CHLORIDE 0.9% 500 ML IV SCH ×3 (01:55→17:46)
[2021-12-15] MEDS: HYDROmorphone INJ 0.5 MG/0.5 ML SYR IV PRN (03:01)
[2021-12-15] MEDS: MoRPHine SULFATE CR 15 MG TABCR PO SCH ×2 (04:41→17:45)
[2021-12-15] MEDS: ACETAMINOPHEN 500 MG TAB PO SCH ×3 (05:38→21:02)
--- NOTE | 2021-12-15 07:09 | Hospitalist Progress Note ---
Date of Service December 15, 2021 Assessment & Plan (1) Iliopsoas muscle hematoma: Plan: 51 year old male w/ Factor V Leiden on Lovenox with IVC filter in place, chronic RLE DVT, poorly controlled T2DM, HTN, and long-term tobacco use , and recent admission for CVA w/ speech and R residual deficits who presented from rehab and found to have right iliopsoas hematoma. Mentation and stroke residual deficits w/o new concern. His hospital stay has been complicated by worsening of thigh hematoma and calf hematoma when Lovenox was uptitrated to 120mg daily (previous home regimen was 120mg BID therapeutic dose). - likely secondary to fall at rehab while anticoagulated on therapeutic Lovenox - US of RLE (12/08, 12/11) --7.2 x 4 x 3 cm intramuscular hematoma within the proximal lateral R thigh, likely within the vastus lateralis. No significant change on repeat. - Concern for worsening after reinitiating Lovenox, up to 120mg daily. Repeat US 12/13: Interval increase in size of previous hematoma (8.9 x 2.2 x 6.2cm) alongside formation of adjacent hematoma (28.2 x 7.5 x 8.2cm). No increase in flow. - 12/15 reinitiating Lovenox at 40mg BID. Will recheck US in 24-48 hours. - ortho consulted. 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 Morphine 45mg, b.i.d. CRISTINO. Dilaudid 0.5mg IV q3h PRN (2) Acute blood loss anemia: Plan: - Interval development of anemia on admission in setting of ongoing therapeutic Lovenox use for Factor V Leiden - Hgb at 15 on discharge in 11/2021 -- on admission, Hgb notably dropped to 7.9 - s/p 1u prbc transfusion 12/10/21 (3) Bacteremia: Plan: - BCX returning 09/21: Coag neg staph (different spp between two cultures) and other Staph - repeat BCX without growth - ID recommendation - 7 to 14 days of IV Vancomycin from 5/22/22; odd presentation given multiple organisms however high risk for worsening hematoma with concurrent bacteremia - MRSA nares POSITIVE - TTE without valvular pathology (4) Atrial fibrillation with RVR: Plan: - resolved (5) Acute encephalopathy: Plan: - resolved (6) Leukocytosis: Plan: - follow (7) Acute right hemiparesis: Plan: - secondary to recent small vessel ischemic stroke to left thalamus/internal capsule last admission - residual deficit, no new infarct (8) Dysarthria due to acute cerebellar cerebrovascular accident (CVA): Plan: - in setting of recent small vessel ischemic stroke to left thalamus/internal capsule last admission - likely secondary to recent infarct, compounded by metabolic factors precipitating encephalopathy (9) Presence of IVC filter: Plan: - Noted to be in proper position on KUB from previous admission. Due to hx of PE from Factor V Leiden. Follows with Dr. Stanley Robertson at [facility] for this; [phone]. (10) Diabetes: Plan: - A1c from 11/17/21 was above goal at 9.0 - SSI (11) Hypertension: Plan: - Home lisinopril 5mg held in setting of soft BPs, resume when appropriate (12) Chronic anticoagulation: Plan: - see above, currently uptitrating lovenox as tolerated in setting of hematoma (13) Murmur, cardiac: Plan: - noted on exam on one of the days, new from last admission -unable to verify PFO given resolution. no significant valvular pathology, normal EF, no pericardial effusion, (14) Tobacco abuse: Plan: - tobacco free since 11/07/21 (previous admission) (15) GERD (gastroesophageal reflux disease): Plan: - home PPI (16) Depression: Plan: - home Paxil Plan: Dispo: med tele Diet: DM2, HH DVT pxx: Lovenox 40mg BID Code: Full Admission and Anticipated Discharge Date Admission Date: December 08, 2021 Supervising Physician Co-Signing Physician Notes I personally examined the patient and verified all prajapati points of history and exam, discussed case, and agree with decision making with Dr Carver feeling bored, leg feels pressure but otherwise no new complaints. updated extensively answered all questions to the best of my ability and to her satisfaction vitals noted nad awake and talkative R sided weakness persists R leg swollen and bruised and reasonably soft AMS - most fitting w delirium/metabolic encephalopathy - most likely from physiologic stress of hemorrhage/anemia. has shown nice improvement hemorrhage/anemia - required 1 unit transfusion. follow closely. had to hold lovenox longer since bleeding appears to have persisted despite short hold. appearing reassuring overall. now resuming lovenox slowly, following closely V [place] w recurrent DVTs - apparently clots very quickly off blood thinners - therefore resumed and escalated lovenox fairly rapidly - thus far tolerating well. d/w pt and family given delicate balance of bleeding and clotting needed to follow for several days of stability before considering dc - see above, appearing current stable, venous doppler only showing chronic findings - back on lovenox at proph dosing CVA, R sided weakness - intermediate Rx w anticoagulation, antiplatelet, statin, BP/dm control - d/w family on 12/10 can repeat MRI to discern recrudesence from new CVA but very unlikely to change treatment. offered//after in depth discussions they declined. more suspicious recrudesence and leg weakness from bleed/hematoma. improvement in responsiveness/etc strongly favors recrudesence (+) blood cultures - 3 different types of coag neg staph --> possibly 2 different contaminants. follow repeat Cx - negative thus far, continue vanco for now - appreciate ID recs - really unclear situation but risk is real - therefore safer to treat - will have likely had a long enough duration by time of dc, if not can consider finishing course w PO bactrim otherwise as above Subjective No new complaints. His only discomfort currently is his restless legs. No chest pain, sob, dizziness. Has not had bm this AM yet; has not noted melena. Review of Systems Review of Systems: All systems reviewed & are unremarkable except as noted in HPI & below Physical Exam Physical Exam: General: Grossly A&O. NAD. Cooperative. Answering questions. HEENT: Atraumatic, normocephalic. EOMI Pulm: CTAB. -wheezes, -rales, -rhonchi. No respiratory distress. Cardiac: RRR, -mrg. 2+ RLE edema. Edema extends to distal thigh. Abdominal: Nontender, nondistended, soft. Neuro: Sensation of extrem intact. RUE and RLE minimal strength. + R facial droop. Results & Data Results & Data ([facility]) Vital Signs (Past 12 Hours) Vital Signs Temp Pulse Pulse Resp BP Pulse Ox 12/15/21 06:33 36.9 C 69 18 104/64 97 12/15/21 02:42 36.5 C 72 22 121/73 99 12/15/21 00:05 72 12/14/21 23:00 36.9 C 73 19 137/86 98 12/14/21 19:06 37.1 C 83 18 121/77 99 Resident Activity Tracking Resident Involvement: Resident Care Provided Care Provided: Adult Hospital Medicine (1) Hypertension Hypertension type: primary hypertension Qualified Code(s): I10 - Essential (primary) hypertension
[2021-12-15] MEDS: oxyCODONE HCL IR 5 MG TAB (IMMEDIATE RELEASE) PO SCH ×4 (08:22→21:01)
[2021-12-15] MEDS: PANTOprazole 40 MG TAB PO SCH ×2 (08:22→21:02)
[2021-12-15] MEDS: DICLOFENAC SOD 1% GEL 100 GM TUBE EXT SCH ×2 (08:22→21:01)
[2021-12-15] MEDS: INSULIN ASPART PER UNIT SC SCH ×4 (08:23→20:27)
[2021-12-15] MEDS: SENNA 8.6 MG TAB PO SCH (08:23)
[2021-12-15] MEDS ORDERED: VANCOMYCIN LEVEL ONE ×2 (08:30→16:30)
[2021-12-15] MEDS: LIDOCAINE 5% 1 PATCH TD SCH (08:34)
[2021-12-15] MEDS: POLYETHYLENE (MIRALAX) 17 GM PACK PO PRN (08:54)
[2021-12-15] MEDS ORDERED: ENOXAPARIN INJ 40 MG/0.4 ML SYR SQ SCH (09:00)
[2021-12-15 09:44] LABS: Hematocrit (blood only) 28.9 % (42-52); Hemoglobin 8.9 g/dL (14.0-18.0); Mean Corpuscular Hemoglobin 26.9 pg (25-34); Mean Corpuscular Hgb Conc 30.8 g/dL (32-36); Mean Corpuscular Volume 87.3 fL (80-100); Mean Platelet Volume 9.7 fL (7.4-10.4); Nucleated RBC # (auto) 0.36 K/uL (0-0); Nucleated RBC % (auto) 2.3 %; Platelet Count 327 K/uL (130-400); RDW Coefficient of Variation 19.2 % (11.5-14.5); RDW Standard Deviation 58.7 fL (36.4-46.3); Red Blood Count 3.31 M/uL (4.7-6.1); White Blood Count 15.25 K/uL (4.8-10.8)
[2021-12-15 09:45] LABS: Basophils # (auto) 0.08 K/uL (0-0.2); Basophils % (auto) 0.5 %; Eosinophils # (auto) 0.59 K/uL (0-0.5); Eosinophils % (auto) 3.8 %; Hematocrit (blood only) 28.9 % (42-52); Hemoglobin 8.9 g/dL (14.0-18.0); Immature Granulocytes # (auto) 0.31 K/uL (0.00-0.02); Lymphocytes # (auto) 2.55 K/uL (1.2-3.4); Lymphocytes % (auto) 16.3 %; Mean Corpuscular Hgb Conc 30.8 g/dL (32-36); Mean Corpuscular Volume 87.6 fL (80-100); Mean Platelet Volume 9.7 fL (7.4-10.4); Monocytes # (auto) 1.13 K/uL (0.11-0.59); Monocytes % (auto) 7.2 %; Neutrophils # (auto) 11.03 K/uL (1.4-6.5); Neutrophils % (auto) 70.2 %; Nucleated RBC # (auto) 0.42 K/uL (0-0); Nucleated RBC % (auto) 2.7 %; Platelet Count 321 K/uL (130-400); RDW Coefficient of Variation 19.2 % (11.5-14.5); RDW Standard Deviation 59.6 fL (36.4-46.3); White Blood Count 15.69 K/uL (4.8-10.8)
[2021-12-15 10:05] LABS: Anisocytosis Present; BUN Creatinine Ratio 16.1 (10-20); Calcium 8.9 mg/dl (8.5-10.1); Creatinine Clr Calc Pharmacy 179.9 ml/min; Echinocytes 1+; Est GFR (African American) 131.3 ml/min; Est GFR (Non-African American) 113.3 ml/min; Hypochromasia Present; Polychromasia 1+; Potassium 3.6 mmol/L (3.5-5.1)
[2021-12-15] MEDS ORDERED: POTASSIUM CHLORIDE PWD 20 MEQ PACK PO STA (10:20)
--- NOTE | 2021-12-15 17:01 | Billing Data ---
Date of Service December 15, 2021 Coding Level of Care Code 77308 Subseq Hosp Care Lvl 3
--- NOTE | 2021-12-15 17:31 | Pharmacy Report ---
Pharmacy Vanc AUC Short Note - Date of Service December 15, 2021 - Assessment & Plan Assessment 51 year old M receiving VANCOMYCIN for treatment of BACTEREMIA. Pertinent microbiologic data includes: BLOOD CULTURE culture growing COAG NEGATIVE STAPH. Day # 7 of antimicrobial therapy. Plan Vancomycin * AUC/GIOVANNI is the preferred PK/PD target for vancomycin * AUC guided dosing is effective and associated with decreased risk of nephrotoxicity compared to traditional trough targets * Trough level of 16.5 mcg/mL is predicted to achieve target AUC/GIOVANNI of 400-600 mg/L.hr and may be associated with a 12 % risk of nephrotoxicity * Continue dose of 1500 mg IV every 8 hours Pharmacy will continue to follow and will adjust dose/frequency as necessary. Thank you.
[2021-12-15] MEDS: ENOXAPARIN INJ 40 MG/0.4 ML SYR SQ SCH (21:02)
[2021-12-16] MEDS: VANCOMYCIN HCL 1,500 MG in SODIUM CHLORIDE 0.9% 500 ML IV SCH ×3 (01:08→17:30)
[2021-12-16] MEDS: HYDROmorphone INJ 0.5 MG/0.5 ML SYR IV PRN (01:09)
[2021-12-16] MEDS: ACETAMINOPHEN 500 MG TAB PO SCH ×3 (05:31→21:23)
[2021-12-16] MEDS: MoRPHine SULFATE CR 15 MG TABCR PO SCH ×2 (05:44→17:30)
[2021-12-16 07:19] LABS: Hematocrit (blood only) 27.5 % (42-52); Hemoglobin 8.5 g/dL (14.0-18.0); Mean Corpuscular Hemoglobin 27.2 pg (25-34); Mean Corpuscular Hgb Conc 30.9 g/dL (32-36); Mean Corpuscular Volume 88.1 fL (80-100); Mean Platelet Volume 9.8 fL (7.4-10.4); Nucleated RBC # (auto) 0.28 K/uL (0-0); Nucleated RBC % (auto) 2.1 %; Platelet Count 333 K/uL (130-400); RDW Coefficient of Variation 19.9 % (11.5-14.5); RDW Standard Deviation 61.3 fL (36.4-46.3); Red Blood Count 3.12 M/uL (4.7-6.1); White Blood Count 13.55 K/uL (4.8-10.8)
--- NOTE | 2021-12-16 07:26 | Hospitalist Progress Note ---
Date of Service December 16, 2021 Assessment & Plan (1) Iliopsoas muscle hematoma: Plan: 51 year old male w/ Factor V Leiden on Lovenox with IVC filter in place, chronic RLE DVT, poorly controlled T2DM, HTN, and long-term tobacco use , and recent admission for CVA w/ speech and R residual deficits who presented from rehab and found to have right iliopsoas hematoma. Mentation and stroke residual deficits w/o new concern. His hospital stay has been complicated by worsening of thigh hematoma and development of calf hematoma when restarting Lovenox. - US of RLE (12/08, 12/11) --7.2 x 4 x 3 cm intramuscular hematoma within the proximal lateral R thigh, likely within the vastus lateralis. No significant change on repeat. - Concern for worsening after reinitiating Lovenox, up to 120mg daily. Repeat US 12/13: Interval increase in size of previous hematoma (8.9 x 2.2 x 6.2cm) alongside formation of adjacent hematoma (28.2 x 7.5 x 8.2cm). No increase in flow. - 12/15 reinitiating Lovenox , 40mg BID->80mg BID. Hb stable 8s. Will recheck US on 12/17 and increase to 120mg BID if stable - ortho consulted. f/u in office in 2 wks pain control: chronic msk pains, post stroke spasticity, and muscle hematomas - outpatient pain regimen (rx'd by pain management) prior to 11/2021 stroke hospital admission was 60 mg ER morphine BID and 15 mg IR morphine q4h prn. - regimen during rehab was 60mg ER morphine dialy - current inpatient regimen: Tylenol 1g TID CRITSINO (patient refusing). Morphine ER 45mg PO BID CRISTINO. Morphine IR 7.5mg PO q6h prn for severe pain. 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 - Discussed with and son at bedside, expressing my concern about patient's high amount of narcotics use; his pain complaints are regional (hematoma this admission) and not his previous chronic pains. 12/16/21 d/c'd dilaudid PRNs and changed oxycodone PRNs to morphine IR. (2) Acute blood loss anemia: Plan: - Interval development of anemia on admission in setting of ongoing therapeutic Lovenox use for Factor V Leiden - Hgb at 15 on discharge in 11/2021 -- on admission, Hgb notably dropped to 7.9 - s/p 1u prbc transfusion 12/10/21 (3) Bacteremia: Plan: - BCX returning 09/21 tubes: Coag neg staph (different spp between two cultures) and other Staph - repeat BCX without growth - ID recommendation - 7 to 14 days of IV Vancomycin from 12/09/21; odd presentation given multiple organisms however high risk for worsening hematoma with concurrent bacteremia - MRSA nares POSITIVE - TTE without valvular pathology (4) Atrial fibrillation with RVR: Plan: - resolved (5) Acute encephalopathy: Plan: - resolved (6) Leukocytosis: Plan: - follow (7) Acute right hemiparesis: Plan: - secondary to recent small vessel ischemic stroke to left thalamus/internal capsule last admission - residual deficit, no new infarct (8) Dysarthria due to acute cerebellar cerebrovascular accident (CVA): Plan: - in setting of recent small vessel ischemic stroke to left thalamus/internal capsule last admission - likely secondary to recent infarct, compounded by metabolic factors precipitating encephalopathy (9) Presence of IVC filter: Plan: - Noted to be in proper position on KUB from previous admission. Due to hx of PE from Factor V Leiden. Follows with Dr. Stanley Robertson at [facility] for this; [phone]. (10) Diabetes: Plan: - A1c from 11/17/21 was above goal at 9.0 - SSI (11) Hypertension: Plan: - Home lisinopril 5mg held in setting of soft BPs, resume when appropriate (12) Chronic anticoagulation: Plan: - see above, currently uptitrating lovenox as tolerated in setting of hematoma (13) Murmur, cardiac: Plan: - noted on exam on one of the days, new from last admission - unable to verify PFO given resolution. no significant valvular pathology, normal EF, no pericardial effusion (14) Tobacco abuse: Plan: - tobacco free since 11/07/21 (15) GERD (gastroesophageal reflux disease): Plan: - home PPI (16) Depression: Plan: - home Paxil Plan: Dispo: [employer]. Dispo plans awaiting stability of thigh hematoma. Diet: DM2, HH DVT pxx: Lovenox 80mg BID Code: Full Admission and Anticipated Discharge Date Admission Date: December 08, 2021 Supervising Physician Co-Signing Physician Notes I personally examined the patient and verified all prajapati points of history and exam, discussed case, and agree with decision making with Dr Mehul silva new copmlaints. explained plan, he expressed understanding vitals noted nad awake and talkative R sided weakness persists R leg swollen and bruised and reasonably soft - similar to yesterday AMS - most fitting w delirium/metabolic encephalopathy - most likely from physiologic stress of hemorrhage/anemia. has shown nice improvement in mentation hemorrhage/anemia - required 1 unit transfusion. follow closely. had to hold lovenox longer since bleeding appears to have persisted despite short hold. appearing reassuring overall. titrating lovenox back to home dose. continue to follow - Hgb daily, US to quantify size again tomorrow V [place] w recurrent DVTs - apparently clots very quickly off blood thinners - therefore resumed and escalated lovenox fairly rapidly - thus far tolerating well. 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 offered//after in depth discussions they declined. more suspicious recrudesence and leg weakness from bleed/hematoma. improvement in responsiveness/etc strongly favors recrudesence (+) blood cultures - 3 different types of coag neg staph --> possibly 2 different contaminants. follow repeat Cx - negative thus far, continue vanco for now - appreciate ID recs - really unclear situation but risk is real - therefore safer to treat - will have likely had a long enough duration by time of dc, if not can consider finishing course w PO bactrim otherwise as above Subjective Per nursing, some concerns about narcotic seeking behavior; always rates pain as 8/10. Appears drowsy this morning. Refusing scheduled tylenol. Refusing rehab and prefers home w/ home health. Per my encounter w/ patient: Not opposed to rehab. No new complaints today. Pain is ok at the moment, does rate it an 8/10. Believes RLE swelling and pain to be slightly improving. Afternoon update: messaged by nursing that patient wanted to speak with me. Patient had question about reduction in his pain regimen. Patient and are refusing rehab and would like home w/ home health. Review of Systems Review of Systems: All systems reviewed & are unremarkable except as noted in HPI & below Physical Exam Physical Exam: General: Grossly A&O. NAD. Cooperative. Answering questions. Sitting comfortably in wheelchair. Does not appear drowsy. HEENT: Atraumatic, normocephalic. EOMI Pulm: CTAB. -wheezes, -rales, -rhonchi. No respiratory distress. Cardiac: RRR, -mrg. 2+ RLE edema. Edema extends to distal thigh. Abdominal: Nontender, nondistended, soft. Neuro: RUE and RLE minimal strength. Results & Data Results & Data ([facility]) Vital Signs (Past 12 Hours) Vital Signs Temp Pulse Pulse Resp BP Pulse Ox 12/16/21 07:21 36.9 C 94 H 18 114/65 96 12/16/21 02:36 36.9 C 67 18 102/64 95 12/16/21 00:20 79 12/15/21 23:40 36.9 C 82 18 116/72 97 Resident Activity Tracking Resident Involvement: Resident Care Provided Care Provided: Adult Hospital Medicine (1) Hypertension Hypertension type: primary hypertension Qualified Code(s): I10 - Essential (primary) hypertension
[2021-12-16 07:48] LABS: BUN Creatinine Ratio 15.8 (10-20); Calcium 8.9 mg/dl (8.5-10.1); Creatinine Clr Calc Pharmacy 197.7 ml/min; Est GFR (African American) 135.9 ml/min; Est GFR (Non-African American) 117.2 ml/min; Potassium 3.8 mmol/L (3.5-5.1)
[2021-12-16] MEDS: INSULIN ASPART PER UNIT SC SCH ×4 (08:59→22:56)
[2021-12-16] MEDS: DICLOFENAC SOD 1% GEL 100 GM TUBE EXT SCH ×2 (09:01→21:24)
[2021-12-16] MEDS: SENNA 8.6 MG TAB PO SCH (09:01)
[2021-12-16] MEDS: PANTOprazole 40 MG TAB PO SCH ×2 (09:01→21:27)
[2021-12-16] MEDS: ENOXAPARIN INJ 40 MG/0.4 ML SYR SQ SCH ×2 (09:01→21:28)
[2021-12-16] MEDS: POLYETHYLENE (MIRALAX) 17 GM PACK PO PRN (09:02)
[2021-12-16] MEDS: oxyCODONE HCL IR 5 MG TAB (IMMEDIATE RELEASE) PO SCH ×2 (09:02→12:07)
[2021-12-16] MEDS: LIDOCAINE 5% 1 PATCH TD SCH ×2 (09:02→11:03)
[2021-12-16] MEDS ORDERED: oxyCODONE HCL IR 5 MG TAB (IMMEDIATE RELEASE) PO PRN (15:32)
--- NOTE | 2021-12-16 15:57 | Billing Data ---
Date of Service December 16, 2021 Coding Level of Care Code 37948 Subseq Hosp Care Lvl 3
[2021-12-16] MEDS ORDERED: MoRPHine SULFATE CR 15 MG TABCR PO SCH ×3 (17:00→18:00)
[2021-12-17] MEDS: VANCOMYCIN HCL 1,500 MG in SODIUM CHLORIDE 0.9% 500 ML IV SCH ×3 (01:01→17:08)
[2021-12-17] MEDS: MoRPHine SULFATE IR 15 MG TAB (IMMEDIATE RELEASE) PO PRN ×4 (02:08→19:36)
[2021-12-17] MEDS: MoRPHine SULFATE CR 15 MG TABCR PO SCH ×2 (05:05→17:08)
[2021-12-17] MEDS: ACETAMINOPHEN 500 MG TAB PO SCH ×3 (05:05→20:53)
[2021-12-17 06:26] LABS: Hematocrit (blood only) 24.9 % (42-52); Hemoglobin 7.7 g/dL (14.0-18.0); Mean Corpuscular Hemoglobin 27.4 pg (25-34); Mean Corpuscular Hgb Conc 30.9 g/dL (32-36); Mean Corpuscular Volume 88.6 fL (80-100); Nucleated RBC # (auto) 0.23 K/uL (0-0); Nucleated RBC % (auto) 1.9 %; Platelet Count 339 K/uL (130-400); RDW Coefficient of Variation 19.6 % (11.5-14.5); RDW Standard Deviation 62.1 fL (36.4-46.3); Red Blood Count 2.81 M/uL (4.7-6.1); White Blood Count 11.86 K/uL (4.8-10.8)
[2021-12-17 06:52] LABS: BUN Creatinine Ratio 16.9 (10-20); Calcium 8.3 mg/dl (8.5-10.1); Creatinine Clr Calc Pharmacy 190.8 ml/min; Est GFR (Non-African American) 115.6 ml/min; Potassium 3.5 mmol/L (3.5-5.1)
[2021-12-17] MEDS: ENOXAPARIN INJ 40 MG/0.4 ML SYR SQ SCH (09:47)
[2021-12-17] MEDS: SENNA 8.6 MG TAB PO SCH (10:18)
[2021-12-17] MEDS: PANTOprazole 40 MG TAB PO SCH ×2 (10:18→20:53)
[2021-12-17] MEDS: LIDOCAINE 5% 1 PATCH TD SCH (10:18)
[2021-12-17] MEDS: INSULIN ASPART PER UNIT SC SCH ×4 (10:18→20:56)
[2021-12-17] MEDS: DICLOFENAC SOD 1% GEL 100 GM TUBE EXT SCH ×2 (10:19→20:48)
--- NOTE | 2021-12-17 10:29 | Ultrasound Report ---
US extremity nonvascular comp CLINICAL HISTORY: asses left thigh and calf hematomas TECHNIQUE: Real-time grayscale sonographic images of the right thigh and calf were obtained. Comparison: Comparison is made to extremity ultrasound 12/14/2021 FINDINGS/IMPRESSION: Hematomas are seen, and the right lateral thigh measuring approximately 26 x 9 x 11 cm, in the medial calf measuring approximately 17 x 7 x 7 cm. These appear stable to minimally en larged from prior exam allowing for differences in technique. ACT 112: Negative or not required by law. Electronically signed by: Home Adrian M.D. 12/17/2021 10:27 AM
--- NOTE | 2021-12-17 11:52 | Hospitalist Progress Note ---
Date of Service December 17, 2021 Assessment & Plan (1) Iliopsoas muscle hematoma: Plan: 51 year old male with PMHx of Factor V Leiden on Lovenox with IVC filter in place, chronic RLE DVT, poorly controlled T2DM, HTN, and long-term tobacco use, and recent admission for CVA w/ speech and R residual deficits who presented from rehab and found to have right iliopsoas hematoma. Mentation and stroke residual deficits w/o new concern. His hospital stay has been complicated by worsening of thigh hematoma and development of calf hematoma when restarting Lovenox. Right Thigh Hematoma - US of RLE (12/08, 12/11) -- 7.2 x 4 x 3 cm intramuscular hematoma within the proximal lateral R thigh, likely within the vastus lateralis. No significant change on repeat. - Lovenox initially restarted and up-titrated but had worsening anemia and hematoma after reinitiating Lovenox - Repeat US 12/13: Interval increase in size of previous hematoma (8.9 x 2.2 x 6.2cm) alongside formation of adjacent hematoma (28.2 x 7.5 x 8.2cm). No increase in flow. - Lovenox again reinitiated on 12/15 with 40mg BID -->80mg BID - Hgb stable 8s - Repeat US 12/17 with hematomas stable to minimally enlarged. Hgb stable with slight increase to 8.6 - Will maintain Lovenox 80mg BID. Recheck CBC in AM. Will consider increase to 120mg BID if stable. - Ortho consulted; plan for outpatient f/u in office in 2 weeks Pain Control: Chronic MSK pains, post stroke spasticity, and muscle hematomas - Outpatient pain regimen prior to 11/2021 stroke hospital admission was morphine ER 60mg BID and morphine IR 15 mg q4h prn (rx'd by pain management Dr. Alma Cardozo w/ [facility]). - Regimen adjusted during hospitalization fro stroke 11/17/21 - 11/22/2021 - He was discharged to [facility]hab and per their documentation pain medication regimen consisted of morphine ER 30mg BID and morphine IR 15mg q4h prn - Regimen again adjusted during this hospitalization to include Tylenol 1g TID scheduled (which patient had been refusing). - Trial of morphine ER 45mg po BID and morphine IR 7.5mg q6h prn started on 12/16/21. Per patient and , this was not controlling patient's pain. - Upon extensive chart review and discussion with patient/family, will adjust pain regimen to regimen received while at [facility] (morphine ER 30mg BID + morphine IR 15mg q4h prn). - Recommend patient f/u with pain management in outpatient Acute blood loss anemia - Interval development of anemia on admission in setting of ongoing therapeutic Lovenox use for Factor V Leiden and development of hematoma - Hgb at 15 on discharge in 11/2021 -- on admission, Hgb notably dropped to 7.9 - s/p 1u prbc transfusion 12/10/21 - Continue to monitor Hgb q12h - Transfuse if Hgb < 7 Bacteremia with leukocytosis - BCX returning 09/21 tubes: Coag neg staph (different spp between two cultures) and other Staph - Repeat BCX without growth - ID recommendation - 7 to 14 days of IV Vancomycin from 12/09/21; odd presentation given multiple organisms however high risk for worsening hematoma with concurrent bacteremia - MRSA nares POSITIVE - TTE without valvular pathology - Will continue abx therapy (Vancomycin) until 12/23/21 for a 14 day course (leukocytosis sec to hematoma) Chronic Anticoagulation due to Hx of PE from Factor V Leiden / IVC Filter in Place - IVC filter noted to be in proper position on KUB from previous admission - Follows with Dr. Stanley Robertson at [facility] for this; [phone] - See above re: uptitration of Lovenox in setting of hematoma Acute encephalopathy, resolved AFib with RVR - now in sinus rhythm. Residual Deficits from Recent Ischemic small vs ds CVA -- right hemiparesis, dysarthria - Secondary to recent small vessel ischemic stroke to left thalamus/internal capsule last admission - Residual deficit, no new infarct - ASA 81mgs on hold due to bleed. - crestor on hold - BP controlled. - Continue PT/OT while inpatient - ST recommending continuation of outpatient ST after d/c to address dysarthria and any remaining cognitive deficits from recent CVA; d/c from inpt ST service on 12/09 Cardiac murmur - Noted on exam and is new from last admission - TTE 12/09: LVEF 65-70%. No regional wall motion abnormalities. Mild concentric LVH. No significant valve pathology. Unable to assess for PFO given resolution. No significant change compared to study 11/17/21. Chronic conditions: DM2: A1c from 11/17/21 was above goal at 9.0. Continue SSI. Hypertension: Hold home lisinopril in setting of normotension/borderline hypotension. Resume when appropriate. Tobacco abuse: Has not smoked cigarettes since 11/07/21. Patient noted to be using chewing tobacco during admission. GERD: Continue home PPI. Depression: Continue home Paxil Dispo: Continue on med tele. PT recommending inpatient rehab however patient plans to return home with family and home health services. CM following. Diet: DM2, HH DVT ppx: Lovenox 80mg BID Code: Full (2) Acute blood loss anemia: (3) Bacteremia: (4) Atrial fibrillation with RVR: (5) Acute encephalopathy: (6) Leukocytosis: (7) Acute right hemiparesis: (8) Dysarthria due to acute cerebellar cerebrovascular accident (CVA): (9) Presence of IVC filter: (10) Diabetes: (11) Hypertension: (12) Chronic anticoagulation: (13) Murmur, cardiac: (14) Tobacco abuse: (15) GERD (gastroesophageal reflux disease): (16) Depression: Admission and Anticipated Discharge Date Admission Date: December 08, 2021 Supervising Physician Co-Signing Physician Notes Resident Physician Supervision Note: I independently interviewed and examined the patient and verified the prajapati history and physical, reviewed labs and image studies and agree with resident Dr. Hernandez findings and care plan. Subjective Patient seen and evaluated in room this morning. Sitting in wheelchair at bedside. Patient appears comfortable. Only complaint is the right leg pain over site of hematoma; rates pain at a 7/10 and states that the pain worsens to a 10/10 at night. States that he is eating well and sleeping well. Patient denies chest pain, SOB, abd pain, nausea, vomiting, MARIE, lightheadedness, or dizziness. Review of Systems Review of Systems: See HPI Physical Exam Physical Exam: GENERAL: No acute distress. Sitting in wheelchair at bedside; appears comfortable but complaining of 7/10 pain. Well developed and well nourished. Vital signs reviewed as above. HENT: Moist mucous membranes. RESPIRATORY: Clear to auscultation bilaterally. No wheezing, rales, or rhonchi. CARDIOVASCULAR: Regular rate and rhythm. + murmurs. ABDOMEN: Soft and non-tender. Normal bowel sounds. SKIN: Warm, dry. Large hematoma over right lateral thigh; soft. NEUROLOGIC: A/O x3. No focal neurological deficits. PSYCHIATRIC: Cooperative. Flat affect. Results & Data Results & Data ([facility]) Vital Signs (Past 12 Hours) Vital Signs Temp Pulse Pulse Resp BP BP Pulse Ox 12/17/21 08:21 36.3 C L 76 20 110/67 99 12/17/21 08:00 55 L 12/17/21 03:03 36.8 C 63 18 109/73 98 Laboratory Results 12/17/21 12/17/21 12/17/21 Range/Units 11:57 11:26 07:32 WBC 14.67 H (4.8-10.8) K/uL RBC 3.06 L (4.7-6.1) M/uL Hgb 8.6 L (14.0-18.0) g/dL Hct 27.2 L (42-52) % MCV 88.9 (80-100) fL MCH 28.1 (25-34) pg MCHC 31.6 L (32-36) g/dL RDW Std Deviation 62.2 H (36.4-46.3) fL RDW Coeff of Osbaldo 19.9 H (11.5-14.5) % Plt Count 364 (130-400) K/uL MPV 10.0 (7.4-10.4) fL Immature Gran % (Auto) 1.0 % Neut % (Auto) 63.8 % Lymph % (Auto) 22.0 % [place] % (Auto) 10.3 % Eos % (Auto) 2.5 % Baso % (Auto) 0.4 % Neut # (Auto) 9.36 H (1.4-6.5) K/uL Lymph # (Auto) 3.23 (1.2-3.4) K/uL [place] # (Auto) 1.51 H (0.11-0.59) K/uL Eos # (Auto) 0.37 (0-0.5) K/uL Baso # (Auto) 0.06 (0-0.2) K/uL Immature Gran # (Auto) 0.14 H (0.00-0.02) K/uL Absolute Nucleated RBC 0.21 H (0-0) K/uL Nucleated RBC % (auto) 1.4 % Sodium (136-145) mmol/L Potassium (3.5-5.1) mmol/L Chloride (98-107) mmol/L Carbon Dioxide (21-32) mmol/L Anion Gap (3-11) BUN (6-23) mg/dl Creatinine (0.6-1.4) mg/dl Est Cr Clr Drug Dosing ml/min Est GFR ( Amer) ml/min Est GFR (Non-Af Amer) ml/min BUN/Creatinine Ratio (10-20) Glucose (70-99(Fasting)) mg/dl POC Glucose 143 H 134 H (70-99) mg/dl Calcium (8.5-10.1) mg/dl 12/17/21 12/17/21 12/16/21 Range/Units 05:46 05:46 20:42 WBC 11.86 H (4.8-10.8) K/uL RBC 2.81 L (4.7-6.1) M/uL Hgb 7.7 L (14.0-18.0) g/dL Hct 24.9 L (42-52) % MCV 88.6 (80-100) fL MCH 27.4 (25-34) pg MCHC 30.9 L (32-36) g/dL RDW Std Deviation 62.1 H (36.4-46.3) fL RDW Coeff of Osbaldo 19.6 H (11.5-14.5) % Plt Count 339 (130-400) K/uL MPV 10.0 (7.4-10.4) fL Immature Gran % (Auto) % Neut % (Auto) % Lymph % (Auto) % [place] % (Auto) % Eos % (Auto) % Baso % (Auto) % Neut # (Auto) (1.4-6.5) K/uL Lymph # (Auto) (1.2-3.4) K/uL [place] # (Auto) (0.11-0.59) K/uL Eos # (Auto) (0-0.5) K/uL Baso # (Auto) (0-0.2) K/uL Immature Gran # (Auto) (0.00-0.02) K/uL Absolute Nucleated RBC 0.23 H (0-0) K/uL Nucleated RBC % (auto) 1.9 % Sodium 138 (136-145) mmol/L Potassium 3.5 (3.5-5.1) mmol/L Chloride 107 (98-107) mmol/L Carbon Dioxide 26 (21-32) mmol/L Anion Gap 5 (3-11) BUN 10 (6-23) mg/dl Creatinine 0.59 L (0.6-1.4) mg/dl Est Cr Clr Drug Dosing 190.8 ml/min Est GFR ( Amer) 134.0 ml/min Est GFR (Non-Af Amer) 115.6 ml/min BUN/Creatinine Ratio 16.9 (10-20) Glucose 118 H (70-99(Fasting)) mg/dl POC Glucose 131 H (70-99) mg/dl Calcium 8.3 L (8.5-10.1) mg/dl 12/16/21 Range/Units 16:45 WBC (4.8-10.8) K/uL RBC (4.7-6.1) M/uL Hgb (14.0-18.0) g/dL Hct (42-52) % MCV (80-100) fL MCH (25-34) pg MCHC (32-36) g/dL RDW Std Deviation (36.4-46.3) fL RDW Coeff of Osbaldo (11.5-14.5) % Plt Count (130-400) K/uL MPV (7.4-10.4) fL Immature Gran % (Auto) % Neut % (Auto) % Lymph % (Auto) % [place] % (Auto) % Eos % (Auto) % Baso % (Auto) % Neut # (Auto) (1.4-6.5) K/uL Lymph # (Auto) (1.2-3.4) K/uL [place] # (Auto) (0.11-0.59) K/uL Eos # (Auto) (0-0.5) K/uL Baso # (Auto) (0-0.2) K/uL Immature Gran # (Auto) (0.00-0.02) K/uL Absolute Nucleated RBC (0-0) K/uL Nucleated RBC % (auto) % Sodium (136-145) mmol/L Potassium (3.5-5.1) mmol/L Chloride (98-107) mmol/L Carbon Dioxide (21-32) mmol/L Anion Gap (3-11) BUN (6-23) mg/dl Creatinine (0.6-1.4) mg/dl Est Cr Clr Drug Dosing ml/min Est GFR ( Amer) ml/min Est GFR (Non-Af Amer) ml/min BUN/Creatinine Ratio (10-20) Glucose (70-99(Fasting)) mg/dl POC Glucose 105 H (70-99) mg/dl Calcium (8.5-10.1) mg/dl Diagnostic Findings [place], [place] [phone] Ultrasound Report Patient:NIGEL CORTEZ II Admit Date:12/08/21 MR#:[id number] Address1:[address] [place] [address] Acct ID:[id number] Address2: Date:1970 [facility] Zip:[place] [address] Age:51 Location: Sex: Room/Bed:[facility] Att Phy:Kristina Gore MD Diagnosis:TIA SYMPTOMS Cyndi Phy:Erik Reed MD Service Date:12/17/21 Fam Phy: Interpreting Phy:Home Adrian MDAdmit Phy:Angie Starks MD Ordering Phy:Oswaldo Carver MD cc: ~ US extremity nonvascular comp CLINICAL HISTORY: asses left thigh and calf hematomas TECHNIQUE: Real-time grayscale sonographic images of the right thigh and calf were obtained. Comparison: Comparison is made to extremity ultrasound 12/14/2021 FINDINGS/IMPRESSION: Hematomas are seen, and the right lateral thigh measuring approximately 26 x 9 x 11 cm, in the medial calf measuring approximately 17 x 7 x 7 cm. These appear stable to minimally enlarged from prior exam allowing for differences in technique. ACT 112: Negative or not required by law. Electronically signed by: Home Adrian M.D. 12/17/2021 10:27 AM Dictated:12/17/21 1026 Transcribed: 12/17/21 1026 Resident Activity Tracking Resident Involvement: Resident Care Provided Care Provided: Adult Hospital Medicine (1) Hypertension Hypertension type: primary hypertension Qualified Code(s): I10 - Essential (primary) hypertension
[2021-12-17 12:12] LABS: Basophils # (auto) 0.06 K/uL (0-0.2); Basophils % (auto) 0.4 %; Eosinophils # (auto) 0.37 K/uL (0-0.5); Eosinophils % (auto) 2.5 %; Hematocrit (blood only) 27.2 % (42-52); Hemoglobin 8.6 g/dL (14.0-18.0); Immature Granulocytes # (auto) 0.14 K/uL (0.00-0.02); Lymphocytes # (auto) 3.23 K/uL (1.2-3.4); Mean Corpuscular Hemoglobin 28.1 pg (25-34); Mean Corpuscular Hgb Conc 31.6 g/dL (32-36); Mean Corpuscular Volume 88.9 fL (80-100); Monocytes # (auto) 1.51 K/uL (0.11-0.59); Monocytes % (auto) 10.3 %; Neutrophils # (auto) 9.36 K/uL (1.4-6.5); Neutrophils % (auto) 63.8 %; Nucleated RBC # (auto) 0.21 K/uL (0-0); Nucleated RBC % (auto) 1.4 %; Platelet Count 364 K/uL (130-400); RDW Coefficient of Variation 19.9 % (11.5-14.5); RDW Standard Deviation 62.2 fL (36.4-46.3); Red Blood Count 3.06 M/uL (4.7-6.1); White Blood Count 14.67 K/uL (4.8-10.8)
[2021-12-17] MEDS: ENOXAPARIN 80 MG/0.8 ML SYR SQ SCH (20:50)
[2021-12-18] MEDS: MoRPHine SULFATE IR 15 MG TAB (IMMEDIATE RELEASE) PO PRN ×4 (00:02→22:37)
[2021-12-18] MEDS: VANCOMYCIN HCL 1,500 MG in SODIUM CHLORIDE 0.9% 500 ML IV SCH ×3 (01:13→18:07)
[2021-12-18] MEDS: MoRPHine SULFATE CR 15 MG TABCR PO SCH ×2 (04:06→18:06)
[2021-12-18] MEDS: ACETAMINOPHEN 500 MG TAB PO SCH ×3 (05:44→21:42)
[2021-12-18] MEDS ORDERED: VANCOMYCIN LEVEL ONE (08:30)
[2021-12-18] MEDS: ENOXAPARIN 80 MG/0.8 ML SYR SQ SCH (08:38)
[2021-12-18] MEDS: LIDOCAINE 5% 1 PATCH TD SCH (08:38)
[2021-12-18] MEDS: DICLOFENAC SOD 1% GEL 100 GM TUBE EXT SCH ×2 (08:38→19:30)
[2021-12-18] MEDS: PANTOprazole 40 MG TAB PO SCH ×2 (08:39→19:37)
[2021-12-18] MEDS: SENNA 8.6 MG TAB PO SCH (08:39)
[2021-12-18] MEDS: INSULIN ASPART PER UNIT SC SCH ×4 (08:40→21:41)
[2021-12-18] MEDS: POLYETHYLENE (MIRALAX) 17 GM PACK PO PRN (08:53)
[2021-12-18 08:55] LABS: Hematocrit (blood only) 29.3 % (42-52); Hemoglobin 8.9 g/dL (14.0-18.0); Mean Corpuscular Hemoglobin 27.1 pg (25-34); Mean Corpuscular Hgb Conc 30.4 g/dL (32-36); Mean Corpuscular Volume 89.1 fL (80-100); Mean Platelet Volume 10.1 fL (7.4-10.4); Nucleated RBC # (auto) 0.15 K/uL (0-0); Nucleated RBC % (auto) 1.1 %; Platelet Count 361 K/uL (130-400); RDW Coefficient of Variation 20.5 % (11.5-14.5); RDW Standard Deviation 64.9 fL (36.4-46.3); Red Blood Count 3.29 M/uL (4.7-6.1); White Blood Count 13.76 K/uL (4.8-10.8)
[2021-12-18 09:41] LABS: BUN Creatinine Ratio 14.8 (10-20); Calcium 8.8 mg/dl (8.5-10.1); Creatinine Clr Calc Pharmacy 185.8 ml/min; Est GFR (African American) 132.1 ml/min; Potassium 4.2 mmol/L (3.5-5.1)
--- NOTE | 2021-12-18 12:22 | Hospitalist Progress Note ---
Date of Service December 18, 2021 Assessment & Plan (1) Iliopsoas muscle hematoma: Plan: 51 year old male with PMHx of Factor V Leiden on Lovenox with IVC filter in place, chronic RLE DVT, poorly controlled T2DM, HTN, and long-term tobacco use, and recent admission for CVA w/ speech and R residual deficits who presented from rehab and found to have right iliopsoas hematoma. Mentation and stroke residual deficits w/o new concern. His hospital stay has been complicated by worsening of thigh hematoma and development of calf hematoma when restarting Lovenox. Right Thigh Hematoma - US of RLE (12/08, 12/11) -- 7.2 x 4 x 3 cm intramuscular hematoma within the proximal lateral R thigh, likely within the vastus lateralis. No significant change on repeat. - Lovenox initially restarted and up-titrated but had worsening anemia and hematoma after reinitiating Lovenox - Repeat US 12/13: Interval increase in size of previous hematoma (8.9 x 2.2 x 6.2cm) alongside formation of adjacent hematoma (28.2 x 7.5 x 8.2cm). No increase in flow. - Lovenox again reinitiated on 12/15 with 40mg BID -->80mg BID. Hgb stable 8s - Repeat US 12/17 with hematomas stable to minimally enlarged. Hgb stable > 8 - Will titrate Lovenox up to 120mg BID starting tonight - Recheck CBC in AM. Repeat US tomorrow. - Ortho consulted; plan for outpatient f/u in office in 2 weeks Pain Control: Chronic MSK pains, post stroke spasticity, and muscle hematomas - Outpatient pain regimen prior to 11/2021 stroke hospital admission was morphine ER 60mg BID and morphine IR 15 mg q4h prn (rx'd by pain management Dr. Alma Cardozo w/ [facility]). - Regimen adjusted during hospitalization fro stroke 11/17/21 - 11/22/2021 - He was discharged to [facility]hab and per their documentation pain medication regimen consisted of morphine ER 30mg BID and morphine IR 15mg q4h prn - Regimen again adjusted during this hospitalization to include Tylenol 1g TID scheduled (which patient had been refusing). - Trial of morphine ER 45mg po BID and morphine IR 7.5mg q6h prn started on 12/16/21. Per patient and , this was not controlling patient's pain. - Upon extensive chart review and discussion with patient/family, will adjust pain regimen to regimen received while at [facility] (morphine ER 30mg BID + morphine IR 15mg q4h prn). - Patient tolerating this regimen well. Call placed to patient's pain management physician but unfortunately unable to speak with him today. - Recommend patient f/u with pain management in outpatient Acute blood loss anemia - Interval development of anemia on admission in setting of ongoing therapeutic Lovenox use for Factor V Leiden and development of hematoma - Hgb at 15 on discharge in 11/2021 -- on admission, Hgb notably dropped to 7.9 - s/p 1u prbc transfusion 12/10/21 - Continue to monitor Hgb q12h - Transfuse if Hgb < 7 Bacteremia with leukocytosis - BCX returning 3/4 tubes: Coag neg staph (different spp between two cultures) and other Staph - Repeat BCX without growth - ID recommendation - 7 to 14 days of IV Vancomycin from 12/09/21; odd presentation given multiple organisms however high risk for worsening hematoma with concurrent bacteremia - MRSA nares POSITIVE - TTE without valvular pathology - Will continue abx therapy (Vancomycin) until 12/23/21 for a 14 day course (leukocytosis sec to hematoma) Chronic Anticoagulation due to Hx of PE from Factor V Leiden / IVC Filter in Place - IVC filter noted to be in proper position on KUB from previous admission - Follows with Dr. Stanley Robertson at [facility] for this; [phone] - See above re: uptitration of Lovenox in setting of hematoma Acute encephalopathy, resolved AFib with RVR - now in sinus rhythm. Residual Deficits from Recent Ischemic small vs ds CVA -- right hemiparesis, dysarthria - Secondary to recent small vessel ischemic stroke to left thalamus/internal capsule last admission - Residual deficit, no new infarct - ASA 81mgs on hold due to bleed. - crestor on hold - BP controlled. - Continue PT/OT while inpatient - ST recommending continuation of outpatient ST after d/c to address dysarthria and any remaining cognitive deficits from recent CVA; d/c from inpt ST service on 12/09 Cardiac murmur - Noted on exam and is new from last admission - TTE 12/09: LVEF 65-70%. No regional wall motion abnormalities. Mild concentric LVH. No significant valve pathology. Unable to assess for PFO given resolution. No significant change compared to study 11/17/21. Chronic conditions: DM2: A1c from 11/17/21 was above goal at 9.0. Continue SSI. Hypertension: Hold home lisinopril in setting of normotension/borderline hypotension. Resume when appropriate. Tobacco abuse: Has not smoked cigarettes since 11/07/21. Patient noted to be using chewing tobacco during admission. GERD: Continue home PPI. Depression: Continue home Paxil Dispo: Continue on med [employer]. Hopeful for d/c home tomorrow with home health services. Diet: DM2, HH DVT ppx: Lovenox 80mg BID --> increased to 120mg BID as of evening 12/18 Code: Full (2) Acute blood loss anemia: (3) Bacteremia: (4) Atrial fibrillation with RVR: (5) Acute encephalopathy: (6) Leukocytosis: (7) Acute right hemiparesis: (8) Dysarthria due to acute cerebellar cerebrovascular accident (CVA): (9) Presence of IVC filter: (10) Diabetes: (11) Hypertension: (12) Chronic anticoagulation: (13) Murmur, cardiac: (14) Tobacco abuse: (15) GERD (gastroesophageal reflux disease): (16) Depression: Admission and Anticipated Discharge Date Admission Date: December 08, 2021 Supervising Physician Co-Signing Physician Notes Resident Physician Supervision Note: I independently interviewed and examined the patient and verified the prajapati history and physical, reviewed labs and image studies and agree with resident Dr. Hernandez findings and care plan. Subjective Patient seen and evaluated in room this morning. On my arrival to the room, he was sleeping comfortably in bed but easily awoken. Persistent complaint of right leg pain over site of hematoma; rates pain at a 7/10 but states that it is "much better than yesterday." States that he is eating well and sleeping well. Patient denies chest pain, SOB, abd pain, nausea, vomiting, MARIE, lightheadedness, or dizziness. Review of Systems Review of Systems: See HPI Physical Exam 2 Physical Exam: GENERAL: No acute distress. Laying in bed and appears comfortable but complaining of 7/10 pain. Well developed and well nourished. Vital signs reviewed as above. HENT: Moist mucous membranes. RESPIRATORY: Clear to auscultation bilaterally. No wheezing, rales, or rhonchi. CARDIOVASCULAR: Regular rate and rhythm. + murmurs. ABDOMEN: Soft and non-tender. Normal bowel sounds. SKIN: Warm, dry. Large hematoma over right lateral thigh; soft. NEUROLOGIC: A/O x3. No focal neurological deficits. PSYCHIATRIC: Cooperative. Flat affect. Results & Data Results & Data ([facility]) Vital Signs (Past 12 Hours) Vital Signs Temp Pulse Resp BP Pulse Ox 12/18/21 11:11 36.9 C 67 16 102/62 96 12/18/21 07:40 36.8 C 61 18 102/63 98 12/18/21 03:45 36.8 C 72 18 121/64 96 Laboratory Results 12/18/21 12/18/21 12/18/21 Range/Units 16:54 11:36 08:34 WBC (4.8-10.8) K/uL RBC (4.7-6.1) M/uL Hgb (14.0-18.0) g/dL Hct (42-52) % MCV (80-100) fL MCH (25-34) pg MCHC (32-36) g/dL RDW Std Deviation (36.4-46.3) fL RDW Coeff of Osbaldo (11.5-14.5) % Plt Count (130-400) K/uL MPV (7.4-10.4) fL Absolute Nucleated RBC (0-0) K/uL Nucleated RBC % (auto) % Sodium 137 (136-145) mmol/L Potassium 4.2 (3.5-5.1) mmol/L Chloride 107 (98-107) mmol/L Carbon Dioxide 26 (21-32) mmol/L Anion Gap 4 (3-11) BUN 9 (6-23) mg/dl Creatinine 0.61 (0.6-1.4) mg/dl Est Cr Clr Drug Dosing 185.8 ml/min Est GFR ( Amer) 132.1 ml/min Est GFR (Non-Af Amer) 114.0 ml/min BUN/Creatinine Ratio 14.8 (10-20) Glucose 154 H (70-99(Fasting)) mg/dl POC Glucose 96 139 H (70-99) mg/dl Calcium 8.8 (8.5-10.1) mg/dl Vancomycin Trough (10-20) mcg/ml 12/18/21 12/18/21 12/18/21 Range/Units 08:34 08:34 07:37 WBC 13.76 H (4.8-10.8) K/uL RBC 3.29 L (4.7-6.1) M/uL Hgb 8.9 L (14.0-18.0) g/dL Hct 29.3 L (42-52) % MCV 89.1 (80-100) fL MCH 27.1 (25-34) pg MCHC 30.4 L (32-36) g/dL RDW Std Deviation 64.9 H (36.4-46.3) fL RDW Coeff of Osbaldo 20.5 H (11.5-14.5) % Plt Count 361 (130-400) K/uL MPV 10.1 (7.4-10.4) fL Absolute Nucleated RBC 0.15 H (0-0) K/uL Nucleated RBC % (auto) 1.1 % Sodium (136-145) mmol/L Potassium (3.5-5.1) mmol/L Chloride (98-107) mmol/L Carbon Dioxide (21-32) mmol/L Anion Gap (3-11) BUN (6-23) mg/dl Creatinine (0.6-1.4) mg/dl Est Cr Clr Drug Dosing ml/min Est GFR ( Amer) ml/min Est GFR (Non-Af Amer) ml/min BUN/Creatinine Ratio (10-20) Glucose (70-99(Fasting)) mg/dl POC Glucose 134 H (70-99) mg/dl Calcium (8.5-10.1) mg/dl Vancomycin Trough 18.8 (10-20) mcg/ml 12/17/21 Range/Units 20:40 WBC (4.8-10.8) K/uL RBC (4.7-6.1) M/uL Hgb (14.0-18.0) g/dL Hct (42-52) % MCV (80-100) fL MCH (25-34) pg MCHC (32-36) g/dL RDW Std Deviation (36.4-46.3) fL RDW Coeff of Osbaldo (11.5-14.5) % Plt Count (130-400) K/uL MPV (7.4-10.4) fL Absolute Nucleated RBC (0-0) K/uL Nucleated RBC % (auto) % Sodium (136-145) mmol/L Potassium (3.5-5.1) mmol/L Chloride (98-107) mmol/L Carbon Dioxide (21-32) mmol/L Anion Gap (3-11) BUN (6-23) mg/dl Creatinine (0.6-1.4) mg/dl Est Cr Clr Drug Dosing ml/min Est GFR ( Amer) ml/min Est GFR (Non-Af Amer) ml/min BUN/Creatinine Ratio (10-20) Glucose (70-99(Fasting)) mg/dl POC Glucose 143 H (70-99) mg/dl Calcium (8.5-10.1) mg/dl Vancomycin Trough (10-20) mcg/ml Resident Activity Tracking Resident Involvement: Resident Care Provided Care Provided: Adult Hospital Medicine (1) Hypertension Hypertension type: primary hypertension Qualified Code(s): I10 - Essential (primary) hypertension
--- NOTE | 2021-12-18 14:51 | Pharmacy Report ---
Pharmacy Vanc AUC Short Note - Date of Service December 18, 2021 - Assessment & Plan Assessment * Mr Love is a 51 year old M receiving Vancomycin for treatment of bacteremia. * Day #10 of antimicrobial therapy. ID has been consulted and recommends no more than 14 days of therapy (last day 12/22/21). * Vancomycin trough level was obtained today and indicates that current regimen remains appropriate. Plan Vancomycin * AUC/GIOVANNI is the preferred PK/PD target for vancomycin * AUC guided dosing is effective and associated with decreased risk of nephrotoxicity compared to traditional trough targets * Trough level of 18.8 mcg/mL is predicted to achieve target AUC/GIOVANNI of 400-600 mg/L.hr and may be associated with a 13% risk of nephrotoxicity * Continue dose of 1500mg IV every 8 hours * No further levels have been ordered at this time. If patient is to remain on vancomycin beyond 14 days, pharmacy will re-evaluate the need for additional levels. Pharmacy will continue to follow and will adjust dose/frequency as necessary. Thank you.
[2021-12-18] MEDS: ENOXAPARIN INJ 120 MG/0.8 ML SYR SQ SCH (21:44)
[2021-12-19] MEDS: VANCOMYCIN HCL 1,500 MG in SODIUM CHLORIDE 0.9% 500 ML IV SCH ×2 (01:26→08:30)
[2021-12-19] MEDS: MoRPHine SULFATE CR 15 MG TABCR PO SCH (04:28)
[2021-12-19] MEDS: ACETAMINOPHEN 500 MG TAB PO SCH (06:10)
[2021-12-19] MEDS: ENOXAPARIN INJ 120 MG/0.8 ML SYR SQ SCH (08:04)
[2021-12-19] MEDS: PANTOprazole 40 MG TAB PO SCH (08:04)
[2021-12-19] MEDS: LIDOCAINE 5% 1 PATCH TD SCH (08:05)
[2021-12-19] MEDS: SENNA 8.6 MG TAB PO SCH (08:05)
[2021-12-19] MEDS: DICLOFENAC SOD 1% GEL 100 GM TUBE EXT SCH (08:05)
[2021-12-19] MEDS: INSULIN ASPART PER UNIT SC SCH ×2 (08:06→12:39)
[2021-12-19 09:19] LABS: Hematocrit (blood only) 29.1 % (42-52); Hemoglobin 8.9 g/dL (14.0-18.0); Mean Corpuscular Hemoglobin 27.2 pg (25-34); Mean Corpuscular Hgb Conc 30.6 g/dL (32-36); Mean Platelet Volume 10.5 fL (7.4-10.4); Nucleated RBC % (auto) 0.9 %; Platelet Count 397 K/uL (130-400); RDW Coefficient of Variation 20.5 % (11.5-14.5); RDW Standard Deviation 65.8 fL (36.4-46.3); Red Blood Count 3.27 M/uL (4.7-6.1); White Blood Count 12.05 K/uL (4.8-10.8)
[2021-12-19 09:43] LABS: Creatinine Clr Calc Pharmacy 190.5 ml/min; Est GFR (Non-African American) 114.8 ml/min; Potassium 3.8 mmol/L (3.5-5.1)
--- NOTE | 2021-12-19 09:57 | Ultrasound Report ---
RIGHT THIGH ULTRASOUND CLINICAL HISTORY: Reevaluate right thigh hematoma. COMPARISON STUDY: Right thigh ultrasound December 17, 2021. TECHNIQUE: Sonography of the lateral right thigh at site of known hematoma was performed. FINDINGS: Note is again made of a large lateral right thigh complex collection suggestive of a hemato ma. This is similar to ultrasound December 17, 2021. This measures 26 x 8.7 x 9.7 cm. The right calf hemat dayan was not imaged on this examination. IMPRESSION: No significant change in the large lateral right thigh hematoma since ultrasound of December 17, 2021, measuring 26 x 8.7 x 9.7 cm. ACT 112: Negative or not required by law. Electronically signed by: Anastacio Henriquez M.D. 12/19/2021 9:56 AM
--- NOTE | 2021-12-19 11:49 | Discharge Summary ---
Date of Service December 19, 2021 Admission HPI Per Admitting Provider Mr. 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 After his initial CVA, he had residual right sided weakness (LE worse than UE) along with some dysarthria. Of note, his (who provided much of the history) reported two falls at [facility] in the past week. The provider at [facility] ordered a CT of the R hip on 12/07/21 to assess for structural damages - no bony processes noted, although a R iliopsoas muscle hematoma was identified. During this previous admission, Mr. Love had a change in his baseline cognition after his CVA. Repeat head imaging was done, which showed no significant post-stroke cerebral edema. Metabolic work up was also negative. Per , his mentation had been gradually improving at [facility] (his speech was understandable, he was able to follow commands, do simple arithmetic and communicate appropriately), although she felt like it never quite returned to its previously known baseline. Prior to his 11/07/21 admission, he had been taking oral morphine daily for chronic pain. This was stopped during his during previous admission; however it was resumed at [facility] for recurrent R leg pain. His apparent regimen was MS Contin 30mg daily + morphine IR 15mg q4hr prn. He was also taking Baclofen. The etiology of the R leg pain was uncertain. A provider at [facility] thought it may be radicular from the back. L spine XR was obtained 12/06/21 which showed multilevel degenerative changes. He did have a laminectomy procedure in the past. He also had a doppler of the RLE on 12/07/21 which showed a DVT - per , this is not a new finding. He has several vascular risk factors, including a history of HTN (on lisinopril), uncontrolled type II diabetes mellitus (on Jardiance), tobacco use, and factor V Leiden on therapeutic lovenox. Social Hx: Lives at home with and son. Former smoker - has not had tobacco since before 11/17/21 hospital admission. In the ED, his vitals were normal. Blood glucose was 135. His WBC was elevated to 24 with neutrophil predominance. Hgb low at 8.4. Platelets elevated to 435. Lactate not elevated. Procal not elevated. UA not concerning for infection. COVID 19 neg. Blood cultures were drawn. INR 1.2. Na low at 133. Electrolytes otherwise normal. Kidney function normal. AST elevated to 70, ALT normal. High sensitivity trop at 7.8. Hemoccult stool ordered. His non-contrast head CT showed no acute process; expected evolution of the infarct within the posterior limb of the left internal capsule shown on head CT of November 18, 2021. No evidence for hemorrhagic conversion.CT of C-spine showed no acute abnormalities. CXR was normal. EKG showing NSR; LVH with repolarization abnormalities, and ST segment depression in anterior leads. CT of abdomen and pelvis showed no acute abnormalities, intramuscular hematoma of R iliopsoas, and moderate to severe constipation. Admission Exam Per Admitting Provider Constitutional: WD/WN, vitals as above + obese and + altered mental status (repeatedly answers questions as "no" ; grabs at neck) Eyes: PERRL, conjunctivae normal, anicteric sclerae ENMT: external ear and nose normal, oropharynx normal Neck: normal visual inspection and trachea midline Respiratory: normal respiratory effort, lungs clear to auscultation no labored breathing and no cough Cardiovascular: Rate/Rhythm: regular rate and regular rhythm Heart Sounds: normal S1, normal S2 and + murmur (systolic ejection ) Extremities: no pedal edema Gastrointestinal (Abdomen): normal bowel sounds, soft, nontender, no hepatosplenomegaly Musculoskeletal: Head/Neck/Chest: normocephalic and head atraumatic Extremities: + abnormal muscle tone (high on R UE and LE) R thigh is tender to palpation, feels more 'tense' compared to left side Skin: no rashes, warm and dry no ecchymosis Neurologic: awake and + confused Speech / Cognition: + abnormal speech Motor/Sensory: no tremor Psychiatric: Orientation: alert Principal Diagnosis right thigh hematoma with acute blood loss anemia Discharge Exam GENERAL: No acute distress. Well developed and well nourished. Vital signs reviewed. HENT: Moist mucous membranes. RESPIRATORY: Unlabored respirations. Able to speak in full sentences without increased work of breathing. Lungs CTAB w/o wheezing. CARDIOVASCULAR: Regular rate and rhythm. No murmurs. ABDOMEN: Soft, non-tender and non-distended. Normal bowel sounds. SKIN: Warm, dry. PSYCHIATRIC: Cooperative. Appropriate mood and affect. Discharge Data Allergies Allergy/AdvReac Type Severity Reaction Status Date / Time Penicillins Allergy Hives Verified 11/16/21 20:52 Contrast dye Allergy hives, Uncoded 11/16/21 20:52 fast heart rate Consultations 12/08/21 13:43 ED Decision to Admit Stat 12/08/21 16:08 Consult Orthopedic Surgery Routine 12/11/21 09:38 Consult Infectious Diseases Routine Ordered Studies 12/08/21 09:56 CT abd pelvis wo con Stat 12/08/21 09:57 CT head/brain wo con Stat 12/08/21 09:58 CT cervical spine wo con Stat 12/08/21 14:52 MR angio head wo con Stat MR angio neck wo con Stat 12/08/21 15:12 US extremity non-vascular ltd Routine 12/08/21 16:12 MR brain wo con Routine 12/10/21 09:06 US extremity non-vascular ltd Routine 12/12/21 13:00 US extremity non-vascular ltd Routine 12/13/21 10:50 US venous doppler LE RT Routine 12/14/21 12:20 US extremity non-vascular ltd Routine 12/17/21 07:00 US extremity non-vascular ltd Routine 12/19/21 07:00 US extremity non-vascular ltd Routine Hospital Course (1) Iliopsoas muscle hematoma: 51 year old male with PMHx of Factor V Leiden on Lovenox with IVC filter in place, chronic RLE DVT, poorly controlled T2DM, HTN, and long-term tobacco use, and recent admission for CVA w/ speech and R residual deficits who presented from rehab and found to have right iliopsoas hematoma. Mentation and stroke residual deficits w/o new concern. His hospital stay has been complicated by worsening of thigh hematoma and development of calf hematoma when restarting Lovenox. Right Thigh Hematoma - US of RLE (12/08, 12/11) -- 7.2 x 4 x 3 cm intramuscular hematoma within the proximal lateral R thigh, likely within the vastus lateralis. No significant change on repeat. - Lovenox initially restarted and up-titrated but had worsening anemia and hematoma after reinitiating Lovenox - Repeat US 12/13: Interval increase in size of previous hematoma (8.9 x 2.2 x 6.2cm) alongside formation of adjacent hematoma (28.2 x 7.5 x 8.2cm). No increase in flow. - Lovenox again reinitiated on 12/15 with 40mg BID -->80mg BID. Hgb stable 8s - Repeat US 12/17 with hematomas stable to minimally enlarged. Hgb stable > 8 - Lovenox titrated up to 120mg BID starting 12/18. Hgb and US findings stable on day of discharge. - Case discussed with patient's insurance sales producer, Dr. Robertson. OK to f/u as outpatient within 1 week. Patient educated on signs/symptoms of bleeding that would necessitate urgent evaluation. - Recheck CBC in 1 week. - Ortho consulted; plan for outpatient f/u in office in 2 weeks Pain Control: Chronic MSK pains, post stroke spasticity, and muscle hematomas - Outpatient pain regimen prior to 11/2021 stroke hospital admission was morphine ER 60mg BID and morphine IR 15 mg q4h prn (rx'd by pain management Dr. Alma tolentino/ [facility] Bharathi). - Regimen adjusted during hospitalization fro stroke 11/17/21 - 11/22/2021 - He was discharged to [facility] rehab and per their documentation pain medication regimen consisted of morphine ER 30mg BID and morphine IR 15mg q4h prn - Regimen again adjusted during this hospitalization to include Tylenol 1g TID scheduled (which patient had been refusing). - Trial of morphine ER 45mg po BID and morphine IR 7.5mg q6h prn started on 12/16/21. Per patient and , this was not controlling patient's pain. - Upon extensive chart review and discussion with patient/family, will adjust pain regimen to regimen received while at [facility] (morphine ER 30mg BID + morphine IR 15mg q4h prn). - Patient tolerating this regimen well. Call placed to patient's pain management physician but wasn't able to connect. - Recommend patient f/u with pain management in outpatient Acute blood loss anemia - Interval development of anemia on admission in setting of ongoing therapeutic Lovenox use for Factor V Leiden and development of hematoma - Hgb at 15 on discharge in 11/2021 -- on admission, Hgb notably dropped to 7.9 - s/p 1u prbc transfusion 12/10/21 Bacteremia with leukocytosis - BCX returning 09/21 tubes: Coag neg staph (different spp between two cultures) and other Staph - Repeat BCX without growth - ID recommendation - 7 to 14 days of IV Vancomycin from 12/09/21; odd presentation given multiple organisms however high risk for worsening hematoma with concurrent bacteremia. Completed course of vancomycin on 12/19 (10 day course) - MRSA nares POSITIVE - TTE without valvular pathology Chronic Anticoagulation due to Hx of PE from Factor V Leiden / IVC Filter in Place - IVC filter noted to be in proper position on KUB from previous admission - Follows with Dr. Stanley Robertson at [facility] for this; [phone] (see above) - See above re: uptitration of Lovenox in setting of hematoma Acute encephalopathy, resolved AFib with RVR - now in sinus rhythm. Residual Deficits from Recent Ischemic CVA -- right hemiparesis, dysarthria - Secondary to recent small vessel ischemic stroke to left thalamus/internal capsule last admission - ASA 81mgs on hold due to bleed. - crestor was on hold; restarted on discharge - BP controlled. - Received PT/OT while inpatient - ST recommending continuation of outpatient ST after d/c to address dysarthria and any remaining cognitive deficits from recent CVA; d/c from inpt ST service on 12/09 Cardiac murmur - Noted on exam and is new from last admission - TTE 12/09: LVEF 65-70%. No regional wall motion abnormalities. Mild concentric LVH. No significant valve pathology. Unable to assess for PFO given resolution. No significant change compared to study 11/17/21. Chronic conditions: DM2: A1c from 11/17/21 was above goal at 9.0. SSI while inpatient. Hypertension: Hold home lisinopril in setting of normotension/borderline hypotension. Resume when appropriate with f/u as outpatient. Tobacco abuse: Has not smoked cigarettes since 11/07/21. Patient noted to be using chewing tobacco during admission. GERD: Continue home PPI. Depression: Continue home Paxil Dispo: d/c home with home health services. Code: Full Total Time Total Time Spent Total Time Spent (In Minutes): See attending attestation Discharge Plan Discharge Items Patient Disposition: Home - Home Health Services Reason For Visit: TIA SYMPTOMS Discharge Diagnosis: right thigh hematoma with acute blood loss anemia Activity: Per Instructions section Non-emergency contact: Primary Care Provider and Specialist Call non-emergency contact if: you have any medication questions, your symptoms worsen, your pain is worsening, your pain is unusual for you and you have a fever Follow-up/Referrals: Erik Reed MD [Primary Care Provider] - (PLEASE SCHEDULE A DISCHARGE FOLLOW-UP APPOINTMENT WITH YOUR PRIMARY CARE PROVIDER WITHIN 7-10 DAYS. ) Diet: Carb Consistent or DM2 and Heart Healthy Addtl Attending Provider Instructions: You were seen in [facility] for evaluation of confusion. Upon arrival here, you underwent extensive evaluation to determine the cause of your symptoms. Throughout your work-up, you were found to have evidence of blood loss due to your recent fall (which resulted in formation of a hematomacollection of bloodin your right thigh) as well as a bloodstream infection. Thankfully, there was no evidence of a new stroke. In treating your blood loss and infection, you demonstrated progressive improvements in your mentation. Also during your hospital course, we had extensive discussions regarding your Lovenox therapy for factor V Leiden in the context of blood loss/formation of your hematoma. Your Lovenox was initially held to slow down the bleeding. You were slowly brought back onto Lovenox to prevent clotting in the context of your factor V Leiden; however, as a complication of this, you did unfortunately develop formation of a new hematoma and growth of your previous hematoma. We engaged in serial exams and serial imaging (ultrasounds) to ensure no complications were developing as a result of these hematomas. The orthopedic doctors also saw you to provide their input too. We also worked to develop a good pain control regimen for you. Continue LOVENOX 120MG SUBQ TWICE DAILY. For pain control, continue MORPHINE ER 30 MG EVERY 12 HOURS and MORPHINE IMMEDIATE RELEASE 15 MG EVERY 4 HOURS NEEDED FOR PAIN. One week Prescriptions have been sent. Please follow up with Dr. Cardozo or your primary care physician for refills. It is important that you follow up with your insurance sales producer, Dr. Robertson, within 1 week. You also need to follow up with your primary care doctor within 1 week. At this visit, please review the medication changes above. In the interim, if you experience any worsening confusion, lightheadedness, dizziness, significant increases in pain within your leg, chest pain, palpitations, shortness of breath, inability to move a certain part of your body in a way that is new, or other worrisome symptoms, please seek medical attention ; if your symptoms are severe, please report to the ER immediately for evaluation. Is a pleasure for caring for you while here, we wish you all the best in your recovery. Pending Studies at Discharge: No Stand-Alone Forms: [facility], Smoking Cessation Medications and DC Order Prescriptions: New acetaminophen [Tylenol Extra Strength] 500 mg Tablet 1,000 mg PO Q8 30 Days Qty: 180 RF: 0 morphine 30 mg tablet extended release 30 mg PO Q12H Qty: 14 RF: 0 morphine 15 mg tablet 15 mg PO Q4H PRN (Reason: pain) Qty: 20 RF: 0 Continued pantoprazole 40 mg tablet,delayed release (DR/EC) 40 mg PO BID RF: 0 Jardiance 25 mg tablet 25 mg PO DAILY RF: 0 lisinopril [Zestril] 5 mg Tablet 5 mg PO QAM 30 Days Qty: 30 RF: 0 rosuvastatin [Crestor] 20 mg Tablet 40 mg PO QAM 30 Days Qty: 60 RF: 0 paroxetine HCl 20 mg tablet 20 mg PO DAILY 30 Days Qty: 0 RF: 0 enoxaparin 150 mg/mL syringe 120 mg subcut BID 30 Days Qty: 0 RF: 0 Discontinued morphine 60 mg tablet extended release 60 mg PO DAILY RF: 0 Discharge Orders: Discharge Order (Routine); Ordered 12/19/21 Ordered By: Ileana Hernandez Admission Data Admit Date/Time: 12/08/21 14:25 Attending Provider: Kristina Gore Admit Provider: Angie Starks Primary Care Provider: Erik Reed Other Providers: Hattie Larsen ; Ricardo Hylton ; [facility] ; Demetri Beasley ; Branden Foss ; Kin Robert I. ; Abran Solitario II ; Beatriz Campa ; John Smith ; Chung Hannah ; Jeffry Garcia Other Interventions: Discharge Summary Assessment (RN) Last Done: 12/19/21 12:41 Supervising Physician Co-Signing Physician Notes Resident Physician Supervision Note: I independently interviewed and examined the patient and verified the prajapati history and physical, reviewed labs and image studies and agree with resident Dr. Hernandez findings and care plan. Resident Activity Tracking Resident Involvement: Resident Care Provided Care Provided: Adult Hospital Medicine
[2021-12-19] MEDS: MoRPHine SULFATE IR 15 MG TAB (IMMEDIATE RELEASE) PO PRN (13:15)
[2021-12-22 00:26] LABS: Factor 5 Mutation NEGATIVE
== END 2021-12-19 14:34 | disposition home health service (06) | DRG 604 ==
LOC: ED 09:45 → SUATTDRO 14:25 → EDINP 14:25 → 2N 19:29